=== PATIENT | male | born 1965 | race Caucasian/White ===

== ENCOUNTER 2019-09-01 19:06 | Emergency (ER) | payer BC ==
[2019-09-01 19:21] VITALS: BP 148/92; PULSE 124
[2019-09-01] MEDS ORDERED: Lactated Ringers 1,000 ML IV ONE (20:29)
[2019-09-01] MEDS ORDERED: cefTRIAXone 1 GM in Sodium Chloride 0.9% 100 ML IV STA (20:30)
--- NOTE | 2019-09-01 20:36 | EDM.PDOC ---
ED HPI GENERAL MEDICAL PROBLEM - General Chief Complaint: Genitourinary Problem Stated Complaint: SENT BY [facility] - UTI Time Seen by Provider: 09/01/19 19:31 Source of Information: Reports: Patient History Limitations: Reports: No Limitations - History of Present Illness INITIAL COMMENTS - FREE TEXT/NARRATIVE: Mr. Bruner is a very pleasant 54-year-old man with a past medical history significant for diabetes, obstructive sleep apnea, a pulmonary embolus in 2017, for which he is still on Eliquis, ulcerative colitis, status post a total colectomy with ileostomy, kidney stones, and chronic low back pain for which he takes oxycodone, and for which he is due to have nerve ablation soon. He presents to the ED stating that he developed gross hematuria along with pain at the tip of his penis whenever he urinated this past 08/29/2019. His symptoms persisted through yesterday, 08/31/2019. He states that his symptoms seem to improve a bit today noting that his urine is still bloody, but not as severe, and he has less penile pain. He has not had a fever, and he denies having flank pain, although he states that his current symptoms are similar to when he had a kidney stone in the past. At that time, he had slight flank pain. The patient went to the walk-in clinic this afternoon to get evaluated. A CBC, CMP, and urinalysis by clean catch were performed, and the patient was told that he has pyelonephritis. He states that no medications were given, but that he was instructed to come here for treatment. Paperwork from the walk-in clinic indicates that his CBC is remarkable for a WBC count elevated at 16.2 with no left shift, and platelets mildly elevated at 404,000. The remainder of his CBC was unremarkable. His CMP is remarkable for a sodium slightly depressed at 133, but with a blood glucose elevated at 414; his sodium corrects to 137. His BUN was normal at 17, with a creatinine elevated at 1.50. The remainder of his CMP was unremarkable. His urinalysis was notable for turbid appearance, >500 mg/dl glucose, 15 mg/dl ketones, >300 mg/dl protein, 3+ occult blood with >30 RBCs, 1+ leukocyte esterase with >50 WBCs, nitrate positive with 0-10 bacteria, and negative screen with epithelial cells. A urine culture was ordered. The patient acknowledges that he does not take good care of himself. He checks his blood sugar only once or twice a month, most recently about 3 weeks ago. His normal blood glucose range is between 300 and 400, and his Hgb A1c was 14% about one month ago. He is prescribed 2 different types of insulin, but states that he hasn't taken any for about 2 weeks. He has been hospitalized once before for hyperglycemia, but he states that he has never been diagnosed with DKA, to his knowledge. The patient's PCP is Dr. Seymour Mahmood. His Social Insurance Specialist is Dr. Glen Wylie. Perineal Area Pain Score (Numeric/FACES): 5 - Related Data Allergies Allergy/AdvReac Type Severity Reaction Status Date / Time aspartame Allergy Vomiting Verified 09/01/19 19:20 Home Meds: Home Meds Albuterol [Ventolin HFA] 2 puff INH Q6H PRN 08/07/16 [History] Ascorbate Calcium [Vitamin C] 500 mg PO DAILY PRN 08/07/16 [History] Calcium/Magnesium/Vit D3 [Calcium 500 MG] 3 tab PO DAILY PRN 08/07/16 [History] Chlorthalidone 12.5 mg PO DAILY 08/07/16 [History] Diltiazem [Cardizem CD] 240 mg PO DAILY 08/07/16 [History] Insulin Aspart [NovoLOG] 10 unit SQ TID 08/07/16 [History] Loratadine [Claritin] 10 mg PO DAILY PRN 08/07/16 [History] Losartan [Cozaar] 100 mg PO DAILY 08/07/16 [History] Pantoprazole [ProTONIX] 40 mg PO DAILY 08/07/16 [History] Simvastatin [Zocor] 40 mg PO BEDTIME 08/07/16 [History] Triceba. 60 units SQ DAILY 08/07/16 [History] Ubidecarenone [Co Q-10] 100 mg PO DAILY PRN 08/07/16 [History] Apixaban [Eliquis] 5 mg PO BID #60 tablet 08/10/16 [Rx] Potassium Chloride [Klor-Con M20] 20 meq PO DAILY #30 tab.er 08/10/16 [Rx] Nitrofurantoin Monohyd/M-Cryst [Macrobid 100 mg Capsule] 1 cap PO Q12H #10 capsule 09/01/19 [Rx] Past Medical History HEENT History: Reports: Impaired Vision Cardiovascular History: Reports: High Cholesterol, Hypertension Respiratory History: Reports: PE (2017), Sleep Apnea (nightly CPAP 14) Gastrointestinal History: Reports: GERD, Inflammatory Bowel Disease (Ulcerative colitis, status post total colectomy 2014) Genitourinary History: Reports: BPH (untreated), Renal Calculus Musculoskeletal History: Reports: Back Pain, Chronic Endocrine/Metabolic History: Reports: Diabetes, Type II, Obesity/BMI 30+ - Infectious Disease History Infectious Disease History: Reports: Chicken Pox, Measles, Mumps - Past Surgical History GI Surgical History: Reports: Colon (Total colectomy with ileostomy 2014), Colonoscopy (x 2), EGD (x 1) Musculoskeletal Surgical History: Reports: Shoulder Surgery (right, open) Social & Family History - Family History Endocrine/Metabolic: Reports: Diabetes, type II Hematologic: Reports: Other (See Below) Other Hematologic Family History: Protein S deficiency - Tobacco Use Smoking Status *Q: Never Smoker - Caffeine Use Caffeine Use: Reports: Other Other Caffeine Use: Rhino Espitia drinks----drinks them occasionally - Alcohol Use Alcohol Use History: Yes Alcohol Use Frequency: Rarely - Recreational Drug Use Recreational Drug Use: No - Living Situation & Occupation Living situation: Reports: , Alone Occupation: Employed ([employer]) ED ROS GENERAL - Review of Systems Review Of Systems: Comprehensive ROS is negative, except as noted in HPI. ED EXAM, RENAL/ - Physical Exam Exam: See Below Exam Limited By: No Limitations General Appearance: Alert, WD/WN, No Apparent Distress Eye Exam: Bilateral Eye: EOMI, Normal Inspection Ears: Normal External Exam, Hearing Grossly Normal Nose: Normal Inspection Throat/Mouth: Normal Inspection, Normal Lips, Normal Voice, No Airway Compromise Head: Atraumatic, Normocephalic Neck: Normal Inspection, Full Range of Motion Respiratory/Chest: No Respiratory Distress, Lungs Clear, Normal Breath Sounds, No Accessory Muscle Use Cardiovascular: Normal Peripheral Pulses, No Edema, No Gallop, No JVD, No Murmur , No Rub, Tachycardia (regular) GI/Abdominal: Normal Bowel Sounds, Soft, No Organomegaly, No Distention, No Abnormal Bruit, No Mass, Tender (Slight, suprapubic only. Nontender elsewhere.) , Other (Para-umbilical ileostomy bag) (Male) Exam: Deferred Rectal (Males) Exam: Deferred Back Exam: Normal Inspection, Full Range of Motion. No: CVA Tenderness (L), CVA Tenderness (R) Extremities: Normal Inspection, Normal Range of Motion, No Pedal Edema, Normal Capillary Refill Neurological: Alert, Oriented, Normal Cognition, No Motor/Sensory Deficits Psychiatric: Normal Affect Skin Exam: Warm, Dry, Intact, Normal Color, No Rash Course - Vital Signs Last Recorded V/S: Last Vital Signs Temp 37.4 C 09/01/19 19:14 Pulse 124 H 09/01/19 19:14 Resp 20 09/01/19 19:14 BP 148/92 H 09/01/19 19:14 Pulse Ox 98 09/01/19 19:14 - Orders/Labs/Meds Orders: Active Orders 24 hr Category Date Time Status Abdomen Pelvis wo Cont [CT] Stat Exams 09/01/19 20:28 Taken Labs: Laboratory Tests 09/01/19 09/01/19 Range/Units 19:30 19:30 Magnesium 1.7 L (1.8-2.4) mg/dl Ketones 1.55 (0.0-0.3) mM Meds: Medications Discontinued Medications Generic Name Dose Route Start Last Admin Trade Name Guero PRN Reason Stop Dose Admin Ceftriaxone Sodium 1 gm/ 100 mls @ 200 mls/hr 09/01/19 20:30 09/01/19 20:42 Sodium Chloride IV 09/01/19 20:59 200 mls/hr ONETIME STA Administration Lactated Ringer's 1,000 mls @ 999 mls/hr 09/01/19 20:29 09/01/19 21:18 Ringers, Lactated IV 09/01/19 21:29 999 mls/hr .BOLUS ONE Administration - Re-Assessments/Exams Free Text/Narrative Re-Assessment/Exam: 09/01/19 20:31 The patient was sent over from the walk-in clinic for treatment for pyelonephritis, however, on evaluation, I don't think that he has pyelonephritis ; his urine is consistent with a UTI, but he does not have a fever or history of flank pain, and he does not have CVA tenderness on percussion. I am more concerned about his hyperglycemia. We already have a CBC and CMP from the walk- in clinic and I have ordered a magnesium level and a serum ketone level, to evaluate for DKA. I have also ordered a CT of his abdomen and pelvis without contrast to make sure that he does not have a kidney stone, noting that his current symptoms are similar to when he had a kidney stone in the past. In the meantime, the patient will be treated with 1 g of IV Rocephin, to treat his UTI , and IV fluid. I suspect that the patient is suffering from significant depression and grief following the loss of his . He immediately teared up when he explained that she about a year ago. His lack of attention to his diabetes suggests that he may have lost the will to live. 09/01/19 21:33 The patient's magnesium is slightly depressed at 1.7. His ketones are within normal limits at 1.55. 09/01/19 22:21 CT of the abdomen and pelvis without contrast is read by [facility] as: 1. Enlarged prostate gland. 2. Diffuse urinary bladder wall thickening most likely secondary to a degree of bladder outlet obstruction. Cystitis should also be in the differential. Please correlate with urinalysis. And symptomatology. [sic] 3. Mild hydronephrosis of the right kidney most likely secondary to the urinary bladder wall thickening. This is a new finding since the patient's prior study dated 03/13/2016 [sic] 4. Status post partial sigmoid resection with right lower quadrant colostomy noted. This is associated with a small parastomal hernia containing a loop of small bowel. This has remained stable since the prior study [sic] 5. 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 09/01/19 22:43 Test results discussed with the patient. As above, there is no evidence of a ureterolith. The patient appears to have cystitis, but there is no evidence for pyelonephritis. I strongly encouraged the patient to come into the hospital so that we can get his blood glucose under control, and to have him consulted by a coding educator, however, the patient declined. I will submit a prescription for nitrofurantoin, for the patient to complete a five-day course, I would like the patient to follow-up with his PCP in a few days if for no other recent and to check on his urine culture results from the walk-in clinic. He said that he would. Departure - Departure Time of Disposition: 22:46 Disposition: Home, Self-Care 01 Condition: Good Clinical Impression: UTI (urinary tract infection), Hyperglycemia due to type 2 diabetes mellitus - Discharge Information *PRESCRIPTION DRUG MONITORING PROGRAM REVIEWED*: Not Applicable *COPY OF PRESCRIPTION DRUG MONITORING REPORT IN PATIENT DARIAN: Not Applicable Prescriptions: Nitrofurantoin Monohyd/M-Cryst [Macrobid 100 mg Capsule] 1 cap PO Q12H #10 capsule Instructions: Urinary Tract Infection, Adult, [id number], Hyperglycemia, Easy -to-Read Referrals: Seymour Mahmood Jr, MD [Primary Care Provider] - Glen Wylie MD [Ordering Only Provider] - Forms: ED Department Discharge Additional Instructions: You were seen in the emergency room after being sent over from the walk-in clinic for possible pyelonephritis. Workup in the ER included additional blood work and a CT scan of your abdomen and pelvis without contrast. Based on your history, physical exam, walk-in clinic tests, and ER tests, you are suffering from a urinary tract infection and uncontrolled high blood sugar, but you do not have pyelonephritis. You were treated with IV fluid and the antibiotic Rocephin in the ER. A prescription for the antibiotic nitrofurantoin (Macrobid) has been sent to the [facility], located just south and across the [address] from [facility]. Take one tablet of nitrofurantoin every 12 hours, starting tomorrow morning, 09/02/2019, as prescribed. It is very important that you finish the entire 5-day course of nitrofurantoin unless told otherwise by your doctor. Stay adequately hydrated. We recommend that you check your blood sugar twice a day, and resume taking your usual insulins. We recommend that you follow-up with your PCP, Dr. Seymour Mahmood, on , 08/2019, to check on your urine culture results, to make sure that you are on the correct antibiotic. In addition, you need to discuss your hyperglycemia/ diabetes. If any other problems, please do not hesitate to return to the ER. - My Orders Last 24 Hours: My Active Orders 09/01/19 20:28 Abdomen Pelvis wo Cont [CT] Stat - Assessment/Plan Last 24 Hours: My Active Orders 09/01/19 20:28 Abdomen Pelvis wo Cont [CT] Stat
--- NOTE | 2019-09-02 08:57 | CT ---
CT abdomen and pelvis Technique: Multiple axial sections were obtained from above the dome of the diaphragm inferiorly through the pubic symphysis. Intravenous and oral contrast not utilized. Study performed as a ureteral stone protocol. Comparison: Prior renal stone CT exam of 03/13/16. Findings: Visualized lung bases show nothing acute. Liver contains no focal abnormality. Spleen appears within normal limits as seen. Adrenal glands show no nodule. Gallbladder contains no calcified gallstones. Aorta shows no aneurysm. No retroperitoneal adenopathy is seen. Ostomy identified within the right lower abdomen. Parastomal hernia is seen containing a loop of small bowel. This is an interval change from previous exam. Small anterior abdominal wall hernia is seen next to the stoma. Kidneys show no abnormal calcifications. Left ureter is mildly prominent but no obstructing ureteral calculi are seen. Bladder wall is somewhat thickened. No calculi within the bladder are noted. No free fluid or inflammatory change is appreciated. Incidental note of inferior vena cava is duplicated as a normal variant. Bone window settings were reviewed which show disc space narrowing at L5-S1. Anterior osteophytes are seen primarily off of L4. Impression: 1. Findings which are felt to be incidental as noted above. 2. Bladder wall thickening most likely relating to an element of bladder outlet obstruction but please exclude patient as having no symptoms of cystitis. 3. Nothing acute is otherwise seen. Diagnostic code #2 This report was dictated in [place] Standard Time I agree with preliminary report from [facility], finalized on 09/01/19, 11:18 PM Central Time
== END 2019-09-01 23:07 | disposition home or self-care (01) ==
LOC: JD.ED 19:06
DX: N39.0 Urinary tract infection, site not specified (principal); E11.65 Type 2 diabetes mellitus with hyperglycemia; E78.00 Pure hypercholesterolemia, unspecified; I10 Essential (primary) hypertension; G47.30 Sleep apnea, unspecified; K21.9 Gastro-esophageal reflux disease without esophagitis; G89.29 Other chronic pain; M54.5 Low back pain; E66.9 Obesity, unspecified; Z68.32 Body mass index [BMI] 32.0-32.9, adult; Z86.711 Personal history of pulmonary embolism; Z79.01 Long term (current) use of anticoagulants; Z88.8 Allergy status to other drugs, medicaments and biological substances; Z79.899 Other long term (current) drug therapy; Z79.4 Long term (current) use of insulin
CPT/HCPCS: 36415; 74176; 82009; 83735; 96361; 96365; 99284; J0696; J7050; J7120; 99283

== ENCOUNTER 2020-12-18 11:38 | Inpatient (IN) | payer BC ==
[2020-12-18] MEDS ORDERED: Sodium Chloride 0.9% 10 ML Syringe FLUSH PRN (11:52)
[2020-12-18] MEDS ORDERED: Ondansetron 4 MG/2 ML SDV IVPUSH ONE (12:04)
[2020-12-18] MEDS ORDERED: Sodium Chloride 0.9% 1,000 ML IV STA (12:04)
[2020-12-18] MEDS ORDERED: HYDROmorphone 0.5 MG/0.5 ML Syringe IVPUSH ONE (12:04)
--- NOTE | 2020-12-18 12:24 | EDM.PDOC ---
ED HPI GENERAL MEDICAL PROBLEM - General Chief Complaint: Abdominal Pain Stated Complaint: ABDOMINAL PAIN Time Seen by Provider: 12/18/20 11:52 Source of Information: Reports: Patient, RN Notes Reviewed History Limitations: Reports: No Limitations - History of Present Illness INITIAL COMMENTS - FREE TEXT/NARRATIVE: Patient is a 55-year-old male presenting to the emergency department with complaints of abdominal pain, nausea and vomiting, and decreased output from his ostomy. Pain began last evening. He did not begin vomiting until this morning. He states that upon waking today, he vomited up what he ate for dinner last evening. He states that since last evening, he is only had a small amount of clear fluid out of his ostomy site. He has had no fecal matter in his bag. He has had an ostomy since 2013 due to ulcerative colitis. Denies any history of bowel obstructions. He does state that his abdomen is more distended than normal. Denies any fever but has felt chilled. He has taken nothing for pain. Vital signs on triage show hypertension at 189/106. Remaining vital signs are normal. Pulse 89, temperature 98.2, respiratory 16, oxygen 98% on room air. Middle Abdominal Pain Score (Numeric/FACES): 8 - Related Data Allergies Allergy/AdvReac Type Severity Reaction Status Date / Time aspartame Allergy Vomiting Verified 12/18/20 11:48 Home Meds: Home Meds Chlorthalidone 12.5 mg PO DAILY 08/07/16 [History] Insulin Aspart [NovoLOG] 10 unit SQ TID 08/07/16 [History] Losartan [Cozaar] 100 mg PO DAILY 08/07/16 [History] Simvastatin [Zocor] 40 mg PO BEDTIME 08/07/16 [History] Triceba. 42 units SQ DAILY 08/07/16 [History] oxyCODONE 5 mg PO 12/18/20 [History] Past Medical History HEENT History: Reports: Impaired Vision Cardiovascular History: Reports: High Cholesterol, Hypertension Respiratory History: Reports: PE, Sleep Apnea Other Respiratory History: ARDS Gastrointestinal History: Reports: GERD, Inflammatory Bowel Disease Other Gastrointestinal History: Ulcerative colitis Genitourinary History: Reports: BPH, Renal Calculus Musculoskeletal History: Reports: Back Pain, Chronic Other Musculoskeletal History: sore joints Endocrine/Metabolic History: Reports: Diabetes, Type II, Obesity/BMI 30+ - Infectious Disease History Infectious Disease History: Reports: Chicken Pox, Measles, Mumps - Past Surgical History GI Surgical History: Reports: Colon, Colonoscopy, EGD Other GI Surgeries/Procedures: ileostomy Musculoskeletal Surgical History: Reports: Shoulder Surgery Social & Family History - Family History Endocrine/Metabolic: Reports: Diabetes, type II Hematologic: Reports: Other (See Below) Other Hematologic Family History: Protein S deficiency - Tobacco Use Tobacco Use Status *Q: Never Tobacco User - Caffeine Use Caffeine Use: Reports: Other Other Caffeine Use: Rhino Espitia drinks----drinks them occasionally - Recreational Drug Use Recreational Drug Use: No - Living Situation & Occupation Living situation: Reports: , Alone Occupation: Employed ([employer]) ED ROS GENERAL - Review of Systems Review Of Systems: See Below Constitutional: Reports: Chills, Decreased Appetite. Denies: Fever HEENT: Reports: No Symptoms Respiratory: Reports: No Symptoms Cardiovascular: Reports: No Symptoms GI/Abdominal: Reports: Abdominal Pain, Nausea, Vomiting, Other (Decreased output from ostomy) : Reports: No Symptoms Musculoskeletal: Reports: No Symptoms Skin: Reports: No Symptoms Neurological: Reports: No Symptoms Psychiatric: Reports: No Symptoms Hematologic/Lymphatic: Reports: No Symptoms Immunologic: Reports: No Symptoms ED EXAM, GI/ABD - Physical Exam Exam: See Below Exam Limited By: No Limitations General Appearance: Alert, WD/WN, No Apparent Distress Respiratory/Chest: No Respiratory Distress, Lungs Clear, Normal Breath Sounds, No Accessory Muscle Use, Chest Non-Tender Cardiovascular: Normal Peripheral Pulses, Regular Rate, Rhythm, No Edema, No Gallop, No JVD, No Murmur, No Rub GI/Abdominal Exam: No Organomegaly, No Abnormal Bruit, No Mass, Pelvis Stable, Distended, Tender (generlized throughout), Abnormal Bowel Sounds (hypoactive throughout), Hernia (Peristomal hernia right lower quadrant), Other (ostomy to RLQ. Small amount of clear fluid in the ostomy bag.). No: Guarding Neurological: Alert, Oriented, CN II-XII Intact, Normal Cognition, Normal Gait, Normal Reflexes, No Motor/Sensory Deficits Psychiatric: Normal Affect, Normal Mood Skin Exam: Warm, Dry, Intact, Normal Color, No Rash Course - Vital Signs Last Recorded V/S: Last Vital Signs Temp 96.9 F 12/18/20 20:15 Pulse 105 H 12/18/20 20:15 Resp 20 03/27/21 20:15 BP 142/83 H 12/18/20 20:15 Pulse Ox 97 12/18/20 20:15 - Orders/Labs/Meds Orders: Active Orders 24 hr Category Date Time Status Patient Status [ADT] Routine ADT 12/18/20 19:04 Active Activity as Tolerated [RC] .Routine Care 12/18/20 19:04 Active Antiembolic Devices [RC] PER UNIT ROUTINE Care 12/18/20 19:05 Active Blood Glucose Check, Bedside [RC] ONETIME Care 12/18/20 18:30 Active Communication Order [RC] ASDIRECTED Care 12/18/20 19:10 Active Communication Order [RC] ROUTINE Care 12/18/20 18:31 Active Cooling Warming Measures [RC] ASDIRECTED Care 12/18/20 18:30 Active Gastrointestinal Tube Mgmt [RC] ASDIRECTED Care 12/18/20 19:07 Active Insert Urinary Catheter [OM.PC] Stat Care 12/18/20 19:07 Ordered Notify Provider [RC] ASDIRECTED Care 12/18/20 18:31 Active Oxygen Therapy [RC] ASDIRECTED Care 12/18/20 18:30 Active Oxygen Therapy [RC] PRN Care 12/18/20 19:04 Active Peripheral IV Care [RC] . DIRECTED Care 12/18/20 11:52 Active Pulse Oximetry [RC] ASDIRECTED Care 12/18/20 18:30 Active RT Incentive Spirometry [RC] Q1HWA Care 12/18/20 19:04 Active Urinary Catheter Assessment [RC] ASDIRECTED Care 12/18/20 19:07 Active Vital Signs [RC] Q15M Care 12/18/20 18:30 Active Vital Signs [RC] Q15M Care 12/18/20 19:04 Active Vital Signs [RC] Q4H Care 12/18/20 19:04 Active Nothing Per Oral Diet [DIET] Diet 12/18/20 Breakfast Active Abdomen Pelvis w Cont [CT] Stat Exams 12/18/20 12:04 Taken BASIC METABOLIC PANEL,BMP [CHEM] AM Lab 12/19/20 05:11 Ordered CBC WITH AUTO DIFF [HEME] AM Lab 12/19/20 05:11 Ordered CULTURE BLOOD [BC] Stat Lab 12/18/20 15:06 Received CULTURE BLOOD [BC] Stat Lab 12/18/20 15:14 Received HYDROmorphone [Dilaudid] Med 12/18/20 18:31 Active 0.5 mg IVPUSH Q1H PRN HYDROmorphone [Dilaudid] Med 12/18/20 19:09 Active 1 mg IVPUSH Q2H PRN Insulin Regular, Human [HumuLIN R] 100 unit Med 12/18/20 19:15 Active Sodium Chloride 0.9% [Normal Saline] 99 ml IV TITRATE Labetalol [Normodyne] Med 12/18/20 19:16 Active 5 mg IVPUSH ONETIME PRN Lactated Ringers [Ringers, Lactated] 1,000 ml Med 12/18/20 19:15 Active IV ASDIRECTED Piperacillin/Tazobactam [Piperacil-Tazobact] 4.5 gm Med 12/18/20 19:15 Active Sodium Chloride 0.9% [Normal Saline] 100 ml IV Q8H Sodium Chloride 0.9% [Normal Saline] 1,000 ml Med 12/18/20 12:04 Active IV NOW Sodium Chloride 0.9% [Saline Flush] [facility] 12/18/20 11:52 Active 10 ml FLUSH ASDIRECTED PRN Sodium Chloride 0.9% [Saline Flush] [facility] 12/18/20 13:35 Active 10 ml FLUSH BOLUS fentaNYL [Sublimaze] [facility] 12/18/20 18:31 Active 50 mcg IVPUSH Q5M PRN Blood Culture x2 Reflex Set [OM.PC] Stat Ot 12/18/20 14:52 Ordered Bulb Suction [OM.PC] Routine Ot 12/18/20 19:07 Ordered Peripheral IV Insertion Adult [OM.PC] Stat Ot 12/18/20 11:52 Ordered Schedule Procedure [COMM] Routine Ot 12/18/20 15:31 Ordered Schedule Procedure [COMM] Stat Ot 12/18/20 15:18 Ordered Sequential Compression Device [OM.PC] Routine Ot 12/18/20 19:04 Ordered Resuscitation Status Routine Resus Stat 12/18/20 19:04 Ordered Medication Orders Enoxaparin Sodium (Enoxaparin 40 Mg/0.4 Ml Syringe) 40 mg SUBCUT Q12H PHILLIP Last Admin: 12/18/20 20:41 Dose: 40 mg Documented by: ANTON Fentanyl (Fentanyl 100 Mcg/2 Ml Sdv) 50 mcg IVPUSH Q5M PRN PRN Reason: Pain Last Admin: 12/18/20 19:39 Dose: 50 mcg Documented by: ALUIVAL Hydromorphone HCl (Hydromorphone 0.5 Mg/0.5 Ml Syringe) 0.5 mg IVPUSH Q1H PRN PRN Reason: Pain Last Admin: 12/18/20 19:20 Dose: 0.5 mg Documented by: ALUIVAL Hydromorphone HCl (Hydromorphone 1 Mg/Ml Syringe) 1 mg IVPUSH Q2H PRN PRN Reason: Pain Sodium Chloride (Normal Saline) 1,000 mls @ 100 mls/hr IV NOW STA Stop: 12/18/20 22:03 Last Admin: 12/18/20 12:17 Dose: 100 mls/hr Documented by: SHAHZAD Lactated Ringer's (Ringers, Lactated) 1,000 mls @ 150 mls/hr IV ASDIRECTED PHILLIP Last Admin: 12/18/20 20:28 Dose: 150 mls/hr Documented by: ANTON Piperacillin Sod/Tazobactam (Sod 4.5 gm/ Sodium Chloride) 100 mls @ 25 mls/hr IV Q8H PHILLIP Last Admin: 12/18/20 20:28 Dose: 25 mls/hr Documented by: ANTON Insulin Human Regular 100 unit (/ Sodium Chloride) 100 mls @ 13.154 mls/hr IV TITRATE PHILLIP; Protocol Last Titration: 12/18/20 21:25 Dose: 0.02 units/kg/hr, 3 mls/hr Documented by: ANTON Cosigned by: HERMMIC Titration: 12/18/20 20:36 Dose: 0.04 units/kg/hr, 5 mls/hr Documented by: ANTON Cosigned by: MOMO Admin: 12/18/20 20:34 Dose: 0.1 units/kg/hr, 13.154 mls/hr Documented by: ANTON Cosigned by: MOMO Magnesium Sulfate (Magnesium Sulfate In Water 2 Gm/50 Ml) 2 gm in 50 mls @ 25 mls/hr IV ONETIME ONE Stop: 12/18/20 22:59 Last Admin: 12/18/20 20:41 Dose: 25 mls/hr Documented by: ANTON Labetalol HCl (Labetalol 100 Mg/20 Ml Mdv) 5 mg IVPUSH ONETIME PRN; Protocol PRN Reason: Hypertension Last Admin: 12/18/20 19:26 Dose: 5 mg Documented by: ALUIVAL Sodium Chloride (Sodium Chloride 0.9% 10 Ml Syringe) 10 ml FLUSH ASDIRECTED PRN PRN Reason: Keep Vein Open Last Admin: 12/18/20 11:56 Dose: 10 ml Documented by: YANDELERELI Sodium Chloride (Sodium Chloride 0.9% 10 Ml Syringe) 10 ml FLUSH BOLUS PHILLIP Last Admin: 12/18/20 14:04 Dose: 10 ml Documented by: FESTUS Labs: Laboratory Tests 12/18/20 12/18/20 12/18/20 Range/Units 11:45 11:45 11:45 WBC 21.56 H (4.23-9.07) K/mm3 RBC 5.24 (4.63-6.08) M/mm3 Hgb 12.6 L D (13.7-17.5) gm/dl Hct 39.6 L (40.1-51.0) % MCV 75.6 L (79.0-92.2) fl MCH 24.0 L (25.7-32.2) pg MCHC 31.8 L (32.2-35.5) g/dl RDW Std Deviation 42.0 (35.1-43.9) fL Plt Count 534 H D (163-337) K/mm3 MPV 10.0 (9.4-12.3) fl Neut % (Auto) 87.2 H (34.0-67.9) % Lymph % (Auto) 7.9 L (21.8-53.1) % [place] % (Auto) 4.3 L (5.3-12.2) % Eos % (Auto) 0.3 L (0.8-7.0) Baso % (Auto) 0.1 (0.1-1.2) % Neut # (Auto) 18.79 H (1.78-5.38) K/mm3 Lymph # (Auto) 1.71 (1.32-3.57) K/mm3 [place] # (Auto) 0.92 H (0.30-0.82) K/mm3 Eos # (Auto) 0.07 (0.04-0.54) K/mm3 Baso # (Auto) 0.02 (0.01-0.08) K/mm3 Manual Slide Review Abnormal smear Sodium 136 (136-145) mEq/L Potassium 3.3 L (3.5-5.1) mEq/L Chloride 96 L (98-107) mEq/L Carbon Dioxide 30 (21-32) mEq/L Anion Gap 13.3 (5-15) BUN 21 H (7-18) mg/dL Creatinine 1.2 (0.7-1.3) mg/dL Est Cr Clr Drug Dosing 78.61 mL/min Estimated GFR (MDRD) > 60 (>60) mL/min BUN/Creatinine Ratio 17.5 (14-18) Glucose 214 H (74-106) mg/dL POC Glucose (70-105) mg/dL Lactic Acid (0.4-2.0) mmol/L Calcium 9.7 (8.5-10.1) mg/dL Magnesium 1.7 L (1.8-2.4) mg/dl Total Bilirubin 0.5 (0.2-1.0) mg/dL AST 15 (15-37) U/L ALT 24 (16-63) U/L Alkaline Phosphatase 211 H (46-116) U/L C-Reactive Protein 8.4 H* (<1.0) mg/dL Total Protein 9.5 H (6.4-8.2) g/dl Albumin 3.4 (3.4-5.0) g/dl Globulin 6.1 gm/dL Albumin/Globulin Ratio 0.6 L (1-2) SARS-CoV-2 RNA (LAN) (NEGATIVE) 12/18/20 12/18/20 12/18/20 Range/Units 13:18 15:14 19:18 WBC (4.23-9.07) K/mm3 RBC (4.63-6.08) M/mm3 Hgb (13.7-17.5) gm/dl Hct (40.1-51.0) % MCV (79.0-92.2) fl MCH (25.7-32.2) pg MCHC (32.2-35.5) g/dl RDW Std Deviation (35.1-43.9) fL Plt Count (163-337) K/mm3 MPV (9.4-12.3) fl Neut % (Auto) (34.0-67.9) % Lymph % (Auto) (21.8-53.1) % [place] % (Auto) (5.3-12.2) % Eos % (Auto) (0.8-7.0) Baso % (Auto) (0.1-1.2) % Neut # (Auto) (1.78-5.38) K/mm3 Lymph # (Auto) (1.32-3.57) K/mm3 [place] # (Auto) (0.30-0.82) K/mm3 Eos # (Auto) (0.04-0.54) K/mm3 Baso # (Auto) (0.01-0.08) K/mm3 Manual Slide Review Sodium (136-145) mEq/L Potassium (3.5-5.1) mEq/L Chloride (98-107) mEq/L Carbon Dioxide (21-32) mEq/L Anion Gap (5-15) BUN (7-18) mg/dL Creatinine (0.7-1.3) mg/dL Est Cr Clr Drug Dosing mL/min Estimated GFR (MDRD) (>60) mL/min BUN/Creatinine Ratio (14-18) Glucose (74-106) mg/dL POC Glucose 164 H (70-105) mg/dL Lactic Acid 1.0 (0.4-2.0) mmol/L Calcium (8.5-10.1) mg/dL Magnesium (1.8-2.4) mg/dl Total Bilirubin (0.2-1.0) mg/dL AST (15-37) U/L ALT (16-63) U/L Alkaline Phosphatase (46-116) U/L C-Reactive Protein (<1.0) mg/dL Total Protein (6.4-8.2) g/dl Albumin (3.4-5.0) g/dl Globulin gm/dL Albumin/Globulin Ratio (1-2) SARS-CoV-2 RNA (LAN) Negative (NEGATIVE) Meds: Medications Generic Name Dose Route Start Last Admin Trade Name Freq PRN Reason Stop Dose Admin Enoxaparin Sodium 40 mg 12/18/20 21:00 12/18/20 20:41 Enoxaparin 40 Mg/0.4 Ml Syringe SUBCUT 40 mg Q12H PHILLIP Administration Fentanyl 50 mcg 12/18/20 18:31 12/18/20 19:39 Fentanyl 100 Mcg/2 Ml Sdv IVPUSH 50 mcg Q5M PRN Administration Pain Hydromorphone HCl 0.5 mg 12/18/20 18:31 12/18/20 19:20 Hydromorphone 0.5 Mg/0.5 Ml Syringe IVPUSH 0.5 mg Q1H PRN Administration Pain Hydromorphone HCl 1 mg 12/18/20 19:09 Hydromorphone 1 Mg/Ml Syringe IVPUSH Q2H PRN Pain Sodium Chloride 1,000 mls @ 100 mls/hr 12/18/20 12:04 12/18/20 12:17 Normal Saline IV 12/18/20 22:03 100 mls/hr NOW STA Administration Lactated Ringer's 1,000 mls @ 150 mls/hr 12/18/20 19:15 12/18/20 20:28 Ringers, Lactated IV 150 mls/hr ASDIRECTED PHILLIP Administration Piperacillin Sod/Tazobactam 100 mls @ 25 mls/hr 12/18/20 19:15 12/18/20 20:28 Sod 4.5 gm/ Sodium Chloride IV 25 mls/hr Q8H PHILLIP Administration Insulin Human Regular 100 unit 100 mls @ 13.154 mls/hr 12/18/20 19:15 12/18/20 21:25 / Sodium Chloride IV 0.02 units/kg/hr TITRATE PHILLIP 3 mls/hr Titration Protocol 0.1 UNITS/KG/HR Magnesium Sulfate 2 gm in 50 mls @ 25 mls/hr 12/18/20 21:00 12/18/20 20:41 Magnesium Sulfate In Water 2 Gm/50 Ml IV 12/18/20 22:59 25 mls/hr ONETIME ONE Administration Labetalol HCl 5 mg 12/18/20 19:16 12/18/20 19:26 Labetalol 100 Mg/20 Ml Mdv IVPUSH 5 mg ONETIME PRN Administration Hypertension Protocol Sodium Chloride 10 ml 12/18/20 11:52 12/18/20 11:56 Sodium Chloride 0.9% 10 Ml Syringe FLUSH 10 ml ASDIRECTED PRN Administration Keep Vein Open Sodium Chloride 10 ml 12/18/20 13:35 12/18/20 14:04 Sodium Chloride 0.9% 10 Ml Syringe FLUSH 10 ml BOLUS PHILLIP Administration Discontinued Medications Generic Name Dose Route Start Last Admin Trade Name Guero PRN Reason Stop Dose Admin Bupivacaine HCl/Epinephrine Bitart Confirm 12/18/20 15:33 12/18/20 16:23 Bupivacaine 0.5%/Epinephrine 1:200,000 50 Ml Mdv Administered 12/18/20 15:34 24 ml Dose Administration 50 ml .ROUTE .STK-MED ONE Diatrizoate Meglum/Diatrizoate Sod 120 ml 12/18/20 12:41 12/18/20 20:29 Diatrizoate Meglumine/Diatrizoate Sodium 37% 120 Ml Bottle PO 12/18/20 12:42 Not Given ONETIME ONE Fentanyl Confirm 12/18/20 15:16 Fentanyl 250 Mcg/5 Ml Sdv Administered 12/18/20 15:17 Dose 250 mcg .ROUTE .STK-MED ONE Fentanyl Confirm 12/18/20 16:53 Fentanyl 100 Mcg/2 Ml Sdv Administered 12/18/20 16:54 Dose 100 mcg .ROUTE .STK-MED ONE Fentanyl Confirm 12/18/20 17:48 Fentanyl 100 Mcg/2 Ml Sdv Administered 12/18/20 17:49 Dose 100 mcg .ROUTE .STK-MED ONE Glycopyrrolate Confirm 12/18/20 18:44 Glycopyrrolate 0.2 Mg/Ml 2 Ml Syringe Administered 12/18/20 18:45 Dose 0.4 mg .ROUTE .STK-MED ONE Heparin Sodium (Porcine) Confirm 12/18/20 15:59 Heparin Sodium 5,000 Units/Ml Vial Administered 12/18/20 16:00 Dose 5,000 units .ROUTE .STK-MED ONE Heparin Sodium (Porcine) Confirm 12/18/20 15:59 Heparin Sodium 5,000 Units/Ml Vial Administered 12/18/20 16:00 Dose 5,000 units .ROUTE .STK-MED ONE Hydromorphone HCl 0.5 mg 12/18/20 12:04 12/18/20 12:17 Hydromorphone 0.5 Mg/0.5 Ml Syringe IVPUSH 12/18/20 12:05 0.5 mg ONETIME ONE Administration Hydromorphone HCl Confirm 12/18/20 16:44 Hydromorphone 0.5 Mg/0.5 Ml Syringe Administered 12/18/20 16:45 Dose 0.5 mg .ROUTE .STK-MED ONE Hydromorphone HCl Confirm 12/18/20 16:44 Hydromorphone 0.5 Mg/0.5 Ml Syringe Administered 12/18/20 16:45 Dose 0.5 mg .ROUTE .STK-MED ONE Piperacillin Sod/Tazobactam 100 mls @ 200 mls/hr 12/18/20 14:56 12/18/20 15:18 Sod 4.5 gm/ Sodium Chloride IV 12/18/20 15:25 200 mls/hr ONETIME ONE Administration Lidocaine HCl Confirm 12/18/20 15:17 Xylocaine-Mpf 1% Administered 12/18/20 15:18 Dose 4 mls @ as directed .ROUTE .STK-MED ONE Lactated Ringer's Confirm 12/18/20 16:27 Ringers, Lactated Administered 12/18/20 16:28 Dose 1,000 mls @ as directed .ROUTE .STK-MED ONE Lactated Ringer's Confirm 12/18/20 16:39 Ringers, Lactated Administered 12/18/20 16:40 Dose 1,000 mls @ as directed .ROUTE .STK-MED ONE Lactated Ringer's Confirm 12/18/20 17:32 Ringers, Lactated Administered 12/18/20 17:33 Dose 1,000 mls @ as directed .ROUTE .STK-MED ONE Iopamidol 100 ml 12/18/20 12:45 12/18/20 14:04 Iopamidol 612 Mg/Ml 100 Ml Bottle IVPUSH 12/18/20 12:46 100 ml ONETIME ONE Administration Ketorolac Tromethamine Confirm 12/18/20 18:34 Ketorolac 30 Mg/Ml Sdv Administered 12/18/20 18:35 Dose 30 mg .ROUTE .STK-MED ONE Labetalol HCl 5 mg 12/18/20 19:15 Labetalol 100 Mg/20 Ml Mdv IVPUSH ONETIME PHILLIP Protocol Midazolam HCl Confirm 12/18/20 15:16 Midazolam 1 Mg/Ml 2 Ml Sdv Administered 12/18/20 15:17 Dose 2 mg .ROUTE .STK-MED ONE Miscellaneous Medication Confirm 12/18/20 16:19 Phenylephrine Hcl In 0.9% Nacl 1 Mg/10 Ml Syringe Administered 12/18/20 16:20 Dose 1 mg .ROUTE .STK-MED ONE Neostigmine Methylsulfate Confirm 12/18/20 18:44 Neostigmine Methylsulfate 5 Mg/5 Ml Syringe Administered 12/18/20 18:45 Dose 5 mg .ROUTE .STK-MED ONE Neostigmine Methylsulfate Confirm 12/18/20 18:55 Neostigmine Methylsulfate 5 Mg/5 Ml Syringe Administered 12/18/20 18:56 Dose 5 mg .ROUTE .STK-MED ONE Ondansetron HCl 4 mg 12/18/20 12:04 12/18/20 12:17 Ondansetron 4 Mg/2 Ml Sdv IVPUSH 12/18/20 12:05 4 mg ONETIME ONE Administration Ondansetron HCl Confirm 12/18/20 15:16 Ondansetron 4 Mg/2 Ml Sdv Administered 12/18/20 15:17 Dose 4 mg .ROUTE .STK-MED ONE Propofol Confirm 12/18/20 15:16 Propofol 200 Mg/20 Ml Sdv Administered 12/18/20 15:17 Dose 200 mg .ROUTE .STK-MED ONE Rocuronium Piqua Confirm 12/18/20 15:16 Rocuronium 50 Mg/5 Ml Vial Administered 12/18/20 15:17 Dose 50 mg .ROUTE .STK-MED ONE Rocuronium Piqua Confirm 12/18/20 17:51 Rocuronium 50 Mg/5 Ml Vial Administered 12/18/20 17:52 Dose 50 mg .ROUTE .STK-MED ONE - Re-Assessments/Exams Free Text/Narrative Re-Assessment/Exam: Patient is a 55-year-old male presenting to the emergency department with complaints of generalized abdominal pain onset of nausea and vomiting this morning. He does have an ostomy which she states was placed in 2013 for ulcerative colitis. Denies any known fever but states he has felt chilled. Denies any history of small bowel obstruction. On exam, he does have hypoactive bowel sounds throughout. Abdomen is distended and there is only a small amount of clear fluid in his ostomy bag. He states this is the only output he has had since yesterday. Exam findings are suspicious for possible small bowel obstruction. I have ordered blood work, urinalysis, and a CT scan of the abdomen pelvis with IV and oral contrast. We will start IV fluids of NS at 100 mils per hour, Zofran 4 mg IV for nausea, and Dilaudid 0.5 mg IV for pain. 12/18/20 1455 Hematology was significant for WBC elevated at 21.56, hemoglobin low at 12.6, platelets elevated at 534, potassium 3.3, glucose 214, CRP 8.4. Covid is negative. Patient has not voided thus far, therefore urinalysis results not available. CT scan of the abdomen pelvis impression as follows: 1. The patient has a history of peristomal hernia. On the current examination, there are multiple dilated loops of fluid-filled small bowel. Other loops appear to contain fecalization of stool. The small bowel in the hernia sac demo nstrates gaseous distention. There appears to be some possible twisting of the bowel in the hernia sac with a probable compressed loop of bowel identified in the portion of the sac (versus compressed ostomy loop: Series 2, image 70 ). Findings are most consistent with a small bowel obstruction. There is intraloop ascites for which bowel compromise is not excluded. On lung windows, there are possible pneumatosis in a loop of small bowel (series 2, image 68 and 69. Alternatively, this could be related to motion/gas within the folds. 2. Ascites as described. 3. Urinary bladder wall prominence. This can be seen with infection or under distention. Other findings/details as above. On initial presentation, patient did not meet sepsis criteria with a heart rate of 89, respiratory rate of 18, and temperature of 98.9; owever, current heart rate is in the low 100s and given his white count, he does meet SIRS criteria. I have added on a lactic acid and blood cultures. Blood pressure remained stable at 159/96, therefore, fluid bolus is not indicated at this time. Case dcussed with general surgeon, Dr. Espinosa. He requested: OR crew would prepare for exploratory laparotomy with possible bowel resection. Requested a first dose of Zosyn be given now. Discussed this plan with the patient and he is in agreement. Departure - Departure Time of Disposition: 15:07 Disposition: DC/Tfer to [facility] Condition: Good Clinical Impression: Small bowel obstruction - Discharge Information Sepsis Event Note (ED) - Evaluation Sepsis Screening Result: No Definite Risk - Focused Exam Vital Signs: Vital Signs Temp Pulse Resp BP Pulse Ox Pulse Ox 12/18/20 20:00 86 20 140/74 98 12/18/20 19:55 73 21 H 139/79 100 99 12/18/20 19:50 99.0 F 74 26 H 141/79 H 100 12/18/20 19:40 99.3 F 75 20 139/73 96 12/18/20 19:38 96 12/18/20 19:35 99.5 F 72 24 H 146/76 H 98 12/18/20 19:30 74 24 H 153/86 H 99 12/18/20 19:20 93 24 H 174/86 H 100 12/18/20 19:04 100.0 F 97 14 189/97 H 98 98 12/18/20 15:01 98.2 F 100 16 159/96 H 96 12/18/20 11:44 98.2 F 89 16 98 - My Orders Last 24 Hours: My Active Orders 12/18/20 11:52 Peripheral IV Care [RC] . DIRECTED Sodium Chloride 0.9% [Saline Flush] 10 ml FLUSH ASDIRECTED PRN Peripheral IV Insertion Adult [OM.PC] Stat 12/18/20 12:04 Abdomen Pelvis w Cont [CT] Stat Sodium Chloride 0.9% [Normal Saline] 1,000 ml IV NOW 12/18/20 13:35 Sodium Chloride 0.9% [Saline Flush] 10 ml FLUSH BOLUS 12/18/20 14:52 Blood Culture x2 Reflex Set [OM.PC] Stat 12/18/20 15:06 CULTURE BLOOD [BC] Stat 12/18/20 15:14 CULTURE BLOOD [BC] Stat - Assessment/Plan Last 24 Hours: My Active Orders 12/18/20 11:52 Peripheral IV Care [RC] . DIRECTED Sodium Chloride 0.9% [Saline Flush] 10 ml FLUSH ASDIRECTED PRN Peripheral IV Insertion Adult [OM.PC] Stat 12/18/20 12:04 Abdomen Pelvis w Cont [CT] Stat Sodium Chloride 0.9% [Normal Saline] 1,000 ml IV NOW 12/18/20 13:35 Sodium Chloride 0.9% [Saline Flush] 10 ml FLUSH BOLUS 12/18/20 14:52 Blood Culture x2 Reflex Set [OM.PC] Stat 12/18/20 15:06 CULTURE BLOOD [BC] Stat 12/18/20 15:14 CULTURE BLOOD [BC] Stat
[2020-12-18] MEDS ORDERED: Diatrizoate Meglumine/Diatrizoate Sodium 37% 120 ML Bottle PO ONE (12:41)
[2020-12-18] MEDS ORDERED: Iopamidol 612 MG/ML 100 ML Bottle IVPUSH ONE (12:45)
[2020-12-18] MEDS ORDERED: Sodium Chloride 0.9% 10 ML Syringe FLUSH SCH (13:35)
[2020-12-18] MEDS ORDERED: Piperacillin/Tazobactam 4.5 GM in Sodium Chloride 0.9% 100 ML IV ONE (14:56)
[2020-12-18] MEDS ORDERED: fentaNYL 250 MCG/5 ML SDV ONE (15:16)
[2020-12-18] MEDS ORDERED: Midazolam 1 MG/ML 2 ML SDV ONE (15:16)
[2020-12-18] MEDS ORDERED: Rocuronium 50 MG/5 ML Vial ONE ×2 (15:16→17:51)
[2020-12-18] MEDS ORDERED: Propofol 200 MG/20 ML SDV ONE (15:16)
[2020-12-18] MEDS ORDERED: Ondansetron 4 MG/2 ML SDV ONE (15:16)
[2020-12-18] MEDS ORDERED: Lidocaine 1% 4 ML ONE (15:17)
[2020-12-18] MEDS ORDERED: Bupivacaine 0.5%/EPINEPHrine 1:200,000 50 ML MDV ONE (15:33)
--- NOTE | 2020-12-18 15:37 | PCM.HP.2 ---
H&P History of Present Illness - General Date of Service: 12/18/20 Admit Problem/Dx: Admission Diagnosis/Problem Admission Diagnosis/Problem Obstruction of colon Source of Information: Patient History Limitations: Reports: No Limitations - History of Present Illness Initial Comments - Free Text/Narative: Mr. Bruner is a 55 yo obese man presenting with signs and symptoms of small bowel obstruction. This started last night. He has a history of ulcerative colitis and underwent emergent total abdominal colectomy with ileostomy for fulminant disease in 2013. He says he never got around to having proctectomy/ IPAA. 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 He is in no acute distress with normal vitals, but WBC is over 20,000. He has had no ostomy output since last night. He has never had a bowel obstruction or other abdominal operations. He reports recent rectal bleeding; the last time his rectum was surveilled was about three years ago. He is not taking any immunosuppressive medication. He has a history of uncontrolled insulin dependent diabetes with reported recent A1c over 8. He has a history of what sounds like unprovoked pulmonary emboli a few years ago and was placed on eliquis, but he stopped taking this medication due to anemia. Hypercoagulable workup was apparently non-diagnostic. He has no other history of DVT or PE aside from this one event. He denies any cardiac pathology. Middle Abdominal Pain Score (Numeric/FACES): 8 - Related Data Allergies/Adverse Reactions: Allergies Allergy/AdvReac Type Severity Reaction Status Date / Time aspartame Allergy Vomiting Verified 12/18/20 11:48 Home Medications: Home Meds Chlorthalidone 12.5 mg PO DAILY 08/07/16 [History] Insulin Aspart [NovoLOG] 10 unit SQ TID 08/07/16 [History] Losartan [Cozaar] 100 mg PO DAILY 08/07/16 [History] Simvastatin [Zocor] 40 mg PO BEDTIME 08/07/16 [History] Triceba. 42 units SQ DAILY 08/07/16 [History] oxyCODONE 5 mg PO 12/18/20 [History] Past Medical History HEENT History: Reports: Impaired Vision Cardiovascular History: Reports: High Cholesterol, Hypertension Respiratory History: Reports: PE, Sleep Apnea Other Respiratory History: ARDS Gastrointestinal History: Reports: GERD, Inflammatory Bowel Disease Other Gastrointestinal History: Ulcerative colitis Genitourinary History: Reports: BPH, Renal Calculus Musculoskeletal History: Reports: Back Pain, Chronic Other Musculoskeletal History: sore joints Endocrine/Metabolic History: Reports: Diabetes, Type II, Obesity/BMI 30+ - Infectious Disease History Infectious Disease History: Reports: Chicken Pox, Measles, Mumps - Past Surgical History GI Surgical History: Reports: Colon, Colonoscopy, EGD Other GI Surgeries/Procedures: ileostomy Musculoskeletal Surgical History: Reports: Shoulder Surgery Social & Family History - Family History Endocrine/Metabolic: Reports: Diabetes, type II Hematologic: Reports: Other (See Below) Other Hematologic Family History: Protein S deficiency - Tobacco Use Tobacco Use Status *Q: Never Tobacco User - Caffeine Use Caffeine Use: Reports: Other Other Caffeine Use: Rhino Espitia drinks----drinks them occasionally - Recreational Drug Use Recreational Drug Use: No - Living Situation & Occupation Living situation: Reports: , Alone Occupation: Employed ([employer]) H&P Review of Systems - Review of Systems: Review Of Systems: See Below General: Reports: Malaise HEENT: Reports: No Symptoms Pulmonary: Reports: No Symptoms Cardiovascular: Reports: No Symptoms Gastrointestinal: Reports: Abdominal Pain, Anorexia, Nausea, Vomiting Genitourinary: Reports: No Symptoms Musculoskeletal: Reports: Back Pain Skin: Reports: No Symptoms Psychiatric: Reports: No Symptoms Neurological: Reports: No Symptoms Hematologic/Lymphatic: Reports: No Symptoms, Other (prior pulmonary emboli treated with systemic anticoagulation) Exam - Exam Exam: See Below - Vital Signs Vital Signs: Last Vital Signs Temp 36.8 C 12/18/20 15:01 Pulse 100 12/18/20 15:01 Resp 16 12/18/20 15:01 BP 159/96 H 12/18/20 15:01 Pulse Ox 96 12/18/20 15:01 Weight: 131.542 kg - Exam General: Alert, Oriented, Cooperative HEENT: Conjunctiva Clear Neck: Supple Lungs: Clear to Auscultation, Normal Respiratory Effort Cardiovascular: Regular Rate, Regular Rhythm GI/Abdominal Exam: Soft, Tender, Other (midline laparotomy scar with RLQ end ileostomy and strangulated parastomal hernia. Visible ileal mucosa appears viable, no stool output) Extremities: Normal Inspection Skin: Warm, Dry Neuro Extensive - Mental Status: Alert, Oriented x3 Psychiatric: Normal Mood - Patient Data Lab Results Last 24 hrs: Laboratory Results - last 24 hr 12/18/20 12/18/20 12/18/20 Range/Units 11:45 11:45 11:45 WBC 21.56 H (4.23-9.07) K/mm3 RBC 5.24 (4.63-6.08) M/mm3 Hgb 12.6 L D (13.7-17.5) gm/dl Hct 39.6 L (40.1-51.0) % MCV 75.6 L (79.0-92.2) fl MCH 24.0 L (25.7-32.2) pg MCHC 31.8 L (32.2-35.5) g/dl RDW Std Deviation 42.0 (35.1-43.9) fL Plt Count 534 H D (163-337) K/mm3 MPV 10.0 (9.4-12.3) fl Neut % (Auto) 87.2 H (34.0-67.9) % Lymph % (Auto) 7.9 L (21.8-53.1) % Tate % (Auto) 4.3 L (5.3-12.2) % Eos % (Auto) 0.3 L (0.8-7.0) Baso % (Auto) 0.1 (0.1-1.2) % Neut # (Auto) 18.79 H (1.78-5.38) K/mm3 Lymph # (Auto) 1.71 (1.32-3.57) K/mm3 Tate # (Auto) 0.92 H (0.30-0.82) K/mm3 Eos # (Auto) 0.07 (0.04-0.54) K/mm3 Baso # (Auto) 0.02 (0.01-0.08) K/mm3 Manual Slide Review Abnormal smear Sodium 136 (136-145) mEq/L Potassium 3.3 L (3.5-5.1) mEq/L Chloride 96 L (98-107) mEq/L Carbon Dioxide 30 (21-32) mEq/L Anion Gap 13.3 (5-15) BUN 21 H (7-18) mg/dL Creatinine 1.2 (0.7-1.3) mg/dL Est Cr Clr Drug Dosing 78.61 mL/min Estimated GFR (MDRD) > 60 (>60) mL/min BUN/Creatinine Ratio 17.5 (14-18) Glucose 214 H (74-106) mg/dL Calcium 9.7 (8.5-10.1) mg/dL Magnesium 1.7 L (1.8-2.4) mg/dl Total Bilirubin 0.5 (0.2-1.0) mg/dL AST 15 (15-37) U/L ALT 24 (16-63) U/L Alkaline Phosphatase 211 H (46-116) U/L C-Reactive Protein 8.4 H* (<1.0) mg/dL Total Protein 9.5 H (6.4-8.2) g/dl Albumin 3.4 (3.4-5.0) g/dl Globulin 6.1 gm/dL Albumin/Globulin Ratio 0.6 L (1-2) SARS-CoV-2 RNA (LAN) (NEGATIVE) 12/18/20 Range/Units 13:18 WBC (4.23-9.07) K/mm3 RBC (4.63-6.08) M/mm3 Hgb (13.7-17.5) gm/dl Hct (40.1-51.0) % MCV (79.0-92.2) fl MCH (25.7-32.2) pg MCHC (32.2-35.5) g/dl RDW Std Deviation (35.1-43.9) fL Plt Count (163-337) K/mm3 MPV (9.4-12.3) fl Neut % (Auto) (34.0-67.9) % Lymph % (Auto) (21.8-53.1) % Tate % (Auto) (5.3-12.2) % Eos % (Auto) (0.8-7.0) Baso % (Auto) (0.1-1.2) % Neut # (Auto) (1.78-5.38) K/mm3 Lymph # (Auto) (1.32-3.57) K/mm3 Tate # (Auto) (0.30-0.82) K/mm3 Eos # (Auto) (0.04-0.54) K/mm3 Baso # (Auto) (0.01-0.08) K/mm3 Manual Slide Review Sodium (136-145) mEq/L Potassium (3.5-5.1) mEq/L Chloride (98-107) mEq/L Carbon Dioxide (21-32) mEq/L Anion Gap (5-15) BUN (7-18) mg/dL Creatinine (0.7-1.3) mg/dL Est Cr Clr Drug Dosing mL/min Estimated GFR (MDRD) (>60) mL/min BUN/Creatinine Ratio (14-18) Glucose (74-106) mg/dL Calcium (8.5-10.1) mg/dL Magnesium (1.8-2.4) mg/dl Total Bilirubin (0.2-1.0) mg/dL AST (15-37) U/L ALT (16-63) U/L Alkaline Phosphatase (46-116) U/L C-Reactive Protein (<1.0) mg/dL Total Protein (6.4-8.2) g/dl Albumin (3.4-5.0) g/dl Globulin gm/dL Albumin/Globulin Ratio (1-2) SARS-CoV-2 RNA (LAN) Negative (NEGATIVE) Result Diagrams: 12/18/20 11:45 12/18/20 11:45 Sepsis Event Note - Evaluation Sepsis Screening Result: No Definite Risk - Focused Exam Vital Signs: Vital Signs Temp Pulse Resp BP Pulse Ox 12/18/20 15:01 36.8 C 100 16 159/96 H 96 12/18/20 11:44 36.8 C 89 16 98 Problem List Initiated/Reviewed/Updated: Yes Orders Last 24hrs: Active Orders 24 hr Category Date Time Status Admission Status [Patient Status] [ADT] Routine ADT 12/18/20 15:16 Active Peripheral IV Care [RC] . DIRECTED Care 12/18/20 11:52 Active Abdomen Pelvis w Cont [CT] Stat Exams 12/18/20 12:04 Taken CULTURE BLOOD [BC] Stat Lab 12/18/20 15:06 Received CULTURE BLOOD [BC] Stat Lab 12/18/20 15:14 Received LACTIC ACID [CHEM] Stat Lab 12/18/20 15:14 Received UA W/MICROSCOPIC [URIN] Stat Lab 12/18/20 11:52 Ordered Sodium Chloride 0.9% [Normal Saline] 1,000 ml Med 12/18/20 12:04 Active IV NOW Sodium Chloride 0.9% [Saline Flush] Med 12/18/20 11:52 Active 10 ml FLUSH ASDIRECTED PRN Sodium Chloride 0.9% [Saline Flush] Med 12/18/20 13:35 Active 10 ml FLUSH BOLUS Blood Culture x2 Reflex Set [OM.PC] Stat Ot 12/18/20 14:52 Ordered Peripheral IV Insertion Adult [OM.PC] Stat Ot 12/18/20 11:52 Ordered Schedule Procedure [COMM] Routine Oth 12/18/20 15:31 Ordered Schedule Procedure [COMM] Stat Ot 12/18/20 15:18 Ordered Medication Orders Sodium Chloride (Normal Saline) 1,000 mls @ 100 mls/hr IV NOW STA Stop: 12/18/20 22:03 Last Admin: 12/18/20 12:17 Dose: 100 mls/hr Documented by: EBERELI Sodium Chloride (Sodium Chloride 0.9% 10 Ml Syringe) 10 ml FLUSH ASDIRECTED PRN PRN Reason: Keep Vein Open Last Admin: 12/18/20 11:56 Dose: 10 ml Documented by: EBERELI Sodium Chloride (Sodium Chloride 0.9% 10 Ml Syringe) 10 ml FLUSH BOLUS [facility] Last Admin: 12/18/20 14:04 Dose: 10 ml Documented by: FESTUS Assessment/Plan Comment:: Strangulated parastomal hernia with complete obstruction in morbidly obese patient with poorly controlled diabetes and history of ulcerative colitis and pulmonary emboli. Plan for emergency laparotomy and primary hernia repair, with bowel resection an d ostomy revision as needed. I worry about the ability to close his abdomen given the circumstances, and there appears to be a midline incisional hernia adjacent to the ileostomy, with a narrow band of fascial tissue for midline closure. May plan for closure of midline with bridge of biologic mesh to avoid post-operative dehiscence. I emphasized the seriousness of the situation to the patient, the need for emergent operation and risks for complications including- dehiscence, abscess, post-operative hernia, recurrence of parastomal hernia, pulmonary embolus, myocardial infarction, cerebrovascular accident, . - Mortality Measure Prognosis:: Poor
[2020-12-18] MEDS ORDERED: Heparin Sodium 5,000 Units/ML Vial ONE ×2 (15:59)
[2020-12-18] MEDS ORDERED: Lactated Ringers 1,000 ML ONE ×3 (16:27→17:32)
[2020-12-18] MEDS ORDERED: HYDROmorphone 0.5 MG/0.5 ML Syringe ONE ×2 (16:44)
[2020-12-18] MEDS ORDERED: fentaNYL 100 MCG/2 ML SDV ONE ×2 (16:53→17:48)
[2020-12-18] MEDS ORDERED: HYDROmorphone 0.5 MG/0.5 ML Syringe IVPUSH PRN (18:31)
[2020-12-18] MEDS ORDERED: fentaNYL 100 MCG/2 ML SDV IVPUSH PRN (18:31)
[2020-12-18] MEDS ORDERED: Ketorolac 30 MG/ML SDV ONE (18:34)
[2020-12-18] MEDS ORDERED: Labetalol 100 MG/20 ML MDV IVPUSH SCH (19:15)
[2020-12-18] MEDS ORDERED: Labetalol 100 MG/20 ML MDV IVPUSH PRN (19:16)
--- NOTE | 2020-12-18 19:17 | PCM.POSTAN ---
POST ANESTHESIA ASSESSMENT - MENTAL STATUS Mental Status: Alert, Oriented - VITAL SIGNS Vital Signs: Last Vital Signs Temp 36.8 C 12/18/20 15:01 Pulse 100 12/18/20 15:01 Resp 16 12/18/20 15:01 BP 159/96 H 12/18/20 15:01 Pulse Ox 96 12/18/20 15:01 - RESPIRATORY Respiratory Status: Respiratory Rate WNL, Airway Patent, O2 Saturation Stable, Supplemental Oxygen (10L face mask) - CARDIOVASCULAR CV Status: Pulse Rate WNL, Blood Pressure Stable, Elevated Blood Pressure - GASTROINTESTINAL GI Status: No Symptoms - PAIN Pain Score: 0 - POST OP HYDRATION Hydration Status: Adequate & Stable
--- NOTE | 2020-12-18 19:20 | PCM.PREANE ---
Preanesthetic Assessment - Procedure Proposed Procedure: Exploratory Laparotomy - Anesthesia/Transfusion/Family Hx Anesthesia History: Prior Anesthesia Without Reaction Family History of Anesthesia Reaction: No Transfusion History: No Prior Transfusion(s) - Review of Systems General: Fatigue, Malaise Pulmonary: No Symptoms Cardiovascular: Dyspnea on Exertion (with abd pain) Gastrointestinal: Abdominal Pain, Nausea, Vomiting Neurological: No Symptoms Other: Reports: Diabetes (check 1145 was 214), Neck Pain - Physical Assessment NPO Status Date: 12/17/20 NPO Status Time: 22:00 Vital Signs: Last Vital Signs Temp 36.8 C 12/18/20 15:01 Pulse 100 12/18/20 15:01 Resp 16 12/18/20 15:01 BP 159/96 H 12/18/20 15:01 Pulse Ox 96 12/18/20 15:01 Height: 1.85 m Weight: 131.542 kg ASA Class: 3E Mental Status: Alert & Oriented x3 Airway Class: Mallampati = 2 Dentition: Reports: Normal Dentition Thyro-Mental Finger Breadths: 2 Mouth Opening Finger Breadths: 2 ROM/Head Extension: Limited/Partial Lungs: Clear to Auscultation, Normal Respiratory Effort Cardiovascular: Regular Rate, Regular Rhythm - Lab Values: Laboratory Last Values WBC 21.56 K/mm3 (4.23-9.07) H 12/18/20 11:45 RBC 5.24 M/mm3 (4.63-6.08) 12/18/20 11:45 Hgb 12.6 gm/dl (13.7-17.5) L D 12/18/20 11:45 Hct 39.6 % (40.1-51.0) L 12/18/20 11:45 MCV 75.6 fl (79.0-92.2) L 12/18/20 11:45 MCH 24.0 pg (25.7-32.2) L 12/18/20 11:45 MCHC 31.8 g/dl (32.2-35.5) L 12/18/20 11:45 RDW Std Deviation 42.0 fL (35.1-43.9) 12/18/20 11:45 Plt Count 534 K/mm3 (163-337) H D 12/18/20 11:45 MPV 10.0 fl (9.4-12.3) 12/18/20 11:45 Neut % (Auto) 87.2 % (34.0-67.9) H 12/18/20 11:45 Lymph % (Auto) 7.9 % (21.8-53.1) L 12/18/20 11:45 Saline % (Auto) 4.3 % (5.3-12.2) L 12/18/20 11:45 Eos % (Auto) 0.3 (0.8-7.0) L 12/18/20 11:45 Baso % (Auto) 0.1 % (0.1-1.2) 12/18/20 11:45 Neut # (Auto) 18.79 K/mm3 (1.78-5.38) H 12/18/20 11:45 Lymph # (Auto) 1.71 K/mm3 (1.32-3.57) 12/18/20 11:45 Saline # (Auto) 0.92 K/mm3 (0.30-0.82) H 12/18/20 11:45 Eos # (Auto) 0.07 K/mm3 (0.04-0.54) 12/18/20 11:45 Baso # (Auto) 0.02 K/mm3 (0.01-0.08) 12/18/20 11:45 Manual Slide Review Abnormal smear 12/18/20 11:45 Sodium 136 mEq/L (136-145) 12/18/20 11:45 Potassium 3.3 mEq/L (3.5-5.1) L 12/18/20 11:45 Chloride 96 mEq/L (98-107) L 12/18/20 11:45 Carbon Dioxide 30 mEq/L (21-32) 12/18/20 11:45 Anion Gap 13.3 (5-15) 12/18/20 11:45 BUN 21 mg/dL (7-18) H 12/18/20 11:45 Creatinine 1.2 mg/dL (0.7-1.3) 12/18/20 11:45 Est Cr Clr Drug Dosing 78.61 mL/min 12/18/20 11:45 Estimated GFR (MDRD) > 60 mL/min (>60) 12/18/20 11:45 BUN/Creatinine Ratio 17.5 (14-18) 12/18/20 11:45 Glucose 214 mg/dL (74-106) H 12/18/20 11:45 Lactic Acid 1.0 mmol/L (0.4-2.0) 12/18/20 15:14 Calcium 9.7 mg/dL (8.5-10.1) 12/18/20 11:45 Magnesium 1.7 mg/dl (1.8-2.4) L 12/18/20 11:45 Total Bilirubin 0.5 mg/dL (0.2-1.0) 12/18/20 11:45 AST 15 U/L (15-37) 12/18/20 11:45 ALT 24 U/L (16-63) 12/18/20 11:45 Alkaline Phosphatase 211 U/L (46-116) H 12/18/20 11:45 C-Reactive Protein 8.4 mg/dL (<1.0) H* 12/18/20 11:45 Total Protein 9.5 g/dl (6.4-8.2) H 12/18/20 11:45 Albumin 3.4 g/dl (3.4-5.0) 12/18/20 11:45 Globulin 6.1 gm/dL 12/18/20 11:45 Albumin/Globulin Ratio 0.6 (1-2) L 12/18/20 11:45 SARS-CoV-2 RNA (LAN) Negative (NEGATIVE) 12/18/20 13:18 - Allergies Allergies/Adverse Reactions: Allergies Allergy/AdvReac Type Severity Reaction Status Date / Time aspartame Allergy Vomiting Verified 12/18/20 11:48 - Anesthesia Plan Pre-Op Medication Ordered: None - Acknowledgements Anesthesia Type Planned: General Anesthesia Pt an Appropriate Candidate for the Planned Anesthesia: Yes Alternatives and Risks of Anesthesia Discussed w Pt/Guardian: Yes Pt/Guardian Understands and Agrees with Anesthesia Plan: Yes PreAnesthesia Questionnaire HEENT History: Reports: Impaired Vision Cardiovascular History: Reports: High Cholesterol, Hypertension Respiratory History: Reports: PE, Sleep Apnea Other Respiratory History: ARDS Gastrointestinal History: Reports: GERD, Inflammatory Bowel Disease Other Gastrointestinal History: Ulcerative colitis Genitourinary History: Reports: BPH, Renal Calculus Musculoskeletal History: Reports: Back Pain, Chronic Other Musculoskeletal History: sore joints Endocrine/Metabolic History: Reports: Diabetes, Type II, Obesity/BMI 30+ - Infectious Disease History Infectious Disease History: Reports: Chicken Pox, Measles, Mumps - Past Surgical History GI Surgical History: Reports: Colon, Colonoscopy, EGD Other GI Surgeries/Procedures: ileostomy Musculoskeletal Surgical History: Reports: Shoulder Surgery - SUBSTANCE USE Tobacco Use Status *Q: Never Tobacco User Recreational Drug Use History: No - HOME MEDS Home Medications: Home Meds Chlorthalidone 12.5 mg PO DAILY 08/07/16 [History] Insulin Aspart [NovoLOG] 10 unit SQ TID 08/07/16 [History] Losartan [Cozaar] 100 mg PO DAILY 08/07/16 [History] Simvastatin [Zocor] 40 mg PO BEDTIME 08/07/16 [History] Triceba. 42 units SQ DAILY 08/07/16 [History] oxyCODONE 5 mg PO 12/18/20 [History] - CURRENT (IN HOUSE) MEDS Current Meds: Current Medications Fentanyl (Fentanyl 100 Mcg/2 Ml Sdv) 50 mcg IVPUSH Q5M PRN PRN Reason: Pain Hydromorphone HCl (Hydromorphone 0.5 Mg/0.5 Ml Syringe) 0.5 mg IVPUSH Q1H PRN PRN Reason: Pain Hydromorphone HCl (Hydromorphone 1 Mg/Ml Syringe) 1 mg IVPUSH Q2H PRN PRN Reason: Pain Sodium Chloride (Normal Saline) 1,000 mls @ 100 mls/hr IV NOW STA Stop: 12/18/20 22:03 Last Admin: 12/18/20 12:17 Dose: 100 mls/hr Documented by: Lactated Ringer's (Ringers, Lactated) 1,000 mls @ 150 mls/hr IV ASDIRECTED PHILLIP Piperacillin Sod/Tazobactam (Sod 4.5 gm/ Sodium Chloride) 100 mls @ 25 mls/hr IV Q8H PHILLIP Insulin Human Regular 100 unit (/ Sodium Chloride) 100 mls @ 13.154 mls/hr IV TITRATE PHILLIP; Protocol Labetalol HCl (Labetalol 100 Mg/20 Ml Mdv) 5 mg IVPUSH ONETIME PRN; Protocol PRN Reason: Hypertension Sodium Chloride (Sodium Chloride 0.9% 10 Ml Syringe) 10 ml FLUSH ASDIRECTED PRN PRN Reason: Keep Vein Open Last Admin: 12/18/20 11:56 Dose: 10 ml Documented by: Sodium Chloride (Sodium Chloride 0.9% 10 Ml Syringe) 10 ml FLUSH BOLUS PHILLIP Last Admin: 12/18/20 14:04 Dose: 10 ml Documented by: Discontinued Medications Bupivacaine HCl/Epinephrine Bitart (Bupivacaine 0.5%/Epinephrine 1:200,000 50 Ml Mdv) Confirm Administered Dose 50 ml .ROUTE .STK-MED ONE Stop: 12/18/20 15:34 Last Admin: 12/18/20 16:23 Dose: 24 ml Documented by: Diatrizoate Meglum/Diatrizoate Sod (Diatrizoate Meglumine/Diatrizoate Sodium 37% 120 Ml Bottle) 120 ml PO ONETIME ONE Stop: 12/18/20 12:42 Fentanyl (Fentanyl 250 Mcg/5 Ml Sdv) Confirm Administered Dose 250 mcg .ROUTE . STK-MED ONE Stop: 12/18/20 15:17 Fentanyl (Fentanyl 100 Mcg/2 Ml Sdv) Confirm Administered Dose 100 mcg .ROUTE .STK-MED ONE Stop: 12/18/20 16:54 Fentanyl (Fentanyl 100 Mcg/2 Ml Sdv) Confirm Administered Dose 100 mcg .ROUTE .STK-MED ONE Stop: 12/18/20 17:49 Glycopyrrolate (Glycopyrrolate 0.2 Mg/Ml 2 Ml Syringe) Confirm Administered Dose 0.4 mg .ROUTE .STK-MED ONE Stop: 12/18/20 18:45 Heparin Sodium (Porcine) (Heparin Sodium 5,000 Units/Ml Vial) Confirm Administered Dose 5,000 units .ROUTE .STK-MED ONE Stop: 12/18/20 16:00 Heparin Sodium (Porcine) (Heparin Sodium 5,000 Units/Ml Vial) Confirm Administered Dose 5,000 units .ROUTE .STK-MED ONE Stop: 12/18/20 16:00 Hydromorphone HCl (Hydromorphone 0.5 Mg/0.5 Ml Syringe) 0.5 mg IVPUSH ONETIME ONE Stop: 12/18/20 12:05 Last Admin: 12/18/20 12:17 Dose: 0.5 mg Documented by: Hydromorphone HCl (Hydromorphone 0.5 Mg/0.5 Ml Syringe) Confirm Administered Dose 0.5 mg .ROUTE .STK-MED ONE Stop: 12/18/20 16:45 Hydromorphone HCl (Hydromorphone 0.5 Mg/0.5 Ml Syringe) Confirm Administered Dose 0.5 mg .ROUTE .STK-MED ONE Stop: 12/18/20 16:45 Piperacillin Sod/Tazobactam (Sod 4.5 gm/ Sodium Chloride) 100 mls @ 200 mls/hr IV ONETIME ONE Stop: 12/18/20 15:25 Last Admin: 12/18/20 15:18 Dose: 200 mls/hr Documented by: Lidocaine HCl (Xylocaine-Mpf 1%) Confirm Administered Dose 4 mls @ as directed .ROUTE .STK-MED ONE Stop: 12/18/20 15:18 Lactated Ringer's (Ringers, Lactated) Confirm Administered Dose 1,000 mls @ as directed .ROUTE .STK-MED ONE Stop: 12/18/20 16:28 Lactated Ringer's (Ringers, Lactated) Confirm Administered Dose 1,000 mls @ as directed .ROUTE .STK-MED ONE Stop: 12/18/20 16:40 Lactated Ringer's (Ringers, Lactated) Confirm Administered Dose 1,000 mls @ as directed .ROUTE .STK-MED ONE Stop: 12/18/20 17:33 Iopamidol (Iopamidol 612 Mg/Ml 100 Ml Bottle) 100 ml IVPUSH ONETIME ONE Stop: 12/18/20 12:46 Last Admin: 12/18/20 14:04 Dose: 100 ml Documented by: Ketorolac Tromethamine (Ketorolac 30 Mg/Ml Sdv) Confirm Administered Dose 30 mg .ROUTE .STK-MED ONE Stop: 12/18/20 18:35 Labetalol HCl (Labetalol 100 Mg/20 Ml Mdv) 5 mg IVPUSH ONETIME PHILLIP; Protocol Midazolam HCl (Midazolam 1 Mg/Ml 2 Ml Sdv) Confirm Administered Dose 2 mg .ROUTE .STK-MED ONE Stop: 12/18/20 15:17 Miscellaneous Medication (Phenylephrine Hcl In 0.9% Nacl 1 Mg/10 Ml Syringe) Confirm Administered Dose 1 mg .ROUTE .STK-MED ONE Stop: 12/18/20 16:20 Neostigmine Methylsulfate (Neostigmine Methylsulfate 5 Mg/5 Ml Syringe) Confirm Administered Dose 5 mg .ROUTE .STK-MED ONE Stop: 12/18/20 18:45 Neostigmine Methylsulfate (Neostigmine Methylsulfate 5 Mg/5 Ml Syringe) Confirm Administered Dose 5 mg .ROUTE .STK-MED ONE Stop: 12/18/20 18:56 Ondansetron HCl (Ondansetron 4 Mg/2 Ml Sdv) 4 mg IVPUSH ONETIME ONE Stop: 12/18/20 12:05 Last Admin: 12/18/20 12:17 Dose: 4 mg Documented by: Ondansetron HCl (Ondansetron 4 Mg/2 Ml Sdv) Confirm Administered Dose 4 mg .ROUTE .STK-MED ONE Stop: 12/18/20 15:17 Propofol (Propofol 200 Mg/20 Ml Sdv) Confirm Administered Dose 200 mg .ROUTE .STK-MED ONE Stop: 12/18/20 15:17 Rocuronium Datil (Rocuronium 50 Mg/5 Ml Vial) Confirm Administered Dose 50 mg .ROUTE .STK-MED ONE Stop: 12/18/20 15:17 Rocuronium Datil (Rocuronium 50 Mg/5 Ml Vial) Confirm Administered Dose 50 mg .ROUTE .STK-MED ONE Stop: 12/18/20 17:52
--- NOTE | 2020-12-18 19:34 | PCM.PRNOTE ---
- Free Text/Narrative Note: Date: 12/18/2020 Operation: exploratory laparotomy, lysis of adhesions, primary repair of small bowel enterotomy, primary repair of parastomal hernia Indication: complete small bowel obstruction in patient with end ileostomy and incarcerated parastomal hernia Surgeon: Raghu Espinosa MD Findings: prior total abdominal colectomy. Extensive small bowel adhesive disease, with wad of small bowel associated with contained perforation followed by gross intraperitoneal contamination during dissection. All bowel was dilated but viable. A small enterotomy about 50 cm from the ileostomy was closed primarily in layers. The parastomal fascia was closed down with 0 PDS sutures on both sides of the bowel. A 10 F AGUSTÍN drain was left in the pelvis. NG tube confirmed to be in stomach. Detailed Report: The patient was taken to the operating room and placed in supine position. Timeout was performed and general endotracheal anesthesia was initiated. A nasogastric tube was passed down to the stomach with minimal aspirate. Abdominal hair was clipped. A Domínguez catheter was placed, and the patient's ileostomy appliance was removed. The abdomen was prepped and draped in usual sterile fashion. The scalpel was used to make a midline laparotomy including and extending superior to the upper part of prior laparotomy. The peritoneal cavity was entered safely using scissors. There were minimal adhesions to the anterior abdominal wall at the superior aspect of prior incision. The incision was extended down to the level of the umbilicus. At about this level, there was a palpable umbilical hernia, and small bowel adherent to the anterior abdominal wall inferior to this. There was a moderate amount of benign-appearing ascites. The small bowel was dilated but appeared viable. The Bookwalter retractor was set up for retraction. Tedious interloop adhesiolysis then ensued. This took greater than 30 minutes. The small bowel was traced from distal to proximal. A lot of small bowel stuck in the pelvis about 50 cm proximal to the ileostomy was freed up, and on release a large amount of succus was released, containing gross particulate food including corn kernels. It appeared that this was not a perforation that occurred during handling, but it happened sometime before due to fibrinous exudate on the mesentery at the site. I believe this enterotomy was walled off by the adhesions and released during our dissection. A temporary [id number] Vicryl stitch was used to close the enterotomy wall adhesiolysis was continued. Eventually the small bowel was traced all the way to the ligament of Treitz. Next, attention was turned to proper closure of the enterotomy. The previous [id number] stitch was removed, and several interrupted 3-0 Vicryl sutures were used to close the enterotomy transversely. A few imbricating sutures were placed to bring serosa over the closure line. The small bowel felt patent at this site. Next, several liters of warm sterile saline were used to irrigate the abdomen and pelvis and suctioned. All particulate food matter was removed to the best of our ability. Next, attention was turned to the parastomal hernia. There was a palpable fascial widening at the medial and lateral aspect of the terminal ileum, identified in each side to permit passage of the index finger. With good exposure, a 0 PDS suture was placed to close the medial defect down in order to prevent recurrent herniation. Another stitch was placed laterally. This seemed to sufficiently reduce the parastomal hernia to a safe degree. Digital exam of the ileostomy did not reveal any palpable suture. A 10 Frisian AGUSTÍN drain was then introduced through the abdominal wall at the left lower quadrant and left in the pelvis. This was secured at the level of the skin with 2-0 nylon suture. Fascia was then closed without difficulty using running 0 PDS suture. Prior to this, however a cgihss-[id number] 0 PDS suture was used to close the small umbilical defect primarily in order to allow for more robust fascial tissue brought in for closure of the midline. Fascia was closed with running 0 PDS suture. Skin was closed with maryann, and wound was dressed with gauze and Tegaderm. A new ostomy appliance was applied to the ileostomy. A suction bulb was placed on the AGUSTÍN drain. The patient tolerated the operation well, was hemodynamically stable throughout, was extubated in the operating room and transferred to the intensive care unit postoperatively for ongoing care.
[2020-12-18] MEDS: Piperacillin/Tazobactam 4.5 GM in Sodium Chloride 0.9% 100 ML IV SCH (20:28)
[2020-12-18] MEDS: Lactated Ringers 1,000 ML IV SCH (20:28)
[2020-12-18] MEDS: Enoxaparin 40 MG/0.4 ML Syringe SUBCUT SCH (20:41)
[2020-12-18] MEDS ORDERED: Magnesium Sulfate/Water 2 GM/50 ML BAG IV ONE (21:00)
[2020-12-18] MEDS: HYDROmorphone 1 MG/ML Syringe IVPUSH PRN (22:22)
[2020-12-19] MEDS: HYDROmorphone 1 MG/ML Syringe IVPUSH PRN ×8 (00:26→20:34)
[2020-12-19] MEDS: Lactated Ringers 1,000 ML IV SCH ×5 (02:17→22:04)
[2020-12-19] MEDS: Piperacillin/Tazobactam 4.5 GM in Sodium Chloride 0.9% 100 ML IV SCH ×3 (02:17→18:17)
[2020-12-19] MEDS ORDERED: Lactated Ringers 1,000 ML IV ONE ×2 (07:36→15:08)
--- NOTE | 2020-12-19 07:59 | PCM.SN.2 ---
- Free Text/Narrative Note: POD 1 s/p laparotomy and repair of incarcerated parastomal hernia. S: pain manageable, no major issues overnight O: AF-HR 100s, SPB ~100, SpO2 90% on 2L, I/O ~1.5L in/1.5 L out recorded Awake and alert, no acute distress On nasal cannula, pulling 1L on IS RRR Abdominal incision clean, dry, intact. AGUSTÍN drain with minimal serous fluid. Ileostomy appears viable with no output. NG tube in place with ~100 cc of dark brown output. Domínguez in place with dark sangeeta urine SCD in place No significant edema. skin warm and well perfused Labs reviewed- WBC down to 19 from 23 pre-op. Cr up to 1.7 from 1.2, with other lab work within normal range. A: Overall doing well since laparotomy, enterotomy repair and parastomal hernia repair yesterday. Seems under-resuscitated. P: -dilaudid prn pain -IS, OOB, continue pulmonary toilet -1 L bolus LR this morning, continue IV fluids at 150cc/hr -NPO. NG LIWS. Await return of bowel function. AGUSTÍN drain to bulb suction -continue zosyn for 24 hours post op given gross intraperitoneal contamination -lovenox 40 mg bid given history of PE -switch from insulin gtt to medium dose sliding scale, check serum glucose q6h -repeat labs in AM
[2020-12-19] MEDS ORDERED: Magnesium Sulfate/Water 4 GM in Premix Bag 1 BAG IV ONE (08:00)
[2020-12-19] MEDS: Enoxaparin 40 MG/0.4 ML Syringe SUBCUT SCH ×2 (08:19→20:34)
--- NOTE | 2020-12-19 09:34 | CT ---
Addendum: The word hernia should be replaced by stoma, my apologies. --- Addendum1 above dictated on [12/19/2020 11:20] by [Pascual Mendez Hilton J.] --- --- Addendum1 above signed on [12/19/2020 11:24] by [Pascual Mendez Hilton J.] --- --- Original report below dictated on [12/19/2020 09:07] by [Pascual Mendez Hilton J.] --- --- Original report below signed on [12/19/2020 09:32] by [Pascual Mendez Hilton J.] --- CT abdomen and pelvis Technique: Multiple axial sections were obtained from dome of the diaphragm inferiorly through the pubic symphysis. Intravenous contrast was utilized as well as oral contrast. Reconstructed sagittal and coronal images were obtained. Comparison: Prior CT abdomen and pelvis study of 09/01/19. Findings: Dilated small bowel loops are noted which contain contrast proximally. Fluid is seen more distally as well as a small amount of fecalized small bowel. There is a hernia within the right side of the anterior abdomen with what appears to be a twisted loop of bowel. Findings are suspicious for a small bowel obstruction. There is a small amount of fluid being seen around the liver and spleen as well as within a small portion of the abdomen and pelvis. There is some motion artifact also seen. Preliminary report mentions possibility of pneumatosis intestinalis which I believe is most likely artifact from the motion. Liver contains no focal parenchymal abnormality. Spleen appears normal. Adrenal glands show no change from previous study. Kidneys show symmetric contrast enhancement with no hydronephrosis being seen. No ureteral dilatation is seen. Pancreas shows no discrete abnormality. Aorta shows no aneurysm. Gallbladder shows motion artifact but no definite calcified gallstones. No retroperitoneal adenopathy is seen. No pelvic mass or adenopathy is seen. Bone window settings were reviewed which show previous surgery at L5-S1. Mild scattered degenerative change is seen. Impression: 1. Dilated small bowel as described above. Findings are suspicious for small bowel obstruction most likely occurring from a slight bowel twist within a hernia within the right lower abdomen. 2. Small amount of fluid within the abdomen and pelvis most likely relating to the small bowel obstruction. 3. Other findings believed to be incidental as noted above. Diagnostic code #5 I agree with preliminary report from [facility], finalized on 12/18/20, 3:47 PM CDT --- Addendum1 signed ---
--- NOTE | 2020-12-19 15:18 | PCM48HPAN ---
Post Anesthesia Note - EVALUATION WITHIN 48HRS OF ANESTHETIC Vital Signs in Normal Range: Yes Patient Participated in Evaluation: Yes Respiratory Function Stable: Yes Airway Patent: Yes Cardiovascular Function Stable: Yes Hydration Status Stable: Yes Pain Control Satisfactory: Yes Nausea and Vomiting Control Satisfactory: Yes Mental Status Recovered: Yes Vital Signs: Last Vital Signs Temp 36.4 C 12/19/20 08:00 Pulse 93 12/19/20 08:00 Resp 24 H 12/19/20 08:00 BP 117/64 12/19/20 08:02 Pulse Ox 94 L 12/19/20 09:01 - COMMENTS/OBSERVATIONS Free Text/Narrative:: no anesthesia complications noted
[2020-12-19] MEDS: Acetaminophen Soln 650 MG/20.3 ML UD Cup PO SCH (21:33)
[2020-12-20] MEDS: HYDROmorphone 1 MG/ML Syringe IVPUSH PRN ×5 (02:18→20:56)
[2020-12-20] MEDS: Piperacillin/Tazobactam 4.5 GM in Sodium Chloride 0.9% 100 ML IV SCH ×3 (02:18→18:20)
[2020-12-20] MEDS: Diltiazem 100 MG in Sodium Chloride 0.9% 100 ML IV SCH ×4 (02:51→20:15)
[2020-12-20] MEDS: Lactated Ringers 1,000 ML IV SCH (04:26)
[2020-12-20] MEDS ORDERED: Diltiazem 50 MG/10 ML SDV IVPUSH ONE (04:43)
[2020-12-20] MEDS ORDERED: Lactated Ringers 1,000 ML IV SCH (04:45)
[2020-12-20] MEDS: Potassium Chloride 10 MEQ in Premix Bag 1 BAG IV SCH ×3 (04:54→05:48)
[2020-12-20] MEDS: Acetaminophen Soln 650 MG/20.3 ML UD Cup PO SCH ×3 (05:11→21:02)
[2020-12-20] MEDS ORDERED: Metoprolol Tartrate 25 MG Tab PO SCH (05:30)
[2020-12-20] MEDS: Enoxaparin 40 MG/0.4 ML Syringe SUBCUT SCH ×2 (08:43→20:57)
--- NOTE | 2020-12-20 09:14 | PCM.SN.2 ---
- Free Text/Narrative Note: POD 2 s/p laparotomy and repair of incarcerated parastomal hernia. S: atrial fibrillation started early this morning with rapid rate 150 bpm. Some wooziness but no symptoms otherwise. Cardizem gtt started and hospitalist consulted for assistance in management of atrial fibrillation. No worsening in abdominal pain. O: Afebrile. In atrial fibrillation wit rate now in 110s, SPB ~120, SpO2 95% on 1L, I/O ~ 2 L + in past 24 hours. Awake and alert, no acute distress On nasal cannula, pulling 1L on IS irregular rhythm, tachycardic. troponin wnl. EKG shows atrial fibrillation. Abdominal incision clean, dry, intact. Appropriately tender. AGUSTÍN drain with minimal serous fluid. Ileostomy appears viable with minimal serous output. NG tube in place with ~600 cc of dark brown output. Domínguez in place with dark sangeeta urine SCD in place No significant edema. skin warm and well perfused Labs reviewed- WBC up from 19 to 20. Cr down to 1.5 from 1.7. Hgb is 9.9 from about 11.5 g/dL yesterday, no clinic sign of hemorrhage. 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 Developed atrial fibrillation overnight. Pulmonary parameters seem improved in 24 hours make PE less likely. No evidence of associated CT. Continued ileus. Urine output >100 cc/hr this morning. P: -dilaudid prn pain -IS, OOB, continue pulmonary toilet -IVF reduced to 50 cc/hr, on cardizem gtt. Hospitalist had ordered metoprolol in addition; plan to hold this medication so long as rate is < 120 bpm. -NPO. NG LIWS. Await return of bowel function. AGUSTÍN drain to bulb suction until ostomy output picks up -continue zosyn given persistent high WBC in context of gross peritoneal contamination -lovenox 40 mg bid given history of PE -insulin medium dose sliding scale, check serum glucose q6h -repeat labs in AM
[2020-12-20] MEDS: NS + KCl 20mEq/L 1,000 ML IV SCH (10:04)
--- NOTE | 2020-12-20 10:16 | PCM.CONS ---
H&P History of Present Illness - General Date of Service: 12/20/20 Admit Problem/Dx: Admission Diagnosis/Problem Admission Diagnosis/Problem Obstruction of colon Source of Information: Patient, Provider - History of Present Illness Initial Comments - Free Text/Narative: Patient is a 54-year-old male with a history of ulcerative colitis, status post a total abdominal colectomy with the ileostomy, diabetes type 2, history of for pulmonary embolism and hypertension who underwent exploratory laparotomy, lysis of adhesions, primary repair of small bowel enterotomy, primary repair of parastomal hernia by Dr. Espinosa on 12/18 due to Complete SBO and incarcerated parastomal hernia. After the procedure, patient developed atrial fibrillation with RVR. I was asked by Dr. Espinosa to comanage his atrial fibrillation with RVR which was possibly a new diagnosis for him. When I saw this patient, he was fine. Denied dizziness, palpitation, chest pain, shortness of breath, nausea, vomiting, headache, or dysuria. Pain from surgical site is controlled. Middle Abdominal Pain Score (Numeric/FACES): 2 - Related Data Allergies/Adverse Reactions: Allergies Allergy/AdvReac Type Severity Reaction Status Date / Time aspartame AdvReac Vomiting Verified 12/20/20 10:50 Home Medications: Home Meds Chlorthalidone 12.5 mg PO DAILY 08/07/16 [History] Insulin Aspart [NovoLOG] 10 unit SQ TID 08/07/16 [History] Losartan [Cozaar] 100 mg PO DAILY 08/07/16 [History] Simvastatin [Zocor] 40 mg PO BEDTIME 08/07/16 [History] Triceba. 42 units SQ DAILY 08/07/16 [History] oxyCODONE 10 mg PO TID PRN 12/18/20 [History] Past Medical History HEENT History: Reports: Impaired Vision, Other (See Below) Other HEENT History: glasses Cardiovascular History: Reports: High Cholesterol, Hypertension Respiratory History: Reports: PE, Sleep Apnea Other Respiratory History: ARDS Gastrointestinal History: Reports: GERD, Inflammatory Bowel Disease Other Gastrointestinal History: Ulcerative colitis Genitourinary History: Reports: BPH, Renal Calculus Musculoskeletal History: Reports: Back Pain, Chronic Other Musculoskeletal History: sore joints Endocrine/Metabolic History: Reports: Diabetes, Type II, Obesity/BMI 30+ - Infectious Disease History Infectious Disease History: Reports: Chicken Pox, Measles, Mumps - Past Surgical History GI Surgical History: Reports: Colon, Colonoscopy, EGD Other GI Surgeries/Procedures: ileostomy Musculoskeletal Surgical History: Reports: Shoulder Surgery Social & Family History - Family History Family Medical History: No Pertinent Family History (Denies genetic diseases in family) Endocrine/Metabolic: Reports: Diabetes, type II Hematologic: Reports: Other (See Below) Other Hematologic Family History: Protein S deficiency - Tobacco Use Tobacco Use Status *Q: Never Tobacco User Second Hand Smoke Exposure: No - Caffeine Use Caffeine Use: Reports: Coffee, Soda Other Caffeine Use: Rhino Espitia drinks----drinks them occasionally - Recreational Drug Use Recreational Drug Use: No - Living Situation & Occupation Living situation: Reports: , Alone Occupation: Employed ([employer]) H&P Review of Systems - Review of Systems: Review Of Systems: See Below General: Reports: No Symptoms HEENT: Reports: No Symptoms Pulmonary: Reports: No Symptoms Cardiovascular: Reports: No Symptoms Gastrointestinal: Reports: Abdominal Pain Genitourinary: Reports: No Symptoms Musculoskeletal: Reports: No Symptoms Skin: Reports: No Symptoms Psychiatric: Reports: No Symptoms Neurological: Reports: No Symptoms Hematologic/Lymphatic: Reports: No Symptoms Immunologic: Reports: No Symptoms Exam - Exam Exam: See Below - Vital Signs Vital Signs: Last Vital Signs Temp 37.1 C 12/20/20 08:00 Pulse 118 H 12/20/20 08:00 Resp 20 12/20/20 08:00 BP 106/73 12/20/20 08:00 Pulse Ox 92 L 12/20/20 08:17 Weight: 133.946 kg - Exam General: Alert, Oriented, Cooperative HEENT: Conjunctiva Clear, EOMI, Pupils Equal, Pupils Reactive Neck: Supple, Trachea Midline, Full Range of Motion Lungs: Clear to Auscultation, Normal Respiratory Effort Cardiovascular: Irregular Rhythm, Tachycardia (Previous tenderness, no distention. ileostomy bag and AGUSTÍN drain in place.) GI/Abdominal Exam: Other (Decreased tenderness, no rebound pain, no distention, ileostomy bag and AGUSTÍN drain in place.) Extremities: Normal Inspection, Normal Range of Motion, Non-Tender, No Pedal Edema Skin: Warm, Dry, Intact Neurological: Cranial Nerves Intact, Reflexes Equal Bilateral, Strength Equal Bilateral, Normal Speech, Normal Tone, Sensation Intact Neuro Extensive - Mental Status: Alert, Oriented x3, Normal Mood/Affect Neuro Extensive - Motor, Sensory, Reflexes: CN II-XII Intact, Normal Reflexes Psychiatric: Alert, Normal Affect, Normal Mood - Patient Data Lab Results Last 24 hrs: Laboratory Results - last 24 hr 12/19/20 12/19/20 12/19/20 Range/Units 11:45 17:56 23:30 WBC (4.23-9.07) K/mm3 RBC (4.63-6.08) M/mm3 Hgb (13.7-17.5) gm/dl Hct (40.1-51.0) % MCV (79.0-92.2) fl MCH (25.7-32.2) pg MCHC (32.2-35.5) g/dl RDW Std Deviation (35.1-43.9) fL Plt Count (163-337) K/mm3 MPV (9.4-12.3) fl Neut % (Auto) (34.0-67.9) % Lymph % (Auto) (21.8-53.1) % [place] % (Auto) (5.3-12.2) % Eos % (Auto) (0.8-7.0) Baso % (Auto) (0.1-1.2) % Neut # (Auto) (1.78-5.38) K/mm3 Lymph # (Auto) (1.32-3.57) K/mm3 [place] # (Auto) (0.30-0.82) K/mm3 Eos # (Auto) (0.04-0.54) K/mm3 Baso # (Auto) (0.01-0.08) K/mm3 Manual Slide Review Sodium (136-145) mEq/L Potassium (3.5-5.1) mEq/L Chloride (98-107) mEq/L Carbon Dioxide (21-32) mEq/L Anion Gap (5-15) BUN (7-18) mg/dL Creatinine (0.7-1.3) mg/dL Est Cr Clr Drug Dosing mL/min Estimated GFR (MDRD) (>60) mL/min BUN/Creatinine Ratio (14-18) Glucose (74-106) mg/dL POC Glucose 88 113 H 115 H (70-105) mg/dL Calcium (8.5-10.1) mg/dL Magnesium (1.8-2.4) mg/dl Troponin I (0.00-0.056) ng/mL NT-Pro-B Natriuret Pep (0-125) pg/mL 12/20/20 12/20/20 12/20/20 Range/Units 03:05 03:05 03:05 WBC 20.36 H (4.23-9.07) K/mm3 RBC 4.14 L (4.63-6.08) M/mm3 Hgb 9.9 L D (13.7-17.5) gm/dl Hct 32.2 L (40.1-51.0) % MCV 77.8 L (79.0-92.2) fl MCH 23.9 L (25.7-32.2) pg MCHC 30.7 L (32.2-35.5) g/dl RDW Std Deviation 44.4 H (35.1-43.9) fL Plt Count 391 H D (163-337) K/mm3 MPV 9.9 (9.4-12.3) fl Neut % (Auto) 88.3 H (34.0-67.9) % Lymph % (Auto) 4.9 L (21.8-53.1) % [place] % (Auto) 5.4 (5.3-12.2) % Eos % (Auto) 0.3 L (0.8-7.0) Baso % (Auto) 0.1 (0.1-1.2) % Neut # (Auto) 17.99 H (1.78-5.38) K/mm3 Lymph # (Auto) 0.99 L (1.32-3.57) K/mm3 [place] # (Auto) 1.09 H (0.30-0.82) K/mm3 Eos # (Auto) 0.07 (0.04-0.54) K/mm3 Baso # (Auto) 0.02 (0.01-0.08) K/mm3 Manual Slide Review Abnormal smear Sodium 140 (136-145) mEq/L Potassium 3.3 L (3.5-5.1) mEq/L Chloride 101 (98-107) mEq/L Carbon Dioxide 28 (21-32) mEq/L Anion Gap 14.3 (5-15) BUN 32 H (7-18) mg/dL Creatinine 1.5 H (0.7-1.3) mg/dL Est Cr Clr Drug Dosing 62.88 mL/min Estimated GFR (MDRD) 49 (>60) mL/min BUN/Creatinine Ratio 21.3 H (14-18) Glucose 111 H (74-106) mg/dL POC Glucose (70-105) mg/dL Calcium 7.8 L (8.5-10.1) mg/dL Magnesium 2.1 (1.8-2.4) mg/dl Troponin I < 0.017 (0.00-0.056) ng/mL NT-Pro-B Natriuret Pep (0-125) pg/mL 12/20/20 12/20/20 Range/Units 03:05 05:08 WBC (4.23-9.07) K/mm3 RBC (4.63-6.08) M/mm3 Hgb (13.7-17.5) gm/dl Hct (40.1-51.0) % MCV (79.0-92.2) fl MCH (25.7-32.2) pg MCHC (32.2-35.5) g/dl RDW Std Deviation (35.1-43.9) fL Plt Count (163-337) K/mm3 MPV (9.4-12.3) fl Neut % (Auto) (34.0-67.9) % Lymph % (Auto) (21.8-53.1) % [place] % (Auto) (5.3-12.2) % Eos % (Auto) (0.8-7.0) Baso % (Auto) (0.1-1.2) % Neut # (Auto) (1.78-5.38) K/mm3 Lymph # (Auto) (1.32-3.57) K/mm3 [place] # (Auto) (0.30-0.82) K/mm3 Eos # (Auto) (0.04-0.54) K/mm3 Baso # (Auto) (0.01-0.08) K/mm3 Manual Slide Review Sodium (136-145) mEq/L Potassium (3.5-5.1) mEq/L Chloride (98-107) mEq/L Carbon Dioxide (21-32) mEq/L Anion Gap (5-15) BUN (7-18) mg/dL Creatinine (0.7-1.3) mg/dL Est Cr Clr Drug Dosing mL/min Estimated GFR (MDRD) (>60) mL/min BUN/Creatinine Ratio (14-18) Glucose (74-106) mg/dL POC Glucose 92 (70-105) mg/dL Calcium (8.5-10.1) mg/dL Magnesium (1.8-2.4) mg/dl Troponin I (0.00-0.056) ng/mL NT-Pro-B Natriuret Pep 298 H (0-125) pg/mL Result Diagrams: 12/20/20 03:05 12/20/20 03:05 Edwardo Results Last 24 hrs: Microbiology 12/18/20 15:14 Aerobic Blood Culture - Preliminary Blood - Venous - Lab Draw NO GROWTH AFTER 1 DAY Anaerobic Blood Culture - Preliminary NO GROWTH AFTER 1 DAY 12/18/20 15:06 Aerobic Blood Culture - Preliminary Blood - Venous NO GROWTH AFTER 1 DAY Anaerobic Blood Culture - Preliminary NO GROWTH AFTER 1 DAY Sepsis Event Note - Evaluation Sepsis Screening Result: Sepsis Risk - Focused Exam Vital Signs: Vital Signs Temp Pulse Pulse Resp BP BP Pulse Ox 12/20/20 08:17 12/20/20 08:00 37.1 C 118 H 20 106/73 90 L 12/20/20 07:01 118/71 93 L 12/20/20 07:00 110 H 92 L 12/20/20 06:53 104 H 12/20/20 06:33 128 H 119/85 12/20/20 06:32 12/20/20 06:15 134 H 113/74 12/20/20 06:00 138 H 105/71 12/20/20 05:58 130 H 123/80 12/20/20 05:45 143 H 123/80 12/20/20 05:31 111/78 93 L 12/20/20 05:30 150 H 93 L 12/20/20 05:16 112/79 93 L 12/20/20 05:15 141 H 94 L 12/20/20 05:01 114/64 93 L 12/20/20 05:00 92 L 12/20/20 04:58 150 H 103/70 12/20/20 04:46 103/70 90 L 12/20/20 04:45 93 L 12/20/20 04:31 126/80 93 L 12/20/20 04:30 93 L 12/20/20 04:16 115/75 92 L 12/20/20 04:15 146 H 115/75 92 L 12/20/20 04:01 109/84 92 L 12/20/20 04:00 36.7 C 147 H 25 H 109/84 92 L 12/20/20 03:46 115/80 93 L 12/20/20 03:45 93 L 12/20/20 03:31 113/75 92 L 12/20/20 03:30 92 L 12/20/20 03:27 36.7 C 140 H 25 H 122/76 122/76 90 L 12/20/20 03:26 90 L 12/20/20 03:06 157 H 122/76 12/20/20 03:00 94 L 12/20/20 02:51 165 H 12/20/20 02:42 133/87 94 L 12/20/20 02:41 94 L 12/20/20 02:39 36.7 C 160 H 24 H 133/87 95 12/20/20 02:00 95 12/20/20 01:00 95 12/20/20 00:00 94 L 12/19/20 23:52 117/73 95 12/19/20 23:51 94 L 12/19/20 23:50 36.9 C 96 24 H 117/73 93 L 12/19/20 23:00 92 L Pulse Ox 12/20/20 08:17 92 L 12/20/20 08:00 12/20/20 07:01 12/20/20 07:00 12/20/20 06:53 12/20/20 06:33 12/20/20 06:32 92 L 12/20/20 06:15 12/20/20 06:00 12/20/20 05:58 12/20/20 05:45 12/20/20 05:31 12/20/20 05:30 12/20/20 05:16 12/20/20 05:15 12/20/20 05:01 12/20/20 05:00 12/20/20 04:58 12/20/20 04:46 12/20/20 04:45 12/20/20 04:31 12/20/20 04:30 12/20/20 04:16 12/20/20 04:15 12/20/20 04:01 12/20/20 04:00 12/20/20 03:46 12/20/20 03:45 12/20/20 03:31 12/20/20 03:30 12/20/20 03:27 12/20/20 03:26 12/20/20 03:06 12/20/20 03:00 12/20/20 02:51 12/20/20 02:42 12/20/20 02:41 12/20/20 02:39 12/20/20 02:00 12/20/20 01:00 12/20/20 00:00 12/19/20 23:52 12/19/20 23:51 12/19/20 23:50 12/19/20 23:00 Consult PN Assessment/Plan POD#: 2 Procedures: Procedures ASSAY OF LIPASE (08/20/15) ASSAY OF MAGNESIUM (09/01/19) C DIFF AMPLIFIED PROBE (06/01/14) C-REACTIVE PROTEIN (08/20/15) COLONOSCOPY AND BIOPSY (06/01/14) COMPLETE CBC W/AUTO DIFF WBC (03/13/16) COMPREHEN METABOLIC PANEL (03/13/16) CRYPTOSPORIDIUM AG IA (06/01/14) CT ABD & PELV W/CONTRAST (08/20/15) CT ABD & PELVIS W/O CONTRAST (09/01/19) EGD BIOPSY SINGLE/MULTIPLE (06/01/14) EMERGENCY DEPT VISIT (09/01/19) GIARDIA AG IA (06/01/14) GLUCOSE BLOOD TEST (06/01/14) HYDRATE IV INFUSION ADD-ON (09/01/19) LEUKOCYTE ASSESSMENT FECAL (06/01/14) POLYSOM 6/>YRS CPAP 4/> PARM (09/12/16) ROUTINE VENIPUNCTURE (09/01/19) STOOL CULTR AEROBIC BACT EA (06/01/14) TEST FOR ACETONE/KETONES (09/01/19) THER/PROPH/DIAG INJ IV PUSH (03/13/16) THER/PROPH/DIAG IV INF INIT (09/01/19) TISSUE EXAM BY PATHOLOGIST (06/01/14) TX/PRO/DX INJ NEW DRUG ADDON (03/13/16) TX/PRO/DX INJ SAME DRUG [employer]PL[employer] (08/20/15) URINALYSIS AUTO W/SCOPE (03/13/16) URINE CULTURE/COLONY COUNT (09/23/19) VANOMYCIN DNA AMP PROBE (06/01/14) Problem List Initiated/Reviewed/Updated: Yes My Orders Last 24 Hours: My Active Orders 12/20/20 08:45 NS + KCl 20mEq/L [Normal Saline with 20 mEq KCl] 1,000 ml IV ASDIRECTED 12/20/20 10:15 Amiodarone In Dextrose,Iso-Osm [Nexterone in Dextrose 360 MG/200 ML] 200 ml IV ASDIRECTED Plan: Patient is a 54-year-old male with a history of ulcerative colitis, status post a total abdominal colectomy with the ileostomy, diabetes type 2, history of for pulmonary embolism and hypertension who underwent exploratory laparotomy, lysis of adhesions, primary repair of small bowel enterotomy, primary repair of parastomal hernia by Dr. Espinosa on 12/18 due to Complete SBO and incarcerated parastomal hernia. Assessment and plan: 1. Complete SBO and incarcerated parastomal hernia, s/p exploratory laparotomy, lysis of adhesions, primary repair of small bowel enterotomy, primary repair of parastomal hernia by Dr. Espinosa on 12/18 Postop management including pain control and DVT prophylaxis by surgical team 2. Atrial fibrillation with RVR, new Diltiazem drip as needed Considering his young age, I would like to try amiodarone. Hopefully we can convert it to sinus rhythm. Discussed with Dr. Espinosa, continue Lovenox 40 mg twice daily today. We may change it to therapeutic Lovenox tomorrow. Discontinued po metoprolol. 3. history of ulcerative colitis, s/p total abdominal colectomy with ileostomy in 2013 Follow with PCP and GI 4. DM type 2 Patient is on n.p.o. Insulin sliding scale Adjust insulin based on sugar levels 5. Hx of PE He was on Eliquis which was discontinued due to anemia Refer to #2 6. HTN Hydralazine as needed 7. DVT prophylaxis: Lovenox 40 mg twice daily (refer to #2) Requesting Provider: Dr. Espinosa Date Consult Requested: 12/19/20 Patient History Reviewed: Yes Admission H&P Reviewed: Yes Notified Requestor: Yes
[2020-12-20] MEDS ORDERED: hydrALAZINE 20 MG/ML SDV IVPUSH PRN (11:15)
[2020-12-20] MEDS ORDERED: Metoprolol Tartrate 5 MG/5 ML SDV IVPUSH ONE (22:50)
[2020-12-21] MEDS: HYDROmorphone 1 MG/ML Syringe IVPUSH PRN ×4 (00:13→18:15)
[2020-12-21] MEDS ORDERED: Metoprolol Tartrate 5 MG/5 ML SDV IVPUSH PRN ×2 (01:36→08:00)
[2020-12-21] MEDS: Diltiazem 100 MG in Sodium Chloride 0.9% 100 ML IV SCH ×2 (02:06→09:26)
[2020-12-21] MEDS: Piperacillin/Tazobactam 4.5 GM in Sodium Chloride 0.9% 100 ML IV SCH ×3 (02:16→18:33)
[2020-12-21] MEDS: NS + KCl 20mEq/L 1,000 ML IV SCH (04:47)
[2020-12-21] MEDS: Acetaminophen Soln 650 MG/20.3 ML UD Cup PO SCH ×3 (06:20→20:59)
[2020-12-21] MEDS: Potassium Chloride 10 MEQ in Premix Bag 1 BAG IV SCH ×6 (08:23→14:20)
[2020-12-21] MEDS: Enoxaparin 40 MG/0.4 ML Syringe SUBCUT SCH ×2 (08:23→20:49)
--- NOTE | 2020-12-21 10:07 | PCM.CONSN ---
- General Info Date of Service: 12/21/20 Admission Dx/Problem (Free Text): Admission Diagnosis/Problem Admission Diagnosis/Problem Obstruction of colon Subjective Update: Patient is a 54-year-old male with a history of ulcerative colitis, status post a total abdominal colectomy with the ileostomy, diabetes type 2, history of for pulmonary embolism and hypertension who underwent exploratory laparotomy, lysis of adhesions, primary repair of small bowel enterotomy, primary repair of parastomal hernia by Dr. Espinosa on 12/18 due to Complete SBO and incarcerated parastomal hernia. After the procedure, patient developed atrial fibrillation with RVR. Patient is generally improving, but when I saw him he had just received Dilaudid so was a bit tired and nauseated. His heart rate is down to 90s to low 100s. He is finishing his amiodarone drip and plan is to switch him to oral amiodarone and Cardizem. Functional Status: Reports: Pain Controlled - Review of Systems Pulmonary: Reports: No Symptoms Cardiovascular: Reports: No Symptoms - Patient Data Vitals - Most Recent: Last Vital Signs Temp 100.3 F 12/21/20 08:00 Pulse 92 12/21/20 09:05 Resp 24 H 12/21/20 08:00 BP 137/94 H 12/21/20 09:01 Pulse Ox 95 12/21/20 09:01 Weight - Most Recent: 301 lb 4.8 oz I&O - Last 24 Hours: Intake & Output 12/20/20 12/21/20 12/21/20 22:59 06:59 14:59 Intake Total 673 2620 Output Total 2065 2060 450 Balance -1392 560 -450 Lab Results Last 24 Hours: Laboratory Results - last 24 hr 12/20/20 12/20/20 12/21/20 Range/Units 12:26 18:25 00:04 WBC (4.23-9.07) K/mm3 RBC (4.63-6.08) M/mm3 Hgb (13.7-17.5) gm/dl Hct (40.1-51.0) % MCV (79.0-92.2) fl MCH (25.7-32.2) pg MCHC (32.2-35.5) g/dl RDW Std Deviation (35.1-43.9) fL Plt Count (163-337) K/mm3 MPV (9.4-12.3) fl Sodium (136-145) mEq/L Potassium (3.5-5.1) mEq/L Chloride (98-107) mEq/L Carbon Dioxide (21-32) mEq/L Anion Gap (5-15) BUN (7-18) mg/dL Creatinine (0.7-1.3) mg/dL Est Cr Clr Drug Dosing mL/min Estimated GFR (MDRD) (>60) mL/min BUN/Creatinine Ratio (14-18) Glucose (74-106) mg/dL POC Glucose 125 H 147 H 132 H (70-105) mg/dL Calcium (8.5-10.1) mg/dL Magnesium (1.8-2.4) mg/dl 12/21/20 12/21/20 12/21/20 Range/Units 06:06 06:14 06:14 WBC 12.52 H (4.23-9.07) K/mm3 RBC 4.04 L (4.63-6.08) M/mm3 Hgb 9.6 L (13.7-17.5) gm/dl Hct 31.8 L (40.1-51.0) % MCV 78.7 L (79.0-92.2) fl MCH 23.8 L (25.7-32.2) pg MCHC 30.2 L (32.2-35.5) g/dl RDW Std Deviation 45.4 H (35.1-43.9) fL Plt Count 417 H (163-337) K/mm3 MPV 10.1 (9.4-12.3) fl Sodium 143 (136-145) mEq/L Potassium 3.1 L (3.5-5.1) mEq/L Chloride 104 (98-107) mEq/L Carbon Dioxide 31 (21-32) mEq/L Anion Gap 11.1 (5-15) BUN 26 H (7-18) mg/dL Creatinine 1.3 (0.7-1.3) mg/dL Est Cr Clr Drug Dosing 72.56 mL/min Estimated GFR (MDRD) 57 (>60) mL/min BUN/Creatinine Ratio 20.0 H (14-18) Glucose 113 H (74-106) mg/dL POC Glucose 113 H (70-105) mg/dL Calcium 8.1 L (8.5-10.1) mg/dL Magnesium 2.4 (1.8-2.4) mg/dl Edwardo Results Last 24 Hours: Microbiology 12/18/20 15:14 Aerobic Blood Culture - Preliminary Blood - Venous - Lab Draw NO GROWTH AFTER 2 DAYS Anaerobic Blood Culture - Preliminary NO GROWTH AFTER 2 DAYS 12/18/20 15:06 Aerobic Blood Culture - Preliminary Blood - Venous NO GROWTH AFTER 2 DAYS Anaerobic Blood Culture - Preliminary NO GROWTH AFTER 2 DAYS 12/18/20 20:56 Urine Culture - Preliminary Urine, Catheterized NO GROWTH AFTER 1 DAY Med Orders - Current: Current Medications Acetaminophen (Acetaminophen Soln 650 Mg/20.3 Ml Ud Cup) 1,000 mg PO Q8H PHILLIP Last Admin: 12/21/20 06:20 Dose: 1,000 mg Documented by: Enoxaparin Sodium (Enoxaparin 40 Mg/0.4 Ml Syringe) 40 mg SUBCUT Q12H PHILLIP Last Admin: 12/21/20 08:23 Dose: 40 mg Documented by: Hydralazine HCl (Hydralazine 20 Mg/Ml Sdv) 10 mg IVPUSH Q4H PRN PRN Reason: Hypertension Hydromorphone HCl (Hydromorphone 1 Mg/Ml Syringe) 1 mg IVPUSH Q2H PRN PRN Reason: Pain Last Admin: 12/21/20 08:23 Dose: 1 mg Documented by: Piperacillin Sod/Tazobactam (Sod 4.5 gm/ Sodium Chloride) 100 mls @ 25 mls/hr IV Q8H PHILLIP Last Admin: 12/21/20 02:16 Dose: 25 mls/hr Documented by: Potassium Chloride/Sodium Chloride (Normal Saline With 20 Meq Kcl) 1,000 mls @ 50 mls/hr IV ASDIRECTED PHILLIP Last Admin: 12/21/20 04:47 Dose: 50 mls/hr Documented by: Amiodarone HCl/Dextrose (Nexterone In Dextrose 360 Mg/200 Ml) 360 mg in 200 mls @ 33.333 mls/hr IV ASDIRECTED PHILLIP; Protocol Last Admin: 12/21/20 04:24 Dose: 16.7 mls/hr Documented by: Diltiazem HCl 100 mg/ Sodium (Chloride) 100 mls @ 5 mls/hr IV TITRATE PHILLIP; Protocol Last Admin: 12/21/20 09:26 Dose: 15 mg/hr, 15 mls/hr Documented by: Potassium Chloride 10 meq/ (Premix) 100 mls @ 100 mls/hr IV Q1H PHILLIP Stop: 12/21/20 13:59 Last Admin: 12/21/20 09:27 Dose: 100 mls/hr Documented by: Insulin Human Lispro (Insulin Lispro 100 Unit/Ml) 0 unit SUBCUT Q6HR [facility]; Protocol Last Admin: 12/21/20 06:21 Dose: Not Given Documented by: Metoprolol Tartrate (Metoprolol Tartrate 5 Mg/5 Ml Sdv) 2.5 mg IVPUSH ASDIRECTED PRN PRN Reason: HEART RATE > 110 Sodium Chloride (Sodium Chloride 0.9% 10 Ml Syringe) 10 ml FLUSH ASDIRECTED PRN PRN Reason: Keep Vein Open Last Admin: 12/18/20 11:56 Dose: 10 ml Documented by: Discontinued Medications Bupivacaine HCl/Epinephrine Bitart (Bupivacaine 0.5%/Epinephrine 1:200,000 50 Ml Mdv) Confirm Administered Dose 50 ml .ROUTE .STK-MED ONE Stop: 12/18/20 15:34 Last Admin: 12/18/20 16:23 Dose: 24 ml Documented by: Diatrizoate Meglum/Diatrizoate Sod (Diatrizoate Meglumine/Diatrizoate Sodium 37% 120 Ml Bottle) 120 ml PO ONETIME ONE Stop: 12/18/20 12:42 Last Admin: 12/18/20 20:29 Dose: Not Given Documented by: Diltiazem HCl (Diltiazem 50 Mg/10 Ml Sdv) 5 mg IVPUSH ONETIME ONE Stop: 12/20/20 04:44 Last Admin: 12/20/20 04:54 Dose: 5 mg Documented by: Fentanyl (Fentanyl 250 Mcg/5 Ml Sdv) Confirm Administered Dose 250 mcg .ROUTE .STK-MED ONE Stop: 12/18/20 15:17 Fentanyl (Fentanyl 100 Mcg/2 Ml Sdv) Confirm Administered Dose 100 mcg .ROUTE .STK-MED ONE Stop: 12/18/20 16:54 Fentanyl (Fentanyl 100 Mcg/2 Ml Sdv) Confirm Administered Dose 100 mcg .ROUTE .STK-MED ONE Stop: 12/18/20 17:49 Fentanyl (Fentanyl 100 Mcg/2 Ml Sdv) 50 mcg IVPUSH Q5M PRN PRN Reason: Pain Last Admin: 12/18/20 19:39 Dose: 50 mcg Documented by: Glycopyrrolate (Glycopyrrolate 0.2 Mg/Ml 2 Ml Syringe) Confirm Administered Dose 0.4 mg .ROUTE .STK-MED ONE Stop: 12/18/20 18:45 Heparin Sodium (Porcine) (Heparin Sodium 5,000 Units/Ml Vial) Confirm Administered Dose 5,000 units .ROUTE .STK-MED ONE Stop: 12/18/20 16:00 Heparin Sodium (Porcine) (Heparin Sodium 5,000 Units/Ml Vial) Confirm Administe red Dose 5,000 units .ROUTE .STK-MED ONE Stop: 12/18/20 16:00 Hydromorphone HCl (Hydromorphone 0.5 Mg/0.5 Ml Syringe) 0.5 mg IVPUSH ONETIME ONE Stop: 12/18/20 12:05 Last Admin: 12/18/20 12:17 Dose: 0.5 mg Documented by: Hydromorphone HCl (Hydromorphone 0.5 Mg/0.5 Ml Syringe) Confirm Administered Dose 0.5 mg .ROUTE .STK-MED ONE Stop: 12/18/20 16:45 Hydromorphone HCl (Hydromorphone 0.5 Mg/0.5 Ml Syringe) Confirm Administered Dose 0.5 mg .ROUTE .STK-MED ONE Stop: 12/18/20 16:45 Hydromorphone HCl (Hydromorphone 0.5 Mg/0.5 Ml Syringe) 0.5 mg IVPUSH Q1H PRN PRN Reason: Pain Last Admin: 12/18/20 19:20 Dose: 0.5 mg Documented by: Sodium Chloride (Normal Saline) 1,000 mls @ 100 mls/hr IV NOW STA Stop: 12/18/20 22:03 Last Admin: 12/18/20 12:17 Dose: 100 mls/hr Documented by: Piperacillin Sod/Tazobactam (Sod 4.5 gm/ Sodium Chloride) 100 mls @ 200 mls/hr IV ONETIME ONE Stop: 12/18/20 15:25 Last Admin: 12/18/20 15:18 Dose: 200 mls/hr Documented by: Lidocaine HCl (Xylocaine-Mpf 1%) Confirm Administered Dose 4 mls @ as directed .ROUTE .STK-MED ONE Stop: 12/18/20 15:18 Lactated Ringer's (Ringers, Lactated) Confirm Administered Dose 1,000 mls @ as directed .ROUTE .STK-MED ONE Stop: 12/18/20 16:28 Lactated Ringer's (Ringers, Lactated) Confirm Administered Dose 1,000 mls @ as directed .ROUTE .STK-MED ONE Stop: 12/18/20 16:40 Lactated Ringer's (Ringers, Lactated) Confirm Administered Dose 1,000 mls @ as directed .ROUTE .STK-MED ONE Stop: 12/18/20 17:33 Lactated Ringer's (Ringers, Lactated) 1,000 mls @ 150 mls/hr IV ASDIRECTED PHILLIP Last Admin: 12/20/20 04:26 Dose: 150 mls/hr Documented by: Insulin Human Regular 100 unit (/ Sodium Chloride) 100 mls @ 13.154 mls/hr IV TITRATE PHILLIP; Protocol Last Titration: 12/19/20 00:03 Dose: 0 units/kg/hr, 0 mls/hr Documented by: Magnesium Sulfate (Magnesium Sulfate In Water 2 Gm/50 Ml) 2 gm in 50 mls @ 25 mls/hr IV ONETIME ONE Stop: 12/18/20 22:59 Last Admin: 12/18/20 20:41 Dose: 25 mls/hr Documented by: Lactated Ringer's (Ringers, Lactated) 1,000 mls @ 1,000 mls/hr IV .BOLUS ONE Stop: 12/19/20 08:35 Last Admin: 12/19/20 07:53 Dose: 1,000 mls/hr Documented by: Magnesium Sulfate 4 gm/ Premix 50 mls @ 12.5 mls/hr IV ONETIME ONE Stop: 12/19/20 11:59 Last Admin: 12/19/20 08:19 Dose: 12.5 mls/hr Documented by: Lactated Ringer's (Ringers, Lactated) 1,000 mls @ 1,000 mls/hr IV .BOLUS ONE Stop: 12/19/20 16:07 Last Admin: 12/19/20 15:15 Dose: 1,000 mls/hr Documented by: Diltiazem HCl 100 mg/ Sodium (Chloride) 100 mls @ 5 mls/hr IV TITRATE PHILLIP; Protocol Last Admin: 12/20/20 08:48 Dose: 20 mg/hr, 20 mls/hr Documented by: Potassium Chloride 10 meq/ (Premix) 100 mls @ 100 mls/hr IV Q1H PHILLIP Stop: 12/20/20 06:44 Last Admin: 12/20/20 05:48 Dose: Not Given Documented by: Lactated Ringer's (Ringers, Lactated) 1,000 mls @ 50 mls/hr IV ASDIRECTED PHILLIP Last Admin: 12/20/20 05:11 Dose: 50 mls/hr Documented by: Amiodarone HCl/Dextrose (Nexterone In Dextrose 150 Mg/100 Ml) 100 mls @ 600 mls/hr IV .BOLUS ONE; Protocol Stop: 12/20/20 10:08 Last Admin: 12/20/20 10:19 Dose: 600 mls/hr Documented by: Amiodarone HCl/Dextrose (Nexterone In Dextrose 150 Mg/100 Ml) Confirm Admin istered Dose 100 mls @ as directed IV .STK-MED ONE Stop: 12/20/20 10:23 Last Admin: 12/20/20 11:42 Dose: Not Given Documented by: Iopamidol (Iopamidol 612 Mg/Ml 100 Ml Bottle) 100 ml IVPUSH ONETIME ONE Stop: 12/18/20 12:46 Last Admin: 12/18/20 14:04 Dose: 100 ml Documented by: Ketorolac Tromethamine (Ketorolac 30 Mg/Ml Sdv) Confirm Administered Dose 30 mg .ROUTE .STK-MED ONE Stop: 12/18/20 18:35 Labetalol HCl (Labetalol 100 Mg/20 Ml Mdv) 5 mg IVPUSH ONETIME PHILLIP; Protocol Labetalol HCl (Labetalol 100 Mg/20 Ml Mdv) 5 mg IVPUSH ONETIME PRN; Protocol PRN Reason: Hypertension Last Admin: 12/18/20 19:26 Dose: 5 mg Documented by: Metoprolol Tartrate (Metoprolol Tartrate 25 Mg Tab) 12.5 mg PO Q12H PHILLIP Last Admin: 12/20/20 05:58 Dose: 12.5 mg Documented by: Metoprolol Tartrate (Metoprolol Tartrate 5 Mg/5 Ml Sdv) 2.5 mg IVPUSH ONETIME ONE Stop: 12/20/20 22:51 Metoprolol Tartrate (Metoprolol Tartrate 5 Mg/5 Ml Sdv) 2.5 mg IVPUSH ONETIME PRN PRN Reason: HEART RATE > 100 Midazolam HCl (Midazolam 1 Mg/Ml 2 Ml Sdv) Confirm Administered Dose 2 mg .ROUTE .STK-MED ONE Stop: 12/18/20 15:17 Miscellaneous Medication (Phenylephrine Hcl In 0.9% Nacl 1 Mg/10 Ml Syringe) Confirm Administered Dose 1 mg .ROUTE .STK-MED ONE Stop: 12/18/20 16:20 Neostigmine Methylsulfate (Neostigmine Methylsulfate 5 Mg/5 Ml Syringe) Confirm Administered Dose 5 mg .ROUTE .STK-MED ONE Stop: 12/18/20 18:45 Neostigmine Methylsulfate (Neostigmine Methylsulfate 5 Mg/5 Ml Syringe) Confirm Administered Dose 5 mg .ROUTE .STK-MED ONE Stop: 12/18/20 18:56 Ondansetron HCl (Ondansetron 4 Mg/2 Ml Sdv) 4 mg IVPUSH ONETIME ONE Stop: 12/18/20 12:05 Last Admin: 12/18/20 12:17 Dose: 4 mg Documented by: Ondansetron HCl (Ondansetron 4 Mg/2 Ml Sdv) Confirm Administered Dose 4 mg .ROUTE .STK-MED ONE Stop: 12/18/20 15:17 Propofol (Propofol 200 Mg/20 Ml Sdv) Confirm Administered Dose 200 mg .ROUTE .STK-MED ONE Stop: 12/18/20 15:17 Rocuronium [place] (Rocuronium 50 Mg/5 Ml Vial) Confirm Administered Dose 50 mg .ROUTE .STK-MED ONE Stop: 12/18/20 15:17 Rocuronium [place] (Rocuronium 50 Mg/5 Ml Vial) Confirm Administered Dose 50 mg .ROUTE .STK-MED ONE Stop: 12/18/20 17:52 Sodium Chloride (Sodium Chloride 0.9% 10 Ml Syringe) 10 ml FLUSH BOLUS PHILLIP Last Admin: 12/18/20 14:04 Dose: 10 ml Documented by: - Exam General: Alert, Oriented HEENT: Pupils Equal, Mucous Membr. Moist/[place] Neck: Supple Lungs: Clear to Auscultation, Normal Respiratory Effort Cardiovascular: Regular Rate, Irregular Rhythm GI/Abdominal Exam: Normal Bowel Sounds, Soft, Non-Tender, No Organomegaly, No Distention, No Abnormal Bruit Extremities: Normal Inspection, Normal Range of Motion, Non-Tender, No Pedal Edema, Normal Capillary Refill Skin: Warm, Dry, Intact Neurological: No New Focal Deficit Psy/Mental Status: Alert, Normal Affect, Normal Mood Sepsis Event Note - Evaluation Sepsis Screening Result: Sepsis Risk - Focused Exam Vital Signs: Vital Signs Temp Temp Pulse Resp BP BP BP 12/21/20 09:05 92 12/21/20 09:01 137/94 H 12/21/20 09:00 108 H 12/21/20 08:03 135/82 12/21/20 08:02 12/21/20 08:00 100.3 F 24 H 12/21/20 07:01 135/84 12/21/20 07:00 12/21/20 06:01 127/88 12/21/20 06:00 98.1 F 127/88 12/21/20 05:01 134/80 12/21/20 05:00 134/80 12/21/20 04:01 133/80 12/21/20 04:00 97.0 F 15 134/80 12/21/20 03:01 137/68 12/21/20 03:00 14 137/68 12/21/20 02:01 135/79 12/21/20 02:00 12/21/20 01:01 127/87 12/21/20 01:00 127/87 12/21/20 00:08 124/73 12/21/20 00:07 12/21/20 00:02 151/94 H 12/21/20 00:01 12/21/20 00:00 97.9 F 16 124/73 12/20/20 23:02 140/97 H 12/20/20 23:01 12/20/20 23:00 140/97 H 12/20/20 22:01 153/82 H 12/20/20 22:00 153/82 H Pulse Ox 12/21/20 09:05 12/21/20 09:01 95 12/21/20 09:00 91 L 12/21/20 08:03 94 L 12/21/20 08:02 94 L 12/21/20 08:00 91 L 12/21/20 07:01 95 12/21/20 07:00 98 12/21/20 06:01 93 L 12/21/20 06:00 93 L 12/21/20 05:01 94 L 12/21/20 05:00 93 L 12/21/20 04:01 92 L 12/21/20 04:00 94 L 12/21/20 03:01 94 L 12/21/20 03:00 96 12/21/20 02:01 93 L 12/21/20 02:00 93 L 12/21/20 01:01 94 L 12/21/20 01:00 94 L 12/21/20 00:08 95 12/21/20 00:07 94 L 12/21/20 00:02 96 12/21/20 00:01 93 L 12/21/20 00:00 94 L 12/20/20 23:02 94 L 12/20/20 23:01 93 L 12/20/20 23:00 95 12/20/20 22:01 94 L 12/20/20 22:00 94 L Consult PN Assessment/Plan Procedures: Procedures ASSAY OF LIPASE (08/20/15) ASSAY OF MAGNESIUM (09/01/19) C DIFF AMPLIFIED PROBE (06/01/14) C-REACTIVE PROTEIN (08/20/15) COLONOSCOPY AND BIOPSY (06/01/14) COMPLETE CBC W/AUTO DIFF WBC (03/13/16) COMPREHEN METABOLIC PANEL (03/13/16) CRYPTOSPORIDIUM AG IA (06/01/14) CT ABD & PELV W/CONTRAST (08/20/15) CT ABD & PELVIS W/O CONTRAST (09/01/19) EGD BIOPSY SINGLE/MULTIPLE (06/01/14) EMERGENCY DEPT VISIT (09/01/19) GIARDIA AG IA (06/01/14) GLUCOSE BLOOD TEST (06/01/14) HYDRATE IV INFUSION ADD-ON (09/01/19) LEUKOCYTE ASSESSMENT FECAL (06/01/14) POLYSOM 6/>YRS CPAP 4/> PARM (09/12/16) ROUTINE VENIPUNCTURE (09/01/19) STOOL CULTR AEROBIC BACT EA (06/01/14) TEST FOR ACETONE/KETONES (09/01/19) THER/PROPH/DIAG INJ IV PUSH (03/13/16) THER/PROPH/DIAG IV INF INIT (09/01/19) TISSUE EXAM BY PATHOLOGIST (06/01/14) TX/PRO/DX INJ NEW DRUG ADDON (03/13/16) TX/PRO/DX INJ SAME DRUG ASSOCIATE DIRECTOR QA (08/20/15) URINALYSIS AUTO W/SCOPE (03/13/16) URINE CULTURE/COLONY COUNT (09/23/19) VANOMYCIN DNA AMP PROBE (06/01/14) (1) Atrial fibrillation with RVR SNOMED Code(s): 610216169337445 Code(s): I48.91 - UNSPECIFIED ATRIAL FIBRILLATION Current Visit: Yes Problem List Initiated/Reviewed/Updated: Yes Plan: Patient is a 54-year-old male with a history of ulcerative colitis, status post a total abdominal colectomy with the ileostomy, diabetes type 2, history of for pulmonary embolism and hypertension who underwent exploratory laparotomy, lysis of adhesions, primary repair of small bowel enterotomy, primary repair of parastomal hernia by Dr. Espinosa on 12/18 due to Complete SBO and incarcerated parastomal hernia. Assessment and plan: 1. Complete SBO and incarcerated parastomal hernia, s/p exploratory laparotomy, lysis of adhesions, primary repair of small bowel enterotomy, primary repair of parastomal hernia by Dr. Espinosa on 12/18 Postop management including pain control and DVT prophylaxis by surgical team 2. Atrial fibrillation with RVR, new Diltiazem drip as needed-switch to oral Amiodarone bolus has been given and will switch to oral 20 mg twice daily Discussed with Dr. Espinosa, continue Lovenox 40 mg twice daily today. Recommend changing to therapeutic Lovenox when okayed by surgery. Discontinued po metoprolol. [id number] = 2; recommend anticoagulation. 3. History of ulcerative colitis, s/p total abdominal colectomy with ileostomy in 2013 Follow with PCP and GI 4. DM type 2 Patient is on n.p.o. Insulin sliding scale Adjust insulin based on sugar levels 5. Hx of PE He was on Eliquis which was discontinued due to anemia Refer to #2 6. HTN Started on diltiazem for atrial fibrillation 7. DVT prophylaxis: Lovenox 40 mg twice daily (refer to #2)
[2020-12-21] MEDS: Amiodarone 200 MG Tab PO SCH ×2 (10:24→20:51)
[2020-12-21] MEDS: Diltiazem IR 60 MG Tab PO SCH ×4 (12:01→23:53)
--- NOTE | 2020-12-21 16:04 | PCM.SN.2 ---
- Free Text/Narrative Note: POD 3 s/p laparotomy and repair of incarcerated parastomal hernia. S: atrial fibrillation continues, rate controlled with diltiazem. ileostomy output has picked up. O: Afebrile. In atrial fibrillation with rate now in 110s, SPB ~120, SpO2 95% on 1L, Awake and alert, no acute distress, looks diaphoretic On nasal cannula irregular rhythm, tachycardic. troponin wnl. EKG shows atrial fibrillation. Abdominal incision clean, dry, intact. Appropriately tender. AGUSTÍN drain with minimal serous fluid. Ileostomy appears viable liquid dark green output. NG tube in place with ~600 cc of dark brown output. SCD in place No significant edema. skin warm and well perfused Labs reviewed- WBC down to 12 from 20. Hgb stable at 9.6. Cr down to 1.3 from 1.5. 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 Atrial fibrillation. Ileus seems resolved at this point. P: -dilaudid prn pain. will add oxycodone. -IS, OOB, continue pulmonary toilet -IVF reduced to 50 cc/hr, on cardizem gtt. Hospitalist helping management of atrial fibrillation. Plan to start eliquis tomorrow of Hgb is stable on morning labs. -NG removed this afternoon. Start clears. AGUSTÍN drain to bulb suction until tomorrow. -continue zosyn given persistent high WBC in context of gross peritoneal contamination- will stop if WBC wnl tomorrow morning. -lovenox 40 mg bid given history of PE. transition to eliquis tomorrow after monring labs reviewed. -insulin medium dose sliding scale, check serum glucose q6h -repeat labs in AM
[2020-12-22] MEDS: oxyCODONE 5 MG Tab PO PRN ×5 (00:08→20:41)
[2020-12-22] MEDS: Piperacillin/Tazobactam 4.5 GM in Sodium Chloride 0.9% 100 ML IV SCH ×2 (02:25→11:04)
[2020-12-22] MEDS: Diltiazem IR 60 MG Tab PO SCH (05:43)
[2020-12-22] MEDS: Acetaminophen Soln 650 MG/20.3 ML UD Cup PO SCH ×2 (05:43→14:07)
[2020-12-22] MEDS: Amiodarone 200 MG Tab PO SCH ×2 (08:46→20:40)
[2020-12-22] MEDS: Enoxaparin 40 MG/0.4 ML Syringe SUBCUT SCH (08:46)
--- NOTE | 2020-12-22 09:05 | PCM.SN.2 ---
- Free Text/Narrative Note: POD 4 s/p laparotomy and repair of incarcerated parastomal hernia. S: atrial fibrillation continues, rate controlled with diltiazem. copious ileostomy output. NG out with no nausea or vomiting. O: Afebrile. In atrial fibrillation with rate now in 90s, SPB ~120, SpO2 95% on 1L Awake and alert, no acute distress, looks diaphoretic On nasal cannula irregular rhythm, rate controlled Abdominal incision clean, dry, intact. Appropriately tender. AGUSTÍN drain with minimal serous fluid. Ileostomy appears viable liquid dark green output. SCD in place No significant edema. skin warm and well perfused Labs reviewed- WBC down to 11 from 12. Other labs unremarkable. 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 Atrial fibrillation. Ileus resolved. P: -increase oxycodone dose, add prn toradol -IS, OOB, continue pulmonary toilet -stop maintenance IV fluids. Dr. Lin helping management of atrial fibrillation, converting to oral regimen. -start eliquis 5 mg bid. Stop lovenox. -Advance to regular diet. PLan to remove AGUSTÍN this afternoon. -continue zosyn until this evening -insulin medium dose sliding scale, check serum glucose q6h -repeat labs in AM -PT,OT, await final recommendations re: disposition -possible discharge to home tomorrow
--- NOTE | 2020-12-22 09:45 | PCM.CONSN ---
- General Info Date of Service: 12/22/20 Admission Dx/Problem (Free Text): Admission Diagnosis/Problem Admission Diagnosis/Problem Obstruction of colon Subjective Update: Patient is a 54-year-old male with a history of ulcerative colitis, status post a total abdominal colectomy with the ileostomy, diabetes type 2, history of for pulmonary embolism and hypertension who underwent exploratory laparotomy, lysis of adhesions, primary repair of small bowel enterotomy, primary repair of parastomal hernia by Dr. Espinosa on 12/18 due to Complete SBO and incarcerated parastomal hernia. After the procedure, patient developed atrial fibrillation with RVR. Functional Status: Reports: Pain Controlled - Review of Systems General: Reports: No Symptoms HEENT: Reports: No Symptoms Pulmonary: Reports: No Symptoms Cardiovascular: Reports: No Symptoms Gastrointestinal: Reports: No Symptoms - Patient Data Vitals - Most Recent: Last Vital Signs Temp 99.0 F 12/22/20 04:00 Pulse 98 12/21/20 21:00 Resp 20 12/22/20 04:00 BP 132/82 12/22/20 04:00 Pulse Ox 96 12/22/20 05:28 Weight - Most Recent: 299 lb 3.2 oz I&O - Last 24 Hours: Intake & Output 12/21/20 12/22/20 12/22/20 22:59 06:59 14:59 Intake Total 2512 884 Output Total 1255 1275 Balance 1257 -391 Lab Results Last 24 Hours: Laboratory Results - last 24 hr 12/21/20 12/21/20 12/21/20 Range/Units 12:08 17:10 23:07 WBC (4.23-9.07) K/mm3 RBC (4.63-6.08) M/mm3 Hgb (13.7-17.5) gm/dl Hct (40.1-51.0) % MCV (79.0-92.2) fl MCH (25.7-32.2) pg MCHC (32.2-35.5) g/dl RDW Std Deviation (35.1-43.9) fL Plt Count (163-337) K/mm3 MPV (9.4-12.3) fl Neut % (Auto) (34.0-67.9) % Lymph % (Auto) (21.8-53.1) % [place] % (Auto) (5.3-12.2) % Eos % (Auto) (0.8-7.0) Baso % (Auto) (0.1-1.2) % Neut # (Auto) (1.78-5.38) K/mm3 Lymph # (Auto) (1.32-3.57) K/mm3 [place] # (Auto) (0.30-0.82) K/mm3 Eos # (Auto) (0.04-0.54) K/mm3 Baso # (Auto) (0.01-0.08) K/mm3 Manual Slide Review Sodium (136-145) mEq/L Potassium (3.5-5.1) mEq/L Chloride (98-107) mEq/L Carbon Dioxide (21-32) mEq/L Anion Gap (5-15) BUN (7-18) mg/dL Creatinine (0.7-1.3) mg/dL Est Cr Clr Drug Dosing mL/min Estimated GFR (MDRD) (>60) mL/min BUN/Creatinine Ratio (14-18) Glucose (74-106) mg/dL POC Glucose 148 H 152 H 172 H (70-105) mg/dL Calcium (8.5-10.1) mg/dL 12/22/20 12/22/20 12/22/20 Range/Units 05:36 06:03 06:08 WBC 11.23 H (4.23-9.07) K/mm3 RBC 4.06 L (4.63-6.08) M/mm3 Hgb 9.6 L (13.7-17.5) gm/dl Hct 32.1 L (40.1-51.0) % MCV 79.1 (79.0-92.2) fl MCH 23.6 L (25.7-32.2) pg MCHC 29.9 L (32.2-35.5) g/dl RDW Std Deviation 46.1 H (35.1-43.9) fL Plt Count 449 H (163-337) K/mm3 MPV 10.2 (9.4-12.3) fl Neut % (Auto) 76.4 H (34.0-67.9) % Lymph % (Auto) 15.0 L (21.8-53.1) % [place] % (Auto) 5.6 (5.3-12.2) % Eos % (Auto) 2.6 (0.8-7.0) Baso % (Auto) 0.2 (0.1-1.2) % Neut # (Auto) 8.58 H (1.78-5.38) K/mm3 Lymph # (Auto) 1.69 (1.32-3.57) K/mm3 [place] # (Auto) 0.63 (0.30-0.82) K/mm3 Eos # (Auto) 0.29 (0.04-0.54) K/mm3 Baso # (Auto) 0.02 (0.01-0.08) K/mm3 Manual Slide Review Abnormal smear Sodium 143 (136-145) mEq/L Potassium 3.3 L (3.5-5.1) mEq/L Chloride 104 (98-107) mEq/L Carbon Dioxide 31 (21-32) mEq/L Anion Gap 11.3 (5-15) BUN 20 H (7-18) mg/dL Creatinine 1.3 (0.7-1.3) mg/dL Est Cr Clr Drug Dosing 72.56 mL/min Estimated GFR (MDRD) 57 (>60) mL/min BUN/Creatinine Ratio 15.4 (14-18) Glucose 134 H (74-106) mg/dL POC Glucose 146 H (70-105) mg/dL Calcium 8.2 L (8.5-10.1) mg/dL Edwardo Results Last 24 Hours: Microbiology 12/18/20 15:14 Aerobic Blood Culture - Preliminary Blood - Venous - Lab Draw NO GROWTH AFTER 3 DAYS Anaerobic Blood Culture - Preliminary NO GROWTH AFTER 3 DAYS 12/18/20 15:06 Aerobic Blood Culture - Preliminary Blood - Venous NO GROWTH AFTER 3 DAYS Anaerobic Blood Culture - Preliminary NO GROWTH AFTER 3 DAYS 12/18/20 20:56 Urine Culture - Final Urine, Catheterized NO GROWTH AFTER 2 DAYS Med Orders - Current: Current Medications Acetaminophen (Acetaminophen Soln 650 Mg/20.3 Ml Ud Cup) 1,000 mg PO Q8H [facility] Last Admin: 12/22/20 05:43 Dose: 1,000 mg Documented by: Amiodarone HCl (Amiodarone 200 Mg Tab) 200 mg PO BID [facility] Last Admin: 12/22/20 08:46 Dose: 200 mg Documented by: Apixaban (Apixaban 5 Mg Tab) 5 mg PO BID [facility] Diltiazem HCl (Diltiazem Ir 60 Mg Tab) 60 mg PO Q6HR [facility] Last Admin: 12/22/20 05:43 Dose: 60 mg Documented by: Hydralazine HCl (Hydralazine 20 Mg/Ml Sdv) 10 mg IVPUSH Q4H PRN PRN Reason: Hypertension Hydromorphone HCl (Hydromorphone 1 Mg/Ml Syringe) 1 mg IVPUSH Q2H PRN PRN Reason: Pain Last Admin: 12/21/20 18:15 Dose: 1 mg Documented by: Piperacillin Sod/Tazobactam (Sod 4.5 gm/ Sodium Chloride) 100 mls @ 25 mls/hr IV Q8H [facility] Last Admin: 12/22/20 02:25 Dose: 25 mls/hr Documented by: Insulin Human Lispro (Insulin Lispro 100 Unit/Ml) 0 unit SUBCUT Q6HR [facility]; Protocol Last Admin: 12/22/20 05:41 Dose: Not Given Documented by: Ketorolac Tromethamine (Ketorolac 30 Mg/Ml Sdv) 30 mg IVPUSH Q6H PRN PRN Reason: Pain Metoprolol Tartrate (Metoprolol Tartrate 5 Mg/5 Ml Sdv) 2.5 mg IVPUSH ASDIRECTED PRN PRN Reason: HEART RATE > 110 Oxycodone HCl (Oxycodone 5 Mg Tab) 10 mg PO Q4H PRN PRN Reason: Pain Sodium Chloride (Sodium Chloride 0.9% 10 Ml Syringe) 10 ml FLUSH ASDIRECTED PRN PRN Reason: Keep Vein Open Last Admin: 12/18/20 11:56 Dose: 10 ml Documented by: Discontinued Medications Bupivacaine HCl/Epinephrine Bitart (Bupivacaine 0.5%/Epinephrine 1:200,000 50 Ml Mdv) Confirm Administered Dose 50 ml .ROUTE .STK-MED ONE Stop: 12/18/20 15:34 Last Admin: 12/18/20 16:23 Dose: 24 ml Documented by: Diatrizoate Meglum/Diatrizoate Sod (Diatrizoate Meglumine/Diatrizoate Sodium 37% 120 Ml Bottle) 120 ml PO ONETIME ONE Stop: 12/18/20 12:42 Last Admin: 12/18/20 20:29 Dose: Not Given Documented by: Diltiazem HCl (Diltiazem 50 Mg/10 Ml Sdv) 5 mg IVPUSH ONETIME ONE Stop: 12/20/20 04:44 Last Admin: 12/20/20 04:54 Dose: 5 mg Documented by: Enoxaparin Sodium (Enoxaparin 40 Mg/0.4 Ml Syringe) 40 mg SUBCUT Q12H [facility] Last Admin: 12/22/20 08:46 Dose: 40 mg Documented by: Fentanyl (Fentanyl 250 Mcg/5 Ml Sdv) Confirm Administered Dose 250 mcg .ROUTE .STK-MED ONE Stop: 12/18/20 15:17 Fentanyl (Fentanyl 100 Mcg/2 Ml Sdv) Confirm Administered Dose 100 mcg .ROUTE .STK-MED ONE Stop: 12/18/20 16:54 Fentanyl (Fentanyl 100 Mcg/2 Ml Sdv) Confirm Administered Dose 100 mcg .ROUTE .STK-MED ONE Stop: 12/18/20 17:49 Fentanyl (Fentanyl 100 Mcg/2 Ml Sdv) 50 mcg IVPUSH Q5M PRN PRN Reason: Pain Last Admin: 12/18/20 19:39 Dose: 50 mcg Documented by: Glycopyrrolate (Glycopyrrolate 0.2 Mg/Ml 2 Ml Syringe) Confirm Administered Dose 0.4 mg .ROUTE .STK-MED ONE Stop: 12/18/20 18:45 Heparin Sodium (Porcine) (Heparin Sodium 5,000 Units/Ml Vial) Confirm Administered Dose 5,000 units .ROUTE .STK-MED ONE Stop: 12/18/20 16:00 Heparin Sodium (Porcine) (Heparin Sodium 5,000 Units/Ml Vial) Confirm Administered Dose 5,000 units .ROUTE .STK-MED ONE Stop: 12/18/20 16:00 Hydromorphone HCl (Hydromorphone 0.5 Mg/0.5 Ml Syringe) 0.5 mg IVPUSH ONETIME ONE Stop: 12/18/20 12:05 Last Admin: 12/18/20 12:17 Dose: 0.5 mg Documented by: Hydromorphone HCl (Hydromorphone 0.5 Mg/0.5 Ml Syringe) Confirm Administered Dose 0.5 mg .ROUTE .STK-MED ONE Stop: 12/18/20 16:45 Hydromorphone HCl (Hydromorphone 0.5 Mg/0.5 Ml Syringe) Confirm Administered Dose 0.5 mg .ROUTE .STK-MED ONE Stop: 12/18/20 16:45 Hydromorphone HCl (Hydromorphone 0.5 Mg/0.5 Ml Syringe) 0.5 mg IVPUSH Q1H PRN PRN Reason: Pain Last Admin: 12/18/20 19:20 Dose: 0.5 mg Documented by: Sodium Chloride (Normal Saline) 1,000 mls @ 100 mls/hr IV NOW STA Stop: 12/18/20 22:03 Last Admin: 12/18/20 12:17 Dose: 100 mls/hr Documented by: Piperacillin Sod/Tazobactam (Sod 4.5 gm/ Sodium Chloride) 100 mls @ 200 mls/hr IV ONETIME ONE Stop: 12/18/20 15:25 Last Admin: 12/18/20 15:18 Dose: 200 mls/hr Documented by: Lidocaine HCl (Xylocaine-Mpf 1%) Confirm Administered Dose 4 mls @ as directed .ROUTE .STK-MED ONE Stop: 12/18/20 15:18 Lactated Ringer's (Ringers, Lactated) Confirm Administered Dose 1,000 mls @ as directed .ROUTE .STK-MED ONE Stop: 12/18/20 16:28 Lactated Ringer's (Ringers, Lactated) Confirm Administered Dose 1,000 mls @ as directed .ROUTE .STK-MED ONE Stop: 12/18/20 16:40 Lactated Ringer's (Ringers, Lactated) Confirm Administered Dose 1,000 mls @ as directed .ROUTE .STK-MED ONE Stop: 12/18/20 17:33 Lactated Ringer's (Ringers, Lactated) 1,000 mls @ 150 mls/hr IV ASDIRECTED [facility] Last Admin: 12/20/20 04:26 Dose: 150 mls/hr Documented by: Insulin Human Regular 100 unit (/ Sodium Chloride) 100 mls @ 13.154 mls/hr IV TITRATE [facility]; Protocol Last Titration: 12/19/20 00:03 Dose: 0 units/kg/hr, 0 mls/hr Documented by: Magnesium Sulfate (Magnesium Sulfate In Water 2 Gm/50 Ml) 2 gm in 50 mls @ 25 mls/hr IV ONETIME ONE Stop: 12/18/20 22:59 Last Admin: 12/18/20 20:41 Dose: 25 mls/hr Documented by: Lactated Ringer's (Ringers, Lactated) 1,000 mls @ 1,000 mls/hr IV .BOLUS ONE Stop: 12/19/20 08:35 Last Admin: 12/19/20 07:53 Dose: 1,000 mls/hr Documented by: Magnesium Sulfate 4 gm/ Premix 50 mls @ 12.5 mls/hr IV ONETIME ONE Stop: 12/19/20 11:59 Last Admin: 12/19/20 08:19 Dose: 12.5 mls/hr Documented by: Lactated Ringer's (Ringers, Lactated) 1,000 mls @ 1,000 mls/hr IV .BOLUS ONE Stop: 12/19/20 16:07 Last Admin: 12/19/20 15:15 Dose: 1,000 mls/hr Documented by: Diltiazem HCl 100 mg/ Sodium (Chloride) 100 mls @ 5 mls/hr IV TITRATE [facility]; Protocol Last Admin: 12/20/20 08:48 Dose: 20 mg/hr, 20 mls/hr Documented by: Potassium Chloride 10 meq/ (Premix) 100 mls @ 100 mls/hr IV Q1H [facility] Stop: 12/20/20 06:44 Last Admin: 12/20/20 05:48 Dose: Not Given Documented by: Lactated Ringer's (Ringers, Lactated) 1,000 mls @ 50 mls/hr IV ASDIRECTED [facility] Last Admin: 12/20/20 05:11 Dose: 50 mls/hr Documented by: Potassium Chloride/Sodium Chloride (Normal Saline With 20 Meq Kcl) 1,000 mls @ 50 mls/hr IV ASDIRECTED [facility] Last Admin: 12/21/20 04:47 Dose: 50 mls/hr Documented by: Amiodarone HCl/Dextrose (Nexterone In Dextrose 150 Mg/100 Ml) 100 mls @ 600 mls/hr IV .BOLUS ONE; Protocol Stop: 12/20/20 10:08 Last Admin: 12/20/20 10:19 Dose: 600 mls/hr Documented by: Amiodarone HCl/Dextrose (Nexterone In Dextrose 360 Mg/200 Ml) 360 mg in 200 mls @ 33.333 mls/hr IV ASDIRECTED [facility]; Protocol Last Admin: 12/21/20 04:24 Dose: 16.7 mls/hr Documented by: Amiodarone HCl/Dextrose (Nexterone In Dextrose 150 Mg/100 Ml) Confirm Administered Dose 100 mls @ as directed IV .STK-MED ONE Stop: 12/20/20 10:23 Last Admin: 12/20/20 11:42 Dose: Not Given Documented by: Diltiazem HCl 100 mg/ Sodium (Chloride) 100 mls @ 5 mls/hr IV TITRATE [facility]; Protocol Last Titration: 12/21/20 15:23 Dose: 0 mg/hr, 0 mls/hr Documented by: Potassium Chloride 10 meq/ (Premix) 100 mls @ 100 mls/hr IV Q1H [facility] Stop: 12/21/20 13:59 Last Admin: 12/21/20 14:20 Dose: 100 mls/hr Documented by: Iopamidol (Iopamidol 612 Mg/Ml 100 Ml Bottle) 100 ml IVPUSH ONETIME ONE Stop: 12/18/20 12:46 Last Admin: 12/18/20 14:04 Dose: 100 ml Documented by: Ketorolac Tromethamine (Ketorolac 30 Mg/Ml Sdv) Confirm Administered Dose 30 mg .ROUTE .STK-MED ONE Stop: 12/18/20 18:35 Labetalol HCl (Labetalol 100 Mg/20 Ml Mdv) 5 mg IVPUSH ONETIME [facility]; Protocol Labetalol HCl (Labetalol 100 Mg/20 Ml Mdv) 5 mg IVPUSH ONETIME PRN; Protocol PRN Reason: Hypertension Last Admin: 12/18/20 19:26 Dose: 5 mg Documented by: Metoprolol Tartrate (Metoprolol Tartrate 25 Mg Tab) 12.5 mg PO Q12H [facility] Last Admin: 12/20/20 05:58 Dose: 12.5 mg Documented by: Metoprolol Tartrate (Metoprolol Tartrate 5 Mg/5 Ml Sdv) 2.5 mg IVPUSH ONETIME ONE Stop: 12/20/20 22:51 Last Admin: 12/21/20 20:53 Dose: Not Given Documented by: Metoprolol Tartrate (Metoprolol Tartrate 5 Mg/5 Ml Sdv) 2.5 mg IVPUSH ONETIME PRN PRN Reason: HEART RATE > 100 Midazolam HCl (Midazolam 1 Mg/Ml 2 Ml Sdv) Confirm Administered Dose 2 mg .ROUTE .STK-MED ONE Stop: 12/18/20 15:17 Miscellaneous Medication (Phenylephrine Hcl In 0.9% Nacl 1 Mg/10 Ml Syringe) Confirm Administered Dose 1 mg .ROUTE .STK-MED ONE Stop: 12/18/20 16:20 Neostigmine Methylsulfate (Neostigmine Methylsulfate 5 Mg/5 Ml Syringe) Confirm Administered Dose 5 mg .ROUTE .STK-MED ONE Stop: 12/18/20 18:45 Neostigmine Methylsulfate (Neostigmine Methylsulfate 5 Mg/5 Ml Syringe) Confirm Administered Dose 5 mg .ROUTE .STK-MED ONE Stop: 12/18/20 18:56 Ondansetron HCl (Ondansetron 4 Mg/2 Ml Sdv) 4 mg IVPUSH ONETIME ONE Stop: 12/18/20 12:05 Last Admin: 12/18/20 12:17 Dose: 4 mg Documented by: Ondansetron HCl (Ondansetron 4 Mg/2 Ml Sdv) Confirm Administered Dose 4 mg .ROUTE .STK-MED ONE Stop: 12/18/20 15:17 Oxycodone HCl (Oxycodone 5 Mg Tab) 5 mg PO Q4H PRN PRN Reason: Pain (moderate 4-6) Last Admin: 12/22/20 05:42 Dose: 5 mg Documented by: Propofol (Propofol 200 Mg/20 Ml Sdv) Confirm Administered Dose 200 mg .ROUTE .STK-MED ONE Stop: 12/18/20 15:17 Rocuronium [place] (Rocuronium 50 Mg/5 Ml Vial) Confirm Administered Dose 50 mg .ROUTE .STK-MED ONE Stop: 12/18/20 15:17 Rocuronium [place] (Rocuronium 50 Mg/5 Ml Vial) Confirm Administered Dose 50 mg .ROUTE .STK-MED ONE Stop: 12/18/20 17:52 Sodium Chloride (Sodium Chloride 0.9% 10 Ml Syringe) 10 ml FLUSH BOLUS [facility] Last Admin: 12/18/20 14:04 Dose: 10 ml Documented by: - Exam General: Alert, Oriented HEENT: Pupils Equal, Mucous Membr. Moist/[place] Neck: Supple Lungs: Clear to Auscultation, Normal Respiratory Effort Cardiovascular: Regular Rate, Irregular Rhythm Extremities: Normal Inspection, Normal Range of Motion, Non-Tender, No Pedal Edema, Normal Capillary Refill Skin: Warm, Dry, Intact Sepsis Event Note - Evaluation Sepsis Screening Result: Sepsis Risk - Focused Exam Vital Signs: Vital Signs Temp Resp BP Pulse Ox Pulse Ox 12/22/20 05:28 96 12/22/20 04:00 99.0 F 20 132/82 12/22/20 02:00 19 126/79 98 12/22/20 01:00 131/79 12/22/20 00:00 98.9 F 18 125/74 95 12/21/20 23:00 118/72 96 12/21/20 22:00 20 95 Consult PN Assessment/Plan Procedures: Procedures ASSAY OF LIPASE (08/20/15) ASSAY OF MAGNESIUM (09/01/19) C DIFF AMPLIFIED PROBE (06/01/14) C-REACTIVE PROTEIN (08/20/15) COLONOSCOPY AND BIOPSY (06/01/14) COMPLETE CBC W/AUTO DIFF WBC (03/13/16) COMPREHEN METABOLIC PANEL (03/13/16) CRYPTOSPORIDIUM AG IA (06/01/14) CT ABD & PELV W/CONTRAST (08/20/15) CT ABD & PELVIS W/O CONTRAST (09/01/19) EGD BIOPSY SINGLE/MULTIPLE (06/01/14) EMERGENCY DEPT VISIT (09/01/19) GIARDIA AG IA (06/01/14) GLUCOSE BLOOD TEST (06/01/14) HYDRATE IV INFUSION ADD-ON (09/01/19) LEUKOCYTE ASSESSMENT FECAL (06/01/14) POLYSOM 6/>YRS CPAP 4/> PARM (09/12/16) ROUTINE VENIPUNCTURE (09/01/19) STOOL CULTR AEROBIC BACT EA (06/01/14) TEST FOR ACETONE/KETONES (09/01/19) THER/PROPH/DIAG INJ IV PUSH (03/13/16) THER/PROPH/DIAG IV INF INIT (09/01/19) TISSUE EXAM BY PATHOLOGIST (06/01/14) TX/PRO/DX INJ NEW DRUG ADDON (03/13/16) TX/PRO/DX INJ SAME DRUG LICENSED NURSE PRACTITIONER (08/20/15) URINALYSIS AUTO W/SCOPE (03/13/16) URINE CULTURE/COLONY COUNT (09/23/19) VANOMYCIN DNA AMP PROBE (06/01/14) (1) Atrial fibrillation with RVR SNOMED Code(s): 008970525685778 Code(s): I48.91 - UNSPECIFIED ATRIAL FIBRILLATION Current Visit: Yes Problem List Initiated/Reviewed/Updated: Yes My Orders Last 24 Hours: My Active Orders 12/21/20 10:15 Amiodarone [Cordarone] 200 mg PO BID 12/21/20 12:00 Diltiazem IR [Cardizem] 60 mg PO Q6HR Plan: Patient is a 54-year-old male with a history of ulcerative colitis, status post a total abdominal colectomy with the ileostomy, diabetes type 2, history of for pulmonary embolism and hypertension who underwent exploratory laparotomy, lysis of adhesions, primary repair of small bowel enterotomy, primary repair of parastomal hernia by Dr. Espinosa on 12/18 due to Complete SBO and incarcerated parastomal hernia. Assessment and plan: 1. Complete SBO and incarcerated parastomal hernia, s/p exploratory laparotomy, lysis of adhesions, primary repair of small bowel enterotomy, primary repair of parastomal hernia by Dr. Espinosa on 12/18 Postop management including pain control and DVT prophylaxis by surgical team 2. Atrial fibrillation with RVR, new Switch from diltiazem IR to diltiazem CD Amiodarone bolus has been given and will switch to oral 200 mg twice daily Restart Eliquis 5 mg twice daily Discontinued po metoprolol. Echocardiogram [id number] = 2; recommend anticoagulation. 3. History of ulcerative colitis, s/p total abdominal colectomy with ileostomy in 2013 Follow with PCP and GI 4. DM type 2 Insulin sliding scale Adjust insulin based on sugar levels 5. Hx of PE Restart Eliquis 5 mg twice daily 6. HTN Started on diltiazem for atrial fibrillation 7. DVT prophylaxis: Lovenox 40 mg twice daily (refer to #2)
[2020-12-22] MEDS: Diltiazem 300 MG Cap.CD PO SCH (13:08)
[2020-12-22] MEDS: Apixaban 5 MG Tab PO SCH (20:42)
[2020-12-22] MEDS: Acetaminophen 325 MG Tab PO PRN (21:05)
[2020-12-23] MEDS: oxyCODONE 5 MG Tab PO PRN ×5 (01:03→17:57)
[2020-12-23] MEDS ORDERED: Potassium Chloride 20 MEQ Tab.ER PO ONE (07:59)
[2020-12-23] MEDS: Amiodarone 200 MG Tab PO SCH ×2 (08:51→20:23)
[2020-12-23] MEDS: Diltiazem 300 MG Cap.CD PO SCH (08:51)
[2020-12-23] MEDS: Apixaban 5 MG Tab PO SCH ×2 (08:51→20:23)
--- NOTE | 2020-12-23 11:13 | PCM.CONSN ---
- General Info Date of Service: 12/23/20 Admission Dx/Problem (Free Text): Admission Diagnosis/Problem Admission Diagnosis/Problem Obstruction of colon Subjective Update: Patient has no cardiac complaints. His heart rate has been in the 90s to low 100s. Switched to long-acting Cardizem yesterday and will receive his second dose today. Continues on amiodarone. Functional Status: Reports: Pain Controlled - Review of Systems General: Reports: No Symptoms HEENT: Reports: No Symptoms Pulmonary: Reports: No Symptoms Cardiovascular: Reports: No Symptoms - Patient Data Vitals - Most Recent: Last Vital Signs Temp 99.9 F 12/23/20 08:00 Pulse 98 12/21/20 21:00 Resp 16 12/23/20 08:00 BP 151/91 H 12/23/20 08:00 Pulse Ox 94 L 12/23/20 08:00 Weight - Most Recent: 297 lb 8 oz I&O - Last 24 Hours: Intake & Output 12/22/20 12/23/20 12/23/20 22:59 06:59 14:59 Intake Total 994 Output Total 420 1325 Balance 574 -1325 Lab Results Last 24 Hours: Laboratory Results - last 24 hr 12/22/20 12/22/20 12/22/20 Range/Units 13:15 16:42 23:01 WBC (4.23-9.07) K/mm3 RBC (4.63-6.08) M/mm3 Hgb (13.7-17.5) gm/dl Hct (40.1-51.0) % MCV (79.0-92.2) fl MCH (25.7-32.2) pg MCHC (32.2-35.5) g/dl RDW Std Deviation (35.1-43.9) fL Plt Count (163-337) K/mm3 MPV (9.4-12.3) fl Neut % (Auto) (34.0-67.9) % Lymph % (Auto) (21.8-53.1) % [place] % (Auto) (5.3-12.2) % Eos % (Auto) (0.8-7.0) Baso % (Auto) (0.1-1.2) % Neut # (Auto) (1.78-5.38) K/mm3 Lymph # (Auto) (1.32-3.57) K/mm3 [place] # (Auto) (0.30-0.82) K/mm3 Eos # (Auto) (0.04-0.54) K/mm3 Baso # (Auto) (0.01-0.08) K/mm3 Manual Slide Review Sodium (136-145) mEq/L Potassium (3.5-5.1) mEq/L Chloride (98-107) mEq/L Carbon Dioxide (21-32) mEq/L Anion Gap (5-15) BUN (7-18) mg/dL Creatinine (0.7-1.3) mg/dL Est Cr Clr Drug Dosing mL/min Estimated GFR (MDRD) (>60) mL/min BUN/Creatinine Ratio (14-18) Glucose (74-106) mg/dL POC Glucose 266 H 177 H 225 H (70-105) mg/dL Calcium (8.5-10.1) mg/dL 12/23/20 12/23/20 12/23/20 Range/Units 05:21 05:55 05:55 WBC 13.37 H (4.23-9.07) K/mm3 RBC 4.13 L (4.63-6.08) M/mm3 Hgb 9.8 L (13.7-17.5) gm/dl Hct 32.5 L (40.1-51.0) % MCV 78.7 L (79.0-92.2) fl MCH 23.7 L (25.7-32.2) pg MCHC 30.2 L (32.2-35.5) g/dl RDW Std Deviation 45.5 H (35.1-43.9) fL Plt Count 463 H (163-337) K/mm3 MPV 10.1 (9.4-12.3) fl Neut % (Auto) 75.9 H (34.0-67.9) % Lymph % (Auto) 13.1 L (21.8-53.1) % [place] % (Auto) 7.6 (5.3-12.2) % Eos % (Auto) 2.6 (0.8-7.0) Baso % (Auto) 0.1 (0.1-1.2) % Neut # (Auto) 10.14 H (1.78-5.38) K/mm3 Lymph # (Auto) 1.75 (1.32-3.57) K/mm3 [place] # (Auto) 1.02 H (0.30-0.82) K/mm3 Eos # (Auto) 0.35 (0.04-0.54) K/mm3 Baso # (Auto) 0.02 (0.01-0.08) K/mm3 Manual Slide Review Normal smear Sodium 140 (136-145) mEq/L Potassium 3.2 L (3.5-5.1) mEq/L Chloride 103 (98-107) mEq/L Carbon Dioxide 27 (21-32) mEq/L Anion Gap 13.2 (5-15) BUN 15 (7-18) mg/dL Creatinine 1.2 (0.7-1.3) mg/dL Est Cr Clr Drug Dosing 78.61 mL/min Estimated GFR (MDRD) > 60 (>60) mL/min BUN/Creatinine Ratio 12.5 L (14-18) Glucose 156 H (74-106) mg/dL POC Glucose 153 H (70-105) mg/dL Calcium 8.4 L (8.5-10.1) mg/dL Edwardo Results Last 24 Hours: Microbiology 12/18/20 15:14 Aerobic Blood Culture - Preliminary Blood - Venous - Lab Draw NO GROWTH AFTER 4 DAYS Anaerobic Blood Culture - Preliminary NO GROWTH AFTER 4 DAYS 12/18/20 15:06 Aerobic Blood Culture - Preliminary Blood - Venous NO GROWTH AFTER 4 DAYS Anaerobic Blood Culture - Preliminary NO GROWTH AFTER 4 DAYS Med Orders - Current: Current Medications Acetaminophen (Acetaminophen 325 Mg Tab) 650 mg PO Q4H PRN PRN Reason: Fever Last Admin: 12/22/20 21:05 Dose: 650 mg Documented by: Amiodarone HCl (Amiodarone 200 Mg Tab) 200 mg PO BID [facility] Last Admin: 12/23/20 08:51 Dose: 200 mg Documented by: Apixaban (Apixaban 5 Mg Tab) 5 mg PO BID [facility] Last Admin: 12/23/20 08:51 Dose: 5 mg Documented by: Diltiazem HCl (Diltiazem 300 Mg Cap.Cd) 300 mg PO DAILY [facility] Last Admin: 12/23/20 08:51 Dose: 300 mg Documented by: Hydralazine HCl (Hydralazine 20 Mg/Ml Sdv) 10 mg IVPUSH Q4H PRN PRN Reason: Hypertension Hydromorphone HCl (Hydromorphone 1 Mg/Ml Syringe) 1 mg IVPUSH Q2H PRN PRN Reason: Pain Last Admin: 12/21/20 18:15 Dose: 1 mg Documented by: Insulin Human Lispro (Insulin Lispro 100 Unit/Ml) 0 unit SUBCUT Q6HR [facility]; Protocol Last Admin: 12/23/20 06:11 Dose: 2 units Documented by: Ketorolac Tromethamine (Ketorolac 30 Mg/Ml Sdv) 30 mg IVPUSH Q6H PRN PRN Reason: Pain Metoprolol Tartrate (Metoprolol Tartrate 5 Mg/5 Ml Sdv) 2.5 mg IVPUSH ASDIRECTED PRN PRN Reason: HEART RATE > 110 Oxycodone HCl (Oxycodone 5 Mg Tab) 10 mg PO Q4H PRN PRN Reason: Pain Last Admin: 12/23/20 08:58 Dose: 10 mg Documented by: Sodium Chloride (Sodium Chloride 0.9% 10 Ml Syringe) 10 ml FLUSH ASDIRECTED PRN PRN Reason: Keep Vein Open Last Admin: 12/18/20 11:56 Dose: 10 ml Documented by: Discontinued Medications Acetaminophen (Acetaminophen Soln 650 Mg/20.3 Ml Ud Cup) 1,000 mg PO Q8H [facility] Last Admin: 12/22/20 14:07 Dose: Not Given Documented by: Bupivacaine HCl/Epinephrine Bitart (Bupivacaine 0.5%/Epinephrine 1:200,000 50 Ml Mdv) Confirm Administered Dose 50 ml .ROUTE .STK-MED ONE Stop: 12/18/20 15:34 Last Admin: 12/18/20 16:23 Dose: 24 ml Documented by: Diatrizoate Meglum/Diatrizoate Sod (Diatrizoate Meglumine/Diatrizoate Sodium 37% 120 Ml Bottle) 120 ml PO ONETIME ONE Stop: 12/18/20 12:42 Last Admin: 12/18/20 20:29 Dose: Not Given Documented by: Diltiazem HCl (Diltiazem 50 Mg/10 Ml Sdv) 5 mg IVPUSH ONETIME ONE Stop: 12/20/20 04:44 Last Admin: 12/20/20 04:54 Dose: 5 mg Documented by: Diltiazem HCl (Diltiazem Ir 60 Mg Tab) 60 mg PO Q6HR [facility] Last Admin: 12/22/20 05:43 Dose: 60 mg Documented by: Enoxaparin Sodium (Enoxaparin 40 Mg/0.4 Ml Syringe) 40 mg SUBCUT Q12H [facility] Last Admin: 12/22/20 08:46 Dose: 40 mg Documented by: Fentanyl (Fentanyl 250 Mcg/5 Ml Sdv) Confirm Administered Dose 250 mcg .ROUTE .STK-MED ONE Stop: 12/18/20 15:17 Fentanyl (Fentanyl 100 Mcg/2 Ml Sdv) Confirm Administered Dose 100 mcg .ROUTE .STK-MED ONE Stop: 12/18/20 16:54 Fentanyl (Fentanyl 100 Mcg/2 Ml Sdv) Confirm Administered Dose 100 mcg .ROUTE .STK-MED ONE Stop: 12/18/20 17:49 Fentanyl (Fentanyl 100 Mcg/2 Ml Sdv) 50 mcg IVPUSH Q5M PRN PRN Reason: Pain Last Admin: 12/18/20 19:39 Dose: 50 mcg Documented by: Glycopyrrolate (Glycopyrrolate 0.2 Mg/Ml 2 Ml Syringe) Confirm Administered Dose 0.4 mg .ROUTE .STK-MED ONE Stop: 12/18/20 18:45 Heparin Sodium (Porcine) (Heparin Sodium 5,000 Units/Ml Vial) Confirm Administered Dose 5,000 units .ROUTE .STK-MED ONE Stop: 12/18/20 16:00 Heparin Sodium (Porcine) (Heparin Sodium 5,000 Units/Ml Vial) Confirm Administered Dose 5,000 units .ROUTE .STK-MED ONE Stop: 12/18/20 16:00 Hydromorphone HCl (Hydromorphone 0.5 Mg/0.5 Ml Syringe) 0.5 mg IVPUSH ONETIME ONE Stop: 12/18/20 12:05 Last Admin: 12/18/20 12:17 Dose: 0.5 mg Documented by: Hydromorphone HCl (Hydromorphone 0.5 Mg/0.5 Ml Syringe) Confirm Administered Dose 0.5 mg .ROUTE .STK-MED ONE Stop: 12/18/20 16:45 Hydromorphone HCl (Hydromorphone 0.5 Mg/0.5 Ml Syringe) Confirm Administered Dose 0.5 mg .ROUTE .STK-MED ONE Stop: 12/18/20 16:45 Hydromorphone HCl (Hydromorphone 0.5 Mg/0.5 Ml Syringe) 0.5 mg IVPUSH Q1H PRN PRN Reason: Pain Last Admin: 12/18/20 19:20 Dose: 0.5 mg Documented by: Sodium Chloride (Normal Saline) 1,000 mls @ 100 mls/hr IV NOW STA Stop: 12/18/20 22:03 Last Admin: 12/18/20 12:17 Dose: 100 mls/hr Documented by: Piperacillin Sod/Tazobactam (Sod 4.5 gm/ Sodium Chloride) 100 mls @ 200 mls/hr IV ONETIME ONE Stop: 12/18/20 15:25 Last Admin: 12/18/20 15:18 Dose: 200 mls/hr Documented by: Lidocaine HCl (Xylocaine-Mpf 1%) Confirm Administered Dose 4 mls @ as directed .ROUTE .STK-MED ONE Stop: 12/18/20 15:18 Lactated Ringer's (Ringers, Lactated) Confirm Administered Dose 1,000 mls @ as directed .ROUTE .STK-MED ONE Stop: 12/18/20 16:28 Lactated Ringer's (Ringers, Lactated) Confirm Administered Dose 1,000 mls @ as directed .ROUTE .STK-MED ONE Stop: 12/18/20 16:40 Lactated Ringer's (Ringers, Lactated) Confirm Administered Dose 1,000 mls @ as directed .ROUTE .STK-MED ONE Stop: 12/18/20 17:33 Lactated Ringer's (Ringers, Lactated) 1,000 mls @ 150 mls/hr IV ASDIRECTED [facility] Last Admin: 12/20/20 04:26 Dose: 150 mls/hr Documented by: Piperacillin Sod/Tazobactam (Sod 4.5 gm/ Sodium Chloride) 100 mls @ 25 mls/hr IV Q8H [facility] Last Admin: 12/22/20 11:04 Dose: 25 mls/hr Documented by: Insulin Human Regular 100 unit (/ Sodium Chloride) 100 mls @ 13.154 mls/hr IV TITRATE [facility]; Protocol Last Titration: 12/19/20 00:03 Dose: 0 units/kg/hr, 0 mls/hr Documented by: Magnesium Sulfate (Magnesium Sulfate In Water 2 Gm/50 Ml) 2 gm in 50 mls @ 25 mls/hr IV ONETIME ONE Stop: 12/18/20 22:59 Last Admin: 12/18/20 20:41 Dose: 25 mls/hr Documented by: Lactated Ringer's (Ringers, Lactated) 1,000 mls @ 1,000 mls/hr IV .BOLUS ONE Stop: 12/19/20 08:35 Last Admin: 12/19/20 07:53 Dose: 1,000 mls/hr Documented by: Magnesium Sulfate 4 gm/ Premix 50 mls @ 12.5 mls/hr IV ONETIME ONE Stop: 12/19/20 11:59 Last Admin: 12/19/20 08:19 Dose: 12.5 mls/hr Documented by: Lactated Ringer's (Ringers, Lactated) 1,000 mls @ 1,000 mls/hr IV .BOLUS ONE Stop: 12/19/20 16:07 Last Admin: 12/19/20 15:15 Dose: 1,000 mls/hr Documented by: Diltiazem HCl 100 mg/ Sodium (Chloride) 100 mls @ 5 mls/hr IV TITRATE [facility]; Protocol Last Admin: 12/20/20 08:48 Dose: 20 mg/hr, 20 mls/hr Documented by: Potassium Chloride 10 meq/ (Premix) 100 mls @ 100 mls/hr IV Q1H [facility] Stop: 12/20/20 06:44 Last Admin: 12/20/20 05:48 Dose: Not Given Documented by: Lactated Ringer's (Ringers, Lactated) 1,000 mls @ 50 mls/hr IV ASDIRECTED [facility] Last Admin: 12/20/20 05:11 Dose: 50 mls/hr Documented by: Potassium Chloride/Sodium Chloride (Normal Saline With 20 Meq Kcl) 1,000 mls @ 50 mls/hr IV ASDIRECTED [facility] Last Admin: 12/21/20 04:47 Dose: 50 mls/hr Documented by: Amiodarone HCl/Dextrose (Nexterone In Dextrose 150 Mg/100 Ml) 100 mls @ 600 mls/hr IV .BOLUS ONE; Protocol Stop: 12/20/20 10:08 Last Admin: 12/20/20 10:19 Dose: 600 mls/hr Documented by: Amiodarone HCl/Dextrose (Nexterone In Dextrose 360 Mg/200 Ml) 360 mg in 200 mls @ 33.333 mls/hr IV ASDIRECTED [facility]; Protocol Last Admin: 12/21/20 04:24 Dose: 16.7 mls/hr Documented by: Amiodarone HCl/Dextrose (Nexterone In Dextrose 150 Mg/100 Ml) Confirm Administered Dose 100 mls @ as directed IV .STK-MED ONE Stop: 12/20/20 10:23 Last Admin: 12/20/20 11:42 Dose: Not Given Documented by: Diltiazem HCl 100 mg/ Sodium (Chloride) 100 mls @ 5 mls/hr IV TITRATE [facility]; Protocol Last Titration: 12/21/20 15:23 Dose: 0 mg/hr, 0 mls/hr Documented by: Potassium Chloride 10 meq/ (Premix) 100 mls @ 100 mls/hr IV Q1H [facility] Stop: 12/21/20 13:59 Last Admin: 12/21/20 14:20 Dose: 100 mls/hr Documented by: Iopamidol (Iopamidol 612 Mg/Ml 100 Ml Bottle) 100 ml IVPUSH ONETIME ONE Stop: 12/18/20 12:46 Last Admin: 12/18/20 14:04 Dose: 100 ml Documented by: Ketorolac Tromethamine (Ketorolac 30 Mg/Ml Sdv) Confirm Administered Dose 30 mg .ROUTE .STK-MED ONE Stop: 12/18/20 18:35 Labetalol HCl (Labetalol 100 Mg/20 Ml Mdv) 5 mg IVPUSH ONETIME [facility]; Protocol Labetalol HCl (Labetalol 100 Mg/20 Ml Mdv) 5 mg IVPUSH ONETIME PRN; Protocol PRN Reason: Hypertension Last Admin: 12/18/20 19:26 Dose: 5 mg Documented by: Metoprolol Tartrate (Metoprolol Tartrate 25 Mg Tab) 12.5 mg PO Q12H [facility] Last Admin: 12/20/20 05:58 Dose: 12.5 mg Documented by: Metoprolol Tartrate (Metoprolol Tartrate 5 Mg/5 Ml Sdv) 2.5 mg IVPUSH ONETIME ONE Stop: 12/20/20 22:51 Last Admin: 12/21/20 20:53 Dose: Not Given Documented by: Metoprolol Tartrate (Metoprolol Tartrate 5 Mg/5 Ml Sdv) 2.5 mg IVPUSH ONETIME PRN PRN Reason: HEART RATE > 100 Midazolam HCl (Midazolam 1 Mg/Ml 2 Ml Sdv) Confirm Administered Dose 2 mg .ROUTE .STK-MED ONE Stop: 12/18/20 15:17 Miscellaneous Medication (Phenylephrine Hcl In 0.9% Nacl 1 Mg/10 Ml Syringe) Confirm Administered Dose 1 mg .ROUTE .STK-MED ONE Stop: 12/18/20 16:20 Neostigmine Methylsulfate (Neostigmine Methylsulfate 5 Mg/5 Ml Syringe) Confirm Administered Dose 5 mg .ROUTE .STK-MED ONE Stop: 12/18/20 18:45 Neostigmine Methylsulfate (Neostigmine Methylsulfate 5 Mg/5 Ml Syringe) Confirm Administered Dose 5 mg .ROUTE .STK-MED ONE Stop: 12/18/20 18:56 Ondansetron HCl (Ondansetron 4 Mg/2 Ml Sdv) 4 mg IVPUSH ONETIME ONE Stop: 12/18/20 12:05 Last Admin: 12/18/20 12:17 Dose: 4 mg Documented by: Ondansetron HCl (Ondansetron 4 Mg/2 Ml Sdv) Confirm Administered Dose 4 mg .ROUTE .STK-MED ONE Stop: 12/18/20 15:17 Oxycodone HCl (Oxycodone 5 Mg Tab) 5 mg PO Q4H PRN PRN Reason: Pain (moderate 4-6) Last Admin: 12/22/20 05:42 Dose: 5 mg Documented by: Potassium Chloride (Potassium Chloride 20 Meq Tab.Er) 60 meq PO ONETIME ONE Stop: 12/23/20 08:00 Last Admin: 12/23/20 08:50 Dose: 60 meq Documented by: Propofol (Propofol 200 Mg/20 Ml Sdv) Confirm Administered Dose 200 mg .ROUTE .STK-MED ONE Stop: 12/18/20 15:17 Rocuronium [place] (Rocuronium 50 Mg/5 Ml Vial) Confirm Administered Dose 50 mg .ROUTE .STK-MED ONE Stop: 12/18/20 15:17 Rocuronium [place] (Rocuronium 50 Mg/5 Ml Vial) Confirm Administered Dose 50 mg .ROUTE .STK-MED ONE Stop: 12/18/20 17:52 Sodium Chloride (Sodium Chloride 0.9% 10 Ml Syringe) 10 ml FLUSH BOLUS [facility] Last Admin: 12/18/20 14:04 Dose: 10 ml Documented by: - Exam Quality Assessment: No: Supplemental Oxygen General: Alert, Oriented HEENT: Pupils Equal, Mucous Membr. Moist/[place] Neck: Supple Lungs: Clear to Auscultation, Normal Respiratory Effort Cardiovascular: Irregular Rhythm GI/Abdominal Exam: Normal Bowel Sounds, Soft, Non-Tender, No Organomegaly, No Distention, No Abnormal Bruit Extremities: Normal Inspection, Normal Range of Motion, Non-Tender, No Pedal Edema, Normal Capillary Refill Skin: Warm, Dry, Intact Psy/Mental Status: Alert, Normal Affect, Normal Mood Sepsis Event Note - Evaluation Sepsis Screening Result: No Definite Risk - Focused Exam Vital Signs: Vital Signs Temp Resp BP BP Pulse Ox 12/23/20 08:00 99.9 F 16 151/91 H 94 L 12/23/20 04:00 99.0 F 16 143/78 H 93 L 12/23/20 00:00 99.6 F 14 147/88 H 96 12/22/20 23:23 99.6 F 147/88 H 95 Consult PN Assessment/Plan Procedures: Procedures ASSAY OF LIPASE (08/20/15) ASSAY OF MAGNESIUM (09/01/19) C DIFF AMPLIFIED PROBE (06/01/14) C-REACTIVE PROTEIN (08/20/15) COLONOSCOPY AND BIOPSY (06/01/14) COMPLETE CBC W/AUTO DIFF WBC (03/13/16) COMPREHEN METABOLIC PANEL (03/13/16) CRYPTOSPORIDIUM AG IA (06/01/14) CT ABD & PELV W/CONTRAST (08/20/15) CT ABD & PELVIS W/O CONTRAST (09/01/19) EGD BIOPSY SINGLE/MULTIPLE (06/01/14) EMERGENCY DEPT VISIT (09/01/19) GIARDIA AG IA (06/01/14) GLUCOSE BLOOD TEST (06/01/14) HYDRATE IV INFUSION ADD-ON (09/01/19) LEUKOCYTE ASSESSMENT FECAL (06/01/14) POLYSOM 6/>YRS CPAP 4/> PARM (09/12/16) ROUTINE VENIPUNCTURE (09/01/19) STOOL CULTR AEROBIC BACT EA (06/01/14) TEST FOR ACETONE/KETONES (09/01/19) THER/PROPH/DIAG INJ IV PUSH (03/13/16) THER/PROPH/DIAG IV INF INIT (09/01/19) TISSUE EXAM BY PATHOLOGIST (06/01/14) TX/PRO/DX INJ NEW DRUG ADDON (03/13/16) TX/PRO/DX INJ SAME DRUG DIESEL ELECTRICIAN (08/20/15) URINALYSIS AUTO W/SCOPE (03/13/16) URINE CULTURE/COLONY COUNT (09/23/19) VANOMYCIN DNA AMP PROBE (06/01/14) (1) Atrial fibrillation with RVR SNOMED Code(s): 395460757122883 Code(s): I48.91 - UNSPECIFIED ATRIAL FIBRILLATION Current Visit: Yes Problem List Initiated/Reviewed/Updated: Yes My Orders Last 24 Hours: My Active Orders 12/22/20 12:00 Diltiazem [Cardizem CD] 300 mg PO DAILY Plan: Patient is a 54-year-old male with a history of ulcerative colitis, status post a total abdominal colectomy with the ileostomy, diabetes type 2, history of for pulmonary embolism and hypertension who underwent exploratory laparotomy, lysis of adhesions, primary repair of small bowel enterotomy, primary repair of parastomal hernia by Dr. Espinosa on 12/18 due to Complete SBO and incarcerated parastomal hernia. Assessment and plan: 1. Complete SBO and incarcerated parastomal hernia, s/p exploratory laparotomy, lysis of adhesions, primary repair of small bowel enterotomy, primary repair of parastomal hernia by Dr. Espinosa on 12/18 Postop management including pain control and DVT prophylaxis by surgical team 2. Atrial fibrillation with RVR, new diltiazem CD 300 mg Daily Amiodarone 200 mg twice daily Eliquis 5 mg twice daily Discontinued po metoprolol. Echocardiogram [id number] = 2; recommend anticoagulation.
[2020-12-23] MEDS ORDERED: Diltiazem 180 MG Cap.CD PO ONE (20:08)
[2020-12-23] MEDS: Diltiazem IR 30 MG Tab PO SCH (20:23)
[2020-12-23] MEDS: Acetaminophen 325 MG Tab PO PRN (21:24)
[2020-12-24] MEDS: Diltiazem IR 30 MG Tab PO SCH (03:32)
[2020-12-24] MEDS: oxyCODONE 5 MG Tab PO PRN ×2 (03:43→08:23)
[2020-12-24] MEDS ORDERED: Iopamidol 612 MG/ML 100 ML Bottle IVPUSH ONE (08:23)
[2020-12-24] MEDS ORDERED: Sodium Chloride 0.9% 10 ML Syringe FLUSH PRN (08:23)
[2020-12-24] MEDS ORDERED: Iopamidol 612 MG/ML 50 ML SDV IVPUSH ONE (08:23)
[2020-12-24] MEDS ORDERED: Diatrizoate Meglumine/Diatrizoate Sodium 37% 120 ML Bottle PO ONE (08:23)
[2020-12-24] MEDS: Apixaban 5 MG Tab PO SCH (08:24)
[2020-12-24] MEDS: Amiodarone 200 MG Tab PO SCH (08:24)
--- NOTE | 2020-12-24 08:42 | PCM.SN.2 ---
- Free Text/Narrative Note: POD 5 s/p laparotomy and repair of incarcerated parastomal hernia. S: atrial fibrillation continues, rate controlled with diltiazem. copious ileostomy output. O: Tm 38.2 C. In atrial fibrillation with rate now in 90s, SPB ~120, SpO2 95% on 1L Awake and alert, no acute distress On nasal cannula irregular rhythm, rate controlled Abdominal incision clean, dry, intact. Appropriately tender. AGUSTÍN drain with minimal serous fluid. Ileostomy appears viable liquid dark green output. SCD in place No significant edema. skin warm and well perfused Labs reviewed- WBC up to 13 from 11 after discontinuing antibiotics yesterday afternoon. Other labs unremarkable. 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 Atrial fibrillation. Ileus resolved. P: -pain controlled on current regimen -IS, OOB, continue pulmonary toilet -stop maintenance IV fluids. Dr. Lin helping management of atrial fibrillation, converted to oral regimen diltiazem. -eliquis 5 mg bid. -Advance to regular diet. AGUSTÍN removed. -off antibiotics now -insulin medium dose sliding scale, check serum glucose q6h -repeat labs in AM -PT,OT -possible discharge to home tomorrow if WBC is down. If up, will investigate for post-operative abscess as patient is high risk.
--- NOTE | 2020-12-24 08:46 | PCM.SN.2 ---
- Free Text/Narrative Note: POD 6 s/p laparotomy and repair of incarcerated parastomal hernia. S: atrial fibrillation continues, rate controlled with diltiazem. decreased ileostomy output, reports bloating, left sided abdominal pain. O: Tm 38.2. In atrial fibrillation with rate now in 90s, SPB ~120, SpO2 95% on room air Awake and alert, no acute distress breathing comfortably irregular rhythm, rate controlled Abdominal incision clean, dry, intact. Appropriately tender. Ileostomy appears viable liquid dark green output. SCD in place No significant edema. skin warm and well perfused Labs reviewed- WBC up from 13 to 16. Glucose not as well controlled in past 24 hours. 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 Atrial fibrillation. Concern for infectious process due to low grade fever and rising WBC. P: -CT abd/pelvis with contrast ordered to assess for abscess. Will also get chest x-ray, blood cultures, UA and lactate to rule out other sources.
--- NOTE | 2020-12-24 09:10 | CR ---
Chest: PA and lateral views of the chest were obtained. Comparison: Prior chest x-ray of 09/24/[address] of 08/07/16. Heart size is normal. Slight scarring is seen within both lung bases. Lungs are otherwise clear. No acute bony abnormality is appreciated. Surgical clips are seen within the upper abdomen. Impression: 1. Scarring within both lung bases. 2. Nothing acute is definitely appreciated on 2 view chest x-ray. Diagnostic code #2
[2020-12-24] MEDS ORDERED: Piperacillin/Tazobactam 4.5 GM in Sodium Chloride 0.9% 100 ML IV ONE (10:00)
--- NOTE | 2020-12-24 10:16 | CT ---
CT abdomen and pelvis Technique: Multiple axial sections were obtained from above the dome of the diaphragm inferiorly through the pubic symphysis. Intravenous and oral contrast was utilized. Reconstructed coronal and sagittal images were obtained. Delayed images were also obtained through the abdomen and pelvis. Comparison: Prior CT abdomen and pelvis exam 12/18/20. Findings: Very minimal pleural effusions are seen with mild right basilar and left basilar atelectasis. Liver contains no focal abnormality. Spleen is normal. Adrenal glands show no nodule. Gallbladder contains no calcified gallstones. Pancreas shows no focal abnormality. Kidneys show symmetric contrast enhancement with no hydronephrosis or mass being seen. Abdominal aorta shows no aneurysm. No retroperitoneal adenopathy or mesenteric abnormalities are seen. Diffuse small bowel dilatation is seen which is similar to prior exam. Less dilatation is seen within the periosteal region within the right lower abdomen. There is increasing mesenteric inflammatory change from prior exam. Prior abdominal surgery is seen. There are no focal fluid collections being seen to indicate definite abscess. Bone window settings were reviewed which show nothing acute. Impression: 1. Mild increased inflammatory change within the mesentery. Diffuse small bowel dilatation is seen. Prior abdominal surgery is noted. 2. No focal fluid collections are seen to indicate discrete abscess. 3. Other findings as noted above which are nonacute. Diagnostic code #3
--- NOTE | 2020-12-24 12:12 | PCM.CONSN ---
- General Info Date of Service: 12/24/20 Admission Dx/Problem (Free Text): Admission Diagnosis/Problem Admission Diagnosis/Problem Obstruction of colon Subjective Update: Patient developed a bowel obstruction. NG tube was placed by primary team. Medication for atrial fibrillation may need to be switched to IV. Functional Status: Reports: Pain Controlled - Review of Systems General: Reports: Fatigue, Malaise HEENT: Reports: No Symptoms Pulmonary: Reports: No Symptoms Cardiovascular: Reports: No Symptoms Gastrointestinal: Reports: Decreased Appetite, Other (Bloating) Musculoskeletal: Reports: No Symptoms - Patient Data Vitals - Most Recent: Last Vital Signs Temp 98.3 F 12/24/20 08:29 Pulse 97 12/24/20 08:29 Resp 16 12/24/20 08:29 BP 133/72 12/24/20 08:29 Pulse Ox 99 12/24/20 08:29 Weight - Most Recent: 298 lb 1.6 oz I&O - Last 24 Hours: Intake & Output 12/23/20 12/24/20 12/24/20 22:59 06:59 14:59 Intake Total 800 850 Output Total 200 1150 Balance 600 -300 Lab Results Last 24 Hours: Laboratory Results - last 24 hr 12/23/20 12/23/20 12/24/20 Range/Units 12:13 17:52 01:21 WBC (4.23-9.07) K/mm3 RBC (4.63-6.08) M/mm3 Hgb (13.7-17.5) gm/dl Hct (40.1-51.0) % MCV (79.0-92.2) fl MCH (25.7-32.2) pg MCHC (32.2-35.5) g/dl RDW Std Deviation (35.1-43.9) fL Plt Count (163-337) K/mm3 MPV (9.4-12.3) fl Neut % (Auto) (34.0-67.9) % Lymph % (Auto) (21.8-53.1) % [place] % (Auto) (5.3-12.2) % Eos % (Auto) (0.8-7.0) Baso % (Auto) (0.1-1.2) % Neut # (Auto) (1.78-5.38) K/mm3 Lymph # (Auto) (1.32-3.57) K/mm3 [place] # (Auto) (0.30-0.82) K/mm3 Eos # (Auto) (0.04-0.54) K/mm3 Baso # (Auto) (0.01-0.08) K/mm3 POC Glucose 199 H 250 H 277 H (70-105) mg/dL Lactic Acid (0.4-2.0) mmol/L Urine Color (Yellow) Urine Appearance (Clear) Urine pH (5.0-8.0) Ur Specific [place] (1.005-1.030) Urine Protein (Negative) Urine Glucose (UA) (Negative) Urine Ketones (Negative) Urine Occult Blood (Negative) Urine Nitrite (Negative) Urine Bilirubin (Negative) Urine Urobilinogen (0.2-1.0) Ur Leukocyte Esterase (Negative) Urine RBC (0-5) /hpf Urine WBC (0-5) /hpf Ur Squamous Epith Cells (0-5) /hpf Urine Bacteria (FEW) /hpf Urine Mucus (FEW) /hpf 12/24/20 12/24/20 12/24/20 Range/Units 06:40 07:29 09:58 WBC 16.40 H (4.23-9.07) K/mm3 RBC 4.27 L (4.63-6.08) M/mm3 Hgb 10.1 L (13.7-17.5) gm/dl Hct 33.4 L (40.1-51.0) % MCV 78.2 L (79.0-92.2) fl MCH 23.7 L (25.7-32.2) pg MCHC 30.2 L (32.2-35.5) g/dl RDW Std Deviation 45.4 H (35.1-43.9) fL Plt Count 507 H (163-337) K/mm3 MPV 9.5 (9.4-12.3) fl Neut % (Auto) 76.8 H (34.0-67.9) % Lymph % (Auto) 13.2 L (21.8-53.1) % [place] % (Auto) 6.5 (5.3-12.2) % Eos % (Auto) 2.1 (0.8-7.0) Baso % (Auto) 0.2 (0.1-1.2) % Neut # (Auto) 12.59 H (1.78-5.38) K/mm3 Lymph # (Auto) 2.16 (1.32-3.57) K/mm3 [place] # (Auto) 1.06 H (0.30-0.82) K/mm3 Eos # (Auto) 0.35 (0.04-0.54) K/mm3 Baso # (Auto) 0.04 (0.01-0.08) K/mm3 POC Glucose 179 H (70-105) mg/dL Lactic Acid 1.8 (0.4-2.0) mmol/L Urine Color (Yellow) Urine Appearance (Clear) Urine pH (5.0-8.0) Ur Specific [place] (1.005-1.030) Urine Protein (Negative) Urine Glucose (UA) (Negative) Urine Ketones (Negative) Urine Occult Blood (Negative) Urine Nitrite (Negative) Urine Bilirubin (Negative) Urine Urobilinogen (0.2-1.0) Ur Leukocyte Esterase (Negative) Urine RBC (0-5) /hpf Urine WBC (0-5) /hpf Ur Squamous Epith Cells (0-5) /hpf Urine Bacteria (FEW) /hpf Urine Mucus (FEW) /hpf 12/24/20 12/24/20 Range/Units 10:16 11:48 WBC (4.23-9.07) K/mm3 RBC (4.63-6.08) M/mm3 Hgb (13.7-17.5) gm/dl Hct (40.1-51.0) % MCV (79.0-92.2) fl MCH (25.7-32.2) pg MCHC (32.2-35.5) g/dl RDW Std Deviation (35.1-43.9) fL Plt Count (163-337) K/mm3 MPV (9.4-12.3) fl Neut % (Auto) (34.0-67.9) % Lymph % (Auto) (21.8-53.1) % [place] % (Auto) (5.3-12.2) % Eos % (Auto) (0.8-7.0) Baso % (Auto) (0.1-1.2) % Neut # (Auto) (1.78-5.38) K/mm3 Lymph # (Auto) (1.32-3.57) K/mm3 [place] # (Auto) (0.30-0.82) K/mm3 Eos # (Auto) (0.04-0.54) K/mm3 Baso # (Auto) (0.01-0.08) K/mm3 POC Glucose 261 H (70-105) mg/dL Lactic Acid (0.4-2.0) mmol/L Urine Color Yellow (Yellow) Urine Appearance Clear (Clear) Urine pH 6.0 (5.0-8.0) Ur Specific [place] 1.020 (1.005-1.030) Urine Protein 2+ H (Negative) Urine Glucose (UA) 1+ H (Negative) Urine Ketones Negative (Negative) Urine Occult Blood 2+ H (Negative) Urine Nitrite Negative (Negative) Urine Bilirubin Negative (Negative) Urine Urobilinogen 0.2 (0.2-1.0) Ur Leukocyte Esterase Negative (Negative) Urine RBC 10-20 H (0-5) /hpf Urine WBC 0-5 (0-5) /hpf Ur Squamous Epith Cells 0-5 (0-5) /hpf Urine Bacteria Moderate H (FEW) /hpf Urine Mucus Few (FEW) /hpf Edwardo Results Last 24 Hours: Microbiology 12/18/20 15:14 Aerobic Blood Culture - Preliminary Blood - Venous - Lab Draw NO GROWTH AFTER 5 DAYS Anaerobic Blood Culture - Preliminary NO GROWTH AFTER 5 DAYS 12/18/20 15:06 Aerobic Blood Culture - Preliminary Blood - Venous NO GROWTH AFTER 5 DAYS Anaerobic Blood Culture - Preliminary NO GROWTH AFTER 5 DAYS Med Orders - Current: Current Medications Acetaminophen (Acetaminophen 325 Mg Tab) 650 mg PO Q4H PRN PRN Reason: Fever Last Admin: 12/23/20 21:24 Dose: 650 mg Documented by: Amiodarone HCl (Amiodarone 200 Mg Tab) 200 mg PO BID [facility] Last Admin: 12/24/20 08:24 Dose: 200 mg Documented by: Apixaban (Apixaban 5 Mg Tab) 5 mg PO BID [facility] Last Admin: 12/24/20 08:24 Dose: 5 mg Documented by: Diltiazem HCl (Diltiazem 180 Mg Cap.Cd) 360 mg PO BEDTIME PHILLIP Hydralazine HCl (Hydralazine 20 Mg/Ml Sdv) 10 mg IVPUSH Q4H PRN PRN Reason: Hypertension Hydromorphone HCl (Hydromorphone 1 Mg/Ml Syringe) 1 mg IVPUSH Q2H PRN PRN Reason: Pain Last Admin: 12/21/20 18:15 Dose: 1 mg Documented by: Piperacillin Sod/Tazobactam (Sod 4.5 gm/ Sodium Chloride) 100 mls @ 25 mls/hr IV Q8H [facility] Insulin Human Lispro (Insulin Lispro 100 Unit/Ml) 0 unit SUBCUT Q6HR [facility]; Protocol Last Admin: 12/24/20 06:51 Dose: 2 units Documented by: Ketorolac Tromethamine (Ketorolac 30 Mg/Ml Sdv) 30 mg IVPUSH Q6H PRN PRN Reason: Pain Metoprolol Tartrate (Metoprolol Tartrate 5 Mg/5 Ml Sdv) 2.5 mg IVPUSH ASDIRECTED PRN PRN Reason: HEART RATE > 110 Last Admin: 12/23/20 13:43 Dose: 2.5 mg Documented by: Oxycodone HCl (Oxycodone 5 Mg Tab) 10 mg PO Q4H PRN PRN Reason: Pain Last Admin: 12/24/20 08:23 Dose: 10 mg Documented by: Sodium Chloride (Sodium Chloride 0.9% 10 Ml Syringe) 10 ml FLUSH ASDIRECTED PRN PRN Reason: Keep Vein Open Last Admin: 12/18/20 11:56 Dose: 10 ml Documented by: Sodium Chloride (Sodium Chloride 0.9% 10 Ml Syringe) 10 ml FLUSH ONETIME PRN PRN Reason: IV FLUSH Last Admin: 12/24/20 09:38 Dose: 10 ml Documented by: Discontinued Medications Acetaminophen (Acetaminophen Soln 650 Mg/20.3 Ml Ud Cup) 1,000 mg PO Q8H [facility] Last Admin: 12/22/20 14:07 Dose: Not Given Documented by: Bupivacaine HCl/Epinephrine Bitart (Bupivacaine 0.5%/Epinephrine 1:200,000 50 Ml Mdv) Confirm Administered Dose 50 ml .ROUTE .STK-MED ONE Stop: 12/18/20 15:34 Last Admin: 12/18/20 16:23 Dose: 24 ml Documented by: Diatrizoate Meglum/Diatrizoate Sod (Diatrizoate Meglumine/Diatrizoate Sodium 37% 120 Ml Bottle) 120 ml PO ONETIME ONE Stop: 12/18/20 12:42 Last Admin: 12/18/20 20:29 Dose: Not Given Documented by: Diatrizoate Meglum/Diatrizoate Sod (Diatrizoate Meglumine/Diatrizoate Sodium 37% 120 Ml Bottle) 120 ml PO ONETIME ONE Stop: 12/24/20 08:24 Last Admin: 12/24/20 09:38 Dose: 45 ml Documented by: Diltiazem HCl (Diltiazem 50 Mg/10 Ml Sdv) 5 mg IVPUSH ONETIME ONE Stop: 12/20/20 04:44 Last Admin: 12/20/20 04:54 Dose: 5 mg Documented by: Diltiazem HCl (Diltiazem Ir 60 Mg Tab) 60 mg PO Q6HR [facility] Last Admin: 12/22/20 05:43 Dose: 60 mg Documented by: Diltiazem HCl (Diltiazem 300 Mg Cap.Cd) 300 mg PO DAILY [facility] Last Admin: 12/23/20 08:51 Dose: 300 mg Documented by: Diltiazem HCl (Diltiazem 180 Mg Cap.Cd) 360 mg PO ONETIME ONE Stop: 12/23/20 20:09 Last Admin: 12/23/20 20:23 Dose: 360 mg Documented by: Diltiazem HCl (Diltiazem Ir 30 Mg Tab) 30 mg PO Q6H [facility] Stop: 12/24/20 03:01 Last Admin: 12/24/20 03:32 Dose: Not Given Documented by: Enoxaparin Sodium (Enoxaparin 40 Mg/0.4 Ml Syringe) 40 mg SUBCUT Q12H [facility] Last Admin: 12/22/20 08:46 Dose: 40 mg Documented by: Fentanyl (Fentanyl 250 Mcg/5 Ml Sdv) Confirm Administered Dose 250 mcg .ROUTE .STK-MED ONE Stop: 12/18/20 15:17 Fentanyl (Fentanyl 100 Mcg/2 Ml Sdv) Confirm Administered Dose 100 mcg .ROUTE .STK-MED ONE Stop: 12/18/20 16:54 Fentanyl (Fentanyl 100 Mcg/2 Ml Sdv) Confirm Administered Dose 100 mcg .ROUTE .STK-MED ONE Stop: 12/18/20 17:49 Fentanyl (Fentanyl 100 Mcg/2 Ml Sdv) 50 mcg IVPUSH Q5M PRN PRN Reason: Pain Last Admin: 12/18/20 19:39 Dose: 50 mcg Documented by: Glycopyrrolate (Glycopyrrolate 0.2 Mg/Ml 2 Ml Syringe) Confirm Administered Dose 0.4 mg .ROUTE .STK-MED ONE Stop: 12/18/20 18:45 Heparin Sodium (Porcine) (Heparin Sodium 5,000 Units/Ml Vial) Confirm Administered Dose 5,000 units .ROUTE .STK-MED ONE Stop: 12/18/20 16:00 Heparin Sodium (Porcine) (Heparin Sodium 5,000 Units/Ml Vial) Confirm Administered Dose 5,000 units .ROUTE .STK-MED ONE Stop: 12/18/20 16:00 Hydromorphone HCl (Hydromorphone 0.5 Mg/0.5 Ml Syringe) 0.5 mg IVPUSH ONETIME ONE Stop: 12/18/20 12:05 Last Admin: 12/18/20 12:17 Dose: 0.5 mg Documented by: Hydromorphone HCl (Hydromorphone 0.5 Mg/0.5 Ml Syringe) Confirm Administered Dose 0.5 mg .ROUTE .STK-MED ONE Stop: 12/18/20 16:45 Hydromorphone HCl (Hydromorphone 0.5 Mg/0.5 Ml Syringe) Confirm Administered Dose 0.5 mg .ROUTE .STK-MED ONE Stop: 12/18/20 16:45 Hydromorphone HCl (Hydromorphone 0.5 Mg/0.5 Ml Syringe) 0.5 mg IVPUSH Q1H PRN PRN Reason: Pain Last Admin: 12/18/20 19:20 Dose: 0.5 mg Documented by: Sodium Chloride (Normal Saline) 1,000 mls @ 100 mls/hr IV NOW STA Stop: 12/18/20 22:03 Last Admin: 12/18/20 12:17 Dose: 100 mls/hr Documented by: Piperacillin Sod/Tazobactam (Sod 4.5 gm/ Sodium Chloride) 100 mls @ 200 mls/hr IV ONETIME ONE Stop: 12/18/20 15:25 Last Admin: 12/18/20 15:18 Dose: 200 mls/hr Documented by: Lidocaine HCl (Xylocaine-Mpf 1%) Confirm Administered Dose 4 mls @ as directed .ROUTE .STK-MED ONE Stop: 12/18/20 15:18 Lactated Ringer's (Ringers, Lactated) Confirm Administered Dose 1,000 mls @ as directed .ROUTE .STK-MED ONE Stop: 12/18/20 16:28 Lactated Ringer's (Ringers, Lactated) Confirm Administered Dose 1,000 mls @ as directed .ROUTE .STK-MED ONE Stop: 12/18/20 16:40 Lactated Ringer's (Ringers, Lactated) Confirm Administered Dose 1,000 mls @ as directed .ROUTE .STK-MED ONE Stop: 12/18/20 17:33 Lactated Ringer's (Ringers, Lactated) 1,000 mls @ 150 mls/hr IV ASDIRECTED PHILLIP Last Admin: 12/20/20 04:26 Dose: 150 mls/hr Documented by: Piperacillin Sod/Tazobactam (Sod 4.5 gm/ Sodium Chloride) 100 mls @ 25 mls/hr IV Q8H [facility] Last Admin: 12/22/20 11:04 Dose: 25 mls/hr Documented by: Insulin Human Regular 100 unit (/ Sodium Chloride) 100 mls @ 13.154 mls/hr IV TITRATE [facility]; Protocol Last Titration: 12/19/20 00:03 Dose: 0 units/kg/hr, 0 mls/hr Documented by: Magnesium Sulfate (Magnesium Sulfate In Water 2 Gm/50 Ml) 2 gm in 50 mls @ 25 mls/hr IV ONETIME ONE Stop: 12/18/20 22:59 Last Admin: 12/18/20 20:41 Dose: 25 mls/hr Documented by: Lactated Ringer's (Ringers, Lactated) 1,000 mls @ 1,000 mls/hr IV .BOLUS ONE Stop: 12/19/20 08:35 Last Admin: 12/19/20 07:53 Dose: 1,000 mls/hr Documented by: Magnesium Sulfate 4 gm/ Premix 50 mls @ 12.5 mls/hr IV ONETIME ONE Stop: 12/19/20 11:59 Last Admin: 12/19/20 08:19 Dose: 12.5 mls/hr Documented by: Lactated Ringer's (Ringers, Lactated) 1,000 mls @ 1,000 mls/hr IV .BOLUS ONE Stop: 12/19/20 16:07 Last Admin: 12/19/20 15:15 Dose: 1,000 mls/hr Documented by: Diltiazem HCl 100 mg/ Sodium (Chloride) 100 mls @ 5 mls/hr IV TITRATE [facility]IP; Protocol Last Admin: 12/20/20 08:48 Dose: 20 mg/hr, 20 mls/hr Documented by: Potassium Chloride 10 meq/ (Premix) 100 mls @ 100 mls/hr IV Q1H [facility] Stop: 12/20/20 06:44 Last Admin: 12/20/20 05:48 Dose: Not Given Documented by: Lactated Ringer's (Ringers, Lactated) 1,000 mls @ 50 mls/hr IV ASDIRECTED PHILLIP Last Admin: 12/20/20 05:11 Dose: 50 mls/hr Documented by: Potassium Chloride/Sodium Chloride (Normal Saline With 20 Meq Kcl) 1,000 mls @ 50 mls/hr IV ASDIRECTED PHILLIP Last Admin: 12/21/20 04:47 Dose: 50 mls/hr Documented by: Amiodarone HCl/Dextrose (Nexterone In Dextrose 150 Mg/100 Ml) 100 mls @ 600 mls/hr IV .BOLUS ONE; Protocol Stop: 12/20/20 10:08 Last Admin: 12/20/20 10:19 Dose: 600 mls/hr Documented by: Amiodarone HCl/Dextrose (Nexterone In Dextrose 360 Mg/200 Ml) 360 mg in 200 mls @ 33.333 mls/hr IV ASDIRECTED PHILLIP; Protocol Last Admin: 12/21/20 04:24 Dose: 16.7 mls/hr Documented by: Amiodarone HCl/Dextrose (Nexterone In Dextrose 150 Mg/100 Ml) Confirm Administered Dose 100 mls @ as directed IV .STK-MED ONE Stop: 12/20/20 10:23 Last Admin: 12/20/20 11:42 Dose: Not Given Documented by: Diltiazem HCl 100 mg/ Sodium (Chloride) 100 mls @ 5 mls/hr IV TITRATE PHILLIP; Protocol Last Titration: 12/21/20 15:23 Dose: 0 mg/hr, 0 mls/hr Documented by: Potassium Chloride 10 meq/ (Premix) 100 mls @ 100 mls/hr IV Q1H [facility]IP Stop: 12/21/20 13:59 Last Admin: 12/21/20 14:20 Dose: 100 mls/hr Documented by: Piperacillin Sod/Tazobactam (Sod 4.5 gm/ Sodium Chloride) 100 mls @ 200 mls/hr IV ONETIME ONE Stop: 12/24/20 10:29 Last Admin: 12/24/20 10:18 Dose: 200 mls/hr Documented by: Iopamidol (Iopamidol 612 Mg/Ml 100 Ml Bottle) 100 ml IVPUSH ONETIME ONE Stop: 12/18/20 12:46 Last Admin: 12/18/20 14:04 Dose: 100 ml Documented by: Iopamidol (Iopamidol 612 Mg/Ml 50 Ml Sdv) 50 ml IVPUSH ONETIME ONE Stop: 12/24/20 08:24 Last Admin: 12/24/20 09:38 Dose: 50 ml Documented by: Iopamidol (Iopamidol 612 Mg/Ml 100 Ml Bottle) 100 ml IVPUSH ONETIME ONE Stop: 12/24/20 08:24 Last Admin: 12/24/20 09:38 Dose: 100 ml Documented by: Ketorolac Tromethamine (Ketorolac 30 Mg/Ml Sdv) Confirm Administered Dose 30 mg .ROUTE .STK-MED ONE Stop: 12/18/20 18:35 Labetalol HCl (Labetalol 100 Mg/20 Ml Mdv) 5 mg IVPUSH ONETIME PHILLIP; Protocol Labetalol HCl (Labetalol 100 Mg/20 Ml Mdv) 5 mg IVPUSH ONETIME PRN; Protocol PRN Reason: Hypertension Last Admin: 12/18/20 19:26 Dose: 5 mg Documented by: Metoprolol Tartrate (Metoprolol Tartrate 25 Mg Tab) 12.5 mg PO Q12H [facility]ILLIP Last Admin: 12/20/20 05:58 Dose: 12.5 mg Documented by: Metoprolol Tartrate (Metoprolol Tartrate 5 Mg/5 Ml Sdv) 2.5 mg IVPUSH ONETIME ONE Stop: 12/20/20 22:51 Last Admin: 12/21/20 20:53 Dose: Not Given Documented by: Metoprolol Tartrate (Metoprolol Tartrate 5 Mg/5 Ml Sdv) 2.5 mg IVPUSH ONETIME PRN PRN Reason: HEART RATE > 100 Midazolam HCl (Midazolam 1 Mg/Ml 2 Ml Sdv) Confirm Administered Dose 2 mg .ROUTE .STK-MED ONE Stop: 12/18/20 15:17 Miscellaneous Medication (Phenylephrine Hcl In 0.9% Nacl 1 Mg/10 Ml Syringe) Confirm Administered Dose 1 mg .ROUTE .STK-MED ONE Stop: 12/18/20 16:20 Neostigmine Methylsulfate (Neostigmine Methylsulfate 5 Mg/5 Ml Syringe) Confirm Administered Dose 5 mg .ROUTE .STK-MED ONE Stop: 12/18/20 18:45 Neostigmine Methylsulfate (Neostigmine Methylsulfate 5 Mg/5 Ml Syringe) Confirm Administered Dose 5 mg .ROUTE .STK-MED ONE Stop: 12/18/20 18:56 Ondansetron HCl (Ondansetron 4 Mg/2 Ml Sdv) 4 mg IVPUSH ONETIME ONE Stop: 12/18/20 12:05 Last Admin: 12/18/20 12:17 Dose: 4 mg Documented by: Ondansetron HCl (Ondansetron 4 Mg/2 Ml Sdv) Confirm Administered Dose 4 mg .ROUTE .STK-MED ONE Stop: 12/18/20 15:17 Oxycodone HCl (Oxycodone 5 Mg Tab) 5 mg PO Q4H PRN PRN Reason: Pain (moderate 4-6) Last Admin: 12/22/20 05:42 Dose: 5 mg Documented by: Potassium Chloride (Potassium Chloride 20 Meq Tab.Er) 60 meq PO ONETIME ONE Stop: 12/23/20 08:00 Last Admin: 12/23/20 08:50 Dose: 60 meq Documented by: Propofol (Propofol 200 Mg/20 Ml Sdv) Confirm Administered Dose 200 mg .ROUTE .STK-MED ONE Stop: 12/18/20 15:17 Rocuronium [place] (Rocuronium 50 Mg/5 Ml Vial) Confirm Administered Dose 50 mg .ROUTE .STK-MED ONE Stop: 12/18/20 15:17 Rocuronium [place] (Rocuronium 50 Mg/5 Ml Vial) Confirm Administered Dose 50 mg .ROUTE .STK-MED ONE Stop: 12/18/20 17:52 Sodium Chloride (Sodium Chloride 0.9% 10 Ml Syringe) 10 ml FLUSH BOLUS PHILLIP Last Admin: 12/18/20 14:04 Dose: 10 ml Documented by: - Exam General: Alert, Oriented HEENT: Pupils Equal, Mucous Membr. Moist/[place] Neck: Supple Lungs: Clear to Auscultation, Normal Respiratory Effort Cardiovascular: Regular Rate, Irregular Rhythm Sepsis Event Note - Evaluation Sepsis Screening Result: No Definite Risk - Focused Exam Vital Signs: Vital Signs Temp Pulse Resp BP Pulse Ox 12/24/20 08:29 98.3 F 97 16 133/72 99 12/24/20 04:00 97.6 F 18 135/74 94 L Consult PN Assessment/Plan Procedures: Procedures ASSAY OF LIPASE (08/20/15) ASSAY OF MAGNESIUM (09/01/19) C DIFF AMPLIFIED PROBE (06/01/14) C-REACTIVE PROTEIN (08/20/15) COLONOSCOPY AND BIOPSY (06/01/14) COMPLETE CBC W/AUTO DIFF WBC (03/13/16) COMPREHEN METABOLIC PANEL (03/13/16) CRYPTOSPORIDIUM AG IA (06/01/14) CT ABD & PELV W/CONTRAST (08/20/15) CT ABD & PELVIS W/O CONTRAST (09/01/19) EGD BIOPSY SINGLE/MULTIPLE (06/01/14) EMERGENCY DEPT VISIT (09/01/19) GIARDIA AG IA (06/01/14) GLUCOSE BLOOD TEST (06/01/14) HYDRATE IV INFUSION ADD-ON (09/01/19) LEUKOCYTE ASSESSMENT FECAL (06/01/14) POLYSOM 6/>YRS CPAP 4/> PARM (09/12/16) ROUTINE VENIPUNCTURE (09/01/19) STOOL CULTR AEROBIC BACT EA (06/01/14) TEST FOR ACETONE/KETONES (09/01/19) THER/PROPH/DIAG INJ IV PUSH (03/13/16) THER/PROPH/DIAG IV INF INIT (09/01/19) TISSUE EXAM BY PATHOLOGIST (06/01/14) TX/PRO/DX INJ NEW DRUG ADDON (03/13/16) TX/PRO/DX INJ SAME DRUG MATERIALS MGMT TECH (08/20/15) URINALYSIS AUTO W/SCOPE (03/13/16) URINE CULTURE/COLONY COUNT (09/23/19) VANOMYCIN DNA AMP PROBE (06/01/14) (1) Atrial fibrillation with RVR SNOMED Code(s): 629785055063201 Code(s): I48.91 - UNSPECIFIED ATRIAL FIBRILLATION Current Visit: Yes Problem List Initiated/Reviewed/Updated: Yes My Orders Last 24 Hours: My Active Orders 12/24/20 21:00 Diltiazem [Cardizem CD] 360 mg PO BEDTIME Plan: Patient is a 54-year-old male with a history of ulcerative colitis, status post a total abdominal colectomy with the ileostomy, diabetes type 2, history of for pulmonary embolism and hypertension who underwent exploratory laparotomy, lysis of adhesions, primary repair of small bowel enterotomy, primary repair of parastomal hernia by Dr. Espinosa on 12/18 due to Complete SBO and incarcerated parastomal hernia. Assessment and plan: 1. Complete SBO and incarcerated parastomal hernia, s/p exploratory laparotomy, lysis of adhesions, primary repair of small bowel enterotomy, primary repair of parastomal hernia by Dr. Espinosa on 12/18 Postop management including pain control and DVT prophylaxis by surgical team Reinsertion of NG tube secondary to bowel obstruction found on CT 2. Atrial fibrillation with RVR, new Increase diltiazem CD 360 mg nightly. Will need to clamp NG tube for short amount of time to give medication. If this is not possible we will switch to IV Amiodarone 200 mg twice daily Eliquis 5 mg twice daily Lopressor 5 mg IV as needed for tachycardia Echocardiogram [id number] = 2; recommend anticoagulation. Thank you for letting us follow this patient.
[2020-12-24] MEDS: Ketorolac 30 MG/ML SDV IVPUSH PRN ×2 (15:16→21:17)
[2020-12-24] MEDS: Lactated Ringers 1,000 ML IV SCH (15:16)
[2020-12-24] MEDS ORDERED: Diatrizoate Meglumine/Diatrizoate Sodium 37% 120 ML Bottle ONE (17:15)
[2020-12-24] MEDS: Piperacillin/Tazobactam 4.5 GM in Sodium Chloride 0.9% 100 ML IV SCH (17:58)
[2020-12-24] MEDS: Metoprolol Tartrate 5 MG/5 ML SDV IVPUSH SCH ×2 (20:43→23:49)
[2020-12-24] MEDS ORDERED: Diltiazem 180 MG Cap.CD PO SCH (21:00)
[2020-12-24] MEDS ORDERED: Enoxaparin 40 MG/0.4 ML Syringe SUBCUT SCH (21:00)
[2020-12-24] MEDS ORDERED: Diltiazem 180 MG Cap.CD PO ONE (21:00)
[2020-12-25] MEDS: Piperacillin/Tazobactam 4.5 GM in Sodium Chloride 0.9% 100 ML IV SCH ×3 (01:23→17:39)
[2020-12-25] MEDS: Ketorolac 30 MG/ML SDV IVPUSH PRN ×3 (03:38→17:38)
[2020-12-25] MEDS: Metoprolol Tartrate 5 MG/5 ML SDV IVPUSH SCH ×4 (03:41→16:09)
[2020-12-25] MEDS: Lactated Ringers 1,000 ML IV SCH ×2 (05:24→20:00)
--- NOTE | 2020-12-25 07:47 | PCM.SN.2 ---
- Free Text/Narrative Note: POD 7 s/p laparotomy and repair of incarcerated parastomal hernia. S: developed recurrent obstructive symptoms yesterday, with WBC up to 16. Infectious workup including CT scan, CXR< UA, blood cultures performed. No evidence of intra-abdominal abscess, but there appeared to be a small bowel obstruction upstream from the terminal ileum, and the patient had cessation of ileostomy output. NG decompression was restarted. Overnight, Ileostomy output including gas has resumed, with 850 cc out recorded. The NG still has a good amount of bilious output. Pain has been manageable, about the same as yesterday. O: Afebrile, HR controlled, In atrial fibrillation with rate now in 90s, normotensive SpO2 95% on room air Awake and alert, no acute distress breathing comfortably irregular rhythm, rate controlled Abdominal incision clean, dry, intact. Distended with mild tenderness on palpation. Ileostomy appears viable liquid dark green output and gas. SCD in place No significant edema. skin warm and well perfused Labs reviewed- WBC stable at 16. Glucose in high 100s. Other labs unremarkable. 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 Course was complicated by recurent obstruction yesterday, though it appears this may be resolving based on ileostomy output. Atrial fibrillation. P: No big changes today, will go slow and continue to monitor NG output and ileostomy output. -no change to pain regimen for now -IS, OOB, plan to shower today -LR @ 75 cc/hr -NPO, NG LIWS -continue zosyn -therapeutic dose lovenox -rate control/rhythm control for atrial fibrillation per Dr. Lin's recommendations
[2020-12-25] MEDS: Metoprolol Tartrate 5 MG/5 ML SDV IVPUSH PRN (09:08)
--- NOTE | 2020-12-25 16:34 | PCM.CONSN ---
- General Info Date of Service: 12/25/20 Admission Dx/Problem (Free Text): Admission Diagnosis/Problem Admission Diagnosis/Problem Obstruction of colon Subjective Update: Patient remains n.p.o. with NG tube at low intermittent suction. Heart rate has been in the low 100s. Functional Status: Reports: Pain Controlled - Review of Systems General: Reports: No Symptoms HEENT: Reports: No Symptoms Pulmonary: Reports: No Symptoms Cardiovascular: Reports: No Symptoms - Patient Data Vitals - Most Recent: Last Vital Signs Temp 97.0 F 12/25/20 16:00 Pulse 127 H 12/25/20 16:09 Resp 18 12/25/20 16:00 BP 132/88 12/25/20 16:09 Pulse Ox 98 12/25/20 16:00 Weight - Most Recent: 296 lb 6.4 oz I&O - Last 24 Hours: Intake & Output 12/25/20 12/25/20 12/25/20 06:59 14:59 22:59 Intake Total 745 200 Output Total 1350 1115 425 Balance -605 -915 -425 Lab Results Last 24 Hours: Laboratory Results - last 24 hr 12/24/20 12/24/20 12/25/20 Range/Units 17:37 23:32 04:44 WBC 16.15 H (4.23-9.07) K/mm3 RBC 4.33 L (4.63-6.08) M/mm3 Hgb 10.1 L (13.7-17.5) gm/dl Hct 33.2 L (40.1-51.0) % MCV 76.7 L (79.0-92.2) fl MCH 23.3 L (25.7-32.2) pg MCHC 30.4 L (32.2-35.5) g/dl RDW Std Deviation 44.4 H (35.1-43.9) fL Plt Count 537 H (163-337) K/mm3 MPV 9.7 (9.4-12.3) fl Neut % (Auto) 79.9 H (34.0-67.9) % Lymph % (Auto) 10.7 L (21.8-53.1) % Guthrie % (Auto) 6.2 (5.3-12.2) % Eos % (Auto) 2.0 (0.8-7.0) Baso % (Auto) 0.2 (0.1-1.2) % Neut # (Auto) 12.91 H (1.78-5.38) K/mm3 Lymph # (Auto) 1.72 (1.32-3.57) K/mm3 [place]rie # (Auto) 1.00 H (0.30-0.82) K/mm3 Eos # (Auto) 0.33 (0.04-0.54) K/mm3 Baso # (Auto) 0.03 (0.01-0.08) K/mm3 Manual Slide Review Abnormal smear Sodium (136-145) mEq/L Potassium (3.5-5.1) mEq/L Chloride (98-107) mEq/L Carbon Dioxide (21-32) mEq/L Anion Gap (5-15) BUN (7-18) mg/dL Creatinine (0.7-1.3) mg/dL Est Cr Clr Drug Dosing mL/min Estimated GFR (MDRD) (>60) mL/min BUN/Creatinine Ratio (14-18) Glucose (74-106) mg/dL POC Glucose 189 H 180 H (70-105) mg/dL Calcium (8.5-10.1) mg/dL 12/25/20 12/25/20 12/25/20 Range/Units 04:44 05:40 05:48 WBC (4.23-9.07) K/mm3 RBC (4.63-6.08) M/mm3 Hgb (13.7-17.5) gm/dl Hct (40.1-51.0) % MCV (79.0-92.2) fl MCH (25.7-32.2) pg MCHC (32.2-35.5) g/dl RDW Std Deviation (35.1-43.9) fL Plt Count (163-337) K/mm3 MPV (9.4-12.3) fl Neut % (Auto) (34.0-67.9) % Lymph % (Auto) (21.8-53.1) % [place]rie % (Auto) (5.3-12.2) % Eos % (Auto) (0.8-7.0) Baso % (Auto) (0.1-1.2) % Neut # (Auto) (1.78-5.38) K/mm3 Lymph # (Auto) (1.32-3.57) K/mm3 [place]rie # (Auto) (0.30-0.82) K/mm3 Eos # (Auto) (0.04-0.54) K/mm3 Baso # (Auto) (0.01-0.08) K/mm3 Manual Slide Review Sodium 143 (136-145) mEq/L Potassium 3.5 (3.5-5.1) mEq/L Chloride 103 (98-107) mEq/L Carbon Dioxide 28 (21-32) mEq/L Anion Gap 15.5 H (5-15) BUN 20 H (7-18) mg/dL Creatinine 1.3 (0.7-1.3) mg/dL Est Cr Clr Drug Dosing 72.56 mL/min Estimated GFR (MDRD) 57 (>60) mL/min BUN/Creatinine Ratio 15.4 (14-18) Glucose 184 H (74-106) mg/dL POC Glucose 172 H 99 (70-105) mg/dL Calcium 8.3 L (8.5-10.1) mg/dL 12/25/20 12/25/20 Range/Units 06:33 12:40 WBC (4.23-9.07) K/mm3 RBC (4.63-6.08) M/mm3 Hgb (13.7-17.5) gm/dl Hct (40.1-51.0) % MCV (79.0-92.2) fl MCH (25.7-32.2) pg MCHC (32.2-35.5) g/dl RDW Std Deviation (35.1-43.9) fL Plt Count (163-337) K/mm3 MPV (9.4-12.3) fl Neut % (Auto) (34.0-67.9) % Lymph % (Auto) (21.8-53.1) % [place] % (Auto) (5.3-12.2) % Eos % (Auto) (0.8-7.0) Baso % (Auto) (0.1-1.2) % Neut # (Auto) (1.78-5.38) K/mm3 Lymph # (Auto) (1.32-3.57) K/mm3 [place] # (Auto) (0.30-0.82) K/mm3 Eos # (Auto) (0.04-0.54) K/mm3 Baso # (Auto) (0.01-0.08) K/mm3 Manual Slide Review Sodium (136-145) mEq/L Potassium (3.5-5.1) mEq/L Chloride (98-107) mEq/L Carbon Dioxide (21-32) mEq/L Anion Gap (5-15) BUN (7-18) mg/dL Creatinine (0.7-1.3) mg/dL Est Cr Clr Drug Dosing mL/min Estimated GFR (MDRD) (>60) mL/min BUN/Creatinine Ratio (14-18) Glucose (74-106) mg/dL POC Glucose 173 H 153 H (70-105) mg/dL Calcium (8.5-10.1) mg/dL Edwardo Results Last 24 Hours: Microbiology 12/18/20 15:14 Aerobic Blood Culture - Final Blood - Venous - Lab Draw NO GROWTH AFTER 7 DAYS Anaerobic Blood Culture - Final NO GROWTH AFTER 7 DAYS 12/18/20 15:06 Aerobic Blood Culture - Final Blood - Venous NO GROWTH AFTER 7 DAYS Anaerobic Blood Culture - Final NO GROWTH AFTER 7 DAYS 12/24/20 09:58 Aerobic Blood Culture - Preliminary Blood - Venous - Lab Draw NO GROWTH AFTER 1 DAY Anaerobic Blood Culture - Preliminary NO GROWTH AFTER 1 DAY 12/24/20 10:05 Aerobic Blood Culture - Preliminary Blood - Venous NO GROWTH AFTER 1 DAY Anaerobic Blood Culture - Preliminary NO GROWTH AFTER 1 DAY Med Orders - Current: Current Medications Acetaminophen (Acetaminophen 325 Mg Tab) 650 mg PO Q4H PRN PRN Reason: Fever Last Admin: 12/23/20 21:24 Dose: 650 mg Documented by: Amiodarone HCl (Amiodarone 200 Mg Tab) 200 mg PO BID [facility] Last Admin: 12/24/20 08:24 Dose: 200 mg Documented by: Enoxaparin Sodium (Enoxaparin 40 Mg/0.4 Ml Syringe) 40 mg SUBCUT DAILY@2100 [facility] Last Admin: 12/24/20 20:44 Dose: 40 mg Documented by: Hydralazine HCl (Hydralazine 20 Mg/Ml Sdv) 10 mg IVPUSH Q4H PRN PRN Reason: Hypertension Hydromorphone HCl (Hydromorphone 1 Mg/Ml Syringe) 1 mg IVPUSH Q2H PRN PRN Reason: Pain Last Admin: 12/21/20 18:15 Dose: 1 mg Documented by: Piperacillin Sod/Tazobactam (Sod 4.5 gm/ Sodium Chloride) 100 mls @ 25 mls/hr IV Q8H [facility] Last Admin: 12/25/20 09:07 Dose: 25 mls/hr Documented by: Lactated Ringer's (Ringers, Lactated) 1,000 mls @ 75 mls/hr IV ASDIRECTED [facility] Last Admin: 12/25/20 05:24 Dose: 75 mls/hr Documented by: Amiodarone HCl/Dextrose (Nexterone In Dextrose 360 Mg/200 Ml) 360 mg in 200 mls @ 16.7 mls/hr IV ASDIRECTED [facility] Last Admin: 12/25/20 15:54 Dose: 16.7 mls/hr Documented by: Insulin Human Lispro (Insulin Lispro 100 Unit/Ml) 0 unit SUBCUT Q6HR [facility]; Protocol Last Admin: 12/25/20 13:26 Dose: 2 units Documented by: Ketorolac Tromethamine (Ketorolac 30 Mg/Ml Sdv) 30 mg IVPUSH Q6H PRN PRN Reason: Pain Last Admin: 12/25/20 10:02 Dose: 30 mg Documented by: Metoprolol Tartrate (Metoprolol Tartrate 5 Mg/5 Ml Sdv) 5 mg IVPUSH Q4H PRN PRN Reason: Tachycardia Metoprolol Tartrate (Metoprolol Tartrate 5 Mg/5 Ml Sdv) 5 mg IVPUSH Q4H [facility] Last Admin: 12/25/20 16:09 Dose: 5 mg Documented by: Oxycodone HCl (Oxycodone 5 Mg Tab) 10 mg PO Q4H PRN PRN Reason: Pain Last Admin: 12/24/20 08:23 Dose: 10 mg Documented by: Sodium Chloride (Sodium Chloride 0.9% 10 Ml Syringe) 10 ml FLUSH ASDIRECTED PRN PRN Reason: Keep Vein Open Last Admin: 12/18/20 11:56 Dose: 10 ml Documented by: Sodium Chloride (Sodium Chloride 0.9% 10 Ml Syringe) 10 ml FLUSH ONETIME PRN PRN Reason: IV FLUSH Last Admin: 12/24/20 09:38 Dose: 10 ml Documented by: Discontinued Medications Acetaminophen (Acetaminophen Soln 650 Mg/20.3 Ml Ud Cup) 1,000 mg PO Q8H [facility] Last Admin: 12/22/20 14:07 Dose: Not Given Documented by: Apixaban (Apixaban 5 Mg Tab) 5 mg PO BID [facility] Last Admin: 12/24/20 08:24 Dose: 5 mg Documented by: Bupivacaine HCl/Epinephrine Bitart (Bupivacaine 0.5%/Epinephrine 1:200,000 50 Ml Mdv) Confirm Administered Dose 50 ml .ROUTE .STK-MED ONE Stop: 12/18/20 15:34 Last Admin: 12/18/20 16:23 Dose: 24 ml Documented by: Diatrizoate Meglum/Diatrizoate Sod (Diatrizoate Meglumine/Diatrizoate Sodium 37% 120 Ml Bottle) 120 ml PO ONETIME ONE Stop: 12/18/20 12:42 Last Admin: 12/18/20 20:29 Dose: Not Given Documented by: Diatrizoate Meglum/Diatrizoate Sod (Diatrizoate Meglumine/Diatrizoate Sodium 37% 120 Ml Bottle) 120 ml PO ONETIME ONE Stop: 12/24/20 08:24 Last Admin: 12/24/20 09:38 Dose: 45 ml Documented by: Diatrizoate Meglum/Diatrizoate Sod (Diatrizoate Meglumine/Diatrizoate Sodium 37% 120 Ml Bottle) 240 ml .XX ONETIME ONE Stop: 12/24/20 17:16 Last Admin: 12/24/20 17:19 Dose: 240 ml Documented by: Diltiazem HCl (Diltiazem 50 Mg/10 Ml Sdv) 5 mg IVPUSH ONETIME ONE Stop: 12/20/20 04:44 Last Admin: 12/20/20 04:54 Dose: 5 mg Documented by: Diltiazem HCl (Diltiazem Ir 60 Mg Tab) 60 mg PO Q6HR [facility] Last Admin: 12/22/20 05:43 Dose: 60 mg Documented by: Diltiazem HCl (Diltiazem 300 Mg Cap.Cd) 300 mg PO DAILY [facility] Last Admin: 12/23/20 08:51 Dose: 300 mg Documented by: Diltiazem HCl (Diltiazem 180 Mg Cap.Cd) 360 mg PO ONETIME ONE Stop: 12/23/20 20:09 Last Admin: 12/23/20 20:23 Dose: 360 mg Documented by: Diltiazem HCl (Diltiazem Ir 30 Mg Tab) 30 mg PO Q6H [facility] Stop: 12/24/20 03:01 Last Admin: 12/24/20 03:32 Dose: Not Given Documented by: Diltiazem HCl (Diltiazem 180 Mg Cap.Cd) 360 mg PO BEDTIME [facility] Enoxaparin Sodium (Enoxaparin 40 Mg/0.4 Ml Syringe) 40 mg SUBCUT Q12H [facility] Last Admin: 12/22/20 08:46 Dose: 40 mg Documented by: Fentanyl (Fentanyl 250 Mcg/5 Ml Sdv) Confirm Administered Dose 250 mcg .ROUTE .STK-MED ONE Stop: 12/18/20 15:17 Fentanyl (Fentanyl 100 Mcg/2 Ml Sdv) Confirm Administered Dose 100 mcg .ROUTE .STK-MED ONE Stop: 12/18/20 16:54 Fentanyl (Fentanyl 100 Mcg/2 Ml Sdv) Confirm Administered Dose 100 mcg .ROUTE .STK-MED ONE Stop: 12/18/20 17:49 Fentanyl (Fentanyl 100 Mcg/2 Ml Sdv) 50 mcg IVPUSH Q5M PRN PRN Reason: Pain Last Admin: 12/18/20 19:39 Dose: 50 mcg Documented by: Glycopyrrolate (Glycopyrrolate 0.2 Mg/Ml 2 Ml Syringe) Confirm Administered Dose 0.4 mg .ROUTE .STK-MED ONE Stop: 12/18/20 18:45 Heparin Sodium (Porcine) (Heparin Sodium 5,000 Units/Ml Vial) Confirm Administered Dose 5,000 units .ROUTE .STK-MED ONE Stop: 12/18/20 16:00 Heparin Sodium (Porcine) (Heparin Sodium 5,000 Units/Ml Vial) Confirm Administered Dose 5,000 units .ROUTE .STK-MED ONE Stop: 12/18/20 16:00 Hydromorphone HCl (Hydromorphone 0.5 Mg/0.5 Ml Syringe) 0.5 mg IVPUSH ONETIME ONE Stop: 12/18/20 12:05 Last Admin: 12/18/20 12:17 Dose: 0.5 mg Documented by: Hydromorphone HCl (Hydromorphone 0.5 Mg/0.5 Ml Syringe) Confirm Administered Dose 0.5 mg .ROUTE .STK-MED ONE Stop: 12/18/20 16:45 Hydromorphone HCl (Hydromorphone 0.5 Mg/0.5 Ml Syringe) Confirm Administered Dose 0.5 mg .ROUTE .STK-MED ONE Stop: 12/18/20 16:45 Hydromorphone HCl (Hydromorphone 0.5 Mg/0.5 Ml Syringe) 0.5 mg IVPUSH Q1H PRN PRN Reason: Pain Last Admin: 12/18/20 19:20 Dose: 0.5 mg Documented by: Sodium Chloride (Normal Saline) 1,000 mls @ 100 mls/hr IV NOW STA Stop: 12/18/20 22:03 Last Admin: 12/18/20 12:17 Dose: 100 mls/hr Documented by: Piperacillin Sod/Tazobactam (Sod 4.5 gm/ Sodium Chloride) 100 mls @ 200 mls/hr IV ONETIME ONE Stop: 12/18/20 15:25 Last Admin: 12/18/20 15:18 Dose: 200 mls/hr Documented by: Lidocaine HCl (Xylocaine-Mpf 1%) Confirm Administered Dose 4 mls @ as directed .ROUTE .STK-MED ONE Stop: 12/18/20 15:18 Lactated Ringer's (Ringers, Lactated) Confirm Administered Dose 1,000 mls @ as directed .ROUTE .STK-MED ONE Stop: 12/18/20 16:28 Lactated Ringer's (Ringers, Lactated) Confirm Administered Dose 1,000 mls @ as directed .ROUTE .STK-MED ONE Stop: 12/18/20 16:40 Lactated Ringer's (Ringers, Lactated) Confirm Administered Dose 1,000 mls @ as directed .ROUTE .STK-MED ONE Stop: 12/18/20 17:33 Lactated Ringer's (Ringers, Lactated) 1,000 mls @ 150 mls/hr IV ASDIRECTED [facility] Last Admin: 12/20/20 04:26 Dose: 150 mls/hr Documented by: Piperacillin Sod/Tazobactam (Sod 4.5 gm/ Sodium Chloride) 100 mls @ 25 mls/hr IV Q8H [facility] Last Admin: 12/22/20 11:04 Dose: 25 mls/hr Documented by: Insulin Human Regular 100 unit (/ Sodium Chloride) 100 mls @ 13.154 mls/hr IV TITRATE [facility]; Protocol Last Titration: 12/19/20 00:03 Dose: 0 units/kg/hr, 0 mls/hr Documented by: Magnesium Sulfate (Magnesium Sulfate In Water 2 Gm/50 Ml) 2 gm in 50 mls @ 25 mls/hr IV ONETIME ONE Stop: 12/18/20 22:59 Last Admin: 12/18/20 20:41 Dose: 25 mls/hr Documented by: Lactated Ringer's (Ringers, Lactated) 1,000 mls @ 1,000 mls/hr IV .BOLUS ONE Stop: 12/19/20 08:35 Last Admin: 12/19/20 07:53 Dose: 1,000 mls/hr Documented by: Magnesium Sulfate 4 gm/ Premix 50 mls @ 12.5 mls/hr IV ONETIME ONE Stop: 12/19/20 11:59 Last Admin: 12/19/20 08:19 Dose: 12.5 mls/hr Documented by: Lactated Ringer's (Ringers, Lactated) 1,000 mls @ 1,000 mls/hr IV .BOLUS ONE Stop: 12/19/20 16:07 Last Admin: 12/19/20 15:15 Dose: 1,000 mls/hr Documented by: Diltiazem HCl 100 mg/ Sodium (Chloride) 100 mls @ 5 mls/hr IV TITRATE [facility]; Protocol Last Admin: 12/20/20 08:48 Dose: 20 mg/hr, 20 mls/hr Documented by: Potassium Chloride 10 meq/ (Premix) 100 mls @ 100 mls/hr IV Q1H [facility] Stop: 12/20/20 06:44 Last Admin: 12/20/20 05:48 Dose: Not Given Documented by: Lactated Ringer's (Ringers, Lactated) 1,000 mls @ 50 mls/hr IV ASDIRECTED [facility] Last Admin: 12/20/20 05:11 Dose: 50 mls/hr Documented by: Potassium Chloride/Sodium Chloride (Normal Saline With 20 Meq Kcl) 1,000 mls @ 50 mls/hr IV ASDIRECTED [facility] Last Admin: 12/21/20 04:47 Dose: 50 mls/hr Documented by: Amiodarone HCl/Dextrose (Nexterone In Dextrose 150 Mg/100 Ml) 100 mls @ 600 mls/hr IV .BOLUS ONE; Protocol Stop: 12/20/20 10:08 Last Admin: 12/20/20 10:19 Dose: 600 mls/hr Documented by: Amiodarone HCl/Dextrose (Nexterone In Dextrose 360 Mg/200 Ml) 360 mg in 200 mls @ 33.333 mls/hr IV ASDIRECTED [facility]; Protocol Last Admin: 12/21/20 04:24 Dose: 16.7 mls/hr Documented by: Amiodarone HCl/Dextrose (Nexterone In Dextrose 150 Mg/100 Ml) Confirm Administ ered Dose 100 mls @ as directed IV .STK-MED ONE Stop: 12/20/20 10:23 Last Admin: 12/20/20 11:42 Dose: Not Given Documented by: Diltiazem HCl 100 mg/ Sodium (Chloride) 100 mls @ 5 mls/hr IV TITRATE [facility]; Protocol Last Titration: 12/21/20 15:23 Dose: 0 mg/hr, 0 mls/hr Documented by: Potassium Chloride 10 meq/ (Premix) 100 mls @ 100 mls/hr IV Q1H [facility] Stop: 12/21/20 13:59 Last Admin: 12/21/20 14:20 Dose: 100 mls/hr Documented by: Piperacillin Sod/Tazobactam (Sod 4.5 gm/ Sodium Chloride) 100 mls @ 200 mls/hr IV ONETIME ONE Stop: 12/24/20 10:29 Last Admin: 12/24/20 10:18 Dose: 200 mls/hr Documented by: Iopamidol (Iopamidol 612 Mg/Ml 100 Ml Bottle) 100 ml IVPUSH ONETIME ONE Stop: 12/18/20 12:46 Last Admin: 12/18/20 14:04 Dose: 100 ml Documented by: Iopamidol (Iopamidol 612 Mg/Ml 50 Ml Sdv) 50 ml IVPUSH ONETIME ONE Stop: 12/24/20 08:24 Last Admin: 12/24/20 09:38 Dose: 50 ml Documented by: Iopamidol (Iopamidol 612 Mg/Ml 100 Ml Bottle) 100 ml IVPUSH ONETIME ONE Stop: 12/24/20 08:24 Last Admin: 12/24/20 09:38 Dose: 100 ml Documented by: Ketorolac Tromethamine (Ketorolac 30 Mg/Ml Sdv) Confirm Administered Dose 30 mg .ROUTE .STK-MED ONE Stop: 12/18/20 18:35 Labetalol HCl (Labetalol 100 Mg/20 Ml Mdv) 5 mg IVPUSH ONETIME [facility]; Protocol Labetalol HCl (Labetalol 100 Mg/20 Ml Mdv) 5 mg IVPUSH ONETIME PRN; Protocol PRN Reason: Hypertension Last Admin: 12/18/20 19:26 Dose: 5 mg Documented by: Metoprolol Tartrate (Metoprolol Tartrate 25 Mg Tab) 12.5 mg PO Q12H [facility] Last Admin: 12/20/20 05:58 Dose: 12.5 mg Documented by: Metoprolol Tartrate (Metoprolol Tartrate 5 Mg/5 Ml Sdv) 2.5 mg IVPUSH ONETIME ONE Stop: 12/20/20 22:51 Last Admin: 12/21/20 20:53 Dose: Not Given Documented by: Metoprolol Tartrate (Metoprolol Tartrate 5 Mg/5 Ml Sdv) 2.5 mg IVPUSH ONETIME PRN PRN Reason: HEART RATE > 100 Metoprolol Tartrate (Metoprolol Tartrate 5 Mg/5 Ml Sdv) 2.5 mg IVPUSH ASDIRECTED PRN PRN Reason: HEART RATE > 110 Last Admin: 12/23/20 13:43 Dose: 2.5 mg Documented by: Midazolam HCl (Midazolam 1 Mg/Ml 2 Ml Sdv) Confirm Administered Dose 2 mg .ROUTE .STK-MED ONE Stop: 12/18/20 15:17 Miscellaneous Medication (Phenylephrine Hcl In 0.9% Nacl 1 Mg/10 Ml Syringe) Confirm Administered Dose 1 mg .ROUTE .STK-MED ONE Stop: 12/18/20 16:20 Neostigmine Methylsulfate (Neostigmine Methylsulfate 5 Mg/5 Ml Syringe) Confirm Administered Dose 5 mg .ROUTE .STK-MED ONE Stop: 12/18/20 18:45 Neostigmine Methylsulfate (Neostigmine Methylsulfate 5 Mg/5 Ml Syringe) Confirm Administered Dose 5 mg .ROUTE .STK-MED ONE Stop: 12/18/20 18:56 Ondansetron HCl (Ondansetron 4 Mg/2 Ml Sdv) 4 mg IVPUSH ONETIME ONE Stop: 12/18/20 12:05 Last Admin: 12/18/20 12:17 Dose: 4 mg Documented by: Ondansetron HCl (Ondansetron 4 Mg/2 Ml Sdv) Confirm Administered Dose 4 mg .ROUTE .STK-MED ONE Stop: 12/18/20 15:17 Oxycodone HCl (Oxycodone 5 Mg Tab) 5 mg PO Q4H PRN PRN Reason: Pain (moderate 4-6) Last Admin: 12/22/20 05:42 Dose: 5 mg Documented by: Potassium Chloride (Potassium Chloride 20 Meq Tab.Er) 60 meq PO ONETIME ONE Stop: 12/23/20 08:00 Last Admin: 12/23/20 08:50 Dose: 60 meq Documented by: Propofol (Propofol 200 Mg/20 Ml Sdv) Confirm Administered Dose 200 mg .ROUTE .STK-MED ONE Stop: 12/18/20 15:17 Rocuronium [place] (Rocuronium 50 Mg/5 Ml Vial) Confirm Administered Dose 50 mg .ROUTE .STK-MED ONE Stop: 12/18/20 15:17 Rocuronium [place] (Rocuronium 50 Mg/5 Ml Vial) Confirm Administered Dose 50 mg .ROUTE .STK-MED ONE Stop: 12/18/20 17:52 Sodium Chloride (Sodium Chloride 0.9% 10 Ml Syringe) 10 ml FLUSH BOL[facility] Last Admin: 12/18/20 14:04 Dose: 10 ml Documented by: - Exam Quality Assessment: Supplemental Oxygen General: Alert, Oriented HEENT: Pupils Equal, Mucous Membr. Moist/[place] Neck: Supple Lungs: Clear to Auscultation, Normal Respiratory Effort Cardiovascular: Irregular Rhythm, Tachycardia Sepsis Event Note - Evaluation Sepsis Screening Result: Sepsis Risk - Focused Exam Vital Signs: Vital Signs Temp Pulse Resp BP BP Pulse Ox Pulse Ox 12/25/20 16:09 127 H 132/88 12/25/20 16:00 97.0 F 18 132/88 98 12/25/20 13:43 148 H 154/101 H 12/25/20 10:00 97.1 F 15 140/97 H 99 12/25/20 08:30 110 H 140/97 H 12/25/20 07:48 99 Consult PN Assessment/Plan Procedures: Procedures ASSAY OF LIPASE (08/20/15) ASSAY OF MAGNESIUM (09/01/19) C DIFF AMPLIFIED PROBE (06/01/14) C-REACTIVE PROTEIN (08/20/15) COLONOSCOPY AND BIOPSY (06/01/14) COMPLETE CBC W/AUTO DIFF WBC (03/13/16) COMPREHEN METABOLIC PANEL (03/13/16) CRYPTOSPORIDIUM AG IA (06/01/14) CT ABD & PELV W/CONTRAST (08/20/15) CT ABD & PELVIS W/O CONTRAST (09/01/19) EGD BIOPSY SINGLE/MULTIPLE (06/01/14) EMERGENCY DEPT VISIT (09/01/19) GIARDIA AG IA (06/01/14) GLUCOSE BLOOD TEST (06/01/14) HYDRATE IV INFUSION ADD-ON (09/01/19) LEUKOCYTE ASSESSMENT FECAL (06/01/14) POLYSOM 6/>YRS CPAP 4/> PARM (09/12/16) ROUTINE VENIPUNCTURE (09/01/19) STOOL CULTR AEROBIC BACT EA (06/01/14) TEST FOR ACETONE/KETONES (09/01/19) THER/PROPH/DIAG INJ IV PUSH (03/13/16) THER/PROPH/DIAG IV INF INIT (09/01/19) TISSUE EXAM BY PATHOLOGIST (06/01/14) TX/PRO/DX INJ NEW DRUG ADDON (03/13/16) TX/PRO/DX INJ SAME DRUG MATERIAL SPREADER (08/20/15) URINALYSIS AUTO W/SCOPE (03/13/16) URINE CULTURE/COLONY COUNT (09/23/19) VANOMYCIN DNA AMP PROBE (06/01/14) (1) Atrial fibrillation with RVR SNOMED Code(s): 363507839655463 Code(s): I48.91 - UNSPECIFIED ATRIAL FIBRILLATION Current Visit: Yes Problem List Initiated/Reviewed/Updated: Yes My Orders Last 24 Hours: My Active Orders 12/24/20 20:18 Metoprolol Tartrate [Lopressor] 5 mg IVPUSH Q4H PRN 12/24/20 20:30 Metoprolol Tartrate [Lopressor] 5 mg IVPUSH Q4H 12/25/20 10:45 Amiodarone In Dextrose,Iso-Osm [Nexterone in Dextrose 360 MG/200 ML] 360 mg in 200 ml IV ASDIRECTED Plan: Patient is a 54-year-old male with a history of ulcerative colitis, status post a total abdominal colectomy with the ileostomy, diabetes type 2, history of for pulmonary embolism and hypertension who underwent exploratory laparotomy, lysis of adhesions, primary repair of small bowel enterotomy, primary repair of parastomal hernia by Dr. Espinosa on 12/18 due to Complete SBO and incarcerated parastomal hernia. Assessment and plan: 1. Complete SBO and incarcerated parastomal hernia, s/p exploratory laparotomy, lysis of adhesions, primary repair of small bowel enterotomy, primary repair of parastomal hernia by Dr. Espinosa on 12/18 Postop management including pain control and DVT prophylaxis by surgical team Reinsertion of NG tube secondary to bowel obstruction found on CT 2. Atrial fibrillation with RVR, new Lopressor 5 mg every 4 hours scheduled and as needed 5 mg for heart rate sustained greater than 100 Restart amiodarone IV drip Anticoagulation per primary team Lopressor 5 mg IV as needed for tachycardia Echocardiogramcompleted [id number] = 2; recommend anticoagulation. Thank you for letting us follow this patient.
[2020-12-25] MEDS ORDERED: Metoprolol Tartrate 50 MG Tab PO SCH ×2 (18:30→21:00)
[2020-12-25] MEDS: Amiodarone 200 MG Tab PO SCH (19:59)
[2020-12-25] MEDS: Apixaban 5 MG Tab PO SCH (19:59)
[2020-12-26] MEDS: Metoprolol Tartrate 5 MG/5 ML SDV IVPUSH PRN (00:56)
[2020-12-26] MEDS: Piperacillin/Tazobactam 4.5 GM in Sodium Chloride 0.9% 100 ML IV SCH ×4 (00:59→17:55)
[2020-12-26] MEDS: Ketorolac 30 MG/ML SDV IVPUSH PRN ×2 (00:59→08:16)
--- NOTE | 2020-12-26 08:15 | PCM.SN.2 ---
- Free Text/Narrative Note: POD 8 s/p laparotomy and repair of incarcerated parastomal hernia. S: had a good night. Pain manageable. Lots of output from ileostomy. Tolerating clear liquids without a problem. O: Afebrile, HR controlled, In atrial fibrillation, normotensive, SpO2 95% on room air Awake and alert, no acute distress breathing comfortably irregular rhythm, rate controlled Abdominal incision with scant, odorless drainage from mid portion yesterday. A few maryann removed with cmzrqhetny-hyrfrlqiw-nhjvdfg fluid drained. Small area of subcutaneous space packed with wet to dry dressing. Fascial closure feels intact. Ileostomy with thin dark green liquid. SCD in place No significant edema. skin warm and well perfused Labs reviewed- WBC down to 15. Glucose in mid 100s. 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 Course was complicated by recurrent obstruction on 12/24, though it appears this resolved after NG decompression and bowel rest. Continued atrial fibrillation. P: -discontinue narcotics. Plan on scheduled tylenol with IV toradol prn -IS, OOB, pulmonary toilet -enrike IV -advance from clears to full liquids -continue zosyn while in house, recheck CBC in AM -stop lovenox, restart oral eliquis 5 mg bid -rate control/rhythm control for atrial fibrillation per Dr. Lin's recommendations -possible discharge tomorrow if continuing to do well
[2020-12-26] MEDS: Metoprolol Tartrate 25 MG Tab PO SCH ×2 (08:20→22:05)
[2020-12-26] MEDS: Apixaban 5 MG Tab PO SCH ×2 (08:21→22:08)
[2020-12-26] MEDS: Amiodarone 200 MG Tab PO SCH ×2 (08:21→22:08)
--- NOTE | 2020-12-26 11:46 | PCM.CONSN ---
- General Info Date of Service: 12/26/20 Admission Dx/Problem (Free Text): Admission Diagnosis/Problem Admission Diagnosis/Problem Obstruction of colon Subjective Update: Patient is doing much better. Heart rate is in the low 100s. He states that is why he Functional Status: Reports: Pain Controlled - Review of Systems General: Reports: No Symptoms HEENT: Reports: No Symptoms Pulmonary: Reports: No Symptoms Cardiovascular: Reports: No Symptoms Gastrointestinal: Reports: No Symptoms Musculoskeletal: Reports: No Symptoms Neurological: Reports: No Symptoms Psychiatric: Reports: No Symptoms - Patient Data Vitals - Most Recent: Last Vital Signs Temp 97.4 F 12/26/20 11:25 Pulse 99 12/26/20 11:25 Resp 16 12/26/20 11:25 BP 125/66 12/26/20 11:25 Pulse Ox 98 12/26/20 11:25 Weight - Most Recent: 295 lb 9.6 oz I&O - Last 24 Hours: Intake & Output 12/25/20 12/26/20 12/26/20 22:59 06:59 14:59 Intake Total 1935 1337 Output Total 1575 1650 800 Balance 360 -313 -800 Lab Results Last 24 Hours: Laboratory Results - last 24 hr 12/25/20 12/25/20 12/25/20 Range/Units 12:40 17:29 22:48 WBC (4.23-9.07) K/mm3 RBC (4.63-6.08) M/mm3 Hgb (13.7-17.5) gm/dl Hct (40.1-51.0) % MCV (79.0-92.2) fl MCH (25.7-32.2) pg MCHC (32.2-35.5) g/dl RDW Std Deviation (35.1-43.9) fL Plt Count (163-337) K/mm3 MPV (9.4-12.3) fl Neut % (Auto) (34.0-67.9) % Lymph % (Auto) (21.8-53.1) % [place] % (Auto) (5.3-12.2) % Eos % (Auto) (0.8-7.0) Baso % (Auto) (0.1-1.2) % Neut # (Auto) (1.78-5.38) K/mm3 Lymph # (Auto) (1.32-3.57) K/mm3 [place] # (Auto) (0.30-0.82) K/mm3 Eos # (Auto) (0.04-0.54) K/mm3 Baso # (Auto) (0.01-0.08) K/mm3 Manual Slide Review POC Glucose 153 H 181 H 219 H (70-105) mg/dL 12/26/20 12/26/20 12/26/20 Range/Units 04:34 05:03 11:06 WBC 15.30 H (4.23-9.07) K/mm3 RBC 4.03 L (4.63-6.08) M/mm3 Hgb 9.5 L (13.7-17.5) gm/dl Hct 31.3 L (40.1-51.0) % MCV 77.7 L (79.0-92.2) fl MCH 23.6 L (25.7-32.2) pg MCHC 30.4 L (32.2-35.5) g/dl RDW Std Deviation 44.7 H (35.1-43.9) fL Plt Count 531 H (163-337) K/mm3 MPV 9.5 (9.4-12.3) fl Neut % (Auto) 77.8 H (34.0-67.9) % Lymph % (Auto) 12.2 L (21.8-53.1) % [place] % (Auto) 6.6 (5.3-12.2) % Eos % (Auto) 2.8 (0.8-7.0) Baso % (Auto) 0.1 (0.1-1.2) % Neut # (Auto) 11.91 H (1.78-5.38) K/mm3 Lymph # (Auto) 1.86 (1.32-3.57) K/mm3 [place] # (Auto) 1.01 H (0.30-0.82) K/mm3 Eos # (Auto) 0.43 (0.04-0.54) K/mm3 Baso # (Auto) 0.02 (0.01-0.08) K/mm3 Manual Slide Review Abnormal smear POC Glucose 146 H 221 H (70-105) mg/dL Edwardo Results Last 24 Hours: Microbiology 12/24/20 09:58 Aerobic Blood Culture - Preliminary Blood - Venous - Lab Draw NO GROWTH AFTER 2 DAYS Anaerobic Blood Culture - Preliminary NO GROWTH AFTER 2 DAYS 12/24/20 10:05 Aerobic Blood Culture - Preliminary Blood - Venous NO GROWTH AFTER 2 DAYS Anaerobic Blood Culture - Preliminary NO GROWTH AFTER 2 DAYS 12/18/20 15:14 Aerobic Blood Culture - Final Blood - Venous - Lab Draw NO GROWTH AFTER 7 DAYS Anaerobic Blood Culture - Final NO GROWTH AFTER 7 DAYS 12/18/20 15:06 Aerobic Blood Culture - Final Blood - Venous NO GROWTH AFTER 7 DAYS Anaerobic Blood Culture - Final NO GROWTH AFTER 7 DAYS Med Orders - Current: Current Medications Amiodarone HCl (Amiodarone 200 Mg Tab) 200 mg PO BID [facility] Last Admin: 12/26/20 08:21 Dose: 200 mg Documented by: Apixaban (Apixaban 5 Mg Tab) 5 mg PO BID [facility] Last Admin: 12/26/20 08:21 Dose: 5 mg Documented by: Hydralazine HCl (Hydralazine 20 Mg/Ml Sdv) 10 mg IVPUSH Q4H PRN PRN Reason: Hypertension Piperacillin Sod/Tazobactam (Sod 4.5 gm/ Sodium Chloride) 100 mls @ 25 mls/hr IV Q8H [facility] Last Admin: 12/26/20 11:15 Dose: 25 mls/hr Documented by: Amiodarone HCl/Dextrose (Nexterone In Dextrose 360 Mg/200 Ml) 360 mg in 200 mls @ 16.7 mls/hr IV ASDIRECTED [facility] Last Admin: 12/25/20 15:54 Dose: 16.7 mls/hr Documented by: Insulin Human Lispro (Insulin Lispro 100 Unit/Ml) 0 unit SUBCUT QIDACANDBED [facility]; Protocol Last Admin: 12/26/20 11:14 Dose: 4 units Documented by: Ketorolac Tromethamine (Ketorolac 30 Mg/Ml Sdv) 30 mg IVPUSH Q6H PRN PRN Reason: Pain Last Admin: 12/26/20 08:16 Dose: 30 mg Documented by: Metoprolol Tartrate (Metoprolol Tartrate 5 Mg/5 Ml Sdv) 5 mg IVPUSH Q4H PRN PRN Reason: Tachycardia Last Admin: 12/26/20 00:56 Dose: 5 mg Documented by: Metoprolol Tartrate (Metoprolol Tartrate 25 Mg Tab) 75 mg PO Q12H [facility] Last Admin: 12/26/20 08:20 Dose: 75 mg Documented by: Sodium Chloride (Sodium Chloride 0.9% 10 Ml Syringe) 10 ml FLUSH ASDIRECTED PRN PRN Reason: Keep Vein Open Last Admin: 12/18/20 11:56 Dose: 10 ml Documented by: Sodium Chloride (Sodium Chloride 0.9% 10 Ml Syringe) 10 ml FLUSH ONETIME PRN PRN Reason: IV FLUSH Last Admin: 12/24/20 09:38 Dose: 10 ml Documented by: Discontinued Medications Acetaminophen (Acetaminophen Soln 650 Mg/20.3 Ml Ud Cup) 1,000 mg PO Q8H [facility] Last Admin: 12/22/20 14:07 Dose: Not Given Documented by: Acetaminophen (Acetaminophen 325 Mg Tab) 650 mg PO Q4H PRN PRN Reason: Fever Last Admin: 12/23/20 21:24 Dose: 650 mg Documented by: Amiodarone HCl (Amiodarone 200 Mg Tab) 200 mg PO BID [facility] Last Admin: 12/24/20 08:24 Dose: 200 mg Documented by: Apixaban (Apixaban 5 Mg Tab) 5 mg PO BID [facility] Last Admin: 12/24/20 08:24 Dose: 5 mg Documented by: Bupivacaine HCl/Epinephrine Bitart (Bupivacaine 0.5%/Epinephrine 1:200,000 50 Ml Mdv) Confirm Administered Dose 50 ml .ROUTE .STK-MED ONE Stop: 12/18/20 15:34 Last Admin: 12/18/20 16:23 Dose: 24 ml Documented by: Diatrizoate Meglum/Diatrizoate Sod (Diatrizoate Meglumine/Diatrizoate Sodium 37% 120 Ml Bottle) 120 ml PO ONETIME ONE Stop: 12/18/20 12:42 Last Admin: 12/18/20 20:29 Dose: Not Given Documented by: Diatrizoate Meglum/Diatrizoate Sod (Diatrizoate Meglumine/Diatrizoate Sodium 37% 120 Ml Bottle) 120 ml PO ONETIME ONE Stop: 12/24/20 08:24 Last Admin: 12/24/20 09:38 Dose: 45 ml Documented by: Diatrizoate Meglum/Diatrizoate Sod (Diatrizoate Meglumine/Diatrizoate Sodium 37% 120 Ml Bottle) 240 ml .XX ONETIME ONE Stop: 12/24/20 17:16 Last Admin: 12/24/20 17:19 Dose: 240 ml Documented by: Diltiazem HCl (Diltiazem 50 Mg/10 Ml Sdv) 5 mg IVPUSH ONETIME ONE Stop: 12/20/20 04:44 Last Admin: 12/20/20 04:54 Dose: 5 mg Documented by: Diltiazem HCl (Diltiazem Ir 60 Mg Tab) 60 mg PO Q6HR [facility] Last Admin: 12/22/20 05:43 Dose: 60 mg Documented by: Diltiazem HCl (Diltiazem 300 Mg Cap.Cd) 300 mg PO DAILY [facility] Last Admin: 12/23/20 08:51 Dose: 300 mg Documented by: Diltiazem HCl (Diltiazem 180 Mg Cap.Cd) 360 mg PO ONETIME ONE Stop: 12/23/20 20:09 Last Admin: 12/23/20 20:23 Dose: 360 mg Documented by: Diltiazem HCl (Diltiazem Ir 30 Mg Tab) 30 mg PO Q6H [facility] Stop: 12/24/20 03:01 Last Admin: 12/24/20 03:32 Dose: Not Given Documented by: Diltiazem HCl (Diltiazem 180 Mg Cap.Cd) 360 mg PO BEDTIME [facility] Enoxaparin Sodium (Enoxaparin 40 Mg/0.4 Ml Syringe) 40 mg SUBCUT Q12H [facility] Last Admin: 12/22/20 08:46 Dose: 40 mg Documented by: Enoxaparin Sodium (Enoxaparin 40 Mg/0.4 Ml Syringe) 40 mg SUBCUT DAILY@2100 [facility] Last Admin: 12/24/20 20:44 Dose: 40 mg Documented by: Fentanyl (Fentanyl 250 Mcg/5 Ml Sdv) Confirm Administered Dose 250 mcg .ROUTE .STK-MED ONE Stop: 12/18/20 15:17 Fentanyl (Fentanyl 100 Mcg/2 Ml Sdv) Confirm Administered Dose 100 mcg .ROUTE .STK-MED ONE Stop: 12/18/20 16:54 Fentanyl (Fentanyl 100 Mcg/2 Ml Sdv) Confirm Administered Dose 100 mcg .ROUTE .STK-MED ONE Stop: 12/18/20 17:49 Fentanyl (Fentanyl 100 Mcg/2 Ml Sdv) 50 mcg IVPUSH Q5M PRN PRN Reason: Pain Last Admin: 12/18/20 19:39 Dose: 50 mcg Documented by: Glycopyrrolate (Glycopyrrolate 0.2 Mg/Ml 2 Ml Syringe) Confirm Administered Dose 0.4 mg .ROUTE .STK-MED ONE Stop: 12/18/20 18:45 Heparin Sodium (Porcine) (Heparin Sodium 5,000 Units/Ml Vial) Confirm Administered Dose 5,000 units .ROUTE .STK-MED ONE Stop: 12/18/20 16:00 Heparin Sodium (Porcine) (Heparin Sodium 5,000 Units/Ml Vial) Confirm Administered Dose 5,000 units .ROUTE .STK-MED ONE Stop: 12/18/20 16:00 Hydromorphone HCl (Hydromorphone 0.5 Mg/0.5 Ml Syringe) 0.5 mg IVPUSH ONETIME ONE Stop: 12/18/20 12:05 Last Admin: 12/18/20 12:17 Dose: 0.5 mg Documented by: Hydromorphone HCl (Hydromorphone 0.5 Mg/0.5 Ml Syringe) Confirm Administered Dose 0.5 mg .ROUTE .STK-MED ONE Stop: 12/18/20 16:45 Hydromorphone HCl (Hydromorphone 0.5 Mg/0.5 Ml Syringe) Confirm Administered Dose 0.5 mg .ROUTE .STK-MED ONE Stop: 12/18/20 16:45 Hydromorphone HCl (Hydromorphone 0.5 Mg/0.5 Ml Syringe) 0.5 mg IVPUSH Q1H PRN PRN Reason: Pain Last Admin: 12/18/20 19:20 Dose: 0.5 mg Documented by: Hydromorphone HCl (Hydromorphone 1 Mg/Ml Syringe) 1 mg IVPUSH Q2H PRN PRN Reason: Pain Last Admin: 12/21/20 18:15 Dose: 1 mg Documented by: Sodium Chloride (Normal Saline) 1,000 mls @ 100 mls/hr IV NOW STA Stop: 12/18/20 22:03 Last Admin: 12/18/20 12:17 Dose: 100 mls/hr Documented by: Piperacillin Sod/Tazobactam (Sod 4.5 gm/ Sodium Chloride) 100 mls @ 200 mls/hr IV ONETIME ONE Stop: 12/18/20 15:25 Last Admin: 12/18/20 15:18 Dose: 200 mls/hr Documented by: Lidocaine HCl (Xylocaine-Mpf 1%) Confirm Administered Dose 4 mls @ as directed .ROUTE .STK-MED ONE Stop: 12/18/20 15:18 Lactated Ringer's (Ringers, Lactated) Confirm Administered Dose 1,000 mls @ as directed .ROUTE .STK-MED ONE Stop: 12/18/20 16:28 Lactated Ringer's (Ringers, Lactated) Confirm Administered Dose 1,000 mls @ as directed .ROUTE .STK-MED ONE Stop: 12/18/20 16:40 Lactated Ringer's (Ringers, Lactated) Confirm Administered Dose 1,000 mls @ as directed .ROUTE .STK-MED ONE Stop: 12/18/20 17:33 Lactated Ringer's (Ringers, Lactated) 1,000 mls @ 150 mls/hr IV ASDIRECTED [facility] Last Admin: 12/20/20 04:26 Dose: 150 mls/hr Documented by: Piperacillin Sod/Tazobactam (Sod 4.5 gm/ Sodium Chloride) 100 mls @ 25 mls/hr IV Q8H [facility] Last Admin: 12/22/20 11:04 Dose: 25 mls/hr Documented by: Insulin Human Regular 100 unit (/ Sodium Chloride) 100 mls @ 13.154 mls/hr IV TITRATE [facility]; Protocol Last Titration: 12/19/20 00:03 Dose: 0 units/kg/hr, 0 mls/hr Documented by: Magnesium Sulfate (Magnesium Sulfate In Water 2 Gm/50 Ml) 2 gm in 50 mls @ 25 mls/hr IV ONETIME ONE Stop: 12/18/20 22:59 Last Admin: 12/18/20 20:41 Dose: 25 mls/hr Documented by: Lactated Ringer's (Ringers, Lactated) 1,000 mls @ 1,000 mls/hr IV .BOLUS ONE Stop: 12/19/20 08:35 Last Admin: 12/19/20 07:53 Dose: 1,000 mls/hr Documented by: Magnesium Sulfate 4 gm/ Premix 50 mls @ 12.5 mls/hr IV ONETIME ONE Stop: 12/19/20 11:59 Last Admin: 12/19/20 08:19 Dose: 12.5 mls/hr Documented by: Lactated Ringer's (Ringers, Lactated) 1,000 mls @ 1,000 mls/hr IV .BOLUS ONE Stop: 12/19/20 16:07 Last Admin: 12/19/20 15:15 Dose: 1,000 mls/hr Documented by: Diltiazem HCl 100 mg/ Sodium (Chloride) 100 mls @ 5 mls/hr IV TITRATE [facility]; Protocol Last Admin: 12/20/20 08:48 Dose: 20 mg/hr, 20 mls/hr Documented by: Potassium Chloride 10 meq/ (Premix) 100 mls @ 100 mls/hr IV Q1H [facility] Stop: 12/20/20 06:44 Last Admin: 12/20/20 05:48 Dose: Not Given Documented by: Lactated Ringer's (Ringers, Lactated) 1,000 mls @ 50 mls/hr IV ASDIRECTED [facility] Last Admin: 12/20/20 05:11 Dose: 50 mls/hr Documented by: Potassium Chloride/Sodium Chloride (Normal Saline With 20 Meq Kcl) 1,000 mls @ 50 mls/hr IV ASDIRECTED [facility] Last Admin: 12/21/20 04:47 Dose: 50 mls/hr Documented by: Amiodarone HCl/Dextrose (Nexterone In Dextrose 150 Mg/100 Ml) 100 mls @ 600 mls/hr IV .BOLUS ONE; Protocol Stop: 12/20/20 10:08 Last Admin: 12/20/20 10:19 Dose: 600 mls/hr Documented by: Amiodarone HCl/Dextrose (Nexterone In Dextrose 360 Mg/200 Ml) 360 mg in 200 mls @ 33.333 mls/hr IV ASDIRECTED [facility]; Protocol Last Admin: 12/21/20 04:24 Dose: 16.7 mls/hr Documented by: Amiodarone HCl/Dextrose (Nexterone In Dextrose 150 Mg/100 Ml) Confirm Administered Dose 100 mls @ as directed IV .STK-MED ONE Stop: 12/20/20 10:23 Last Admin: 12/20/20 11:42 Dose: Not Given Documented by: Diltiazem HCl 100 mg/ Sodium (Chloride) 100 mls @ 5 mls/hr IV TITRATE [facility]; Protocol Last Titration: 12/21/20 15:23 Dose: 0 mg/hr, 0 mls/hr Documented by: Potassium Chloride 10 meq/ (Premix) 100 mls @ 100 mls/hr IV Q1H [facility] Stop: 12/21/20 13:59 Last Admin: 12/21/20 14:20 Dose: 100 mls/hr Documented by: Piperacillin Sod/Tazobactam (Sod 4.5 gm/ Sodium Chloride) 100 mls @ 200 mls/hr IV ONETIME ONE Stop: 12/24/20 10:29 Last Admin: 12/24/20 10:18 Dose: 200 mls/hr Documented by: Lactated Ringer's (Ringers, Lactated) 1,000 mls @ 75 mls/hr IV ASDIRECTED [facility] Last Admin: 12/25/20 20:00 Dose: 75 mls/hr Documented by: Insulin Human Lispro (Insulin Lispro 100 Unit/Ml) 0 unit SUBCUT Q6HR [facility]; Protocol Last Admin: 12/26/20 05:05 Dose: Not Given Documented by: Iopamidol (Iopamidol 612 Mg/Ml 100 Ml Bottle) 100 ml IVPUSH ONETIME ONE Stop: 12/18/20 12:46 Last Admin: 12/18/20 14:04 Dose: 100 ml Documented by: Iopamidol (Iopamidol 612 Mg/Ml 50 Ml Sdv) 50 ml IVPUSH ONETIME ONE Stop: 12/24/20 08:24 Last Admin: 12/24/20 09:38 Dose: 50 ml Documented by: Iopamidol (Iopamidol 612 Mg/Ml 100 Ml Bottle) 100 ml IVPUSH ONETIME ONE Stop: 12/24/20 08:24 Last Admin: 12/24/20 09:38 Dose: 100 ml Documented by: Ketorolac Tromethamine (Ketorolac 30 Mg/Ml Sdv) Confirm Administered Dose 30 mg .ROUTE .STK-MED ONE Stop: 12/18/20 18:35 Labetalol HCl (Labetalol 100 Mg/20 Ml Mdv) 5 mg IVPUSH ONETIME [facility]; Protocol Labetalol HCl (Labetalol 100 Mg/20 Ml Mdv) 5 mg IVPUSH ONETIME PRN; Protocol PRN Reason: Hypertension Last Admin: 12/18/20 19:26 Dose: 5 mg Documented by: Metoprolol Tartrate (Metoprolol Tartrate 25 Mg Tab) 12.5 mg PO Q12H [facility] Last Admin: 12/20/20 05:58 Dose: 12.5 mg Documented by: Metoprolol Tartrate (Metoprolol Tartrate 5 Mg/5 Ml Sdv) 2.5 mg IVPUSH ONETIME ONE Stop: 12/20/20 22:51 Last Admin: 12/21/20 20:53 Dose: Not Given Documented by: Metoprolol Tartrate (Metoprolol Tartrate 5 Mg/5 Ml Sdv) 2.5 mg IVPUSH ONETIME PRN PRN Reason: HEART RATE > 100 Metoprolol Tartrate (Metoprolol Tartrate 5 Mg/5 Ml Sdv) 2.5 mg IVPUSH ASDIRECTED PRN PRN Reason: HEART RATE > 110 Last Admin: 12/23/20 13:43 Dose: 2.5 mg Documented by: Metoprolol Tartrate (Metoprolol Tartrate 5 Mg/5 Ml Sdv) 5 mg IVPUSH Q4H [facility] Last Admin: 12/25/20 16:09 Dose: 5 mg Documented by: Metoprolol Tartrate (Metoprolol Tartrate 50 Mg Tab) 50 mg PO Q12H [facility] Last Admin: 12/25/20 19:20 Dose: Not Given Documented by: Metoprolol Tartrate (Metoprolol Tartrate 50 Mg Tab) 50 mg PO Q12H [facility] Last Admin: 12/25/20 19:59 Dose: 50 mg Documented by: Midazolam HCl (Midazolam 1 Mg/Ml 2 Ml Sdv) Confirm Administered Dose 2 mg .ROUTE .STK-MED ONE Stop: 12/18/20 15:17 Miscellaneous Medication (Phenylephrine Hcl In 0.9% Nacl 1 Mg/10 Ml Syringe) Confirm Administered Dose 1 mg .ROUTE .STK-MED ONE Stop: 12/18/20 16:20 Neostigmine Methylsulfate (Neostigmine Methylsulfate 5 Mg/5 Ml Syringe) Confirm Administered Dose 5 mg .ROUTE .STK-MED ONE Stop: 12/18/20 18:45 Neostigmine Methylsulfate (Neostigmine Methylsulfate 5 Mg/5 Ml Syringe) Confirm Administered Dose 5 mg .ROUTE .STK-MED ONE Stop: 12/18/20 18:56 Ondansetron HCl (Ondansetron 4 Mg/2 Ml Sdv) 4 mg IVPUSH ONETIME ONE Stop: 12/18/20 12:05 Last Admin: 12/18/20 12:17 Dose: 4 mg Documented by: Ondansetron HCl (Ondansetron 4 Mg/2 Ml Sdv) Confirm Administered Dose 4 mg .ROUTE .STK-MED ONE Stop: 12/18/20 15:17 Oxycodone HCl (Oxycodone 5 Mg Tab) 5 mg PO Q4H PRN PRN Reason: Pain (moderate 4-6) Last Admin: 12/22/20 05:42 Dose: 5 mg Documented by: Oxycodone HCl (Oxycodone 5 Mg Tab) 10 mg PO Q4H PRN PRN Reason: Pain Last Admin: 12/24/20 08:23 Dose: 10 mg Documented by: Potassium Chloride (Potassium Chloride 20 Meq Tab.Er) 60 meq PO ONETIME ONE Stop: 12/23/20 08:00 Last Admin: 12/23/20 08:50 Dose: 60 meq Documented by: Propofol (Propofol 200 Mg/20 Ml Sdv) Confirm Administered Dose 200 mg .ROUTE .STK-MED ONE Stop: 12/18/20 15:17 Rocuronium [place] (Rocuronium 50 Mg/5 Ml Vial) Confirm Administered Dose 50 mg .ROUTE .STK-MED ONE Stop: 12/18/20 15:17 Rocuronium [place] (Rocuronium 50 Mg/5 Ml Vial) Confirm Administered Dose 50 mg .ROUTE .STK-MED ONE Stop: 12/18/20 17:52 Sodium Chloride (Sodium Chloride 0.9% 10 Ml Syringe) 10 ml FLUSH BOLUS [facility] Last Admin: 12/18/20 14:04 Dose: 10 ml Documented by: - Exam General: Alert, Oriented HEENT: Pupils Equal, Mucous Membr. Moist/[place] Neck: Supple Lungs: Clear to Auscultation, Normal Respiratory Effort Cardiovascular: Regular Rate, Irregular Rhythm GI/Abdominal Exam: Normal Bowel Sounds, Soft, Non-Tender, No Organomegaly, No Distention, No Abnormal Bruit Extremities: Normal Inspection, Normal Range of Motion, Non-Tender, No Pedal Edema, Normal Capillary Refill Skin: Warm, Dry, Intact Psy/Mental Status: Alert, Normal Affect, Normal Mood Sepsis Event Note - Evaluation Sepsis Screening Result: Sepsis Risk - Focused Exam Vital Signs: Vital Signs Temp Pulse Pulse Resp BP BP BP 12/26/20 11:25 97.4 F 99 16 125/66 12/26/20 10:00 97.7 F 16 121/81 12/26/20 08:20 92 126/71 12/26/20 05:52 12/26/20 03:17 97.2 F 94 20 137/86 12/26/20 01:54 85 148/96 H 12/26/20 00:56 118 H 153/96 H Pulse Ox Pulse Ox 12/26/20 11:25 98 12/26/20 10:00 100 12/26/20 08:20 12/26/20 05:52 100 12/26/20 03:17 100 12/26/20 01:54 12/26/20 00:56 Consult PN Assessment/Plan Procedures: Procedures ASSAY OF LIPASE (08/20/15) ASSAY OF MAGNESIUM (09/01/19) C DIFF AMPLIFIED PROBE (06/01/14) C-REACTIVE PROTEIN (08/20/15) COLONOSCOPY AND BIOPSY (06/01/14) COMPLETE CBC W/AUTO DIFF WBC (03/13/16) COMPREHEN METABOLIC PANEL (03/13/16) CRYPTOSPORIDIUM AG IA (06/01/14) CT ABD & PELV W/CONTRAST (08/20/15) CT ABD & PELVIS W/O CONTRAST (09/01/19) EGD BIOPSY SINGLE/MULTIPLE (06/01/14) EMERGENCY DEPT VISIT (09/01/19) GIARDIA AG IA (06/01/14) GLUCOSE BLOOD TEST (06/01/14) HYDRATE IV INFUSION ADD-ON (09/01/19) LEUKOCYTE ASSESSMENT FECAL (06/01/14) POLYSOM 6/>YRS CPAP 4/> PARM (09/12/16) ROUTINE VENIPUNCTURE (09/01/19) STOOL CULTR AEROBIC BACT EA (06/01/14) TEST FOR ACETONE/KETONES (09/01/19) THER/PROPH/DIAG INJ IV PUSH (03/13/16) THER/PROPH/DIAG IV INF INIT (09/01/19) TISSUE EXAM BY PATHOLOGIST (06/01/14) TX/PRO/DX INJ NEW DRUG ADDON (03/13/16) TX/PRO/DX INJ SAME DRUG MENTAL RETARDATION NURSE (08/20/15) URINALYSIS AUTO W/SCOPE (03/13/16) URINE CULTURE/COLONY COUNT (09/23/19) VANOMYCIN DNA AMP PROBE (06/01/14) (1) Atrial fibrillation with RVR SNOMED Code(s): 515331958493052 Code(s): I48.91 - UNSPECIFIED ATRIAL FIBRILLATION Current Visit: Yes Problem List Initiated/Reviewed/Updated: Yes My Orders Last 24 Hours: My Active Orders 12/25/20 21:00 Amiodarone [Cordarone] 200 mg PO BID 12/26/20 09:00 Metoprolol Tartrate [Lopressor] 75 mg PO Q12H Plan: Patient is a 54-year-old male with a history of ulcerative colitis, status post a total abdominal colectomy with the ileostomy, diabetes type 2, history of for pulmonary embolism and hypertension who underwent exploratory laparotomy, lysis of adhesions, primary repair of small bowel enterotomy, primary repair of parastomal hernia by Dr. Espinosa on 12/18 due to Complete SBO and incarcerated parastomal hernia. Assessment and plan: 1. Complete SBO and incarcerated parastomal hernia, s/p exploratory laparotomy, lysis of adhesions, primary repair of small bowel enterotomy, primary repair of parastomal hernia by Dr. Espinosa on 12/18 Postop management including pain control and DVT prophylaxis by surgical team Reinsertion of NG tube secondary to bowel obstruction found on CT 2. Atrial fibrillation with RVR, new Increase metoprolol to 75 mg twice daily Amiodarone 200 mg twice daily Anticoagulation per primary team Lopressor 5 mg IV as needed for tachycardia Echocardiogramcompleted [id number] = 2; recommend anticoagulation. Thank you for letting us follow this patient.
[2020-12-27] MEDS: Piperacillin/Tazobactam 4.5 GM in Sodium Chloride 0.9% 100 ML IV SCH (01:32)
[2020-12-27] MEDS: Ketorolac 30 MG/ML SDV IVPUSH PRN (04:38)
--- NOTE | 2020-12-27 08:09 | PCM.CONSN ---
- General Info Date of Service: 12/27/20 Admission Dx/Problem (Free Text): Admission Diagnosis/Problem Admission Diagnosis/Problem Obstruction of colon Subjective Update: She denies any chest pain or shortness of breath. - Patient Data Vitals - Most Recent: Last Vital Signs Temp 99.0 F 12/27/20 04:37 Pulse 104 H 12/27/20 04:37 Resp 18 12/27/20 04:37 BP 134/90 12/27/20 04:37 Pulse Ox 94 L 12/27/20 04:37 Weight - Most Recent: 289 lb 4.8 oz I&O - Last 24 Hours: Intake & Output 12/26/20 12/27/20 12/27/20 22:59 06:59 14:59 Intake Total 2810 1000 Output Total 500 2350 Balance 2310 -1350 Lab Results Last 24 Hours: Laboratory Results - last 24 hr 12/26/20 12/26/20 12/26/20 Range/Units 11:06 17:08 22:03 WBC (4.23-9.07) K/mm3 RBC (4.63-6.08) M/mm3 Hgb (13.7-17.5) gm/dl Hct (40.1-51.0) % MCV (79.0-92.2) fl MCH (25.7-32.2) pg MCHC (32.2-35.5) g/dl RDW Std Deviation (35.1-43.9) fL Plt Count (163-337) K/mm3 MPV (9.4-12.3) fl Neut % (Auto) (34.0-67.9) % Lymph % (Auto) (21.8-53.1) % [place] % (Auto) (5.3-12.2) % Eos % (Auto) (0.8-7.0) Baso % (Auto) (0.1-1.2) % Neut # (Auto) (1.78-5.38) K/mm3 Lymph # (Auto) (1.32-3.57) K/mm3 [place] # (Auto) (0.30-0.82) K/mm3 Eos # (Auto) (0.04-0.54) K/mm3 Baso # (Auto) (0.01-0.08) K/mm3 Manual Slide Review POC Glucose 221 H 178 H 306 H (70-105) mg/dL 12/27/20 12/27/20 Range/Units 05:35 07:15 WBC 17.62 H (4.23-9.07) K/mm3 RBC 4.20 L (4.63-6.08) M/mm3 Hgb 9.9 L (13.7-17.5) gm/dl Hct 32.4 L (40.1-51.0) % MCV 77.1 L (79.0-92.2) fl MCH 23.6 L (25.7-32.2) pg MCHC 30.6 L (32.2-35.5) g/dl RDW Std Deviation 44.6 H (35.1-43.9) fL Plt Count 603 H (163-337) K/mm3 MPV 9.1 L (9.4-12.3) fl Neut % (Auto) 82.8 H (34.0-67.9) % Lymph % (Auto) 9.9 L (21.8-53.1) % [place] % (Auto) 4.7 L (5.3-12.2) % Eos % (Auto) 2.0 (0.8-7.0) Baso % (Auto) 0.1 (0.1-1.2) % Neut # (Auto) 14.60 H (1.78-5.38) K/mm3 Lymph # (Auto) 1.74 (1.32-3.57) K/mm3 [place] # (Auto) 0.82 (0.30-0.82) K/mm3 Eos # (Auto) 0.36 (0.04-0.54) K/mm3 Baso # (Auto) 0.02 (0.01-0.08) K/mm3 Manual Slide Review Abnormal smear POC Glucose 153 H (70-105) mg/dL Edwardo Results Last 24 Hours: Microbiology 12/24/20 09:58 Aerobic Blood Culture - Preliminary Blood - Venous - Lab Draw NO GROWTH AFTER 2 DAYS Anaerobic Blood Culture - Preliminary NO GROWTH AFTER 2 DAYS 12/24/20 10:05 Aerobic Blood Culture - Preliminary Blood - Venous NO GROWTH AFTER 2 DAYS Anaerobic Blood Culture - Preliminary NO GROWTH AFTER 2 DAYS Med Orders - Current: Current Medications Amiodarone HCl (Amiodarone 200 Mg Tab) 200 mg PO BID [facility] Last Admin: 12/26/20 22:08 Dose: 200 mg Documented by: Apixaban (Apixaban 5 Mg Tab) 5 mg PO BID [facility] Last Admin: 12/26/20 22:08 Dose: 5 mg Documented by: Hydralazine HCl (Hydralazine 20 Mg/Ml Sdv) 10 mg IVPUSH Q4H PRN PRN Reason: Hypertension Piperacillin Sod/Tazobactam (Sod 4.5 gm/ Sodium Chloride) 100 mls @ 25 mls/hr IV Q8H [facility] Last Admin: 12/27/20 01:32 Dose: 25 mls/hr Documented by: Insulin Human Lispro (Insulin Lispro 100 Unit/Ml) 0 unit SUBCUT QIDACANDBED [facility]; Protocol Last Admin: 12/26/20 22:30 Dose: 8 units Documented by: Ketorolac Tromethamine (Ketorolac 30 Mg/Ml Sdv) 30 mg IVPUSH Q6H PRN PRN Reason: Pain Last Admin: 12/27/20 04:38 Dose: 30 mg Documented by: Metoprolol Tartrate (Metoprolol Tartrate 5 Mg/5 Ml Sdv) 5 mg IVPUSH Q4H PRN PRN Reason: Tachycardia Last Admin: 12/26/20 00:56 Dose: 5 mg Documented by: Metoprolol Tartrate (Metoprolol Tartrate 100 Mg Tab) 100 mg PO Q12HR [facility] Sodium Chloride (Sodium Chloride 0.9% 10 Ml Syringe) 10 ml FLUSH ASDIRECTED PRN PRN Reason: Keep Vein Open Last Admin: 12/18/20 11:56 Dose: 10 ml Documented by: Sodium Chloride (Sodium Chloride 0.9% 10 Ml Syringe) 10 ml FLUSH ONETIME PRN PRN Reason: IV FLUSH Last Admin: 12/24/20 09:38 Dose: 10 ml Documented by: Discontinued Medications Acetaminophen (Acetaminophen Soln 650 Mg/20.3 Ml Ud Cup) 1,000 mg PO Q8H [facility] Last Admin: 12/22/20 14:07 Dose: Not Given Documented by: Acetaminophen (Acetaminophen 325 Mg Tab) 650 mg PO Q4H PRN PRN Reason: Fever Last Admin: 12/23/20 21:24 Dose: 650 mg Documented by: Amiodarone HCl (Amiodarone 200 Mg Tab) 200 mg PO BID [facility] Last Admin: 12/24/20 08:24 Dose: 200 mg Documented by: Apixaban (Apixaban 5 Mg Tab) 5 mg PO BID [facility] Last Admin: 12/24/20 08:24 Dose: 5 mg Documented by: Bupivacaine HCl/Epinephrine Bitart (Bupivacaine 0.5%/Epinephrine 1:200,000 50 Ml Mdv) Confirm Administered Dose 50 ml .ROUTE .STK-MED ONE Stop: 12/18/20 15:34 Last Admin: 12/18/20 16:23 Dose: 24 ml Documented by: Diatrizoate Meglum/Diatrizoate Sod (Diatrizoate Meglumine/Diatrizoate Sodium 37% 120 Ml Bottle) 120 ml PO ONETIME ONE Stop: 12/18/20 12:42 Last Admin: 12/18/20 20:29 Dose: Not Given Documented by: Diatrizoate Meglum/Diatrizoate Sod (Diatrizoate Meglumine/Diatrizoate Sodium 37% 120 Ml Bottle) 120 ml PO ONETIME ONE Stop: 12/24/20 08:24 Last Admin: 12/24/20 09:38 Dose: 45 ml Documented by: Diatrizoate Meglum/Diatrizoate Sod (Diatrizoate Meglumine/Diatrizoate Sodium 37% 120 Ml Bottle) 240 ml .XX ONETIME ONE Stop: 12/24/20 17:16 Last Admin: 12/24/20 17:19 Dose: 240 ml Documented by: Diltiazem HCl (Diltiazem 50 Mg/10 Ml Sdv) 5 mg IVPUSH ONETIME ONE Stop: 12/20/20 04:44 Last Admin: 12/20/20 04:54 Dose: 5 mg Documented by: Diltiazem HCl (Diltiazem Ir 60 Mg Tab) 60 mg PO Q6HR [facility] Last Admin: 12/22/20 05:43 Dose: 60 mg Documented by: Diltiazem HCl (Diltiazem 300 Mg Cap.Cd) 300 mg PO DAILY [facility] Last Admin: 12/23/20 08:51 Dose: 300 mg Documented by: Diltiazem HCl (Diltiazem 180 Mg Cap.Cd) 360 mg PO ONETIME ONE Stop: 12/23/20 20:09 Last Admin: 12/23/20 20:23 Dose: 360 mg Documented by: Diltiazem HCl (Diltiazem Ir 30 Mg Tab) 30 mg PO Q6H [facility] Stop: 12/24/20 03:01 Last Admin: 12/24/20 03:32 Dose: Not Given Documented by: Diltiazem HCl (Diltiazem 180 Mg Cap.Cd) 360 mg PO BEDTIME [facility] Enoxaparin Sodium (Enoxaparin 40 Mg/0.4 Ml Syringe) 40 mg SUBCUT Q12H [facility] Last Admin: 12/22/20 08:46 Dose: 40 mg Documented by: Enoxaparin Sodium (Enoxaparin 40 Mg/0.4 Ml Syringe) 40 mg SUBCUT DAILY@2100 [facility] Last Admin: 12/24/20 20:44 Dose: 40 mg Documented by: Fentanyl (Fentanyl 250 Mcg/5 Ml Sdv) Confirm Administered Dose 250 mcg .ROUTE .STK-MED ONE Stop: 12/18/20 15:17 Fentanyl (Fentanyl 100 Mcg/2 Ml Sdv) Confirm Administered Dose 100 mcg .ROUTE .STK-MED ONE Stop: 12/18/20 16:54 Fentanyl (Fentanyl 100 Mcg/2 Ml Sdv) Confirm Administered Dose 100 mcg .ROUTE .STK-MED ONE Stop: 12/18/20 17:49 Fentanyl (Fentanyl 100 Mcg/2 Ml Sdv) 50 mcg IVPUSH Q5M PRN PRN Reason: Pain Last Admin: 12/18/20 19:39 Dose: 50 mcg Documented by: Glycopyrrolate (Glycopyrrolate 0.2 Mg/Ml 2 Ml Syringe) Confirm Administered Dose 0.4 mg .ROUTE .STK-MED ONE Stop: 12/18/20 18:45 Heparin Sodium (Porcine) (Heparin Sodium 5,000 Units/Ml Vial) Confirm Administered Dose 5,000 units .ROUTE .STK-MED ONE Stop: 12/18/20 16:00 Heparin Sodium (Porcine) (Heparin Sodium 5,000 Units/Ml Vial) Confirm Administered Dose 5,000 units .ROUTE .STK-MED ONE Stop: 12/18/20 16:00 Hydromorphone HCl (Hydromorphone 0.5 Mg/0.5 Ml Syringe) 0.5 mg IVPUSH ONETIME ONE Stop: 12/18/20 12:05 Last Admin: 12/18/20 12:17 Dose: 0.5 mg Documented by: Hydromorphone HCl (Hydromorphone 0.5 Mg/0.5 Ml Syringe) Confirm Administered Dose 0.5 mg .ROUTE .STK-MED ONE Stop: 12/18/20 16:45 Hydromorphone HCl (Hydromorphone 0.5 Mg/0.5 Ml Syringe) Confirm Administered Dose 0.5 mg .ROUTE .STK-MED ONE Stop: 12/18/20 16:45 Hydromorphone HCl (Hydromorphone 0.5 Mg/0.5 Ml Syringe) 0.5 mg IVPUSH Q1H PRN PRN Reason: Pain Last Admin: 12/18/20 19:20 Dose: 0.5 mg Documented by: Hydromorphone HCl (Hydromorphone 1 Mg/Ml Syringe) 1 mg IVPUSH Q2H PRN PRN Reason: Pain Last Admin: 12/21/20 18:15 Dose: 1 mg Documented by: Sodium Chloride (Normal Saline) 1,000 mls @ 100 mls/hr IV NOW STA Stop: 12/18/20 22:03 Last Admin: 12/18/20 12:17 Dose: 100 mls/hr Documented by: Piperacillin Sod/Tazobactam (Sod 4.5 gm/ Sodium Chloride) 100 mls @ 200 mls/hr IV ONETIME ONE Stop: 12/18/20 15:25 Last Admin: 12/18/20 15:18 Dose: 200 mls/hr Documented by: Lidocaine HCl (Xylocaine-Mpf 1%) Confirm Administered Dose 4 mls @ as directed .ROUTE .STK-MED ONE Stop: 12/18/20 15:18 Lactated Ringer's (Ringers, Lactated) Confirm Administered Dose 1,000 mls @ as directed .ROUTE .STK-MED ONE Stop: 12/18/20 16:28 Lactated Ringer's (Ringers, Lactated) Confirm Administered Dose 1,000 mls @ as directed .ROUTE .STK-MED ONE Stop: 12/18/20 16:40 Lactated Ringer's (Ringers, Lactated) Confirm Administered Dose 1,000 mls @ as directed .ROUTE .STK-MED ONE Stop: 12/18/20 17:33 Lactated Ringer's (Ringers, Lactated) 1,000 mls @ 150 mls/hr IV ASDIRECTED [facility] Last Admin: 12/20/20 04:26 Dose: 150 mls/hr Documented by: Piperacillin Sod/Tazobactam (Sod 4.5 gm/ Sodium Chloride) 100 mls @ 25 mls/hr IV Q8H [facility] Last Admin: 12/22/20 11:04 Dose: 25 mls/hr Documented by: Insulin Human Regular 100 unit (/ Sodium Chloride) 100 mls @ 13.154 mls/hr IV TITRATE [facility]; Protocol Last Titration: 12/19/20 00:03 Dose: 0 units/kg/hr, 0 mls/hr Documented by: Magnesium Sulfate (Magnesium Sulfate In Water 2 Gm/50 Ml) 2 gm in 50 mls @ 25 mls/hr IV ONETIME ONE Stop: 12/18/20 22:59 Last Admin: 12/18/20 20:41 Dose: 25 mls/hr Documented by: Lactated Ringer's (Ringers, Lactated) 1,000 mls @ 1,000 mls/hr IV .BOLUS ONE Stop: 12/19/20 08:35 Last Admin: 12/19/20 07:53 Dose: 1,000 mls/hr Documented by: Magnesium Sulfate 4 gm/ Premix 50 mls @ 12.5 mls/hr IV ONETIME ONE Stop: 12/19/20 11:59 Last Admin: 12/19/20 08:19 Dose: 12.5 mls/hr Documented by: Lactated Ringer's (Ringers, Lactated) 1,000 mls @ 1,000 mls/hr IV .BOLUS ONE Stop: 12/19/20 16:07 Last Admin: 12/19/20 15:15 Dose: 1,000 mls/hr Documented by: Diltiazem HCl 100 mg/ Sodium (Chloride) 100 mls @ 5 mls/hr IV TITRATE [facility]; Protocol Last Admin: 12/20/20 08:48 Dose: 20 mg/hr, 20 mls/hr Documented by: Potassium Chloride 10 meq/ (Premix) 100 mls @ 100 mls/hr IV Q1H [facility] Stop: 12/20/20 06:44 Last Admin: 12/20/20 05:48 Dose: Not Given Documented by: Lactated Ringer's (Ringers, Lactated) 1,000 mls @ 50 mls/hr IV ASDIRECTED [facility] Last Admin: 12/20/20 05:11 Dose: 50 mls/hr Documented by: Potassium Chloride/Sodium Chloride (Normal Saline With 20 Meq Kcl) 1,000 mls @ 50 mls/hr IV ASDIRECTED [facility] Last Admin: 12/21/20 04:47 Dose: 50 mls/hr Documented by: Amiodarone HCl/Dextrose (Nexterone In Dextrose 150 Mg/100 Ml) 100 mls @ 600 mls/hr IV .BOLUS ONE; Protocol Stop: 12/20/20 10:08 Last Admin: 12/20/20 10:19 Dose: 600 mls/hr Documented by: Amiodarone HCl/Dextrose (Nexterone In Dextrose 360 Mg/200 Ml) 360 mg in 200 mls @ 33.333 mls/hr IV ASDIRECTED [facility]; Protocol Last Admin: 12/21/20 04:24 Dose: 16.7 mls/hr Documented by: Amiodarone HCl/Dextrose (Nexterone In Dextrose 150 Mg/100 Ml) Confirm Administered Dose 100 mls @ as directed IV .STK-MED ONE Stop: 12/20/20 10:23 Last Admin: 12/20/20 11:42 Dose: Not Given Documented by: Diltiazem HCl 100 mg/ Sodium (Chloride) 100 mls @ 5 mls/hr IV TITRATE [facility]; Protocol Last Titration: 12/21/20 15:23 Dose: 0 mg/hr, 0 mls/hr Documented by: Potassium Chloride 10 meq/ (Premix) 100 mls @ 100 mls/hr IV Q1H [facility] Stop: 12/21/20 13:59 Last Admin: 12/21/20 14:20 Dose: 100 mls/hr Documented by: Piperacillin Sod/Tazobactam (Sod 4.5 gm/ Sodium Chloride) 100 mls @ 200 mls/hr IV ONETIME ONE Stop: 12/24/20 10:29 Last Admin: 12/24/20 10:18 Dose: 200 mls/hr Documented by: Lactated Ringer's (Ringers, Lactated) 1,000 mls @ 75 mls/hr IV ASDIRECTED [facility] Last Admin: 12/25/20 20:00 Dose: 75 mls/hr Documented by: Amiodarone HCl/Dextrose (Nexterone In Dextrose 360 Mg/200 Ml) 360 mg in 200 mls @ 16.7 mls/hr IV ASDIRECTED [facility] Last Admin: 12/25/20 15:54 Dose: 16.7 mls/hr Documented by: Insulin Human Lispro (Insulin Lispro 100 Unit/Ml) 0 unit SUBCUT Q6HR [facility]; Protocol Last Admin: 12/26/20 05:05 Dose: Not Given Documented by: Iopamidol (Iopamidol 612 Mg/Ml 100 Ml Bottle) 100 ml IVPUSH ONETIME ONE Stop: 12/18/20 12:46 Last Admin: 12/18/20 14:04 Dose: 100 ml Documented by: Iopamidol (Iopamidol 612 Mg/Ml 50 Ml Sdv) 50 ml IVPUSH ONETIME ONE Stop: 12/24/20 08:24 Last Admin: 12/24/20 09:38 Dose: 50 ml Documented by: Iopamidol (Iopamidol 612 Mg/Ml 100 Ml Bottle) 100 ml IVPUSH ONETIME ONE Stop: 12/24/20 08:24 Last Admin: 12/24/20 09:38 Dose: 100 ml Documented by: Ketorolac Tromethamine (Ketorolac 30 Mg/Ml Sdv) Confirm Administered Dose 30 mg .ROUTE .STK-MED ONE Stop: 12/18/20 18:35 Labetalol HCl (Labetalol 100 Mg/20 Ml Mdv) 5 mg IVPUSH ONETIME [facility]; Protocol Labetalol HCl (Labetalol 100 Mg/20 Ml Mdv) 5 mg IVPUSH ONETIME PRN; Protocol PRN Reason: Hypertension Last Admin: 12/18/20 19:26 Dose: 5 mg Documented by: Metoprolol Tartrate (Metoprolol Tartrate 25 Mg Tab) 12.5 mg PO Q12H [facility] Last Admin: 12/20/20 05:58 Dose: 12.5 mg Documented by: Metoprolol Tartrate (Metoprolol Tartrate 5 Mg/5 Ml Sdv) 2.5 mg IVPUSH ONETIME ONE Stop: 12/20/20 22:51 Last Admin: 12/21/20 20:53 Dose: Not Given Documented by: Metoprolol Tartrate (Metoprolol Tartrate 5 Mg/5 Ml Sdv) 2.5 mg IVPUSH ONETIME PRN PRN Reason: HEART RATE > 100 Metoprolol Tartrate (Metoprolol Tartrate 5 Mg/5 Ml Sdv) 2.5 mg IVPUSH ASDIRECTED PRN PRN Reason: HEART RATE > 110 Last Admin: 12/23/20 13:43 Dose: 2.5 mg Documented by: Metoprolol Tartrate (Metoprolol Tartrate 5 Mg/5 Ml Sdv) 5 mg IVPUSH Q4H [facility] Last Admin: 12/25/20 16:09 Dose: 5 mg Documented by: Metoprolol Tartrate (Metoprolol Tartrate 50 Mg Tab) 50 mg PO Q12H [facility] Last Admin: 12/25/20 19:20 Dose: Not Given Documented by: Metoprolol Tartrate (Metoprolol Tartrate 50 Mg Tab) 50 mg PO Q12H [facility] Last Admin: 12/25/20 19:59 Dose: 50 mg Documented by: Metoprolol Tartrate (Metoprolol Tartrate 25 Mg Tab) 75 mg PO Q12H [facility] Last Admin: 12/26/20 22:05 Dose: 75 mg Documented by: Midazolam HCl (Midazolam 1 Mg/Ml 2 Ml Sdv) Confirm Administered Dose 2 mg .ROUTE .STK-MED ONE Stop: 12/18/20 15:17 Miscellaneous Medication (Phenylephrine Hcl In 0.9% Nacl 1 Mg/10 Ml Syringe) Confirm Administered Dose 1 mg .ROUTE .STK-MED ONE Stop: 12/18/20 16:20 Neostigmine Methylsulfate (Neostigmine Methylsulfate 5 Mg/5 Ml Syringe) Confirm Administered Dose 5 mg .ROUTE .STK-MED ONE Stop: 12/18/20 18:45 Neostigmine Methylsulfate (Neostigmine Methylsulfate 5 Mg/5 Ml Syringe) Confirm Administered Dose 5 mg .ROUTE .STK-MED ONE Stop: 12/18/20 18:56 Ondansetron HCl (Ondansetron 4 Mg/2 Ml Sdv) 4 mg IVPUSH ONETIME ONE Stop: 12/18/20 12:05 Last Admin: 12/18/20 12:17 Dose: 4 mg Documented by: Ondansetron HCl (Ondansetron 4 Mg/2 Ml Sdv) Confirm Administered Dose 4 mg .ROUTE .STK-MED ONE Stop: 12/18/20 15:17 Oxycodone HCl (Oxycodone 5 Mg Tab) 5 mg PO Q4H PRN PRN Reason: Pain (moderate 4-6) Last Admin: 12/22/20 05:42 Dose: 5 mg Documented by: Oxycodone HCl (Oxycodone 5 Mg Tab) 10 mg PO Q4H PRN PRN Reason: Pain Last Admin: 12/24/20 08:23 Dose: 10 mg Documented by: Potassium Chloride (Potassium Chloride 20 Meq Tab.Er) 60 meq PO ONETIME ONE Stop: 12/23/20 08:00 Last Admin: 12/23/20 08:50 Dose: 60 meq Documented by: Propofol (Propofol 200 Mg/20 Ml Sdv) Confirm Administered Dose 200 mg .ROUTE .STK-MED ONE Stop: 12/18/20 15:17 Rocuronium [place] (Rocuronium 50 Mg/5 Ml Vial) Confirm Administered Dose 50 mg .ROUTE .STK-MED ONE Stop: 12/18/20 15:17 Rocuronium [place] (Rocuronium 50 Mg/5 Ml Vial) Confirm Administered Dose 50 mg .ROUTE .STK-MED ONE Stop: 12/18/20 17:52 Sodium Chloride (Sodium Chloride 0.9% 10 Ml Syringe) 10 ml FLUSH BOLUS [facility] Last Admin: 12/18/20 14:04 Dose: 10 ml Documented by: - Exam General: Alert, Oriented HEENT: Pupils Equal, Mucous Membr. Moist/[place] Neck: Supple Lungs: Clear to Auscultation, Normal Respiratory Effort Cardiovascular: Irregular Rhythm, Tachycardia GI/Abdominal Exam: Normal Bowel Sounds, No Distention, No Abnormal Bruit Extremities: Normal Inspection, Normal Range of Motion, Non-Tender, No Pedal Edema, Normal Capillary Refill Sepsis Event Note - Evaluation Sepsis Screening Result: No Definite Risk - Focused Exam Vital Signs: Vital Signs Temp Pulse Resp BP Pulse Ox 12/27/20 04:37 99.0 F 104 H 18 134/90 94 L 12/27/20 01:32 98.2 F 95 20 130/78 96 12/26/20 22:08 98.6 F 103 H 16 133/93 H 96 12/26/20 22:05 104 H 133/93 H Consult PN Assessment/Plan Procedures: Procedures ASSAY OF LIPASE (08/20/15) ASSAY OF MAGNESIUM (09/01/19) C DIFF AMPLIFIED PROBE (06/01/14) C-REACTIVE PROTEIN (08/20/15) COLONOSCOPY AND BIOPSY (06/01/14) COMPLETE CBC W/AUTO DIFF WBC (03/13/16) COMPREHEN METABOLIC PANEL (03/13/16) CRYPTOSPORIDIUM AG IA (06/01/14) CT ABD & PELV W/CONTRAST (08/20/15) CT ABD & PELVIS W/O CONTRAST (09/01/19) EGD BIOPSY SINGLE/MULTIPLE (06/01/14) EMERGENCY DEPT VISIT (09/01/19) GIARDIA AG IA (06/01/14) GLUCOSE BLOOD TEST (06/01/14) HYDRATE IV INFUSION ADD-ON (09/01/19) LEUKOCYTE ASSESSMENT FECAL (06/01/14) POLYSOM 6/>YRS CPAP 4/> PARM (09/12/16) ROUTINE VENIPUNCTURE (09/01/19) STOOL CULTR AEROBIC BACT EA (06/01/14) TEST FOR ACETONE/KETONES (09/01/19) THER/PROPH/DIAG INJ IV PUSH (03/13/16) THER/PROPH/DIAG IV INF INIT (09/01/19) TISSUE EXAM BY PATHOLOGIST (06/01/14) TX/PRO/DX INJ NEW DRUG ADDON (03/13/16) TX/PRO/DX INJ SAME DRUG RESPIRATORY THERAPY TECHNICIAN (08/20/15) URINALYSIS AUTO W/SCOPE (03/13/16) URINE CULTURE/COLONY COUNT (09/23/19) VANOMYCIN DNA AMP PROBE (06/01/14) (1) Atrial fibrillation with RVR SNOMED Code(s): 413296180374257 Code(s): I48.91 - UNSPECIFIED ATRIAL FIBRILLATION Current Visit: Yes Problem List Initiated/Reviewed/Updated: Yes My Orders Last 24 Hours: My Active Orders 12/27/20 09:00 Metoprolol Tartrate [Lopressor] 100 mg PO Q12HR Plan: Patient is a 54-year-old male with a history of ulcerative colitis, status post a total abdominal colectomy with the ileostomy, diabetes type 2, history of for pulmonary embolism and hypertension who underwent exploratory laparotomy, lysis of adhesions, primary repair of small bowel enterotomy, primary repair of parastomal hernia by Dr. Espinosa on 12/18 due to Complete SBO and incarcerated parastomal hernia. Assessment and plan: 1. Complete SBO and incarcerated parastomal hernia, s/p exploratory laparotomy, lysis of adhesions, primary repair of small bowel enterotomy, primary repair of parastomal hernia by Dr. Espinosa on 12/18 Postop management including pain control and DVT prophylaxis by surgical team Reinsertion of NG tube secondary to bowel obstruction found on CT 2. Atrial fibrillation with RVR, new Increase metoprolol to 100 mg twice daily Amiodarone 200 mg twice daily Anticoagulation per primary team Lopressor 5 mg IV as needed for tachycardia Echocardiogramcompleted [id number] = 2; recommend anticoagulation. Thank you for letting us follow this patient.
[2020-12-27] MEDS ORDERED: Metoprolol Tartrate 100 MG Tab PO SCH (09:00)
--- NOTE | 2020-12-27 09:01 | PCM.SN.2 ---
- Free Text/Narrative Note: POD 9 s/p laparotomy and repair of incarcerated parastomal hernia. S: had a good night. Pain minimal. Continued output from ileostomy. Tolerating full liquids without a problem. O: Afebrile, HR controlled, In atrial fibrillation, normotensive, SpO2 95% on room air Awake and alert, no acute distress breathing comfortably irregular rhythm, rate controlled Abdominal incision with scant, odorless drainage from mid portion. Small area opened and packed. Fascial closure feels intact. Ileostomy with thin dark green liquid. SCD in place No significant edema. skin warm and well perfused Labs reviewed- WBC up a little from 15 to 17. Glucose in mid 100s. 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 Course was complicated by recurrent obstruction on 12/24, though it appears this resolved after NG decompression and bowel rest. Continued atrial fibrillation. P: -tylenol scheduled. Other pain medication discontinued. -IS, OOB, pulmonary toilet -enrike IV -advance to soft diet -switch from IV zosyn to augmentin -oral eliquis 5 mg bid -rate control/rhythm control for atrial fibrillation per Dr. Lin's recommendations- 100 mg metoprolol bid, 200 mg amiodarone bid. -possible discharge this afternoon with sister to [place]. We will ensure close follow up with PCP (patient needs a new PCP), psychiatry/psychology, and with surgery clinic here in about 2 weeks. I would like to check another CBC prior to discharge.
[2020-12-27] MEDS ORDERED: Amoxicillin/Clavulanate K 875-125 MG Tab PO SCH (09:30)
[2020-12-27] MEDS: Amiodarone 200 MG Tab PO SCH (09:30)
[2020-12-27] MEDS: Apixaban 5 MG Tab PO SCH (09:31)
[2020-12-27] MEDS ORDERED: Sulfamethoxazole/Trimethoprim 800-160 MG Tab PO SCH (12:45)
[2020-12-27 16:59] VITALS: BP 137/84; PULSE 64
--- NOTE | 2020-12-27 17:06 | PCM.DCSUM1 ---
Discharge Summary - Hospital Course Free Text/Narrative:: Mr. Bruner was admitted from the emergency department on 12/18/20 with small bowel obstruction related to a parastomal hernia. The patient has a history of ulcerative colitis s/p emergent total abdominal colectomy with end ileostomy a few years ago. He was taken to the OR for laparotomy, and hernia reduction, adhesiolysis, primary repair of enterotomy and primary repair of hernia were performed. There was gross peritoneal contamination from enterotomy identified in OR. A AGUSTÍN drain and NG tube were left in place and the patient was transferred to the ICU for post-operative care. His course was complicated by development of atrial fibrillation. He was started on cardizem, followed by amiodarone and metoprolol for rate and rhythm control. He was placed on lovenox, due to atrial fibrillation and because of post-operative status and history of unprovoked pulmonary emboli in the past. Dr. Sanchez and Dr. Lin, internal medicine, assisted in management of atrial fibrillation. The patient was kept on sliding scale insulin given history of IDDM, and glucose was kept in range from 130-200, with occasional values higher than that. He had return of bowel function on post-op day 3 and was able to tolerate a diet. However, he developed complete cessation of ileostomy output on POD 5. His WBC had gone up to 16,000 after stopping post-op zosyn a few days prior, and a CT scan was ordered in addition to blood, urine cultures and CXR to evaluate for abscess. Though no abscess was seen, there appeared to be a small bowel obstruction near the terminal ileum, though not associated with recurrent parastomal hernia. An NG was replaced and the patient was observed. Gastrografin enema via ileostomy was attempted. Obstructive symptoms resolved within 24 hours. He was restarted on zosyn due to WBC. The only apparent source was at the incision site; a few maryann were removed and small amount of pus drained. The wound was opened more and packed with wet-to dry gauze dressing. The patient had several good days during observation and was able to tolerate a regular diet. He was transitioned to oral medications including oral bactrim at the time of discharge. Diagnosis: Stroke: No - Discharge Data Discharge Date: 12/27/20 Discharge Disposition: Home, Self-Care 01 Condition: Good - Referral to Home Health Primary Care Physician: Raghu Espinosa MD - Patient Summary/Data Operative Procedure(s) Performed: laparotomy, repair of enterotomy, adhesiolysis, primary repair of parastomal hernia. Consults: Consultations 12/20/20 02:39 Consult to Physician [CONS] Urgent 12/20/20 09:22 Consult to Occupational Therapy [OT Evaluation and Treatment] [CONS] Routine PT Evaluation and Treatment [CONS] Routine - Patient Instructions Diet: Usual Diet as Tolerated Activity: No Lifting Over 10 Pounds Showering/Bathing: May Shower Wound/Incision Care: Keep Operative Site/Wound Site Clean and Dry Notify Provider of: Fever, Increased Pain, Swelling and Redness, Drainage, Nausea and/or Vomiting - Discharge Plan *PRESCRIPTION DRUG MONITORING PROGRAM REVIEWED*: Not Applicable *COPY OF PRESCRIPTION DRUG MONITORING REPORT IN PATIENT DARIAN: Not Applicable Prescriptions/Med Rec: Sulfamethoxazole/Trimethoprim [Bactrim Ds Tablet] 2 each PO BID #40 tablet Amiodarone [Cordarone] 200 mg PO BID #60 tablet Apixaban [Eliquis] 5 mg PO BID #60 tablet Metoprolol Tartrate 100 mg PO BID #60 tablet Home Medications: Home Meds Chlorthalidone 12.5 mg PO DAILY 08/07/16 [History] Insulin Aspart [NovoLOG] 10 unit SQ TID 08/07/16 [History] Losartan [Cozaar] 100 mg PO DAILY 08/07/16 [History] Simvastatin [Zocor] 40 mg PO BEDTIME 08/07/16 [History] Triceba. 42 units SQ DAILY 08/07/16 [History] oxyCODONE 10 mg PO TID PRN 12/18/20 [History] Amiodarone [Cordarone] 200 mg PO BID #60 tablet 12/27/20 [Rx] Apixaban [Eliquis] 5 mg PO BID #60 tablet 12/27/20 [Rx] Metoprolol Tartrate 100 mg PO BID #60 tablet 12/27/20 [Rx] Sulfamethoxazole/Trimethoprim [Bactrim Ds Tablet] 2 each PO BID #40 tablet 12/27/20 [Rx] Oxygen Therapy Mode: Room Air Patient Handouts: Diabetes Mellitus and Standards of Medical Care, Diabetes Mellitus and Sick Day Management, Sepsis, Diagnosis, Adult, Bowel Obstruction, Atrial Fibrillation Forms: ED Department Discharge Referrals: John Barrera MD [Physician] - 12/31/20 9:10 am (Hospital follow-up appointment.) Tigist Ramirez NP [Ordering Only Provider] - 01/11/21 12:00 pm ([facility] Doctors office will contact you prior to appt. to make sure you have all the needed tools for appt. over computer.) Raghu Espinosa MD [Primary Care Provider] - 12/31/20 12:30 pm - Discharge Summary/Plan Comment DC Time >30 min.: Yes - Patient Data Vitals - Most Recent: Last Vital Signs Temp 36.6 C 12/27/20 09:08 Pulse 64 12/27/20 11:17 Resp 15 12/27/20 11:17 BP 137/84 12/27/20 11:17 Pulse Ox 97 12/27/20 11:17 Weight - Most Recent: 131.224 kg I&O - Last 24 hours: Intake & Output 12/27/20 12/27/20 12/27/20 06:59 14:59 22:59 Intake Total 1000 1130 Output Total 2350 Balance -1350 1130 Lab Results - Last 24 hrs: Laboratory Results - last 24 hr 12/26/20 12/26/20 12/27/20 Range/Units 17:08 22:03 05:35 WBC (4.23-9.07) K/mm3 RBC (4.63-6.08) M/mm3 Hgb (13.7-17.5) gm/dl Hct (40.1-51.0) % MCV (79.0-92.2) fl MCH (25.7-32.2) pg MCHC (32.2-35.5) g/dl RDW Std Deviation (35.1-43.9) fL Plt Count (163-337) K/mm3 MPV (9.4-12.3) fl Neut % (Auto) (34.0-67.9) % Lymph % (Auto) (21.8-53.1) % [place] % (Auto) (5.3-12.2) % Eos % (Auto) (0.8-7.0) Baso % (Auto) (0.1-1.2) % Neut # (Auto) (1.78-5.38) K/mm3 Lymph # (Auto) (1.32-3.57) K/mm3 [place] # (Auto) (0.30-0.82) K/mm3 Eos # (Auto) (0.04-0.54) K/mm3 Baso # (Auto) (0.01-0.08) K/mm3 Manual Slide Review POC Glucose 178 H 306 H 153 H (70-105) mg/dL 12/27/20 12/27/20 Range/Units 07:15 15:05 WBC 17.62 H 16.18 H (4.23-9.07) K/mm3 RBC 4.20 L 3.98 L (4.63-6.08) M/mm3 Hgb 9.9 L 9.5 L (13.7-17.5) gm/dl Hct 32.4 L 30.9 L (40.1-51.0) % MCV 77.1 L 77.6 L (79.0-92.2) fl MCH 23.6 L 23.9 L (25.7-32.2) pg MCHC 30.6 L 30.7 L (32.2-35.5) g/dl RDW Std Deviation 44.6 H 44.8 H (35.1-43.9) fL Plt Count 603 H 576 H (163-337) K/mm3 MPV 9.1 L 9.2 L (9.4-12.3) fl Neut % (Auto) 82.8 H 83.2 H (34.0-67.9) % Lymph % (Auto) 9.9 L 10.2 L (21.8-53.1) % [place] % (Auto) 4.7 L 4.6 L (5.3-12.2) % Eos % (Auto) 2.0 1.4 (0.8-7.0) Baso % (Auto) 0.1 0.1 (0.1-1.2) % Neut # (Auto) 14.60 H 13.46 H (1.78-5.38) K/mm3 Lymph # (Auto) 1.74 1.65 (1.32-3.57) K/mm3 [place] # (Auto) 0.82 0.74 (0.30-0.82) K/mm3 Eos # (Auto) 0.36 0.23 (0.04-0.54) K/mm3 Baso # (Auto) 0.02 0.02 (0.01-0.08) K/mm3 Manual Slide Review Abnormal smear POC Glucose (70-105) mg/dL DEVON Results - Last 24 hrs: Microbiology 12/24/20 09:58 Aerobic Blood Culture - Preliminary Blood - Venous - Lab Draw NO GROWTH AFTER 3 DAYS Anaerobic Blood Culture - Preliminary NO GROWTH AFTER 3 DAYS 12/24/20 10:05 Aerobic Blood Culture - Preliminary Blood - Venous NO GROWTH AFTER 3 DAYS Anaerobic Blood Culture - Preliminary NO GROWTH AFTER 3 DAYS Med Orders - Current: Current Medications Amiodarone HCl (Amiodarone 200 Mg Tab) 200 mg PO BID [facility] Last Admin: 12/27/20 09:30 Dose: 200 mg Documented by: Apixaban (Apixaban 5 Mg Tab) 5 mg PO BID [facility] Last Admin: 12/27/20 09:31 Dose: 5 mg Documented by: Hydralazine HCl (Hydralazine 20 Mg/Ml Sdv) 10 mg IVPUSH Q4H PRN PRN Reason: Hypertension Insulin Human Lispro (Insulin Lispro 100 Unit/Ml) 0 unit SUBCUT QIDACANDBED [facility]; Protocol Last Admin: 12/27/20 11:56 Dose: 8 units Documented by: Metoprolol Tartrate (Metoprolol Tartrate 5 Mg/5 Ml Sdv) 5 mg IVPUSH Q4H PRN PRN Reason: Tachycardia Last Admin: 12/26/20 00:56 Dose: 5 mg Documented by: Metoprolol Tartrate (Metoprolol Tartrate 100 Mg Tab) 100 mg PO Q12HR [facility] Last Admin: 12/27/20 09:31 Dose: 100 mg Documented by: Sodium Chloride (Sodium Chloride 0.9% 10 Ml Syringe) 10 ml FLUSH ASDIRECTED PRN PRN Reason: Keep Vein Open Last Admin: 12/18/20 11:56 Dose: 10 ml Documented by: Trimethoprim/Sulfamethoxazole (Sulfamethoxazole/Trimethoprim 800-160 Mg Tab) 2 tab PO BID [facility] Last Admin: 12/27/20 13:37 Dose: 2 tab Documented by: Discontinued Medications Acetaminophen (Acetaminophen Soln 650 Mg/20.3 Ml Ud Cup) 1,000 mg PO Q8H [facility] Last Admin: 12/22/20 14:07 Dose: Not Given Documented by: Acetaminophen (Acetaminophen 325 Mg Tab) 650 mg PO Q4H PRN PRN Reason: Fever Last Admin: 12/23/20 21:24 Dose: 650 mg Documented by: Amiodarone HCl (Amiodarone 200 Mg Tab) 200 mg PO BID [facility] Last Admin: 12/24/20 08:24 Dose: 200 mg Documented by: Amoxicillin/Clavulanate Potassium (Amoxicillin/Clavulanate K 875-125 Mg Tab) 1 tab PO Q12HR [facility] Last Admin: 12/27/20 09:31 Dose: 1 tab Documented by: Apixaban (Apixaban 5 Mg Tab) 5 mg PO BID [facility] Last Admin: 12/24/20 08:24 Dose: 5 mg Documented by: Bupivacaine HCl/Epinephrine Bitart (Bupivacaine 0.5%/Epinephrine 1:200,000 50 Ml Mdv) Confirm Administered Dose 50 ml .ROUTE .STK-MED ONE Stop: 12/18/20 15:34 Last Admin: 12/18/20 16:23 Dose: 24 ml Documented by: Diatrizoate Meglum/Diatrizoate Sod (Diatrizoate Meglumine/Diatrizoate Sodium 37% 120 Ml Bottle) 120 ml PO ONETIME ONE Stop: 12/18/20 12:42 Last Admin: 12/18/20 20:29 Dose: Not Given Documented by: Diatrizoate Meglum/Diatrizoate Sod (Diatrizoate Meglumine/Diatrizoate Sodium 37% 120 Ml Bottle) 120 ml PO ONETIME ONE Stop: 12/24/20 08:24 Last Admin: 12/24/20 09:38 Dose: 45 ml Documented by: Diatrizoate Meglum/Diatrizoate Sod (Diatrizoate Meglumine/Diatrizoate Sodium 37% 120 Ml Bottle) 240 ml .XX ONETIME ONE Stop: 12/24/20 17:16 Last Admin: 12/24/20 17:19 Dose: 240 ml Documented by: Diltiazem HCl (Diltiazem 50 Mg/10 Ml Sdv) 5 mg IVPUSH ONETIME ONE Stop: 12/20/20 04:44 Last Admin: 12/20/20 04:54 Dose: 5 mg Documented by: Diltiazem HCl (Diltiazem Ir 60 Mg Tab) 60 mg PO Q6HR [facility] Last Admin: 12/22/20 05:43 Dose: 60 mg Documented by: Diltiazem HCl (Diltiazem 300 Mg Cap.Cd) 300 mg PO DAILY [facility] Last Admin: 12/23/20 08:51 Dose: 300 mg Documented by: Diltiazem HCl (Diltiazem 180 Mg Cap.Cd) 360 mg PO ONETIME ONE Stop: 12/23/20 20:09 Last Admin: 12/23/20 20:23 Dose: 360 mg Documented by: Diltiazem HCl (Diltiazem Ir 30 Mg Tab) 30 mg PO Q6H [facility] Stop: 12/24/20 03:01 Last Admin: 12/24/20 03:32 Dose: Not Given Documented by: Diltiazem HCl (Diltiazem 180 Mg Cap.Cd) 360 mg PO BEDTIME [facility] Enoxaparin Sodium (Enoxaparin 40 Mg/0.4 Ml Syringe) 40 mg SUBCUT Q12H [facility] Last Admin: 12/22/20 08:46 Dose: 40 mg Documented by: Enoxaparin Sodium (Enoxaparin 40 Mg/0.4 Ml Syringe) 40 mg SUBCUT DAILY@2100 [facility] Last Admin: 12/24/20 20:44 Dose: 40 mg Documented by: Fentanyl (Fentanyl 250 Mcg/5 Ml Sdv) Confirm Administered Dose 250 mcg .ROUTE .STK-MED ONE Stop: 12/18/20 15:17 Fentanyl (Fentanyl 100 Mcg/2 Ml Sdv) Confirm Administered Dose 100 mcg .ROUTE .STK-MED ONE Stop: 12/18/20 16:54 Fentanyl (Fentanyl 100 Mcg/2 Ml Sdv) Confirm Administered Dose 100 mcg .ROUTE .STK-MED ONE Stop: 12/18/20 17:49 Fentanyl (Fentanyl 100 Mcg/2 Ml Sdv) 50 mcg IVPUSH Q5M PRN PRN Reason: Pain Last Admin: 12/18/20 19:39 Dose: 50 mcg Documented by: Glycopyrrolate (Glycopyrrolate 0.2 Mg/Ml 2 Ml Syringe) Confirm Administered Dose 0.4 mg .ROUTE .STK-MED ONE Stop: 12/18/20 18:45 Heparin Sodium (Porcine) (Heparin Sodium 5,000 Units/Ml Vial) Confirm Administered Dose 5,000 units .ROUTE .STK-MED ONE Stop: 12/18/20 16:00 Heparin Sodium (Porcine) (Heparin Sodium 5,000 Units/Ml Vial) Confirm Administered Dose 5,000 units .ROUTE .STK-MED ONE Stop: 12/18/20 16:00 Hydromorphone HCl (Hydromorphone 0.5 Mg/0.5 Ml Syringe) 0.5 mg IVPUSH ONETIME ONE Stop: 12/18/20 12:05 Last Admin: 12/18/20 12:17 Dose: 0.5 mg Documented by: Hydromorphone HCl (Hydromorphone 0.5 Mg/0.5 Ml Syringe) Confirm Administered Dose 0.5 mg .ROUTE .STK-MED ONE Stop: 12/18/20 16:45 Hydromorphone HCl (Hydromorphone 0.5 Mg/0.5 Ml Syringe) Confirm Administered Dose 0.5 mg .ROUTE .STK-MED ONE Stop: 12/18/20 16:45 Hydromorphone HCl (Hydromorphone 0.5 Mg/0.5 Ml Syringe) 0.5 mg IVPUSH Q1H PRN PRN Reason: Pain Last Admin: 12/18/20 19:20 Dose: 0.5 mg Documented by: Hydromorphone HCl (Hydromorphone 1 Mg/Ml Syringe) 1 mg IVPUSH Q2H PRN PRN Reason: Pain Last Admin: 12/21/20 18:15 Dose: 1 mg Documented by: Sodium Chloride (Normal Saline) 1,000 mls @ 100 mls/hr IV NOW STA Stop: 12/18/20 22:03 Last Admin: 12/18/20 12:17 Dose: 100 mls/hr Documented by: Piperacillin Sod/Tazobactam (Sod 4.5 gm/ Sodium Chloride) 100 mls @ 200 mls/hr IV ONETIME ONE Stop: 12/18/20 15:25 Last Admin: 12/18/20 15:18 Dose: 200 mls/hr Documented by: Lidocaine HCl (Xylocaine-Mpf 1%) Confirm Administered Dose 4 mls @ as directed .ROUTE .STK-MED ONE Stop: 12/18/20 15:18 Lactated Ringer's (Ringers, Lactated) Confirm Administered Dose 1,000 mls @ as directed .ROUTE .STK-MED ONE Stop: 12/18/20 16:28 Lactated Ringer's (Ringers, Lactated) Confirm Administered Dose 1,000 mls @ as directed .ROUTE .STK-MED ONE Stop: 12/18/20 16:40 Lactated Ringer's (Ringers, Lactated) Confirm Administered Dose 1,000 mls @ as directed .ROUTE .STK-MED ONE Stop: 12/18/20 17:33 Lactated Ringer's (Ringers, Lactated) 1,000 mls @ 150 mls/hr IV ASDIRECTED [facility] Last Admin: 12/20/20 04:26 Dose: 150 mls/hr Documented by: Piperacillin Sod/Tazobactam (Sod 4.5 gm/ Sodium Chloride) 100 mls @ 25 mls/hr IV Q8H [facility] Last Admin: 12/22/20 11:04 Dose: 25 mls/hr Documented by: Insulin Human Regular 100 unit (/ Sodium Chloride) 100 mls @ 13.154 mls/hr IV TITRATE [facility]; Protocol Last Titration: 12/19/20 00:03 Dose: 0 units/kg/hr, 0 mls/hr Documented by: Magnesium Sulfate (Magnesium Sulfate In Water 2 Gm/50 Ml) 2 gm in 50 mls @ 25 mls/hr IV ONETIME ONE Stop: 12/18/20 22:59 Last Admin: 12/18/20 20:41 Dose: 25 mls/hr Documented by: Lactated Ringer's (Ringers, Lactated) 1,000 mls @ 1,000 mls/hr IV .BOLUS ONE Stop: 12/19/20 08:35 Last Admin: 12/19/20 07:53 Dose: 1,000 mls/hr Documented by: Magnesium Sulfate 4 gm/ Premix 50 mls @ 12.5 mls/hr IV ONETIME ONE Stop: 12/19/20 11:59 Last Admin: 12/19/20 08:19 Dose: 12.5 mls/hr Documented by: Lactated Ringer's (Ringers, Lactated) 1,000 mls @ 1,000 mls/hr IV .BOLUS ONE Stop: 12/19/20 16:07 Last Admin: 12/19/20 15:15 Dose: 1,000 mls/hr Documented by: Diltiazem HCl 100 mg/ Sodium (Chloride) 100 mls @ 5 mls/hr IV TITRATE [facility]; Protocol Last Admin: 12/20/20 08:48 Dose: 20 mg/hr, 20 mls/hr Documented by: Potassium Chloride 10 meq/ (Premix) 100 mls @ 100 mls/hr IV Q1H [facility] Stop: 12/20/20 06:44 Last Admin: 12/20/20 05:48 Dose: Not Given Documented by: Lactated Ringer's (Ringers, Lactated) 1,000 mls @ 50 mls/hr IV ASDIRECTED [facility] Last Admin: 12/20/20 05:11 Dose: 50 mls/hr Documented by: Potassium Chloride/Sodium Chloride (Normal Saline With 20 Meq Kcl) 1,000 mls @ 50 mls/hr IV ASDIRECTED [facility] Last Admin: 12/21/20 04:47 Dose: 50 mls/hr Documented by: Amiodarone HCl/Dextrose (Nexterone In Dextrose 150 Mg/100 Ml) 100 mls @ 600 mls/hr IV .BOLUS ONE; Protocol Stop: 12/20/20 10:08 Last Admin: 12/20/20 10:19 Dose: 600 mls/hr Documented by: Amiodarone HCl/Dextrose (Nexterone In Dextrose 360 Mg/200 Ml) 360 mg in 200 mls @ 33.333 mls/hr IV ASDIRECTED [facility]; Protocol Last Admin: 12/21/20 04:24 Dose: 16.7 mls/hr Documented by: Amiodarone HCl/Dextrose (Nexterone In Dextrose 150 Mg/100 Ml) Confirm Administered Dose 100 mls @ as directed IV .STK-MED ONE Stop: 12/20/20 10:23 Last Admin: 12/20/20 11:42 Dose: Not Given Documented by: Diltiazem HCl 100 mg/ Sodium (Chloride) 100 mls @ 5 mls/hr IV TITRATE [facility]; Protocol Last Titration: 12/21/20 15:23 Dose: 0 mg/hr, 0 mls/hr Documented by: Potassium Chloride 10 meq/ (Premix) 100 mls @ 100 mls/hr IV Q1H [facility] Stop: 12/21/20 13:59 Last Admin: 12/21/20 14:20 Dose: 100 mls/hr Documented by: Piperacillin Sod/Tazobactam (Sod 4.5 gm/ Sodium Chloride) 100 mls @ 200 mls/hr IV ONETIME ONE Stop: 12/24/20 10:29 Last Admin: 12/24/20 10:18 Dose: 200 mls/hr Documented by: Piperacillin Sod/Tazobactam (Sod 4.5 gm/ Sodium Chloride) 100 mls @ 25 mls/hr IV Q8H [facility] Last Admin: 12/27/20 01:32 Dose: 25 mls/hr Documented by: Lactated Ringer's (Ringers, Lactated) 1,000 mls @ 75 mls/hr IV ASDIRECTED [facility] Last Admin: 12/25/20 20:00 Dose: 75 mls/hr Documented by: Amiodarone HCl/Dextrose (Nexterone In Dextrose 360 Mg/200 Ml) 360 mg in 200 mls @ 16.7 mls/hr IV ASDIRECTED [facility] Last Admin: 12/25/20 15:54 Dose: 16.7 mls/hr Documented by: Insulin Human Lispro (Insulin Lispro 100 Unit/Ml) 0 unit SUBCUT Q6HR [facility]; Protocol Last Admin: 12/26/20 05:05 Dose: Not Given Documented by: Iopamidol (Iopamidol 612 Mg/Ml 100 Ml Bottle) 100 ml IVPUSH ONETIME ONE Stop: 12/18/20 12:46 Last Admin: 12/18/20 14:04 Dose: 100 ml Documented by: Iopamidol (Iopamidol 612 Mg/Ml 50 Ml Sdv) 50 ml IVPUSH ONETIME ONE Stop: 12/24/20 08:24 Last Admin: 12/24/20 09:38 Dose: 50 ml Documented by: Iopamidol (Iopamidol 612 Mg/Ml 100 Ml Bottle) 100 ml IVPUSH ONETIME ONE Stop: 12/24/20 08:24 Last Admin: 12/24/20 09:38 Dose: 100 ml Documented by: Ketorolac Tromethamine (Ketorolac 30 Mg/Ml Sdv) Confirm Administered Dose 30 mg .ROUTE .STK-MED ONE Stop: 12/18/20 18:35 Ketorolac Tromethamine (Ketorolac 30 Mg/Ml Sdv) 30 mg IVPUSH Q6H PRN PRN Reason: Pain Last Admin: 12/27/20 04:38 Dose: 30 mg Documented by: Labetalol HCl (Labetalol 100 Mg/20 Ml Mdv) 5 mg IVPUSH ONETIME [facility]; Protocol Labetalol HCl (Labetalol 100 Mg/20 Ml Mdv) 5 mg IVPUSH ONETIME PRN; Protocol PRN Reason: Hypertension Last Admin: 12/18/20 19:26 Dose: 5 mg Documented by: Metoprolol Tartrate (Metoprolol Tartrate 25 Mg Tab) 12.5 mg PO Q12H [facility] Last Admin: 12/20/20 05:58 Dose: 12.5 mg Documented by: Metoprolol Tartrate (Metoprolol Tartrate 5 Mg/5 Ml Sdv) 2.5 mg IVPUSH ONETIME ONE Stop: 12/20/20 22:51 Last Admin: 12/21/20 20:53 Dose: Not Given Documented by: Metoprolol Tartrate (Metoprolol Tartrate 5 Mg/5 Ml Sdv) 2.5 mg IVPUSH ONETIME PRN PRN Reason: HEART RATE > 100 Metoprolol Tartrate (Metoprolol Tartrate 5 Mg/5 Ml Sdv) 2.5 mg IVPUSH ASDIRECTED PRN PRN Reason: HEART RATE > 110 Last Admin: 12/23/20 13:43 Dose: 2.5 mg Documented by: Metoprolol Tartrate (Metoprolol Tartrate 5 Mg/5 Ml Sdv) 5 mg IVPUSH Q4H [facility] Last Admin: 12/25/20 16:09 Dose: 5 mg Documented by: Metoprolol Tartrate (Metoprolol Tartrate 50 Mg Tab) 50 mg PO Q12H [facility] Last Admin: 12/25/20 19:20 Dose: Not Given Documented by: Metoprolol Tartrate (Metoprolol Tartrate 50 Mg Tab) 50 mg PO Q12H [facility] Last Admin: 12/25/20 19:59 Dose: 50 mg Documented by: Metoprolol Tartrate (Metoprolol Tartrate 25 Mg Tab) 75 mg PO Q12H [facility] Last Admin: 12/26/20 22:05 Dose: 75 mg Documented by: Midazolam HCl (Midazolam 1 Mg/Ml 2 Ml Sdv) Confirm Administered Dose 2 mg .ROUTE .STK-MED ONE Stop: 12/18/20 15:17 Miscellaneous Medication (Phenylephrine Hcl In 0.9% Nacl 1 Mg/10 Ml Syringe) Confirm Administered Dose 1 mg .ROUTE .STK-MED ONE Stop: 12/18/20 16:20 Neostigmine Methylsulfate (Neostigmine Methylsulfate 5 Mg/5 Ml Syringe) Confirm Administered Dose 5 mg .ROUTE .STK-MED ONE Stop: 12/18/20 18:45 Neostigmine Methylsulfate (Neostigmine Methylsulfate 5 Mg/5 Ml Syringe) Confirm Administered Dose 5 mg .ROUTE .STK-MED ONE Stop: 12/18/20 18:56 Ondansetron HCl (Ondansetron 4 Mg/2 Ml Sdv) 4 mg IVPUSH ONETIME ONE Stop: 12/18/20 12:05 Last Admin: 12/18/20 12:17 Dose: 4 mg Documented by: Ondansetron HCl (Ondansetron 4 Mg/2 Ml Sdv) Confirm Administered Dose 4 mg .ROUTE .STK-MED ONE Stop: 12/18/20 15:17 Oxycodone HCl (Oxycodone 5 Mg Tab) 5 mg PO Q4H PRN PRN Reason: Pain (moderate 4-6) Last Admin: 12/22/20 05:42 Dose: 5 mg Documented by: Oxycodone HCl (Oxycodone 5 Mg Tab) 10 mg PO Q4H PRN PRN Reason: Pain Last Admin: 12/24/20 08:23 Dose: 10 mg Documented by: Potassium Chloride (Potassium Chloride 20 Meq Tab.Er) 60 meq PO ONETIME ONE Stop: 12/23/20 08:00 Last Admin: 12/23/20 08:50 Dose: 60 meq Documented by: Propofol (Propofol 200 Mg/20 Ml Sdv) Confirm Administered Dose 200 mg .ROUTE .STK-MED ONE Stop: 12/18/20 15:17 Rocuronium Baring (Rocuronium 50 Mg/5 Ml Vial) Confirm Administered Dose 50 mg .ROUTE .STK-MED ONE Stop: 12/18/20 15:17 Rocuronium Baring (Rocuronium 50 Mg/5 Ml Vial) Confirm Administered Dose 50 mg .ROUTE .STK-MED ONE Stop: 12/18/20 17:52 Sodium Chloride (Sodium Chloride 0.9% 10 Ml Syringe) 10 ml FLUSH BOLUS [facility] Last Admin: 12/18/20 14:04 Dose: 10 ml Documented by: Sodium Chloride (Sodium Chloride 0.9% 10 Ml Syringe) 10 ml FLUSH ONETIME PRN PRN Reason: IV FLUSH Last Admin: 12/24/20 09:38 Dose: 10 ml Documented by:
--- NOTE | 2020-12-28 15:27 | PCM.SN.2 ---
#1 Interpretation EKG Date: 12/20/20 Time: 14:44 Rhythm: A-Fib Rate (Beats/Min): 148 [place]: LAD-Left [place] Deviation P-Wave: Absent QRS: Normal ST-T: Normal QT: Normal
== END 2020-12-27 17:50 | disposition home or self-care (01) | DRG 230 ==
LOC: JD.ED 11:38 → JD.SDS 15:27 → JD.ICU 20:04 → JD.MS 12-23 07:44 → JD.ICU 12-23 07:48 → JD.MS 12-26 19:09
PROVIDERS: ADMIT Surgery; ATTEND Surgery
PROC: 0DQ80ZZ Repair Small Intestine, Open Approach (ICD-10-PCS; principal; 2020-12-18)
PROC: 0WQF0ZZ Repair Abdominal Wall, Open Approach (ICD-10-PCS; 2020-12-18)
DX: K43.3 Parastomal hernia with obstruction, without gangrene (principal); K56.601 Complete intestinal obstruction, unspecified as to cause; K63.1 Perforation of intestine (nontraumatic); I48.91 Unspecified atrial fibrillation; E11.9 Type 2 diabetes mellitus without complications; H54.7 Unspecified visual loss; E78.00 Pure hypercholesterolemia, unspecified; I10 Essential (primary) hypertension; G47.30 Sleep apnea, unspecified; K21.9 Gastro-esophageal reflux disease without esophagitis; N40.0 Benign prostatic hyperplasia without lower urinary tract symptoms; G89.29 Other chronic pain; M54.9 Dorsalgia, unspecified; E66.01 Morbid (severe) obesity due to excess calories; Z20.822 Contact with and (suspected) exposure to COVID-19; Z93.2 Ileostomy status; Z87.442 Personal history of urinary calculi; Z86.711 Personal history of pulmonary embolism; Z79.4 Long term (current) use of insulin; Z79.01 Long term (current) use of anticoagulants; Z79.899 Other long term (current) drug therapy; Z88.8 Allergy status to other drugs, medicaments and biological substances; Z68.38 Body mass index [BMI] 38.0-38.9, adult
CPT/HCPCS: 00840; 36415; 71046; 71046-26; 74177; 74177-26; 80048; 80053; 81001; 82962; 83605; 83735; 83880; 84484; 85025; 85027; 86140; 87040; 87086; 93005; 93306; 96365; 96375; 96376; 97110-GP; 97116-GP; 97161-GP; 97166-GO; 97530-GO; 97530-GP; 97535-GO; 99140; 99222; 99232; 99233; 99285; 99285-25; A9270-GY; J0282; J1170; J1644; J1650; J1815-GY; J1885; J2250; J2370; J2405; J2543; J2704; J2710; J3010; J3475; J3480; J3490; J7030; J7120; Q9963; Q9967; U0002

== ENCOUNTER 2021-06-01 08:09 | Inpatient (IN) | payer BC ==
--- NOTE | 2021-06-01 08:30 | EDM.PDOC ---
ED HPI GENERAL MEDICAL PROBLEM - General Chief Complaint: General Stated Complaint: sob Time Seen by Provider: 06/01/21 08:20 - History of Present Illness INITIAL COMMENTS - FREE TEXT/NARRATIVE: 56-year-old male presents the emergency room with shortness of breath. This awoke him this morning and has progressively gotten worse. Walking out to the car has been somewhat difficult. Patient denies any direct exposure to anyone he is known is a Covid. Patient has a significant past medical history of type 2 diabetes sounds like suboptimally controlled. He has a history of atrial fib and PEs he is on Eliquis and he states he has not missed a dose in the last couple of weeks. He recently had a nephew get quite ill from Covid. But the patient did not have any direct contact with him or anyone else who had direct contact with him. Patient has no history of coronary artery complications. Patient has a significant history of ulcerative colitis he has had a colectomy he is not on any medications for this at this time. He has had a couple of surgeries including the colectomy associated with the UC. He has not had the Covid vaccine yet. - Related Data Allergies Allergy/AdvReac Type Severity Reaction Status Date / Time aspartame AdvReac Vomiting Verified 06/01/21 08:32 Home Meds: Home Meds Amiodarone [Cordarone] 200 mg PO BID 06/01/21 [History] Apixaban [Eliquis] 5 mg PO BID 06/01/21 [History] Calcium Carb/Mag Ox/Zinc Sulf [Ywa-Ctd-Rjhr 334-134-5 mg Tab] 1 tab PO DAILY 06/01/21 [History] Ferrous Sulfate 325 mg PO DAILY 06/01/21 [History] Insulin Aspart [Insulin Aspart Flexpen] 8 units SQ TIDMEALS 06/01/21 [History] Insulin Degludec [Tresiba] 24 units SQ QAM 06/01/21 [History] Metoprolol Tartrate 50 mg PO BID 06/01/21 [History] Vitamin B Complex 1 tab PO DAILY 06/01/21 [History] buPROPion HCL [Bupropion Xl] 300 mg PO QAM 06/01/21 [History] oxyCODONE 1 - 2 tab PO DAILY PRN 06/01/21 [History] Past Medical History HEENT History: Reports: Impaired Vision, Other (See Below) Other HEENT History: glasses Cardiovascular History: Reports: High Cholesterol, Hypertension Respiratory History: Reports: PE, Sleep Apnea Other Respiratory History: ARDS Gastrointestinal History: Reports: GERD, Inflammatory Bowel Disease Other Gastrointestinal History: Ulcerative colitis Genitourinary History: Reports: BPH, Renal Calculus Musculoskeletal History: Reports: Back Pain, Chronic Other Musculoskeletal History: sore joints Endocrine/Metabolic History: Reports: Diabetes, Type II, Obesity/BMI 30+ - Infectious Disease History Infectious Disease History: Reports: Chicken Pox, Measles, Mumps - Past Surgical History GI Surgical History: Reports: Colon, Colonoscopy, EGD Other GI Surgeries/Procedures: ileostomy Musculoskeletal Surgical History: Reports: Shoulder Surgery Social & Family History - Family History Family Medical History: No Pertinent Family History (Denies genetic diseases in family) Endocrine/Metabolic: Reports: Diabetes, type II Hematologic: Reports: Other (See Below) Other Hematologic Family History: Protein S deficiency - Caffeine Use Caffeine Use: Reports: Coffee, Soda Other Caffeine Use: Rhino Espit[employer] drinks----drinks them occasionally - Living Situation & Occupation Living situation: Reports: , Alone Occupation: Employed ([employer]) ED ROS GENERAL - Review of Systems Review Of Systems: See Below HEENT: Reports: No Symptoms Respiratory: Reports: Shortness of Breath. Denies: Pleuritic Chest Pain, Cough Cardiovascular: Reports: Dyspnea on Exertion. Denies: Chest Pain Endocrine: Reports: No Symptoms GI/Abdominal: Reports: No Symptoms : Reports: No Symptoms Musculoskeletal: Reports: No Symptoms, Muscle Pain Neurological: Reports: No Symptoms ED EXAM, GENERAL - Physical Exam Exam: See Below Exam Limited By: No Limitations General Appearance: Alert, No Apparent Distress, Other (Patient has responded nicely to O2 therapy however did require nonrebreather.) Ears: Normal External Exam, Normal Canal, Hearing Grossly Normal, Normal TMs Nose: Normal Inspection, Normal Mucosa, No Blood Throat/Mouth: Other (Nonrebreather in place) Head: Atraumatic, Normocephalic Neck: Normal Inspection, Supple, Non-Tender, Full Range of Motion Respiratory/Chest: Lungs Clear, No Accessory Muscle Use, Decreased Breath Sounds (Could be related to body habitus) Cardiovascular: Regular Rate, Rhythm, No Murmur, Other (Mild pretibial edema this is normal for him) GI/Abdominal: Normal Bowel Sounds, Soft, Non-Tender, Other (Obese ileostomy bag in place continuous glucose monitor in place) Back Exam: Normal Inspection. No: CVA Tenderness (L), CVA Tenderness (R) Extremities: Pedal Edema Neurological: Alert, Oriented, Normal Cognition Skin Exam: Warm, Dry, Intact #1 Interpretation EKG Date: 06/01/21 Rhythm: Other (Sinus rhythm with supraventricular bigeminy) Rate (Beats/Min): 65 [place]: Normal P-Wave: Present QRS: Other (Wrist electrical activity in the limb leads.) ST-T: Normal QT: Normal Comparison: Change From Previous EKG (A. fib with RVR and axis changes noted on 12/20/2020 are no longer present) EKG Interpretation Comments: Abnormal EKG Course - Vital Signs Last Recorded V/S: Last Vital Signs Temp 36.9 C 06/01/21 08:24 Pulse 65 06/01/21 09:36 Resp 23 H 06/01/21 09:36 BP 159/91 H 06/01/21 09:36 Pulse Ox 97 06/01/21 09:36 - Orders/Labs/Meds Orders: Active Orders 24 hr Category Date Time Status Admission Status [Patient Status] [ADT] Routine ADT 06/01/21 10:39 Active BLOOD CULTURE [MREF] Stat Lab 06/01/21 09:00 Received BLOOD CULTURE [MREF] Stat Lab 06/01/21 09:12 Received cefTRIAXone [Rocephin] 2 gm Med 06/01/21 10:15 Active Sodium Chloride 0.9% [Normal Saline] 100 ml IV Q24H Blood Culture x2 Reflex Set [OM.PC] Stat Oth 06/01/21 08:30 Ordered EKG 12 Lead [EK] Stat Ther 06/01/21 08:58 Ordered Medication Orders Ceftriaxone Sodium 2 gm/ (Sodium Chloride) 100 mls @ 200 mls/hr IV Q24H PHILLIP Last Admin: 06/01/21 10:35 Dose: 200 mls/hr Documented by: DENISE Labs: Laboratory Tests 06/01/21 06/01/21 06/01/21 Range/Units 08:22 08:30 08:35 WBC 15.68 H (4.23-9.07) K/mm3 RBC 4.92 (4.63-6.08) M/mm3 Hgb 11.6 L D (13.7-17.5) gm/dl Hct 38.0 L (40.1-51.0) % MCV 77.2 L (79.0-92.2) fl MCH 23.6 L (25.7-32.2) pg MCHC 30.5 L (32.2-35.5) g/dl RDW Std Deviation 47.8 H (35.1-43.9) fL Plt Count 442 H D (163-337) K/mm3 MPV 10.5 (9.4-12.3) fl Neutrophils % (Manual) 84 H (40-60) % Band Neutrophils % 0 (0-10) % Lymphocytes % (Manual) 10 L (20-40) % Atypical Lymphs % 0 % Monocytes % (Manual) 4 (2-10) % Eosinophils % (Manual) 2 (0.8-7.0) % Basophils % (Manual) 0 L (0.2-1.2) Platelet Estimate Adequate Anisocytosis 1+ slight RBC Morph Comment Abnormal PT 12.4 H (9.7-12.0) SECONDS INR 1.16 APTT 30.0 (21.7-31.4) SECONDS D-Dimer, Quantitative (0.19-0.50) mg/L Puncture Site ABG pH (7.35-7.45) ABG pCO2 (35.0-45.0) mmHg ABG pO2 (80.0-100.0) mmHg ABG HCO3 (22.0-26.0) meq/L ABG O2 Saturation (96.0-97.0) % ABG Base Excess (-2-2.0) Jasen Test O2 Delivery Device Oxygen Flow Rate Sodium (136-145) mEq/L Potassium (3.5-5.1) mEq/L Chloride (98-107) mEq/L Carbon Dioxide (21-32) mEq/L Anion Gap (5-15) BUN (7-18) mg/dL Creatinine (0.7-1.3) mg/dL Est Cr Clr Drug Dosing mL/min Estimated GFR (MDRD) (>60) mL/min BUN/Creatinine Ratio (14-18) Glucose (70-99) mg/dL Lactic Acid (0.4-2.0) mmol/L Calcium (8.5-10.1) mg/dL Magnesium (1.8-2.4) mg/dL Ferritin (26-388) ng/ml Total Bilirubin (0.2-1.0) mg/dL AST (15-37) U/L ALT (16-63) U/L Alkaline Phosphatase (46-116) U/L Lactate Dehydrogenase (85-227) U/L Troponin I (0.00-0.056) ng/mL C-Reactive Protein (<1.0) mg/dL NT-Pro-B Natriuret Pep (0-125) pg/mL Total Protein (6.4-8.2) g/dl Albumin (3.4-5.0) g/dl Globulin gm/dL Albumin/Globulin Ratio (1-2) SARS-CoV-2 RNA (LAN) Negative (NEGATIVE) 06/01/21 06/01/21 06/01/21 Range/Units 08:35 08:35 08:35 WBC (4.23-9.07) K/mm3 RBC (4.63-6.08) M/mm3 Hgb (13.7-17.5) gm/dl Hct (40.1-51.0) % MCV (79.0-92.2) fl MCH (25.7-32.2) pg MCHC (32.2-35.5) g/dl RDW Std Deviation (35.1-43.9) fL Plt Count (163-337) K/mm3 MPV (9.4-12.3) fl Neutrophils % (Manual) (40-60) % Band Neutrophils % (0-10) % Lymphocytes % (Manual) (20-40) % Atypical Lymphs % % Monocytes % (Manual) (2-10) % Eosinophils % (Manual) (0.8-7.0) % Basophils % (Manual) (0.2-1.2) Platelet Estimate Anisocytosis RBC Morph Comment PT (9.7-12.0) SECONDS INR APTT (21.7-31.4) SECONDS D-Dimer, Quantitative 0.68 H (0.19-0.50) mg/L Puncture Site ABG pH (7.35-7.45) ABG pCO2 (35.0-45.0) mmHg ABG pO2 (80.0-100.0) mmHg ABG HCO3 (22.0-26.0) meq/L ABG O2 Saturation (96.0-97.0) % ABG Base Excess (-2-2.0) Jasen Test O2 Delivery Device Oxygen Flow Rate Sodium 139 (136-145) mEq/L Potassium 3.9 (3.5-5.1) mEq/L Chloride 103 (98-107) mEq/L Carbon Dioxide 28 (21-32) mEq/L Anion Gap 11.9 (5-15) BUN 22 H (7-18) mg/dL Creatinine 1.3 (0.7-1.3) mg/dL Est Cr Clr Drug Dosing 71.71 mL/min Estimated GFR (MDRD) 57 (>60) mL/min BUN/Creatinine Ratio 16.9 (14-18) Glucose 154 H (70-99) mg/dL Lactic Acid (0.4-2.0) mmol/L Calcium 8.9 (8.5-10.1) mg/dL Magnesium (1.8-2.4) mg/dL Ferritin 55 (26-388) ng/ml Total Bilirubin 0.6 (0.2-1.0) mg/dL AST 14 L (15-37) U/L ALT 22 (16-63) U/L Alkaline Phosphatase 228 H (46-116) U/L Lactate Dehydrogenase 222 (85-227) U/L Troponin I < 0.017 (0.00-0.056) ng/mL C-Reactive Protein 6.4 H* (<1.0) mg/dL NT-Pro-B Natriuret Pep (0-125) pg/mL Total Protein 8.4 H (6.4-8.2) g/dl Albumin 3.1 L (3.4-5.0) g/dl Globulin 5.3 gm/dL Albumin/Globulin Ratio 0.6 L (1-2) SARS-CoV-2 RNA (LAN) (NEGATIVE) 06/01/21 06/01/21 06/01/21 Range/Units 08:35 08:35 09:00 WBC (4.23-9.07) K/mm3 RBC (4.63-6.08) M/mm3 Hgb (13.7-17.5) gm/dl Hct (40.1-51.0) % MCV (79.0-92.2) fl MCH (25.7-32.2) pg MCHC (32.2-35.5) g/dl RDW Std Deviation (35.1-43.9) fL Plt Count (163-337) K/mm3 MPV (9.4-12.3) fl Neutrophils % (Manual) (40-60) % Band Neutrophils % (0-10) % Lymphocytes % (Manual) (20-40) % Atypical Lymphs % % Monocytes % (Manual) (2-10) % Eosinophils % (Manual) (0.8-7.0) % Basophils % (Manual) (0.2-1.2) Platelet Estimate Anisocytosis RBC Morph Comment PT (9.7-12.0) SECONDS INR APTT (21.7-31.4) SECONDS D-Dimer, Quantitative (0.19-0.50) mg/L Puncture Site ABG pH (7.35-7.45) ABG pCO2 (35.0-45.0) mmHg ABG pO2 (80.0-100.0) mmHg ABG HCO3 (22.0-26.0) meq/L ABG O2 Saturation (96.0-97.0) % ABG Base Excess (-2-2.0) Jasen Test O2 Delivery Device Oxygen Flow Rate Sodium (136-145) mEq/L Potassium (3.5-5.1) mEq/L Chloride (98-107) mEq/L Carbon Dioxide (21-32) mEq/L Anion Gap (5-15) BUN (7-18) mg/dL Creatinine (0.7-1.3) mg/dL Est Cr Clr Drug Dosing mL/min Estimated GFR (MDRD) (>60) mL/min BUN/Creatinine Ratio (14-18) Glucose (70-99) mg/dL Lactic Acid 1.2 (0.4-2.0) mmol/L Calcium (8.5-10.1) mg/dL Magnesium 2.0 (1.8-2.4) mg/dL Ferritin (26-388) ng/ml Total Bilirubin (0.2-1.0) mg/dL AST (15-37) U/L ALT (16-63) U/L Alkaline Phosphatase (46-116) U/L Lactate Dehydrogenase (85-227) U/L Troponin I (0.00-0.056) ng/mL C-Reactive Protein (<1.0) mg/dL NT-Pro-B Natriuret Pep 1111 H (0-125) pg/mL Total Protein (6.4-8.2) g/dl Albumin (3.4-5.0) g/dl Globulin gm/dL Albumin/Globulin Ratio (1-2) SARS-CoV-2 RNA (LAN) (NEGATIVE) 06/01/21 Range/Units 10:06 WBC (4.23-9.07) K/mm3 RBC (4.63-6.08) M/mm3 Hgb (13.7-17.5) gm/dl Hct (40.1-51.0) % MCV (79.0-92.2) fl MCH (25.7-32.2) pg MCHC (32.2-35.5) g/dl RDW Std Deviation (35.1-43.9) fL Plt Count (163-337) K/mm3 MPV (9.4-12.3) fl Neutrophils % (Manual) (40-60) % Band Neutrophils % (0-10) % Lymphocytes % (Manual) (20-40) % Atypical Lymphs % % Monocytes % (Manual) (2-10) % Eosinophils % (Manual) (0.8-7.0) % Basophils % (Manual) (0.2-1.2) Platelet Estimate Anisocytosis RBC Morph Comment PT (9.7-12.0) SECONDS INR APTT (21.7-31.4) SECONDS D-Dimer, Quantitative (0.19-0.50) mg/L Puncture Site Rt radial ABG pH 7.40 (7.35-7.45) ABG pCO2 36.3 (35.0-45.0) mmHg ABG pO2 71.0 L (80.0-100.0) mmHg ABG HCO3 22.2 (22.0-26.0) meq/L ABG O2 Saturation 94.5 L (96.0-97.0) % ABG Base Excess -1.6 (-2-2.0) Jasen Test Positive O2 Delivery Device Nasal cannula Oxygen Flow Rate 5.0 Sodium (136-145) mEq/L Potassium (3.5-5.1) mEq/L Chloride (98-107) mEq/L Carbon Dioxide (21-32) mEq/L Anion Gap (5-15) BUN (7-18) mg/dL Creatinine (0.7-1.3) mg/dL Est Cr Clr Drug Dosing mL/min Estimated GFR (MDRD) (>60) mL/min BUN/Creatinine Ratio (14-18) Glucose (70-99) mg/dL Lactic Acid (0.4-2.0) mmol/L Calcium (8.5-10.1) mg/dL Magnesium (1.8-2.4) mg/dL Ferritin (26-388) ng/ml Total Bilirubin (0.2-1.0) mg/dL AST (15-37) U/L ALT (16-63) U/L Alkaline Phosphatase (46-116) U/L Lactate Dehydrogenase (85-227) U/L Troponin I (0.00-0.056) ng/mL C-Reactive Protein (<1.0) mg/dL NT-Pro-B Natriuret Pep (0-125) pg/mL Total Protein (6.4-8.2) g/dl Albumin (3.4-5.0) g/dl Globulin gm/dL Albumin/Globulin Ratio (1-2) SARS-CoV-2 RNA (LAN) (NEGATIVE) Meds: Medications Generic Name Dose Route Start Last Admin Trade Name Freq PRN Reason Stop Dose Admin Ceftriaxone Sodium 2 gm/ 100 mls @ 200 mls/hr 06/01/21 10:15 06/01/21 10:35 Sodium Chloride IV 200 mls/hr Q24H PHILLIP Administration - Re-Assessments/Exams Free Text/Narrative Re-Assessment/Exam: 06/01/21 11:24 Case was discussed with Dr. Bailey, our hospitalist is kind enough to accept the patient and assume care. Patient be started on antibiotics. His labs and chest x-ray are suggestive of Covid however his Covid test was negative. However with the elevated white count with a relative lymphopenia no bandemia we will start him on Rocephin. Departure - Departure Time of Disposition: 10:25 Disposition: Admitted As Inpatient 66 Clinical Impression: Hypoxia, Shortness of breath - Discharge Information Sepsis Event Note (ED) - Focused Exam Vital Signs: Vital Signs Temp Pulse Resp BP Pulse Ox 06/01/21 09:36 65 23 H 159/91 H 97 06/01/21 08:24 36.9 C 72 24 H 191/92 H 79 L - My Orders Last 24 Hours: My Active Orders 06/01/21 08:30 Blood Culture x2 Reflex Set [OM.PC] Stat 06/01/21 08:58 EKG 12 Lead [EK] Stat 06/01/21 09:00 BLOOD CULTURE [MREF] Stat 06/01/21 09:12 BLOOD CULTURE [MREF] Stat 06/01/21 10:15 cefTRIAXone [Rocephin] 2 gm Sodium Chloride 0.9% [Normal Saline] 100 ml IV Q24H 06/01/21 10:39 Admission Status [Patient Status] [ADT] Routine - Assessment/Plan Last 24 Hours: My Active Orders 06/01/21 08:30 Blood Culture x2 Reflex Set [OM.PC] Stat 06/01/21 08:58 EKG 12 Lead [EK] Stat 06/01/21 09:00 BLOOD CULTURE [MREF] Stat 06/01/21 09:12 BLOOD CULTURE [MREF] Stat 06/01/21 10:15 cefTRIAXone [Rocephin] 2 gm Sodium Chloride 0.9% [Normal Saline] 100 ml IV Q24H 06/01/21 10:39 Admission Status [Patient Status] [ADT] Routine
--- NOTE | 2021-06-01 09:03 | CR ---
Chest: Portable view of the chest is obtained. Comparison: Prior chest x-ray of 12/24/20. Diffuse parenchymal densities are seen throughout both sides of the chest. Heart is enlarged. Tortuous thoracic aorta is seen. Mild disc space narrowing is noted within the thoracic spine with minimal scoliosis. Impression: 1. Diffuse increased parenchymal change within both sides of the chest. Findings are highly suspicious for diffuse COVID pneumonia. Please correlate. 2. Other findings which are believed to be incidental as noted above. Diagnostic code #3
[2021-06-01] MEDS ORDERED: cefTRIAXone 2 GM in Sodium Chloride 0.9% 100 ML IV SCH (10:15)
--- NOTE | 2021-06-01 11:23 | PCM.HP.2 ---
H&P History of Present Illness - General Date of Service: 06/01/21 Admit Problem/Dx: Admission Diagnosis/Problem Admission Diagnosis/Problem Pneumonia Source of Information: Patient, Old Records, Provider, RN, RN Notes Reviewed History Limitations: Reports: No Limitations - History of Present Illness Initial Comments - Free Text/Narative: This is a 56-year-old male who presents to ED on 06/01/2021 with shortness of breath, which has gotten progressively worse. Patient reports any type of exertion leads to severe dyspnea. Denies any direct exposure to anyone with Covid. He does have a history of A. fib and PEs with chronic use of Eliquis which he states he is taken regularly. No history of any coronary artery complications. He does have a history of ulcerative colitis and has had a colectomy but is not on any medications. He has not had any Covid vaccines yet. Of note patient was hospitalized 12/18/2020 through 12/27/[address] Espinosa, general surgeon with a small bowel obstruction. In the ED twelve-lead EKG was obtained showing a sinus rhythm with supraven tricular bigeminy at a rate of 65 bpm. There is decreased electrical activity in the limb leads. This was compared to prior EKG on 12/20/2020 which showed A. fib with RVR and axis change. Temp was 36.9. Pulse 65. Respirations 23. Blood pressure 159/91. Pulse ox 97%. Blood cultures were obtained. Labs were obtained with a WBC of 15.68. Hemoglobin 11.6. He is microcytic. Platelets 442,000. Neutrophils are elevated at 84%. There is no bandemia. INR is 1.16. aPTT is 30.0. SARS-CoV-2 RNA is negative. D-dimer is 0.68. Sodium is 139. Potassium 3.9. Chloride 103. Carbon dioxide 28. Anion gap is 11.9. BUN is 22. Creatinine 1.3. GFR 57. Calcium is 8.9. Ferritin is 55. Bilirubin 0.6. AST is 14, ALT 22, alkaline phosphatase 228. LDH is 222. Troponin less than 0.017. CRP is 6.4. Protein is 8.4. Albumin is 3.1. Lactic acid is 1.2. Magnesium is 2.0. proBNP is elevated at 1111. ABGs obtained in the right radial with a pH of 7.40 PCO2 of 36.3. PO2 of 71.0. HCO3 of 22.2. O2 saturation 94.5. Base excess is -1.6. This is obtained while on 5 L via nasal cannula. Chest x-ray is obtained showing diffuse increased parenchymal change within both sides the chest. Findings are highly suspicious for diffuse Covid pneumonia. Please correlate. Other incidental findings are noted. Patient is started on Rocephin. He carries a history of HLD, HTN, PE, sleep apnea, ARDS, GERD, inflammatory bowel disease, ulcerative colitis, BPH, chronic back pain, type II DM, obesity, ileostomy. He is a full code. His PCP is Dr. Barrera. He subsequently mated to the floor for further work-up of his hypoxia with suspected pneumonia versus CHF exacerbation. - Related Data Allergies/Adverse Reactions: Allergies Allergy/AdvReac Type Severity Reaction Status Date / Time Svhbsho-Mvc-Ecg Reductase Allergy Other Verified 06/01/21 15:06 Inhibitor aspartame AdvReac Vomiting Verified 06/01/21 08:32 Home Medications: Home Meds Amiodarone [Cordarone] 200 mg PO BID 06/01/21 [History] Apixaban [Eliquis] 5 mg PO BID 06/01/21 [History] Calcium Carb/Mag Ox/Zinc Sulf [Zdw-[id number]-[id number] 334-134-5 mg Tab] 1 tab PO DAILY 06/01/21 [History] Ferrous Sulfate 325 mg PO DAILY 06/01/21 [History] Insulin Aspart [Insulin Aspart Flexpen] 8 units SQ TIDMEALS 06/01/21 [History] Insulin Degludec [Tresiba] 24 units SQ QAM 06/01/21 [History] Metoprolol Tartrate 50 mg PO BID 06/01/21 [History] Vitamin B Complex 1 tab PO DAILY 06/01/21 [History] buPROPion HCL [Bupropion Xl] 300 mg PO QAM 06/01/21 [History] oxyCODONE 1 - 2 tab PO DAILY PRN 06/01/21 [History] Past Medical History HEENT History: Reports: Impaired Vision, Other (See Below) Other HEENT History: glasses Cardiovascular History: Reports: High Cholesterol, Hypertension Respiratory History: Reports: PE, Sleep Apnea Other Respiratory History: ARDS Gastrointestinal History: Reports: GERD, Inflammatory Bowel Disease Other Gastrointestinal History: Ulcerative colitis Genitourinary History: Reports: BPH, Renal Calculus Musculoskeletal History: Reports: Back Pain, Chronic Other Musculoskeletal History: sore joints Endocrine/Metabolic History: Reports: Diabetes, Type II, Obesity/BMI 30+ - Infectious Disease History Infectious Disease History: Reports: Chicken Pox, Measles, Mumps - Past Surgical History GI Surgical History: Reports: Colon, Colonoscopy, EGD Other GI Surgeries/Procedures: ileostomy Musculoskeletal Surgical History: Reports: Shoulder Surgery Social & Family History - Family History Family Medical History: No Pertinent Family History Endocrine/Metabolic: Reports: Diabetes, type II Hematologic: Reports: Other (See Below) Other Hematologic Family History: Protein S deficiency - Tobacco Use Tobacco Use Status *Q: Never Tobacco User - Caffeine Use Caffeine Use: Reports: Coffee, Soda Other Caffeine Use: Rhino Espitia drinks----drinks them occasionally - Recreational Drug Use Recreational Drug Use: No - Living Situation & Occupation Living situation: Reports: , Alone Occupation: Employed ([employer]) H&P Review of Systems - Review of Systems: Review Of Systems: See Below General: Reports: No Symptoms. Denies: Fever, Chills, Malaise, Weakness, Fatigue HEENT: Reports: No Symptoms. Denies: Headaches, Sore Throat Pulmonary: Reports: Shortness of Breath, Cough. Denies: Wheezing, Pleuritic Chest Pain, Sputum Cardiovascular: Reports: No Symptoms, Dyspnea on Exertion, Edema (chronic and no worse than normal ). Denies: Chest Pain, Palpitations, Lightheadedness Gastrointestinal: Reports: No Symptoms. Denies: Abdominal Pain, Anorexia, Constipation, Diarrhea, Nausea, Vomiting Genitourinary: Reports: No Symptoms. Denies: Pain Musculoskeletal: Reports: Back Pain (chronic) Skin: Reports: No Symptoms. Denies: Cyanosis Psychiatric: Reports: No Symptoms. Denies: Confusion Neurological: Reports: No Symptoms. Denies: Confusion, Dizziness, Headache, Numbness, Pre-Existing Deficit, Difficulty Walking, Weakness, Gait Disturbance Hematologic/Lymphatic: Reports: No Symptoms. Denies: Anemia Immunologic: Reports: No Symptoms Exam - Exam Exam: See Below - Vital Signs Vital Signs: Last Vital Signs Temp 98.5 F 06/01/21 08:24 Pulse 65 06/01/21 09:36 Resp 23 H 06/01/21 09:36 BP 159/91 H 06/01/21 09:36 Pulse Ox 97 06/01/21 09:36 Weight: 290 lb - Exam Quality Assessment: Supplemental Oxygen (4L), DVT Prophylaxis (Home eliquis ). No: Urinary Catheter General: Alert, Oriented, Cooperative. No: Mild Distress HEENT: Conjunctiva Clear, EACs Clear, Mucosa Moist & [place], Posterior Pharynx Clear Neck: Supple, Trachea Midline Lungs: Normal Respiratory Effort, Decreased Breath Sounds, Rhonchi (mild ). No: Crackles, Wheezing Cardiovascular: Regular Rate, Regular Rhythm GI/Abdominal Exam: Normal Bowel Sounds, Soft, Non-Tender, No Distention (Male) Exam: Deferred Rectal (Males) Exam: Deferred Back Exam: Normal Inspection, Full Range of Motion Extremities: Normal Inspection, Normal Range of Motion, Non-Tender, Normal Capillary Refill, Pedal Edema (trace to 1+), Other (Small wound to right great toe on medial side of nail bed with some drainage and erythema. Patient reports this has improved and did have some purulent drainage in the past.) Peripheral Pulses: 2+: Radial (L), Radial (R), Dorsalis Pedis (L), Dorsalis Pedis (R) Skin: Warm, Dry, Intact Neurological: Cranial Nerves Intact (Grossly ) Neuro Extensive - Mental Status: Alert, Oriented x3, Normal Mood/Affect - Patient Data Lab Results Last 24 hrs: Laboratory Results - last 24 hr 06/01/21 06/01/21 06/01/21 Range/Units 08:22 08:30 08:35 WBC 15.68 H (4.23-9.07) K/mm3 RBC 4.92 (4.63-6.08) M/mm3 Hgb 11.6 L D (13.7-17.5) gm/dl Hct 38.0 L (40.1-51.0) % MCV 77.2 L (79.0-92.2) fl MCH 23.6 L (25.7-32.2) pg MCHC 30.5 L (32.2-35.5) g/dl RDW Std Deviation 47.8 H (35.1-43.9) fL Plt Count 442 H D (163-337) K/mm3 MPV 10.5 (9.4-12.3) fl Neutrophils % (Manual) 84 H (40-60) % Band Neutrophils % 0 (0-10) % Lymphocytes % (Manual) 10 L (20-40) % Atypical Lymphs % 0 % Monocytes % (Manual) 4 (2-10) % Eosinophils % (Manual) 2 (0.8-7.0) % Basophils % (Manual) 0 L (0.2-1.2) Platelet Estimate Adequate Anisocytosis 1+ slight RBC Morph Comment Abnormal PT 12.4 H (9.7-12.0) SECONDS INR 1.16 APTT 30.0 (21.7-31.4) SECONDS D-Dimer, Quantitative (0.19-0.50) mg/L Puncture Site ABG pH (7.35-7.45) ABG pCO2 (35.0-45.0) mmHg ABG pO2 (80.0-100.0) mmHg ABG HCO3 (22.0-26.0) meq/L ABG O2 Saturation (96.0-97.0) % ABG Base Excess (-2-2.0) Jasen Test O2 Delivery Device Oxygen Flow Rate Sodium (136-145) mEq/L Potassium (3.5-5.1) mEq/L Chloride (98-107) mEq/L Carbon Dioxide (21-32) mEq/L Anion Gap (5-15) BUN (7-18) mg/dL Creatinine (0.7-1.3) mg/dL Est Cr Clr Drug Dosing mL/min Estimated GFR (MDRD) (>60) mL/min BUN/Creatinine Ratio (14-18) Glucose (70-99) mg/dL Lactic Acid (0.4-2.0) mmol/L Calcium (8.5-10.1) mg/dL Magnesium (1.8-2.4) mg/dL Ferritin (26-388) ng/ml Total Bilirubin (0.2-1.0) mg/dL AST (15-37) U/L ALT (16-63) U/L Alkaline Phosphatase (46-116) U/L Lactate Dehydrogenase (85-227) U/L Troponin I (0.00-0.056) ng/mL C-Reactive Protein (<1.0) mg/dL NT-Pro-B Natriuret Pep (0-125) pg/mL Total Protein (6.4-8.2) g/dl Albumin (3.4-5.0) g/dl Globulin gm/dL Albumin/Globulin Ratio (1-2) SARS-CoV-2 RNA (LAN) Negative (NEGATIVE) 06/01/21 06/01/21 06/01/21 Range/Units 08:35 08:35 08:35 WBC (4.23-9.07) K/mm3 RBC (4.63-6.08) M/mm3 Hgb (13.7-17.5) gm/dl Hct (40.1-51.0) % MCV (79.0-92.2) fl MCH (25.7-32.2) pg MCHC (32.2-35.5) g/dl RDW Std Deviation (35.1-43.9) fL Plt Count (163-337) K/mm3 MPV (9.4-12.3) fl Neutrophils % (Manual) (40-60) % Band Neutrophils % (0-10) % Lymphocytes % (Manual) (20-40) % Atypical Lymphs % % Monocytes % (Manual) (2-10) % Eosinophils % (Manual) (0.8-7.0) % Basophils % (Manual) (0.2-1.2) Platelet Estimate Anisocytosis RBC Morph Comment PT (9.7-12.0) SECONDS INR APTT (21.7-31.4) SECONDS D-Dimer, Quantitative 0.68 H (0.19-0.50) mg/L Puncture Site ABG pH (7.35-7.45) ABG pCO2 (35.0-45.0) mmHg ABG pO2 (80.0-100.0) mmHg ABG HCO3 (22.0-26.0) meq/L ABG O2 Saturation (96.0-97.0) % ABG Base Excess (-2-2.0) Jasen Test O2 Delivery Device Oxygen Flow Rate Sodium 139 (136-145) mEq/L Potassium 3.9 (3.5-5.1) mEq/L Chloride 103 (98-107) mEq/L Carbon Dioxide 28 (21-32) mEq/L Anion Gap 11.9 (5-15) BUN 22 H (7-18) mg/dL Creatinine 1.3 (0.7-1.3) mg/dL Est Cr Clr Drug Dosing 71.71 mL/min Estimated GFR (MDRD) 57 (>60) mL/min BUN/Creatinine Ratio 16.9 (14-18) Glucose 154 H (70-99) mg/dL Lactic Acid (0.4-2.0) mmol/L Calcium 8.9 (8.5-10.1) mg/dL Magnesium (1.8-2.4) mg/dL Ferritin 55 (26-388) ng/ml Total Bilirubin 0.6 (0.2-1.0) mg/dL AST 14 L (15-37) U/L ALT 22 (16-63) U/L Alkaline Phosphatase 228 H (46-116) U/L Lactate Dehydrogenase 222 (85-227) U/L Troponin I < 0.017 (0.00-0.056) ng/mL C-Reactive Protein 6.4 H* (<1.0) mg/dL NT-Pro-B Natriuret Pep (0-125) pg/mL Total Protein 8.4 H (6.4-8.2) g/dl Albumin 3.1 L (3.4-5.0) g/dl Globulin 5.3 gm/dL Albumin/Globulin Ratio 0.6 L (1-2) SARS-CoV-2 RNA (LAN) (NEGATIVE) 06/01/21 06/01/21 06/01/21 Range/Units 08:35 08:35 09:00 WBC (4.23-9.07) K/mm3 RBC (4.63-6.08) M/mm3 Hgb (13.7-17.5) gm/dl Hct (40.1-51.0) % MCV (79.0-92.2) fl MCH (25.7-32.2) pg MCHC (32.2-35.5) g/dl RDW Std Deviation (35.1-43.9) fL Plt Count (163-337) K/mm3 MPV (9.4-12.3) fl Neutrophils % (Manual) (40-60) % Band Neutrophils % (0-10) % Lymphocytes % (Manual) (20-40) % Atypical Lymphs % % Monocytes % (Manual) (2-10) % Eosinophils % (Manual) (0.8-7.0) % Basophils % (Manual) (0.2-1.2) Platelet Estimate Anisocytosis RBC Morph Comment PT (9.7-12.0) SECONDS INR APTT (21.7-31.4) SECONDS D-Dimer, Quantitative (0.19-0.50) mg/L Puncture Site ABG pH (7.35-7.45) ABG pCO2 (35.0-45.0) mmHg ABG pO2 (80.0-100.0) mmHg ABG HCO3 (22.0-26.0) meq/L ABG O2 Saturation (96.0-97.0) % ABG Base Excess (-2-2.0) Jasen Test O2 Delivery Device Oxygen Flow Rate Sodium (136-145) mEq/L Potassium (3.5-5.1) mEq/L Chloride (98-107) mEq/L Carbon Dioxide (21-32) mEq/L Anion Gap (5-15) BUN (7-18) mg/dL Creatinine (0.7-1.3) mg/dL Est Cr Clr Drug Dosing mL/min Estimated GFR (MDRD) (>60) mL/min BUN/Creatinine Ratio (14-18) Glucose (70-99) mg/dL Lactic Acid 1.2 (0.4-2.0) mmol/L Calcium (8.5-10.1) mg/dL Magnesium 2.0 (1.8-2.4) mg/dL Ferritin (26-388) ng/ml Total Bilirubin (0.2-1.0) mg/dL AST (15-37) U/L ALT (16-63) U/L Alkaline Phosphatase (46-116) U/L Lactate Dehydrogenase (85-227) U/L Troponin I (0.00-0.056) ng/mL C-Reactive Protein (<1.0) mg/dL NT-Pro-B Natriuret Pep 1111 H (0-125) pg/mL Total Protein (6.4-8.2) g/dl Albumin (3.4-5.0) g/dl Globulin gm/dL Albumin/Globulin Ratio (1-2) SARS-CoV-2 RNA (LAN) (NEGATIVE) 06/01/21 Range/Units 10:06 WBC (4.23-9.07) K/mm3 RBC (4.63-6.08) M/mm3 Hgb (13.7-17.5) gm/dl Hct (40.1-51.0) % MCV (79.0-92.2) fl MCH (25.7-32.2) pg MCHC (32.2-35.5) g/dl RDW Std Deviation (35.1-43.9) fL Plt Count (163-337) K/mm3 MPV (9.4-12.3) fl Neutrophils % (Manual) (40-60) % Band Neutrophils % (0-10) % Lymphocytes % (Manual) (20-40) % Atypical Lymphs % % Monocytes % (Manual) (2-10) % Eosinophils % (Manual) (0.8-7.0) % Basophils % (Manual) (0.2-1.2) Platelet Estimate Anisocytosis RBC Morph Comment PT (9.7-12.0) SECONDS INR APTT (21.7-31.4) SECONDS D-Dimer, Quantitative (0.19-0.50) mg/L Puncture Site Rt radial ABG pH 7.40 (7.35-7.45) ABG pCO2 36.3 (35.0-45.0) mmHg ABG pO2 71.0 L (80.0-100.0) mmHg ABG HCO3 22.2 (22.0-26.0) meq/L ABG O2 Saturation 94.5 L (96.0-97.0) % ABG Base Excess -1.6 (-2-2.0) Jasen Test Positive O2 Delivery Device Nasal cannula Oxygen Flow Rate 5.0 Sodium (136-145) mEq/L Potassium (3.5-5.1) mEq/L Chloride (98-107) mEq/L Carbon Dioxide (21-32) mEq/L Anion Gap (5-15) BUN (7-18) mg/dL Creatinine (0.7-1.3) mg/dL Est Cr Clr Drug Dosing mL/min Estimated GFR (MDRD) (>60) mL/min BUN/Creatinine Ratio (14-18) Glucose (70-99) mg/dL Lactic Acid (0.4-2.0) mmol/L Calcium (8.5-10.1) mg/dL Magnesium (1.8-2.4) mg/dL Ferritin (26-388) ng/ml Total Bilirubin (0.2-1.0) mg/dL AST (15-37) U/L ALT (16-63) U/L Alkaline Phosphatase (46-116) U/L Lactate Dehydrogenase (85-227) U/L Troponin I (0.00-0.056) ng/mL C-Reactive Protein (<1.0) mg/dL NT-Pro-B Natriuret Pep (0-125) pg/mL Total Protein (6.4-8.2) g/dl Albumin (3.4-5.0) g/dl Globulin gm/dL Albumin/Globulin Ratio (1-2) SARS-CoV-2 RNA (LAN) (NEGATIVE) Result Diagrams: 06/01/21 08:30 06/01/21 08:35 Sepsis Event Note - Evaluation Sepsis Screening Result: No Definite Risk - Focused Exam Vital Signs: Vital Signs Temp Pulse Resp BP Pulse Ox 06/01/21 09:36 65 23 H 159/91 H 97 06/01/21 08:24 98.5 F 72 24 H 191/92 H 79 L - Problem List (1) Hx SBO SNOMED Code(s): 366352200755015308 ICD Code: Z87.19 - PERSONAL HISTORY OF OTHER DISEASES OF THE DIGESTIVE SYSTEM Status: Chronic Priority: Low Current Visit: No (2) History of atrial fibrillation SNOMED Code(s): 329004175 ICD Code: Z86.79 - PERSONAL HISTORY OF OTHER DISEASES OF THE CIRCULATORY SYSTEM Status: Chronic Priority: Medium Current Visit: No (3) HLD (hyperlipidemia) SNOMED Code(s): 46345197 ICD Code: E78.5 - HYPERLIPIDEMIA, UNSPECIFIED Status: Chronic Priority: Low Current Visit: No Qualifiers: Hyperlipidemia type: unspecified Qualified Code(s): E78.5 - Hyperlipidemia, unspecified (4) HTN (hypertension) SNOMED Code(s): 85288331 ICD Code: I10 - ESSENTIAL (PRIMARY) HYPERTENSION Status: Chronic Priority: Medium Current Visit: No Qualifiers: Hypertension type: unspecified Qualified Code(s): I10 - Essential (primary) hypertension (5) Sleep apnea SNOMED Code(s): 18167636 ICD Code: G47.30 - SLEEP APNEA, UNSPECIFIED Status: Chronic Priority: Low Current Visit: No Qualifiers: Sleep apnea type: unspecified type Qualified Code(s): G47.30 - Sleep apnea, unspecified (6) History of ARDS SNOMED Code(s): 497771820 ICD Code: Z87.09 - PERSONAL HISTORY OF OTHER DISEASES OF THE RESPIRATORY SYSTEM Status: Chronic Priority: Medium Current Visit: No (7) GERD (gastroesophageal reflux disease) SNOMED Code(s): 210018710 ICD Code: K21.9 - GASTRO-ESOPHAGEAL REFLUX DISEASE WITHOUT ESOPHAGITIS Status: Chronic Priority: Low Current Visit: No Qualifiers: Esophagitis presence: esophagitis presence not specified Qualified Code(s): K21.9 - Gastro-esophageal reflux disease without esophagitis (8) IBS (irritable bowel syndrome) SNOMED Code(s): 65128746 ICD Code: K58.9 - IRRITABLE BOWEL SYNDROME WITHOUT DIARRHEA Status: Chronic Priority: Low Current Visit: No Qualifiers: Irritable bowel syndrome type: unspecified Qualified Code(s): K58.9 - Irritable bowel syndrome without diarrhea (9) BPH (benign prostatic hyperplasia) SNOMED Code(s): 738686957 ICD Code: N40.0 - BENIGN PROSTATIC HYPERPLASIA WITHOUT LOWER URINRY TRACT SYMP Status: Chronic Priority: Low Current Visit: No Qualifiers: Lower urinary tract symptom presence: symptoms absent Qualified Code(s): N40.0 - Benign prostatic hyperplasia without lower urinary tract symptoms (10) Chronic back pain SNOMED Code(s): 391368942 ICD Code: M54.9 - DORSALGIA, UNSPECIFIED; G89.29 - OTHER CHRONIC PAIN Status: Chronic Priority: Low Current Visit: No Qualifiers: Back pain location: back pain in unspecified location Back pain laterality: unspecified Qualified Code(s): M54.9 - Dorsalgia, unspecified; G89.29 - Other chronic pain (11) Type II diabetes mellitus SNOMED Code(s): 35154343 ICD Code: E11.9 - TYPE 2 DIABETES MELLITUS WITHOUT COMPLICATIONS Status: Chronic Priority: Medium Current Visit: Yes Qualifiers: Diabetes mellitus buttermaker continuous churn insulin use: with fci use Diabetes mellitus complication status: with other specified complication Qualified Code(s): E11.69 - Type 2 diabetes mellitus with other specified complication; Z79.4 - terminal makeup operator (current) use of insulin (12) Ileostomy in place SNOMED Code(s): 799686093 ICD Code: Z93.2 - ILEOSTOMY STATUS Status: Chronic Priority: Medium Current Visit: Yes (13) Chronic anticoagulation SNOMED Code(s): 099027663 ICD Code: Z79.01 - [facility] (CURRENT) USE OF ANTICOAGULANTS Status: Chron ic Priority: Medium Current Visit: Yes (14) Elevated d-dimer SNOMED Code(s): 806832499 ICD Code: R79.89 - OTHER SPECIFIED ABNORMAL FINDINGS OF BLOOD CHEMISTRY St atus: Acute Priority: Medium Current Visit: Yes (15) Pneumonia SNOMED Code(s): 023656774 ICD Code: J18.9 - PNEUMONIA, UNSPECIFIED ORGANISM Status: Acute Priority: High Current Visit: Yes Qualifiers: Pneumonia type: due to unspecified organism Laterality: bilateral Lung location: unspecified part of lung Qualified Code(s): J18.9 - Pneumonia, unspecified organism (16) Elevated brain natriuretic peptide (BNP) level SNOMED Code(s): 427320999, 103474327 ICD Code: R79.89 - OTHER SPECIFIED ABNORMAL FINDINGS OF BLOOD CHEMISTRY Status: Acute Priority: High Current Visit: Yes (17) Pedal edema SNOMED Code(s): 049032719 ICD Code: R60.0 - LOCALIZED EDEMA Status: Chronic Priority: Medium Current Visit: Yes (18) Lab test negative for COVID-19 virus SNOMED Code(s): 8209750571756381 ICD Code: Z20.822 - CONTACT WITH AND (SUSPECTED) EXPOSURE TO COVID-19 Status: Acute Priority: High Current Visit: Yes (19) Hypoxia SNOMED Code(s): 636549979 ICD Code: R09.02 - HYPOXEMIA Status: Acute Priority: High Current Visit: Yes (20) Shortness of breath SNOMED Code(s): 541444252 ICD Code: R06.02 - SHORTNESS OF BREATH Status: Acute Priority: High Current Visit: Yes (21) Suspected COVID-19 virus infection SNOMED Code(s): 889527540 ICD Code: Z20.822 - CONTACT WITH AND (SUSPECTED) EXPOSURE TO COVID-19 Status: Acute Priority: High Current Visit: Yes (22) Obesity (BMI 30-39.9) SNOMED Code(s): 792860211, 073934837 ICD Code: E66.9 - OBESITY, UNSPECIFIED Status: Chronic Priority: Medium Current Visit: Yes (23) Open wound of right great toe SNOMED Code(s): 79482300005454388 ICD Code: S91.101A - UNSP OPEN WOUND OF RIGHT GREAT TOE W/O DAMAGE TO NAIL, INIT Status: Acute Priority: High Current Visit: Yes Qualifiers: Encounter type: initial encounter Qualified Code(s): S91.101A - Unspecified open wound of right great toe without damage to nail, initial encounter (24) History of pulmonary embolus (PE) SNOMED Code(s): 280298176 ICD Code: Z86.711 - PERSONAL HISTORY OF PULMONARY EMBOLISM Status: Chronic Priority: Low Current Visit: No Problem List Initiated/Reviewed/Updated: Yes Orders Last 24hrs: Active Orders 24 hr Category Date Time Status Admission Status [Patient Status] [ADT] Routine ADT 06/01/21 10:39 Active Chest wo Cont [CT] Routine Exams 06/01/21 11:18 Ordered BLOOD CULTURE [MREF] Stat Lab 06/01/21 09:00 Received BLOOD CULTURE [MREF] Stat Lab 06/01/21 09:12 Received cefTRIAXone [Rocephin] 2 gm Med 06/01/21 10:15 Active Sodium Chloride 0.9% [Normal Saline] 100 ml IV Q24H Blood Culture x2 Reflex Set [OM.PC] Stat Oth 06/01/21 08:30 Ordered EKG 12 Lead [EK] Stat Ther 06/01/21 08:58 Ordered Medication Orders Ceftriaxone Sodium 2 gm/ (Sodium Chloride) 100 mls @ 200 mls/hr IV Q24H PHILLIP Last Admin: 06/01/21 10:35 Dose: 200 mls/hr Documented by: DENISE Assessment/Plan Comment:: Assessment - day of admission 06/01/2021 * 56-year-old male who presents to ED on 06/01/2021 with shortness of breath, which has gotten progressively worse * History of HLD, HTN, PE, sleep apnea, ARDS, GERD, inflammatory bowel disease, ulcerative colitis, BPH, chronic back pain, type II DM, obesity, ileostomy, A- fib * Reports any type of exertion leads to severe dyspnea * Denies any direct exposure to anyone with Covid * Does have a history of A. fib and PEs with chronic use of Eliquis which he states he is taken regularly. * Has not had any Covid vaccines yet * Was hospitalized 12/18/2020 through 12/27/[address] Espinosa, general surgeon with a small bowel obstruction. * 12-lead EKG was obtained showing a sinus rhythm with supraventricular bigeminy at a rate of 65 bpm. There is decreased electrical activity in the limb leads. This was compared to prior EKG on 12/20/2020 which showed A. fib with RVR and axis change. * Blood cultures were obtained. * Labs were obtained: * WBC of 15.68. * Hemoglobin 11.6. * He is microcytic. * Platelets 442,000. * Neutrophils are elevated at 84%. There is no bandemia. * INR is 1.16. * aPTT is 30.0. * SARS-CoV-2 RNA is negative. * D-dimer is 0.68. * Sodium is 139. * Potassium 3.9. * Chloride 103. * Carbon dioxide 28. * Anion gap is 11.9. * BUN is 22. Creatinine 1.3. GFR 57. * Calcium is 8.9. * Ferritin is 55. * Bilirubin 0.6. * AST is 14, ALT 22, alkaline phosphatase 228. * LDH is 222. * Troponin less than 0.017. * CRP is 6.4. * Protein is 8.4. * Albumin is 3.1. * Lactic acid is 1.2. * Magnesium is 2.0. * proBNP is elevated at 1111. * ABG obtained in the right radial with a pH of 7.40 PCO2 of 36.3. PO2 of 71.0. HCO3 of 22.2. O2 saturation 94.5. Base excess is -1.6. This is obtained while on 5 L via nasal cannula. * Chest x-ray is obtained showing diffuse increased parenchymal change within both sides the chest. Findings are highly suspicious for diffuse Covid pneumonia. Please correlate. Other incidental findings are noted. * Patient is started on Rocephin and admitted to the hospital floor PLAN: Pneumonia Lab test negative for COVID-19 virus Hypoxia Shortness of breath Suspected COVID-19 virus infection History of ARDS * Rocephin day 09/28 * Azithromycin day 09/26 * IS/Acapella * RT consultation * Repeat COVID-19 screen in 24-48 hours * Airborne/Contact isolation for now * O2 as needed with saturation goal of >90% * PRN albuterol MDI * PRN duonebs * Respiratory viral panel * Check mycoplasma * Check Strep pneumonia * Procalcitonin ordered * Blood cultures pending * Consider sputum culture * Repeat CXR as needed * Start dexamethasone - day 10/03 * Chest CT obtained 06/01/2021 History of atrial fibrillation Elevated d-dimer History of PE Chronic anticoagulation * Telemetry * Continue home Eliquis * Home cardiac medications as ordered * No acute concerns HLD (hyperlipidemia) * No home medications * No acute concerns HTN (hypertension) * Home medications as ordered. * No acute concerns * Monitor vital signs Sleep apnea * No acute concerns * Home nightly CPAP GERD (gastroesophageal reflux disease) * Famotidine 20mg BID with steroid as above * No home medications * No acute concerns IBS (irritable bowel syndrome) Ileostomy in place Hx SBO * Colostomy cares per nursing * No acute concerns * Monitor output BPH (benign prostatic hyperplasia) * No acute concerns * No home medications Chronic back pain * PRN pain medications as ordered * No acute concerns Type II diabetes mellitus * Start daily 12 units Lantus (1/2 home dose [place] insulin; formulary sub for Anupam dasilva) * QID AC and Bedtime blood glucose checks * Medium intensity sliding scale insulin * Check A1C * Anticipate rise in blood glucose readings with steroid * ADA diet Elevated brain natriuretic peptide (BNP) level Pedal edema * 40mg lasix now * Patient reports echo obtained at [facility] 3-4 months ago - obtain old records * 2gm sodium restriction Obesity (BMI 30-39.9) * No acute concerns * 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 Barrera DVT prophylaxis: Home eliquis Disposition: Patient admitted to the floor for management and further work-up of hypoxia with shortness of breath. Length of stay likely 4 days. - Mortality Measure Prognosis:: Good
[2021-06-01] MEDS ORDERED: Acetaminophen 325 MG Tab PO PRN (11:42)
[2021-06-01] MEDS ORDERED: Docusate Sodium 100 MG Cap PO PRN (11:42)
[2021-06-01] MEDS ORDERED: Albuterol/Ipratropium 3.0-0.5 MG/3 ML Neb Soln NEB PRN (11:42)
[2021-06-01] MEDS ORDERED: Ondansetron 4 MG/2 ML SDV IV PRN (11:42)
[2021-06-01] MEDS ORDERED: oxyCODONE 5 MG Tab PO PRN (11:46)
--- NOTE | 2021-06-01 12:20 | CT ---
CT chest Technique: Multiple axial sections through the chest were obtained. Intravenous contrast was not utilized. Study has been performed as a pulmonary angiogram protocol. Findings: Patchy areas of increased density are seen on both sides of the chest. Small bilateral pleural effusions are noted. Visualized upper abdominal structures show no discrete abnormality. No pericardial thickening is seen. Mild coronary artery calcification is noted. Thoracic aorta shows no aneurysm. Lymph nodes seen within the mediastinum which are minimally prominent. No pericardial effusions are seen. Bone window settings were reviewed which show mild scattered degenerative change within the thoracic spine. No acute osseous abnormality is appreciated. Impression: 1. Patchy areas of increased density are seen within both sides of the chest. Radiographically these are suspicious for COVID pneumonia but by history, patient has a negative COVID test. Please consider repeating the COVID test in several days to confirm. Findings could otherwise represent diffuse pulmonary vascular congestion with irregular areas of pulmonary edema as well as diffuse patchy pneumonia. 2. Small bilateral pleural effusions. 3. Slightly prominent lymph nodes are seen. Recommend repeat chest CT study which can be done without contrast, in 6 months. This repeat study would occur in November,. Diagnostic code #3
[2021-06-01] MEDS ORDERED: Furosemide 40 MG/4 ML VIAL IVPUSH ONE (12:33)
[2021-06-01] MEDS ORDERED: Diphtheria,Pertussis(Acell),Tetanus Vaccine 0.5 ML Syringe IM ONE ×2 (13:11→13:30)
[2021-06-01] MEDS: Dexamethasone 4 MG Tab PO SCH (14:33)
[2021-06-01] MEDS: Azithromycin 500 MG in Sodium Chloride 0.9% 250 ML IV SCH (14:39)
[2021-06-01 17:38] LABS: HEMOGLOBIN A1C 8.2 %
[2021-06-01] MEDS: Insulin Lispro 100 UNIT/ML 10 ML Vial SUBCUT SCH ×2 (18:19→21:36)
[2021-06-01] MEDS: Albuterol 6.7 GM Inhaler INH PRN (21:03)
[2021-06-01] MEDS: Famotidine 20 MG Tab PO SCH (21:34)
[2021-06-01] MEDS: Metoprolol Tartrate 50 MG Tab PO SCH (21:35)
[2021-06-01] MEDS: Amiodarone 200 MG Tab PO SCH (21:35)
[2021-06-01] MEDS: Apixaban 5 MG Tab PO SCH (21:36)
[2021-06-02] MEDS: Albuterol 6.7 GM Inhaler INH PRN ×2 (08:59→19:57)
[2021-06-02] MEDS: Insulin Glarg,Human.Rec.Analog 100 Unit/ML SUBCUT SCH (09:16)
[2021-06-02] MEDS: buPROPion 150 MG Tab.ER PO SCH (09:17)
[2021-06-02] MEDS: Dexamethasone 4 MG Tab PO SCH (09:19)
[2021-06-02] MEDS: Famotidine 20 MG Tab PO SCH ×2 (09:21→22:04)
[2021-06-02] MEDS: Metoprolol Tartrate 50 MG Tab PO SCH ×2 (09:21→21:53)
[2021-06-02] MEDS: Amiodarone 200 MG Tab PO SCH ×2 (09:21→22:04)
[2021-06-02] MEDS: Ferrous Sulfate 324 MG Tab.EC PO SCH (09:22)
[2021-06-02] MEDS: Apixaban 5 MG Tab PO SCH ×2 (09:22→21:53)
[2021-06-02] MEDS: Insulin Lispro 100 UNIT/ML 10 ML Vial SUBCUT SCH ×4 (09:28→22:04)
[2021-06-02] MEDS: cefTRIAXone 2 GM in Sodium Chloride 0.9% 100 ML IV SCH (09:43)
[2021-06-02 11:48] LABS: BORDETELLA PARAPERT IS1001 Not Detected (Not Detected)
[2021-06-02] MEDS: Azithromycin 500 MG in Sodium Chloride 0.9% 250 ML IV SCH (12:38)
--- NOTE | 2021-06-02 13:32 | PCM.PN ---
- General Info Date of Service: 06/02/21 Admission Dx/Problem (Free Text): Admission Diagnosis/Problem Admission Diagnosis/Problem Pneumonia Subjective Update: Patient reports feeling much better today. He states last night was the first night that he has slept well and weeks. Denies any fever, chills, nausea, vomiting or diarrhea. states his appetite has been well. Functional Status: Reports: Pain Controlled, Tolerating Diet, Ambulating, Urinating, Incentive Spirometry - Review of Systems General: Reports: No Symptoms HEENT: Reports: No Symptoms Pulmonary: Reports: No Symptoms. Denies: Cough, Sputum Cardiovascular: Reports: No Symptoms Gastrointestinal: Reports: No Symptoms Genitourinary: Reports: No Symptoms Musculoskeletal: Reports: No Symptoms Skin: Reports: No Symptoms Neurological: Reports: No Symptoms Psychiatric: Reports: No Symptoms - Patient Data Vitals - Most Recent: Last Vital Signs Temp 98.1 F 06/02/21 08:11 Pulse 54 L 06/02/21 09:21 Resp 22 H 06/02/21 08:11 BP 146/77 H 06/02/21 09:21 Pulse Ox 99 06/02/21 11:42 Weight - Most Recent: 287 lb 8 oz I&O - Last 24 Hours: Intake & Output 06/01/21 06/02/21 06/02/21 22:59 06:59 14:59 Intake Total 1410 800 Output Total 1750 1000 Balance -340 -200 Lab Results Last 24 Hours: Laboratory Results - last 24 hr 06/01/21 06/01/21 06/01/21 Range/Units 08:22 08:35 11:00 WBC (4.23-9.07) K/mm3 RBC (4.63-6.08) M/mm3 Hgb (13.7-17.5) gm/dl Hct (40.1-51.0) % MCV (79.0-92.2) fl MCH (25.7-32.2) pg MCHC (32.2-35.5) g/dl RDW Std Deviation (35.1-43.9) fL Plt Count (163-337) K/mm3 MPV (9.4-12.3) fl Neut % (Auto) (34.0-67.9) % Lymph % (Auto) (21.8-53.1) % [place] % (Auto) (5.3-12.2) % Eos % (Auto) (0.8-7.0) Baso % (Auto) (0.1-1.2) % Neut # (Auto) (1.78-5.38) K/mm3 Lymph # (Auto) (1.32-3.57) K/mm3 [place] # (Auto) (0.30-0.82) K/mm3 Eos # (Auto) (0.04-0.54) K/mm3 Baso # (Auto) (0.01-0.08) K/mm3 Manual Slide Review Sodium (136-145) mEq/L Potassium (3.5-5.1) mEq/L Chloride (98-107) mEq/L Carbon Dioxide (21-32) mEq/L Anion Gap (5-15) BUN (7-18) mg/dL Creatinine (0.7-1.3) mg/dL Est Cr Clr Drug Dosing mL/min Estimated GFR (MDRD) (>60) mL/min BUN/Creatinine Ratio (14-18) Glucose (70-99) mg/dL POC Glucose (70-99) mg/dL Hemoglobin A1c 8.2 H ( - 5.6) % Calcium (8.5-10.1) mg/dL Magnesium (1.8-2.4) mg/dL Total Bilirubin (0.2-1.0) mg/dL AST (15-37) U/L ALT (16-63) U/L Alkaline Phosphatase (46-116) U/L C-Reactive Protein (<1.0) mg/dL NT-Pro-B Natriuret Pep (0-125) pg/mL Total Protein (6.4-8.2) g/dl Albumin (3.4-5.0) g/dl Globulin gm/dL Albumin/Globulin Ratio (1-2) Procalcitonin 0.06 ng/mL Adenovirus (PCR) Not detected (Not Detected) B. pertussis DNA (PCR) Not detected (Not Detected) B.parapertussis DNA PCR Not detected (Not Detected) C. pneumoniae DNA (PCR) Not detected (Not Detected) Coronavirus OC43 (PCR) Not detected (Not Detected) Coronavirus HKU1 (PCR) Not detected (Not Detected) Coronavirus 229E (PCR) Not detected (Not Detected) Coronavirus NL63 (PCR) Not detected (Not Detected) Human Metapneumovir PCR Not detected (Not Detected) Influenza A (RT-PCR) Not detected (Not Detected) Influenza B (RT-PCR) Not detected (Not Detected) M. pneumoniae (PCR) Not detected (Not Detected) Parainfluenza 1 (PCR) Not detected (Not Detected) Parainfluenza 2 (PCR) Not detected (Not Detected) Parainfluenza 3 (PCR) Not detected (Not Detected) Parainfluenza 4 (PCR) Not detected (Not Detected) RSV (PCR) Not detected (Not Detected) Entero/Rhino (PCR) Not detected (Not Detected) SARS-CoV-2 (PCR) Not detected (Not Detected) 06/01/21 06/01/21 06/02/21 Range/Units 16:49 21:15 05:50 WBC (4.23-9.07) K/mm3 RBC (4.63-6.08) M/mm3 Hgb (13.7-17.5) gm/dl Hct (40.1-51.0) % MCV (79.0-92.2) fl MCH (25.7-32.2) pg MCHC (32.2-35.5) g/dl RDW Std Deviation (35.1-43.9) fL Plt Count (163-337) K/mm3 MPV (9.4-12.3) fl Neut % (Auto) (34.0-67.9) % Lymph % (Auto) (21.8-53.1) % [place] % (Auto) (5.3-12.2) % Eos % (Auto) (0.8-7.0) Baso % (Auto) (0.1-1.2) % Neut # (Auto) (1.78-5.38) K/mm3 Lymph # (Auto) (1.32-3.57) K/mm3 [place] # (Auto) (0.30-0.82) K/mm3 Eos # (Auto) (0.04-0.54) K/mm3 Baso # (Auto) (0.01-0.08) K/mm3 Manual Slide Review Sodium (136-145) mEq/L Potassium (3.5-5.1) mEq/L Chloride (98-107) mEq/L Carbon Dioxide (21-32) mEq/L Anion Gap (5-15) BUN (7-18) mg/dL Creatinine (0.7-1.3) mg/dL Est Cr Clr Drug Dosing mL/min Estimated GFR (MDRD) (>60) mL/min BUN/Creatinine Ratio (14-18) Glucose (70-99) mg/dL POC Glucose 159 H 184 H 160 H (70-99) mg/dL Hemoglobin A1c ( - 5.6) % Calcium (8.5-10.1) mg/dL Magnesium (1.8-2.4) mg/dL Total Bilirubin (0.2-1.0) mg/dL AST (15-37) U/L ALT (16-63) U/L Alkaline Phosphatase (46-116) U/L C-Reactive Protein (<1.0) mg/dL NT-Pro-B Natriuret Pep (0-125) pg/mL Total Protein (6.4-8.2) g/dl Albumin (3.4-5.0) g/dl Globulin gm/dL Albumin/Globulin Ratio (1-2) Procalcitonin ng/mL Adenovirus (PCR) (Not Detected) B. pertussis DNA (PCR) (Not Detected) B.parapertussis DNA PCR (Not Detected) C. pneumoniae DNA (PCR) (Not Detected) Coronavirus OC43 (PCR) (Not Detected) Coronavirus HKU1 (PCR) (Not Detected) Coronavirus 229E (PCR) (Not Detected) Coronavirus NL63 (PCR) (Not Detected) Human Metapneumovir PCR (Not Detected) Influenza A (RT-PCR) (Not Detected) Influenza B (RT-PCR) (Not Detected) M. pneumoniae (PCR) (Not Detected) Parainfluenza 1 (PCR) (Not Detected) Parainfluenza 2 (PCR) (Not Detected) Parainfluenza 3 (PCR) (Not Detected) Parainfluenza 4 (PCR) (Not Detected) RSV (PCR) (Not Detected) Entero/Rhino (PCR) (Not Detected) SARS-CoV-2 (PCR) (Not Detected) 06/02/21 06/02/21 06/02/21 Range/Units 06:28 06:28 06:28 WBC 12.84 H (4.23-9.07) K/mm3 RBC 4.51 L (4.63-6.08) M/mm3 Hgb 10.6 L (13.7-17.5) gm/dl Hct 35.0 L (40.1-51.0) % MCV 77.6 L (79.0-92.2) fl MCH 23.5 L (25.7-32.2) pg MCHC 30.3 L (32.2-35.5) g/dl RDW Std Deviation 46.8 H (35.1-43.9) fL Plt Count 420 H (163-337) K/mm3 MPV 11.0 (9.4-12.3) fl Neut % (Auto) 90.6 H (34.0-67.9) % Lymph % (Auto) 6.1 L (21.8-53.1) % [place] % (Auto) 3.0 L (5.3-12.2) % Eos % (Auto) 0 L (0.8-7.0) Baso % (Auto) 0.1 (0.1-1.2) % Neut # (Auto) 11.64 H (1.78-5.38) K/mm3 Lymph # (Auto) 0.78 L (1.32-3.57) K/mm3 [place] # (Auto) 0.39 (0.30-0.82) K/mm3 Eos # (Auto) 0.00 L (0.04-0.54) K/mm3 Baso # (Auto) 0.01 (0.01-0.08) K/mm3 Manual Slide Review Abnormal smear Sodium 141 (136-145) mEq/L Potassium 4.0 (3.5-5.1) mEq/L Chloride 104 (98-107) mEq/L Carbon Dioxide 28 (21-32) mEq/L Anion Gap 13.0 (5-15) BUN 32 H (7-18) mg/dL Creatinine 1.4 H (0.7-1.3) mg/dL Est Cr Clr Drug Dosing 66.58 mL/min Estimated GFR (MDRD) 52 (>60) mL/min BUN/Creatinine Ratio 22.9 H (14-18) Glucose 175 H (70-99) mg/dL POC Glucose (70-99) mg/dL Hemoglobin A1c ( - 5.6) % Calcium 8.6 (8.5-10.1) mg/dL Magnesium 2.0 (1.8-2.4) mg/dL Total Bilirubin 0.4 (0.2-1.0) mg/dL AST 11 L (15-37) U/L ALT 19 (16-63) U/L Alkaline Phosphatase 192 H (46-116) U/L C-Reactive Protein 8.7 H* (<1.0) mg/dL NT-Pro-B Natriuret Pep 1311 H (0-125) pg/mL Total Protein 7.8 (6.4-8.2) g/dl Albumin 2.6 L (3.4-5.0) g/dl Globulin 5.2 gm/dL Albumin/Globulin Ratio 0.5 L (1-2) Procalcitonin ng/mL Adenovirus (PCR) (Not Detected) B. pertussis DNA (PCR) (Not Detected) B.parapertussis DNA PCR (Not Detected) C. pneumoniae DNA (PCR) (Not Detected) Coronavirus OC43 (PCR) (Not Detected) Coronavirus HKU1 (PCR) (Not Detected) Coronavirus 229E (PCR) (Not Detected) Coronavirus NL63 (PCR) (Not Detected) Human Metapneumovir PCR (Not Detected) Influenza A (RT-PCR) (Not Detected) Influenza B (RT-PCR) (Not Detected) M. pneumoniae (PCR) (Not Detected) Parainfluenza 1 (PCR) (Not Detected) Parainfluenza 2 (PCR) (Not Detected) Parainfluenza 3 (PCR) (Not Detected) Parainfluenza 4 (PCR) (Not Detected) RSV (PCR) (Not Detected) Entero/Rhino (PCR) (Not Detected) SARS-CoV-2 (PCR) (Not Detected) 06/02/21 Range/Units 11:21 WBC (4.23-9.07) K/mm3 RBC (4.63-6.08) M/mm3 Hgb (13.7-17.5) gm/dl Hct (40.1-51.0) % MCV (79.0-92.2) fl MCH (25.7-32.2) pg MCHC (32.2-35.5) g/dl RDW Std Deviation (35.1-43.9) fL Plt Count (163-337) K/mm3 MPV (9.4-12.3) fl Neut % (Auto) (34.0-67.9) % Lymph % (Auto) (21.8-53.1) % [place] % (Auto) (5.3-12.2) % Eos % (Auto) (0.8-7.0) Baso % (Auto) (0.1-1.2) % Neut # (Auto) (1.78-5.38) K/mm3 Lymph # (Auto) (1.32-3.57) K/mm3 [place] # (Auto) (0.30-0.82) K/mm3 Eos # (Auto) (0.04-0.54) K/mm3 Baso # (Auto) (0.01-0.08) K/mm3 Manual Slide Review Sodium (136-145) mEq/L Potassium (3.5-5.1) mEq/L Chloride (98-107) mEq/L Carbon Dioxide (21-32) mEq/L Anion Gap (5-15) BUN (7-18) mg/dL Creatinine (0.7-1.3) mg/dL Est Cr Clr Drug Dosing mL/min Estimated GFR (MDRD) (>60) mL/min BUN/Creatinine Ratio (14-18) Glucose (70-99) mg/dL POC Glucose 180 H (70-99) mg/dL Hemoglobin A1c ( - 5.6) % Calcium (8.5-10.1) mg/dL Magnesium (1.8-2.4) mg/dL Total Bilirubin (0.2-1.0) mg/dL AST (15-37) U/L ALT (16-63) U/L Alkaline Phosphatase (46-116) U/L C-Reactive Protein (<1.0) mg/dL NT-Pro-B Natriuret Pep (0-125) pg/mL Total Protein (6.4-8.2) g/dl Albumin (3.4-5.0) g/dl Globulin gm/dL Albumin/Globulin Ratio (1-2) Procalcitonin ng/mL Adenovirus (PCR) (Not Detected) B. pertussis DNA (PCR) (Not Detected) B.parapertussis DNA PCR (Not Detected) C. pneumoniae DNA (PCR) (Not Detected) Coronavirus OC43 (PCR) (Not Detected) Coronavirus HKU1 (PCR) (Not Detected) Coronavirus 229E (PCR) (Not Detected) Coronavirus NL63 (PCR) (Not Detected) Human Metapneumovir PCR (Not Detected) Influenza A (RT-PCR) (Not Detected) Influenza B (RT-PCR) (Not Detected) M. pneumoniae (PCR) (Not Detected) Parainfluenza 1 (PCR) (Not Detected) Parainfluenza 2 (PCR) (Not Detected) Parainfluenza 3 (PCR) (Not Detected) Parainfluenza 4 (PCR) (Not Detected) RSV (PCR) (Not Detected) Entero/Rhino (PCR) (Not Detected) SARS-CoV-2 (PCR) (Not Detected) Med Orders - Current: Current Medications Acetaminophen (Acetaminophen 325 Mg Tab) 650 mg PO Q4H PRN PRN Reason: Pain (Mild 1-3)/fever Albuterol (Albuterol 6.7 Gm Inhaler) 0 gm INH Q2H PRN PRN Reason: SOB/Wheezing Last Admin: 06/02/21 08:59 Dose: 2 puff Documented by: Albuterol/Ipratropium (Albuterol/Ipratropium 3.0-0.5 Mg/3 Ml Neb Soln) 3 ml NEB QIDRT PRN PRN Reason: Shortness Of Breath/wheezing Amiodarone HCl (Amiodarone 200 Mg Tab) 200 mg PO BID [facility] Last Admin: 06/02/21 09:21 Dose: 200 mg Documented by: Apixaban (Apixaban 5 Mg Tab) 5 mg PO BID [facility] Last Admin: 06/02/21 09:22 Dose: 5 mg Documented by: Bupropion HCl (Bupropion 150 Mg Tab.Er) 300 mg PO DAILY [facility] Last Admin: 06/02/21 09:17 Dose: 300 mg Documented by: Dexamethasone (Dexamethasone 4 Mg Tab) 6 mg PO DAILY [facility] Stop: 06/10/21 09:01 Last Admin: 06/02/21 09:19 Dose: 6 mg Documented by: Docusate Sodium (Docusate Sodium 100 Mg Cap) 100 mg PO Q12H PRN PRN Reason: Constipation Famotidine (Famotidine 20 Mg Tab) 20 mg PO BID [facility] Last Admin: 06/02/21 09:21 Dose: Not Given Documented by: Ferrous Sulfate (Ferrous Sulfate 324 Mg Tab.Ec) 324 mg PO DAILY [facility] Last Admin: 06/02/21 09:22 Dose: 324 mg Documented by: Ceftriaxone Sodium 2 gm/ (Sodium Chloride) 100 mls @ 200 mls/hr IV Q24H [facility] Stop: 06/06/21 10:59 Last Admin: 06/02/21 09:43 Dose: 200 mls/hr Documented by: Azithromycin 500 mg/ Sodium (Chloride) 250 mls @ 250 mls/hr IV Q24H [facility] Stop: 06/03/21 13:29 Last Admin: 06/02/21 12:38 Dose: 250 mls/hr Documented by: Insulin Glargine (Insulin Glarg,Human.Rec.Analog 100 Unit/Ml) 12 unit SUBCUT DAILY [facility] Last Admin: 06/02/21 09:16 Dose: 12 units Documented by: Insulin Human Lispro (Insulin Lispro 100 Unit/Ml 10 Ml Vial) 0 unit SUBCUT QIDACANDBED [facility]; Protocol Last Admin: 06/02/21 12:38 Dose: 2 units Documented by: Metoprolol Tartrate (Metoprolol Tartrate 50 Mg Tab) 50 mg PO BID [facility] Last Admin: 06/02/21 09:21 Dose: 50 mg Documented by: Ondansetron HCl (Ondansetron 4 Mg/2 Ml Sdv) 4 mg IV Q6H PRN PRN Reason: Nausea/Vomiting Oxycodone HCl (Oxycodone 5 Mg Tab) 5 - 10 mg PO DAILY PRN PRN Reason: Pain Discontinued Medications Diphtheria/Tetanus/Acell Pertussis (Diphtheria,Pertussis(Acell),Tetanus Vaccine 0.5 Ml Syringe) 0.5 ml IM .ONCE ONE Stop: 06/01/21 13:31 Furosemide (Furosemide 40 Mg/4 Ml Vial) 40 mg IVPUSH NOW ONE Stop: 06/01/21 12:34 Last Admin: 06/01/21 14:33 Dose: 40 mg Documented by: Ceftriaxone Sodium 2 gm/ (Sodium Chloride) 100 mls @ 200 mls/hr IV Q24H [facility] Last Admin: 06/01/21 10:35 Dose: 200 mls/hr Documented by: - Exam Quality Assessment: Supplemental Oxygen (1 L per nasal cannula), DVT Prophylaxis (Eliquis) General: Alert, Oriented, Cooperative, No Acute Distress HEENT: Pupils Equal, Pupils Reactive, Mucous Membr. Moist/[place] Neck: Supple, Trachea Midline Lungs: Clear to Auscultation, Normal Respiratory Effort Cardiovascular: Regular Rate, Regular Rhythm GI/Abdominal Exam: Normal Bowel Sounds, Soft, Non-Tender, No Distention (Male) Exam: Deferred Back Exam: Normal Inspection Extremities: Normal Inspection, Normal Range of Motion, Non-Tender, No Pedal Edema, Normal Capillary Refill Peripheral Pulses: 2+: Radial (L), Radial (R) Skin: Warm Neurological: No New Focal Deficit Psy/Mental Status: Alert, Normal Affect, Normal Mood - Patient Data Lab Results Last 24 hrs: Laboratory Results - last 24 hr 06/01/21 06/01/21 06/01/21 Range/Units 08:22 08:35 11:00 WBC (4.23-9.07) K/mm3 RBC (4.63-6.08) M/mm3 Hgb (13.7-17.5) gm/dl Hct (40.1-51.0) % MCV (79.0-92.2) fl MCH (25.7-32.2) pg MCHC (32.2-35.5) g/dl RDW Std Deviation (35.1-43.9) fL Plt Count (163-337) K/mm3 MPV (9.4-12.3) fl Neut % (Auto) (34.0-67.9) % Lymph % (Auto) (21.8-53.1) % [place] % (Auto) (5.3-12.2) % Eos % (Auto) (0.8-7.0) Baso % (Auto) (0.1-1.2) % Neut # (Auto) (1.78-5.38) K/mm3 Lymph # (Auto) (1.32-3.57) K/mm3 [place] # (Auto) (0.30-0.82) K/mm3 Eos # (Auto) (0.04-0.54) K/mm3 Baso # (Auto) (0.01-0.08) K/mm3 Manual Slide Review Sodium (136-145) mEq/L Potassium (3.5-5.1) mEq/L Chloride (98-107) mEq/L Carbon Dioxide (21-32) mEq/L Anion Gap (5-15) BUN (7-18) mg/dL Creatinine (0.7-1.3) mg/dL Est Cr Clr Drug Dosing mL/min Estimated GFR (MDRD) (>60) mL/min BUN/Creatinine Ratio (14-18) Glucose (70-99) mg/dL POC Glucose (70-99) mg/dL Hemoglobin A1c 8.2 H ( - 5.6) % Calcium (8.5-10.1) mg/dL Magnesium (1.8-2.4) mg/dL Total Bilirubin (0.2-1.0) mg/dL AST (15-37) U/L ALT (16-63) U/L Alkaline Phosphatase (46-116) U/L C-Reactive Protein (<1.0) mg/dL NT-Pro-B Natriuret Pep (0-125) pg/mL Total Protein (6.4-8.2) g/dl Albumin (3.4-5.0) g/dl Globulin gm/dL Albumin/Globulin Ratio (1-2) Procalcitonin 0.06 ng/mL Adenovirus (PCR) Not detected (Not Detected) B. pertussis DNA (PCR) Not detected (Not Detected) B.parapertussis DNA PCR Not detected (Not Detected) C. pneumoniae DNA (PCR) Not detected (Not Detected) Coronavirus OC43 (PCR) Not detected (Not Detected) Coronavirus HKU1 (PCR) Not detected (Not Detected) Coronavirus 229E (PCR) Not detected (Not Detected) Coronavirus NL63 (PCR) Not detected (Not Detected) Human Metapneumovir PCR Not detected (Not Detected) Influenza A (RT-PCR) Not detected (Not Detected) Influenza B (RT-PCR) Not detected (Not Detected) M. pneumoniae (PCR) Not detected (Not Detected) Parainfluenza 1 (PCR) Not detected (Not Detected) Parainfluenza 2 (PCR) Not detected (Not Detected) Parainfluenza 3 (PCR) Not detected (Not Detected) Parainfluenza 4 (PCR) Not detected (Not Detected) RSV (PCR) Not detected (Not Detected) Entero/Rhino (PCR) Not detected (Not Detected) SARS-CoV-2 (PCR) Not detected (Not Detected) 06/01/21 06/01/21 06/02/21 Range/Units 16:49 21:15 05:50 WBC (4.23-9.07) K/mm3 RBC (4.63-6.08) M/mm3 Hgb (13.7-17.5) gm/dl Hct (40.1-51.0) % MCV (79.0-92.2) fl MCH (25.7-32.2) pg MCHC (32.2-35.5) g/dl RDW Std Deviation (35.1-43.9) fL Plt Count (163-337) K/mm3 MPV (9.4-12.3) fl Neut % (Auto) (34.0-67.9) % Lymph % (Auto) (21.8-53.1) % [place] % (Auto) (5.3-12.2) % Eos % (Auto) (0.8-7.0) Baso % (Auto) (0.1-1.2) % Neut # (Auto) (1.78-5.38) K/mm3 Lymph # (Auto) (1.32-3.57) K/mm3 [place] # (Auto) (0.30-0.82) K/mm3 Eos # (Auto) (0.04-0.54) K/mm3 Baso # (Auto) (0.01-0.08) K/mm3 Manual Slide Review Sodium (136-145) mEq/L Potassium (3.5-5.1) mEq/L Chloride (98-107) mEq/L Carbon Dioxide (21-32) mEq/L Anion Gap (5-15) BUN (7-18) mg/dL Creatinine (0.7-1.3) mg/dL Est Cr Clr Drug Dosing mL/min Estimated GFR (MDRD) (>60) mL/min BUN/Creatinine Ratio (14-18) Glucose (70-99) mg/dL POC Glucose 159 H 184 H 160 H (70-99) mg/dL Hemoglobin A1c ( - 5.6) % Calcium (8.5-10.1) mg/dL Magnesium (1.8-2.4) mg/dL Total Bilirubin (0.2-1.0) mg/dL AST (15-37) U/L ALT (16-63) U/L Alkaline Phosphatase (46-116) U/L C-Reactive Protein (<1.0) mg/dL NT-Pro-B Natriuret Pep (0-125) pg/mL Total Protein (6.4-8.2) g/dl Albumin (3.4-5.0) g/dl Globulin gm/dL Albumin/Globulin Ratio (1-2) Procalcitonin ng/mL Adenovirus (PCR) (Not Detected) B. pertussis DNA (PCR) (Not Detected) B.parapertussis DNA PCR (Not Detected) C. pneumoniae DNA (PCR) (Not Detected) Coronavirus OC43 (PCR) (Not Detected) Coronavirus HKU1 (PCR) (Not Detected) Coronavirus 229E (PCR) (Not Detected) Coronavirus NL63 (PCR) (Not Detected) Human Metapneumovir PCR (Not Detected) Influenza A (RT-PCR) (Not Detected) Influenza B (RT-PCR) (Not Detected) M. pneumoniae (PCR) (Not Detected) Parainfluenza 1 (PCR) (Not Detected) Parainfluenza 2 (PCR) (Not Detected) Parainfluenza 3 (PCR) (Not Detected) Parainfluenza 4 (PCR) (Not Detected) RSV (PCR) (Not Detected) Entero/Rhino (PCR) (Not Detected) SARS-CoV-2 (PCR) (Not Detected) 06/02/21 06/02/21 06/02/21 Range/Units 06:28 06:28 06:28 WBC 12.84 H (4.23-9.07) K/mm3 RBC 4.51 L (4.63-6.08) M/mm3 Hgb 10.6 L (13.7-17.5) gm/dl Hct 35.0 L (40.1-51.0) % MCV 77.6 L (79.0-92.2) fl MCH 23.5 L (25.7-32.2) pg MCHC 30.3 L (32.2-35.5) g/dl RDW Std Deviation 46.8 H (35.1-43.9) fL Plt Count 420 H (163-337) K/mm3 MPV 11.0 (9.4-12.3) fl Neut % (Auto) 90.6 H (34.0-67.9) % Lymph % (Auto) 6.1 L (21.8-53.1) % [place] % (Auto) 3.0 L (5.3-12.2) % Eos % (Auto) 0 L (0.8-7.0) Baso % (Auto) 0.1 (0.1-1.2) % Neut # (Auto) 11.64 H (1.78-5.38) K/mm3 Lymph # (Auto) 0.78 L (1.32-3.57) K/mm3 [place] # (Auto) 0.39 (0.30-0.82) K/mm3 Eos # (Auto) 0.00 L (0.04-0.54) K/mm3 Baso # (Auto) 0.01 (0.01-0.08) K/mm3 Manual Slide Review Abnormal smear Sodium 141 (136-145) mEq/L Potassium 4.0 (3.5-5.1) mEq/L Chloride 104 (98-107) mEq/L Carbon Dioxide 28 (21-32) mEq/L Anion Gap 13.0 (5-15) BUN 32 H (7-18) mg/dL Creatinine 1.4 H (0.7-1.3) mg/dL Est Cr Clr Drug Dosing 66.58 mL/min Estimated GFR (MDRD) 52 (>60) mL/min BUN/Creatinine Ratio 22.9 H (14-18) Glucose 175 H (70-99) mg/dL POC Glucose (70-99) mg/dL Hemoglobin A1c ( - 5.6) % Calcium 8.6 (8.5-10.1) mg/dL Magnesium 2.0 (1.8-2.4) mg/dL Total Bilirubin 0.4 (0.2-1.0) mg/dL AST 11 L (15-37) U/L ALT 19 (16-63) U/L Alkaline Phosphatase 192 H (46-116) U/L C-Reactive Protein 8.7 H* (<1.0) mg/dL NT-Pro-B Natriuret Pep 1311 H (0-125) pg/mL Total Protein 7.8 (6.4-8.2) g/dl Albumin 2.6 L (3.4-5.0) g/dl Globulin 5.2 gm/dL Albumin/Globulin Ratio 0.5 L (1-2) Procalcitonin ng/mL Adenovirus (PCR) (Not Detected) B. pertussis DNA (PCR) (Not Detected) B.parapertussis DNA PCR (Not Detected) C. pneumoniae DNA (PCR) (Not Detected) Coronavirus OC43 (PCR) (Not Detected) Coronavirus HKU1 (PCR) (Not Detected) Coronavirus 229E (PCR) (Not Detected) Coronavirus NL63 (PCR) (Not Detected) Human Metapneumovir PCR (Not Detected) Influenza A (RT-PCR) (Not Detected) Influenza B (RT-PCR) (Not Detected) M. pneumoniae (PCR) (Not Detected) Parainfluenza 1 (PCR) (Not Detected) Parainfluenza 2 (PCR) (Not Detected) Parainfluenza 3 (PCR) (Not Detected) Parainfluenza 4 (PCR) (Not Detected) RSV (PCR) (Not Detected) Entero/Rhino (PCR) (Not Detected) SARS-CoV-2 (PCR) (Not Detected) 06/02/21 Range/Units 11:21 WBC (4.23-9.07) K/mm3 RBC (4.63-6.08) M/mm3 Hgb (13.7-17.5) gm/dl Hct (40.1-51.0) % MCV (79.0-92.2) fl MCH (25.7-32.2) pg MCHC (32.2-35.5) g/dl RDW Std Deviation (35.1-43.9) fL Plt Count (163-337) K/mm3 MPV (9.4-12.3) fl Neut % (Auto) (34.0-67.9) % Lymph % (Auto) (21.8-53.1) % [place] % (Auto) (5.3-12.2) % Eos % (Auto) (0.8-7.0) Baso % (Auto) (0.1-1.2) % Neut # (Auto) (1.78-5.38) K/mm3 Lymph # (Auto) (1.32-3.57) K/mm3 [place] # (Auto) (0.30-0.82) K/mm3 Eos # (Auto) (0.04-0.54) K/mm3 Baso # (Auto) (0.01-0.08) K/mm3 Manual Slide Review Sodium (136-145) mEq/L Potassium (3.5-5.1) mEq/L Chloride (98-107) mEq/L Carbon Dioxide (21-32) mEq/L Anion Gap (5-15) BUN (7-18) mg/dL Creatinine (0.7-1.3) mg/dL Est Cr Clr Drug Dosing mL/min Estimated GFR (MDRD) (>60) mL/min BUN/Creatinine Ratio (14-18) Glucose (70-99) mg/dL POC Glucose 180 H (70-99) mg/dL Hemoglobin A1c ( - 5.6) % Calcium (8.5-10.1) mg/dL Magnesium (1.8-2.4) mg/dL Total Bilirubin (0.2-1.0) mg/dL AST (15-37) U/L ALT (16-63) U/L Alkaline Phosphatase (46-116) U/L C-Reactive Protein (<1.0) mg/dL NT-Pro-B Natriuret Pep (0-125) pg/mL Total Protein (6.4-8.2) g/dl Albumin (3.4-5.0) g/dl Globulin gm/dL Albumin/Globulin Ratio (1-2) Procalcitonin ng/mL Adenovirus (PCR) (Not Detected) B. pertussis DNA (PCR) (Not Detected) B.parapertussis DNA PCR (Not Detected) C. pneumoniae DNA (PCR) (Not Detected) Coronavirus OC43 (PCR) (Not Detected) Coronavirus HKU1 (PCR) (Not Detected) Coronavirus 229E (PCR) (Not Detected) Coronavirus NL63 (PCR) (Not Detected) Human Metapneumovir PCR (Not Detected) Influenza A (RT-PCR) (Not Detected) Influenza B (RT-PCR) (Not Detected) M. pneumoniae (PCR) (Not Detected) Parainfluenza 1 (PCR) (Not Detected) Parainfluenza 2 (PCR) (Not Detected) Parainfluenza 3 (PCR) (Not Detected) Parainfluenza 4 (PCR) (Not Detected) RSV (PCR) (Not Detected) Entero/Rhino (PCR) (Not Detected) SARS-CoV-2 (PCR) (Not Detected) Result Diagrams: 06/02/21 06:28 06/02/21 06:28 Sepsis Event Note - Evaluation Sepsis Screening Result: No Definite Risk - Focused Exam Vital Signs: Vital Signs Temp Pulse Resp BP Pulse Ox Pulse Ox 06/02/21 11:42 99 06/02/21 09:59 99 06/02/21 09:21 54 L 146/77 H 06/02/21 09:00 100 06/02/21 08:11 98.1 F 54 L 22 H 146/77 H 100 06/02/21 05:48 98.1 F 53 L 20 136/76 99 - Problem List & Annotations (1) Elevated brain natriuretic peptide (BNP) level SNOMED Code(s): 662270269, 946108028 Code(s): R79.89 - OTHER SPECIFIED ABNORMAL FINDINGS OF BLOOD CHEMISTRY Status: Acute Priority: High Current Visit: Yes (2) Elevated d-dimer SNOMED Code(s): 997693255 Code(s): R79.89 - OTHER SPECIFIED ABNORMAL FINDINGS OF BLOOD CHEMISTRY Status: Acute Priority: Medium Current Visit: Yes (3) Hypoxia SNOMED Code(s): 559633638 Code(s): R09.02 - HYPOXEMIA Status: Acute Priority: High Current Visit: Yes (4) Lab test negative for COVID-19 virus SNOMED Code(s): 5586433618320560 Code(s): Z20.822 - CONTACT WITH AND (SUSPECTED) EXPOSURE TO COVID-19 Status: Acute Priority: High Current Visit: Yes (5) Open wound of right great toe SNOMED Code(s): 04604248676149370 Code(s): S91.101A - UNSP OPEN WOUND OF RIGHT GREAT TOE W/O DAMAGE TO NAIL, INIT Status: Acute Priority: High Current Visit: Yes Qualifiers: Encounter type: initial encounter Qualified Code(s): S91.101A - Unspecified open wound of right great toe without damage to nail, initial encounter (6) Pneumonia SNOMED Code(s): 632258210 Code(s): J18.9 - PNEUMONIA, UNSPECIFIED ORGANISM Status: Acute Priority: High Current Visit: Yes Qualifiers: Pneumonia type: due to unspecified organism Laterality: bilateral Lung location: unspecified part of lung Qualified Code(s): J18.9 - Pneumonia, unspecified organism (7) Shortness of breath SNOMED Code(s): 584768369 Code(s): R06.02 - SHORTNESS OF BREATH Status: Acute Priority: High Current Visit: Yes (8) Suspected COVID-19 virus infection SNOMED Code(s): 668602146 Code(s): Z20.822 - CONTACT WITH AND (SUSPECTED) EXPOSURE TO COVID-19 Status: Acute Priority: High Current Visit: Yes (9) Chronic anticoagulation SNOMED Code(s): 847031280 Code(s): Z79.01 - BANKMAN (CURRENT) USE OF ANTICOAGULANTS Status: Chronic Priority: Medium Current Visit: Yes (10) Ileostomy in place SNOMED Code(s): 420286612 Code(s): Z93.2 - ILEOSTOMY STATUS Status: Chronic Priority: Medium Current Visit: Yes (11) Obesity (BMI 30-39.9) SNOMED Code(s): 861825472, 354559209 Code(s): E66.9 - OBESITY, UNSPECIFIED Status: Chronic Priority: Medium Current Visit: Yes (12) Pedal edema SNOMED Code(s): 034155922 Code(s): R60.0 - LOCALIZED EDEMA Status: Chronic Priority: Medium Current Visit: Yes (13) Type II diabetes mellitus SNOMED Code(s): 69801217 Code(s): E11.9 - TYPE 2 DIABETES MELLITUS WITHOUT COMPLICATIONS Status: Chronic Priority: Medium Current Visit: Yes Qualifiers: Diabetes mellitus professor of pathology insulin use: with jail use Diabetes mellit complication status: with other specified complication Qualified Code(s): E11.69 - Type 2 diabetes mellitus with other specified complication; Z79.4 - halfway (current) use of insulin (14) Inflammatory bowel disease SNOMED Code(s): 82853703 Code(s): K63.89 - OTHER SPECIFIED DISEASES OF INTESTINE Status: Acute Current Visit: No (15) BPH (benign prostatic hyperplasia) SNOMED Code(s): 837468444 Code(s): N40.0 - BENIGN PROSTATIC HYPERPLASIA WITHOUT LOWER URINRY TRACT SYMP Status: Chronic Priority: Low Current Visit: No Qualifiers: Lower urinary tract symptom presence: symptoms absent Qualified Code(s): N40.0 - Benign prostatic hyperplasia without lower urinary tract symptoms (16) Chronic back pain SNOMED Code(s): 843213586 Code(s): M54.9 - DORSALGIA, UNSPECIFIED; G89.29 - OTHER CHRONIC PAIN Status: Chronic Priority: Low Current Visit: No Qualifiers: Back pain location: back pain in unspecified location Back pain laterality: unspecified Qualified Code(s): M54.9 - Dorsalgia, unspecified; G89.29 - Other chronic pain (17) GERD (gastroesophageal reflux disease) SNOMED Code(s): 426411462 Code(s): K21.9 - GASTRO-ESOPHAGEAL REFLUX DISEASE WITHOUT ESOPHAGITIS Status: Chronic Priority: Low Current Visit: No Qualifiers: Esophagitis presence: esophagitis presence not specified Qualified Code(s): K21.9 - Gastro-esophageal reflux disease without esophagitis (18) HLD (hyperlipidemia) SNOMED Code(s): 60657869 Code(s): E78.5 - HYPERLIPIDEMIA, UNSPECIFIED Status: Chronic Priority: Low Current Visit: No Qualifiers: Hyperlipidemia type: unspecified Qualified Code(s): E78.5 - Hyperlipidemia, unspecified (19) HTN (hypertension) SNOMED Code(s): 73417722 Code(s): I10 - ESSENTIAL (PRIMARY) HYPERTENSION Status: Chronic Priority: Medium Current Visit: No Qualifiers: Hypertension type: unspecified Qualified Code(s): I10 - Essential (primary) hypertension (20) History of ARDS SNOMED Code(s): 929176604 Code(s): Z87.09 - PERSONAL HISTORY OF OTHER DISEASES OF THE RESPIRATORY SYSTEM Status: Chronic Priority: Medium Current Visit: No (21) History of atrial fibrillation SNOMED Code(s): 349167949 Code(s): Z86.79 - PERSONAL HISTORY OF OTHER DISEASES OF THE CIRCULATORY SYSTEM Status: Chronic Priority: Medium Current Visit: No (22) Hx SBO SNOMED Code(s): 442883395177298572 Code(s): Z87.19 - PERSONAL HISTORY OF OTHER DISEASES OF THE DIGESTIVE SYSTEM Status: Chronic Priority: Low Current Visit: No (23) Sleep apnea SNOMED Code(s): 14389439 Code(s): G47.30 - SLEEP APNEA, UNSPECIFIED Status: Chronic Priority: Low Current Visit: No Qualifiers: Sleep apnea type: unspecified type Qualified Code(s): G47.30 - Sleep apnea, unspecified - Problem List Review Problem List Initiated/Reviewed/Updated: Yes - Assessment Assessment:: 06/02/2021 56-year-old male presented to the emergency department on 06/01/2021 with shortness of breath that has progressively gotten worse. Ports dyspnea on exertion. Patient states that symptoms started the day before. Denies having any Covid vaccines. Denies history of Covid. Initial Covid swab was negative, however chest x-ray that was obtained reports findings highly suspicious for diffuse Covid pneumonia. Currently being treated with Rocephin. Received 40 mg of IV Lasix yesterday and patient states he diuresed significantly and feels much better today. Labs today reveal a WBC of 12.84, hemoglobin 10.6, hematocrit 35.0, platelet count 420,000, sodium 141, potassium 4.0, anion gap 13.0, BUN 32, creatinine 1.4, GFR 52, glucose 979083, AST 11, ALT 19, alk phos 192, C-reactive protein 8.7, proBNP 1311. Patient will likely discharge home tomorrow. Echocardiogram obtained 04/06/2021: Mildly dilated left ventricle with normal systolic function and mild concentric hypertrophy. The left ventricular ejection fraction is 55 to 60%. Grade 3 diastolic dysfunction (restrictive pattern) with elevated left ventricular filling pressures. Severe biatrial dilation. Mild mitral regurgitation. - Plan Plan:: Assessment - day of admission 06/01/2021 * 56-year-old male who presents to ED on 06/01/2021 with shortness of breath, which has gotten progressively worse * History of HLD, HTN, PE, sleep apnea, ARDS, GERD, inflammatory bowel disease, ulcerative colitis, BPH, chronic back pain, type II DM, obesity, ileostomy, A- fib * Reports any type of exertion leads to severe dyspnea * Denies any direct exposure to anyone with Covid * Does have a history of A. fib and PEs with chronic use of Eliquis which he states he is taken regularly. * Has not had any Covid vaccines yet * Was hospitalized 12/18/2020 through 12/27/[address] Espinosa, general surgeon with a small bowel obstruction. * 12-lead EKG was obtained showing a sinus rhythm with supraventricular bigeminy at a rate of 65 bpm. There is decreased electrical activity in the limb leads. This was compared to prior EKG on 12/20/2020 which showed A. fib with RVR and axis change. * Blood cultures were obtained. * Labs were obtained: * WBC of 15.68. * Hemoglobin 11.6. * He is microcytic. * Platelets 442,000. * Neutrophils are elevated at 84%. There is no bandemia. * INR is 1.16. * aPTT is 30.0. * SARS-CoV-2 RNA is negative. * D-dimer is 0.68. * Sodium is 139. * Potassium 3.9. * Chloride 103. * Carbon dioxide 28. * Anion gap is 11.9. * BUN is 22. Creatinine 1.3. GFR 57. * Calcium is 8.9. * Ferritin is 55. * Bilirubin 0.6. * AST is 14, ALT 22, alkaline phosphatase 228. * LDH is 222. * Troponin less than 0.017. * CRP is 6.4. * Protein is 8.4. * Albumin is 3.1. * Lactic acid is 1.2. * Magnesium is 2.0. * proBNP is elevated at 1111. * ABG obtained in the right radial with a pH of 7.40 PCO2 of 36.3. PO2 of 71.0. HCO3 of 22.2. O2 saturation 94.5. Base excess is -1.6. This is obtained while on 5 L via nasal cannula. * Chest x-ray is obtained showing diffuse increased parenchymal change within both sides the chest. Findings are highly suspicious for diffuse Covid pneumonia. Please correlate. Other incidental findings are noted. * Patient is started on Rocephin and admitted to the hospital floor PLAN: Pneumonia Lab test negative for COVID-19 virus Hypoxia Shortness of breath Suspected COVID-19 virus infection History of ARDS * Rocephin day 2/5 * Azithromycin day 2/3 * IS/Acapella * RT consultation * Repeat COVID-19 screen in 24-48 hours * Airborne/Contact isolation for now * O2 as needed with saturation goal of >90% * PRN albuterol MDI * PRN duonebs * Respiratory viral panel was negative * Check mycoplasma * Check Strep pneumonia * Procalcitonin ordered * Blood cultures pending * Consider sputum culture * Repeat CXR as needed * Start dexamethasone - day 2 * Chest CT obtained 06/01/2021 History of atrial fibrillation Elevated d-dimer History of PE Chronic anticoagulation * Telemetry * Continue home Eliquis * Home cardiac medications as ordered * No acute concerns HLD (hyperlipidemia) * No home medications * No acute concerns HTN (hypertension) * Home medications as ordered. * No acute concerns * Monitor vital signs Sleep apnea * No acute concerns * Home nightly CPAP GERD (gastroesophageal reflux disease) * Famotidine 20mg BID with steroid as above * No home medications * No acute concerns IBS (irritable bowel syndrome) Ileostomy in place Hx SBO * Colostomy cares per nursing * No acute concerns * Monitor output BPH (benign prostatic hyperplasia) * No acute concerns * No home medications Chronic back pain * PRN pain medications as ordered * No acute concerns Type II diabetes mellitus * Start daily 12 units Lantus (1/2 home dose [place] insulin; formulary sub for Tresiba) * QID AC and Bedtime blood glucose checks * Medium intensity sliding scale insulin * Check A1C * Anticipate rise in blood glucose readings with steroid * ADA diet Elevated brain natriuretic peptide (BNP) level Pedal edema * 40mg lasix now * Echocardiogram obtained on 04/06/2021 shows a left ventricular ejection fraction of 55 to 60% * 2gm sodium restriction Obesity (BMI 30-39.9) * No acute concerns * Consider [employer] athletic [employer] consultation Open wound of right great toe * Appears to be 2/2 ingrown toenail * Culture wound * Bandage * Outpatient podiatry follow-up Code status: Full code PCP: Dr. Barrera DVT prophylaxis: Home eliquis Disposition: Patient admitted to the floor for management and further work-up of hypoxia with shortness of breath. Potential discharge to home tomorrow.
[2021-06-03] MEDS: Insulin Lispro 100 UNIT/ML 10 ML Vial SUBCUT SCH ×2 (07:46→11:25)
[2021-06-03 08:05] VITALS: BP 156/80; PULSE 56
[2021-06-03] MEDS: cefTRIAXone 2 GM in Sodium Chloride 0.9% 100 ML IV SCH (09:30)
[2021-06-03] MEDS: buPROPion 150 MG Tab.ER PO SCH (09:31)
[2021-06-03] MEDS: Amiodarone 200 MG Tab PO SCH (09:31)
[2021-06-03] MEDS: Apixaban 5 MG Tab PO SCH (09:32)
[2021-06-03] MEDS: Ferrous Sulfate 324 MG Tab.EC PO SCH (09:32)
[2021-06-03] MEDS: Insulin Glarg,Human.Rec.Analog 100 Unit/ML SUBCUT SCH (09:32)
[2021-06-03] MEDS: Metoprolol Tartrate 50 MG Tab PO SCH (09:34)
[2021-06-03] MEDS: Famotidine 20 MG Tab PO SCH (09:34)
[2021-06-03] MEDS: Dexamethasone 4 MG Tab PO SCH (09:34)
[2021-06-03] MEDS: Albuterol 6.7 GM Inhaler INH PRN (09:47)
[2021-06-03] MEDS ORDERED: Azithromycin 250 MG Tab PO ONE ×2 (11:30→12:30)
--- NOTE | 2021-06-03 11:46 | PCM.DCSUM1 ---
Discharge Summary - Hospital Course HPI Initial Comments: This is a 56-year-old male who presents to ED on 06/01/2021 with shortness of breath, which has gotten progressively worse. Patient reports any type of exertion leads to severe dyspnea. Denies any direct exposure to anyone with Covid. He does have a history of A. fib and PEs with chronic use of Eliquis which he states he is taken regularly. No history of any coronary artery complications. He does have a history of ulcerative colitis and has had a colectomy but is not on any medications. He has not had any Covid vaccines yet. Of note patient was hospitalized 12/18/2020 through 12/27/[address] Espinosa, general surgeon with a small bowel obstruction. In the ED twelve-lead EKG was obtained showing a sinus rhythm with supraventricular bigeminy at a rate of 65 bpm. There is decreased electrical activity in the limb leads. This was compared to prior EKG on 12/20/2020 which showed A. fib with RVR and axis change. Temp was 36.9. Pulse 65. Respirations 23. Blood pressure 159/91. Pulse ox 97%. Blood cultures were obtained. Labs were obtained with a WBC of 15.68. Hemoglobin 11.6. He is microcytic. Platelets 442,000. Neutrophils are elevated at 84%. There is no bandemia. INR is 1.16. aPTT is 30.0. SARS-CoV-2 RNA is negative. D-dimer is 0.68. Sodium is 139. Potassium 3.9. Chloride 103. Carbon dioxide 28. Anion gap is 11.9. BUN is 22. Creatinine 1.3. GFR 57. Calcium is 8.9. Ferritin is 55. Bilirubin 0.6. AST is 14, ALT 22, alkaline phosphatase 228. LDH is 222. Troponin less than 0.017. CRP is 6.4. Protein is 8.4. Albumin is 3.1. Lactic acid is 1.2. Magnesium is 2.0. proBNP is elevated at 1111. ABGs obtained in the right radial with a pH of 7.40 PCO2 of 36.3. PO2 of 71.0. HCO3 of 22.2. O2 saturation 94.5. Base excess is -1.6. This is obtained while on 5 L via nasal cannula. Chest x-ray is obtained showing diffuse increased parenchymal change within both sides the chest. Findings are highly suspicious for diffuse Covid pneumonia. Please correlate. Other incidental findings are noted. Skye dawson is started on Rocephin. He carries a history of HLD, HTN, PE, sleep apnea, ARDS, GERD, inflammatory bowel disease, ulcerative colitis, BPH, chronic back pain, type II DM, obesity, ileostomy. He is a full code. His PCP is Dr. Barrera. He subsequently mated to the floor for further work-up of his hypoxia with suspected pneumonia versus CHF exacerbation. Addendum: On physical exam inadvertently missed out the patient does have ileostomy present in right upper abdomen. Stoma shows no signs of infection or inflammation. Old records obtained from [facility] show an echocardiogram obtained on 04/06/2021 at [facility] in [place]. This shows mildly dilated left ventricle with normal systolic function and mild concentric hypertrophy. Left ventricular ejection fraction is 55 to 60%. There is grade 3 diastolic dysfunction (restrictive pattern) with elevated left ventricular filling pressures. Severe biatrial dilation is noted and mild mitral regurgitation. 24-hour Holter monitor results from 04/04/2021 reviewed and showed baseline rhythm of normal sinus rhythm ranging from 45 bpm to 92 bpm, averaging 57 bpm. No significant pauses. No documented atrial fibrillation. Rare PVCs with a burden less than 1% and no runs of ventricular tachycardia. Rare PACs with a burden less than 1% and one brief nonsustained 3 beat run of atrial tachycardia, otherwise no sustained arrhythmias. There were no symptom episodes recorded. Diagnosis: Stroke: No - Discharge Data Discharge Date: 06/03/21 (Admit date: 06/01/2021) Discharge Disposition: Home, Self-Care 01 Condition: Good - Referral to Home Health Primary Care Physician: John Barrera MD - Discharge Diagnosis/Problem(s) (1) Hx SBO SNOMED Code(s): 548094129901641749 ICD Code: Z87.19 - PERSONAL HISTORY OF OTHER DISEASES OF THE DIGESTIVE SYSTEM Status: Chronic Priority: Low Current Visit: No (2) History of atrial fibrillation SNOMED Code(s): 908301822 ICD Code: Z86.79 - PERSONAL HISTORY OF OTHER DISEASES OF THE CIRCULATORY SYSTEM Status: Chronic Priority: Medium Current Visit: No (3) HLD (hyperlipidemia) SNOMED Code(s): 62400455 ICD Code: E78.5 - HYPERLIPIDEMIA, UNSPECIFIED Status: Chronic Priority: Low Current Visit: No Qualifiers: Hyperlipidemia type: unspecified Qualified Code(s): E78.5 - Hyperlipidemia, unspecified (4) HTN (hypertension) SNOMED Code(s): 55358875 ICD Code: I10 - ESSENTIAL (PRIMARY) HYPERTENSION Status: Chronic Priority: Medium Current Visit: No Qualifiers: Hypertension type: unspecified Qualified Code(s): I10 - Essential (primary) hypertension (5) Sleep apnea SNOMED Code(s): 26577291 ICD Code: G47.30 - SLEEP APNEA, UNSPECIFIED Status: Chronic Priority: Low Current Visit: No Qualifiers: Sleep apnea type: unspecified type Qualified Code(s): G47.30 - Sleep apnea, unspecified (6) History of ARDS SNOMED Code(s): 903233583 ICD Code: Z87.09 - PERSONAL HISTORY OF OTHER DISEASES OF THE RESPIRATORY SYSTEM Status: Chronic Priority: Medium Current Visit: No (7) GERD (gastroesophageal reflux disease) SNOMED Code(s): 502263875 ICD Code: K21.9 - GASTRO-ESOPHAGEAL REFLUX DISEASE WITHOUT ESOPHAGITIS Status: Chronic Priority: Low Current Visit: No Qualifiers: Esophagitis presence: esophagitis presence not specified Qualified Code(s): K21.9 - Gastro-esophageal reflux disease without esophagitis (8) IBS (irritable bowel syndrome) SNOMED Code(s): 34279589 ICD Code: K58.9 - IRRITABLE BOWEL SYNDROME WITHOUT DIARRHEA Status: Chronic Priority: Low Current Visit: No Qualifiers: Irritable bowel syndrome type: unspecified Qualified Code(s): K58.9 - Irritable bowel syndrome without diarrhea (9) BPH (benign prostatic hyperplasia) SNOMED Code(s): 871112575 ICD Code: N40.0 - BENIGN PROSTATIC HYPERPLASIA WITHOUT LOWER URINRY TRACT SYMP Status: Chronic Priority: Low Current Visit: No Qualifiers: Lower urinary tract symptom presence: symptoms absent Qualified Code(s): N40.0 - Benign prostatic hyperplasia without lower urinary tract symptoms (10) Chronic back pain SNOMED Code(s): 919635238 ICD Code: M54.9 - DORSALGIA, UNSPECIFIED; G89.29 - OTHER CHRONIC PAIN Status: Chronic Priority: Low Current Visit: No Qualifiers: Back pain location: back pain in unspecified location Back pain laterality: unspecified Qualified Code(s): M54.9 - Dorsalgia, unspecified; G89.29 - Other chronic pain (11) Type II diabetes mellitus SNOMED Code(s): 95300743 ICD Code: E11.9 - TYPE 2 DIABETES MELLITUS WITHOUT COMPLICATIONS Status: Chronic Priority: Medium Current Visit: Yes Qualifiers: Diabetes mellitus terminal operator insulin use: with assisted use Diabetes mellitus complication status: with other specified complication Qualified Code(s): E11.69 - Type 2 diabetes mellitus with other specified complication; Z79.4 - MCFP (current) use of insulin (12) Ileostomy in place SNOMED Code(s): 558596887 ICD Code: Z93.2 - ILEOSTOMY STATUS Status: Chronic Priority: Medium Current Visit: Yes (13) Chronic anticoagulation SNOMED Code(s): 701975140 ICD Code: Z79.01 - MARINE PLUMBER (CURRENT) USE OF ANTICOAGULANTS Status: Chronic Priority: Medium Current Visit: Yes (14) Elevated d-dimer SNOMED Code(s): 035235084 ICD Code: R79.89 - OTHER SPECIFIED ABNORMAL FINDINGS OF BLOOD CHEMISTRY Status: Acute Priority: Medium Current Visit: Yes (15) Pneumonia SNOMED Code(s): 972540906 ICD Code: J18.9 - PNEUMONIA, UNSPECIFIED ORGANISM Status: Acute Priority: High Current Visit: Yes Qualifiers: Pneumonia type: due to unspecified organism Laterality: bilateral Lung location: unspecified part of lung Qualified Code(s): J18.9 - Pneumonia, unspecified organism (16) Elevated brain natriuretic peptide (BNP) level SNOMED Code(s): 017558639, 350790501 ICD Code: R79.89 - OTHER SPECIFIED ABNORMAL FINDINGS OF BLOOD CHEMISTRY Status: Acute Priority: High Current Visit: Yes (17) Pedal edema SNOMED Code(s): 065748453 ICD Code: R60.0 - LOCALIZED EDEMA Status: Chronic Priority: Medium Current Visit: Yes (18) Lab test negative for COVID-19 virus SNOMED Code(s): 6356261431894244 ICD Code: Z20.822 - CONTACT WITH AND (SUSPECTED) EXPOSURE TO COVID-19 Status: Acute Priority: High Current Visit: Yes (19) Hypoxia SNOMED Code(s): 799170053 ICD Code: R09.02 - HYPOXEMIA Status: Acute Priority: High Current Visit: Yes (20) Shortness of breath SNOMED Code(s): 745800032 ICD Code: R06.02 - SHORTNESS OF BREATH Status: Acute Priority: High Current Visit: Yes (21) Suspected COVID-19 virus infection SNOMED Code(s): 003427840 ICD Code: Z20.822 - CONTACT WITH AND (SUSPECTED) EXPOSURE TO COVID-19 Status: Ruled-out Priority: High Current Visit: Yes (22) Obesity (BMI 30-39.9) SNOMED Code(s): 249718761, 441033313 ICD Code: E66.9 - OBESITY, UNSPECIFIED Status: Chronic Priority: Medium Current Visit: Yes (23) Open wound of right great toe SNOMED Code(s): 71442257516455168 ICD Code: S91.101A - UNSP OPEN WOUND OF RIGHT GREAT TOE W/O DAMAGE TO NAIL, INIT Status: Acute Priority: High Current Visit: Yes Qualifiers: Encounter type: initial encounter Qualified Code(s): S91.101A - Unspecified open wound of right great toe without damage to nail, initial encounter (24) History of pulmonary embolus (PE) SNOMED Code(s): 424297213 ICD Code: Z86.711 - PERSONAL HISTORY OF PULMONARY EMBOLISM Status: Chronic Priority: Low Current Visit: No - Patient Summary/Data Consults: Consultations 06/01/21 11:44 Respiratory Care Assess and Treatment [CONS] Routine Labs Pending at D/C: Toe wound culture Recommended Follow-up Testing/Procedures: Up with primary care provider within 7 to 10 days of discharge, sooner if needed. * Patient prescribed as needed albuterol inhaler and 5 days of 500 mg every 8 hour Keflex for pneumonia/toe wound. * Patient instructed to continue utilize incentive spirometer/Acapella for 1 to 2 weeks or until symptoms resolve. * Recommend repeat CBC, CMP, and magnesium at discharge. Consider repeat chest x-ray. * Patient is directed to weigh himself daily and record this in a journal. Please review weight journal. * Patient given as needed Lasix for greater than 3 pound weight gain in 1 day or 5 pound weight gain in 1 week. * Patient is directed to continue to check blood glucose readings as before. Patient warned readings may be elevated due to receiving steroid while here. * Recommend repeat chest CT regarding enlarged lymph nodes in 6 months (November 2021) Recommend follow-up with podiatry as scheduled regarding toe wound, as patient is a diabetic. Hospital Course: This is a 56-year-old male who presented to ED on 06/01/2021 with shortness of breath has been getting progressively worse. History of HLD, HTN, PE, sleep apnea, ARDS, GERD, inflammatory bowel disease, ulcerative colitis, BPH, chronic back pain, type II DM, obesity, ileostomy, A-fib. He was hospitalized 12/18/2020 through 12/27/[address] Espinosa, general surgeon, with small bowel obstruction, which she reports has resolved and had no issues since. Twelve- lead EKG was obtained in the ER showing sinus rhythm with supraventricular bigeminy and decreased electrical activity in the limb leads. This was a change from prior EKG which showed A. fib with RVR and axis change. Mild leukocytosis of 15.68 was noted. D-dimer was mildly elevated at 0.68. Patient did have mild acute renal insufficiency with a creatinine 1.3 and GFR 57. Inflammatory markers including ferritin and LDH were within normal limits. Chest x-ray showed diffuse bilateral pneumonia consistent with COVID-19. Patient's COVID-19 screen however was negative. CT of the chest was obtained on admission and showed "1. Patchy areas of increased density as seen within both sides of the chest. Radiographically these are suspicious for Covid pneumonia but by hist ory, patient has a negative Covid test. Please consider repeating the Covid test in several days to confirm. Findings could otherwise represent diffuse pulmonary vascular congestion with irregular areas of pulmonary edema as well as diffuse patchy pneumonia. 2 small bilateral pleural effusions. 3. Slightly prominent lymph nodes are seen. Recommend repeat chest CT study which can be done without contrast in 6 months. This repeat study would occur in November,." BNP on admission was also noted to be elevated at 1111. He was started on IV Rocephin and admitted to the medical floor. Given symptoms and chest x- ray concerning for COVID-19 pneumonia patient was placed on isolation precautions and started on 6 mg dexamethasone daily while we did further testing. Respiratory viral panel was sent and was negative. Repeat COVID-19 testing was again negative and dexamethasone was stopped. Patient was also taken off of contact and airborne precautions. Patient was given Lasix on admission. Echocardiogram which was obtained from [facility] on 04/06/2021 was reviewed and showed Mildly dilated left ventricle with normal systolic function and mild concentric hypertrophy. The left ventricular ejection fraction is 55 to 60%. Grade 3 diastolic dysfunction (restrictive pattern) with elevated left ventricular filling pressures. Severe biatrial dilation. Mild mitral regurgitation. Patient has been following cardiology and is not on any diuretics. Mycoplasma and strep pneumonia were negative. Procalcitonin was 0.06. Is worse patient was requiring up to 5 L of oxygen. He was weaned down to room air and tolerating this well. He is on Eliquis due to prior PE and history of atrial fibrillation. This was continued. He was noted to have a brief period of mild bradycardia but was asymptomatic.. He does have an ileostomy present in his abdomen however this did not look inflamed and had good output. He was utilizing his CPAP while here. Blood sugars were slightly jose vated due to steroid administration and is anticipated these will come down after discharge as steroids were stopped. A1c on admission was 8.2. He is noted to have a wound on his right great toe on the medial aspect. Per the patient this has been ongoing for some time and there was a purulent drainage at one point. Toe was noted to be red, however he states that it is improving. Culture was obtained and grew normal skin travis. Patient is a diabetic and we recommend outpatient podiatry follow-up regarding this as it does appear he is somewhat of an ingrown toenail. Patient will be discharged on 5 days of 500 mg every 8 hour Keflex. He will also be prescribed an as needed albuterol inhaler which she should take 2 puffs every 2 hours as needed. All home medications were continued on discharge. Overall he is doing very well and will be discharged home today. Recommend follow-up with primary care provider within 7 to 10 days of discharge, sooner if needed. Recommend repeat CBC, CMP, and magnesium in follow-up. Discussed discharge diuretics given pleural effusions and chronic pedal edema with Dr. Bailey, attending hospitalist. Patient does have diastolic heart failure, in which diuretics would not have a benefit. We will give a as needed Lasix dose of 20 mg as needed for greater than 3 pound weight gain in 1 day or greater than 5 pound weight gain in 1 week. PCP and c ardiology may follow-up with this. Patient was instructed to weigh himself daily and recorded in a journal, bring this with to all medical appointments. Patient instructed to resume home blood glucose checks as prior. Recommend 6- month repeat CT scan of chest as noted above due to mediastinal lymph nodes. Consider repeat chest x-ray in follow-up. - Patient Instructions Diet: Low Sodium, Diabetic Diet Activity: As Tolerated Driving: Do Not Drive (until feeling better ) Showering/Bathing: May Shower Notify Provider of: Fever, Increased Pain, Swelling and Redness, Nausea and/or Vomiting Other/Special Instructions: Follow-up with primary care provider within 7 to 10 days of discharge, sooner if needed. Follow-up with podiatry regarding toe wound. You are prescribed an antibiotic for your toe infection and your pneumonia. Take this as directed. Take this until complete, even if you are feeling 100% better. You were tested multiple times for Covid while here and were negative. We can comfortably say you do not currently have Covid pneumonia. Continue to utilize your incentive spirometer (clear/blue device you inhale through) and Acapella (green tube you blow through) for 1-2 more weeks or until symptoms resolve. Resume home medications as directed. Weigh yourself daily. Record this in a journal. Bring this journal with to all medical appointments. Contact your primary care provider if you notice a 3 pound weight gain in 1 day or 5 pound weight gain in 1 week. Continue to check your blood sugars regularly as before. Write these down and bring this with to all medical appointments as well. You may notice an increase in your blood sugars for the next few days as you are on a steroid here and these can drive up your blood sugar readings. You were given an albuterol inhaler. Please take 2 puffs as needed for shortness of breath and wheezing. You were given an as needed Lasix pill prescription. You should take this if you notice a 3 pound weight gain in 1 day or 5 pound weight gain in 1 week. Take this and then contact your primary care provider. - Discharge Plan *PRESCRIPTION DRUG MONITORING PROGRAM REVIEWED*: No *COPY OF PRESCRIPTION DRUG MONITORING REPORT IN PATIENT DARIAN: No Prescriptions/Med Rec: cephALEXin [Keflex] 500 mg PO Q8H #15 cap Furosemide [Lasix] 20 mg PO ASDIRECTED PRN #2 tab PRN Reason: Other Albuterol [Proventil HFA] 2 puff INH Q2H PRN #1 inhaler PRN Reason: SOB/Wheezing Home Medications: Home Meds Amiodarone [Cordarone] 200 mg PO BID 06/01/21 [History] Apixaban [Eliquis] 5 mg PO BID 06/01/21 [History] Calcium Carb/Mag Ox/Zinc Sulf [Oxm-Ata-Rmaw 334-134-5 mg Tab] 1 tab PO DAILY 06/01/21 [History] Ferrous Sulfate 325 mg PO DAILY 06/01/21 [History] Insulin Aspart [Insulin Aspart Flexpen] 8 units SQ TIDMEALS 06/01/21 [History] Insulin Degludec [Tresiba] 24 units SQ QAM 06/01/21 [History] Metoprolol Tartrate 50 mg PO BID 06/01/21 [History] Vitamin B Complex 1 tab PO DAILY 06/01/21 [History] buPROPion HCL [Bupropion Xl] 300 mg PO QAM 06/01/21 [History] oxyCODONE 1 - 2 tab PO DAILY PRN 06/01/21 [History] Albuterol [Proventil HFA] 2 puff INH Q2H PRN #1 inhaler 06/03/21 [Rx] Furosemide [Lasix] 20 mg PO ASDIRECTED PRN #2 tab 06/03/21 [Rx] cephALEXin [Keflex] 500 mg PO Q8H #15 cap 06/03/21 [Rx] Oxygen Therapy Mode: Room Air Patient Handouts: Hypoxia, Heart Failure, Self Care, [id number], Community- Acquired Pneumonia, Adult, Vicb-le-Kcdy, Sepsis, Self Care, Adult Forms: ED Department Discharge Referrals: Zaid Lucas DO [Ordering Only Provider] - (This is your cardiologsit, Follow up as needed ) Caden Saldana II, DPM [Physician] - 06/14/21 11:00 am (outpatient follow up for right great toe, Please arrive at 10:45) John Barrera MD [Primary Care Provider] - 06/13/21 1:00 pm (Dr. Barrera is out of the office and you will see Dr. Metzger Please arrive at 12:45) - Discharge Summary/Plan Comment DC Time >30 min.: Yes Total # of Minutes for Discharge Time: 45 - General Info Date of Service: 06/03/21 Admission Dx/Problem (Free Text: Admission Diagnosis/Problem Admission Diagnosis/Problem Pneumonia Functional Status: Reports: Pain Controlled, Tolerating Diet, Ambulating, Urinating, Incentive Spirometry, Other (Acapella ). Denies: New Symptoms - Review of Systems General: Reports: No Symptoms. Denies: Fever, Weakness, Fatigue, Malaise, Chills HEENT: Reports: No Symptoms. Denies: Headaches, Sore Throat Pulmonary: Reports: Cough, Sputum (occasional ). Denies: Shortness of Breath, Wheezing Cardiovascular: Reports: Edema (chronic ). Denies: Chest Pain, Palpitations, Dyspnea on Exertion Gastrointestinal: Reports: No Symptoms. Denies: Abdominal Pain, Constipation, Diarrhea, Nausea, Vomiting Genitourinary: Reports: No Symptoms. Denies: Pain Musculoskeletal: Reports: Back Pain (chronic ) Skin: Reports: No Symptoms. Denies: Cyanosis Neurological: Reports: No Symptoms. Denies: Confusion, Dizziness, Headache, Numbness, Pre-Existing Deficit, Tingling, Trouble Speaking, Difficulty Walking, Weakness, Gait Disturbance Psychiatric: Reports: No Symptoms - Patient Data Vitals - Most Recent: Last Vital Signs Temp 98.1 F 06/03/21 07:29 Pulse 56 L 06/03/21 07:29 Resp 20 06/03/21 07:29 BP 156/80 H 06/03/21 07:29 Pulse Ox 95 06/03/21 09:47 Weight - Most Recent: 286 lb 6.4 oz I&O - Last 24 hours: Intake & Output 06/02/21 06/03/21 06/03/21 22:59 06:59 14:59 Intake Total 1810 1750 Output Total 400 1800 Balance 1410 -50 Lab Results - Last 24 hrs: Laboratory Results - last 24 hr 06/01/21 06/02/21 06/02/21 Range/Units 08:22 06:28 17:00 WBC (4.23-9.07) K/mm3 RBC (4.63-6.08) M/mm3 Hgb (13.7-17.5) gm/dl Hct (40.1-51.0) % MCV (79.0-92.2) fl MCH (25.7-32.2) pg MCHC (32.2-35.5) g/dl RDW Std Deviation (35.1-43.9) fL Plt Count (163-337) K/mm3 MPV (9.4-12.3) fl Neut % (Auto) (34.0-67.9) % Lymph % (Auto) (21.8-53.1) % [place] % (Auto) (5.3-12.2) % Eos % (Auto) (0.8-7.0) Baso % (Auto) (0.1-1.2) % Neut # (Auto) (1.78-5.38) K/mm3 Lymph # (Auto) (1.32-3.57) K/mm3 [place] # (Auto) (0.30-0.82) K/mm3 Eos # (Auto) (0.04-0.54) K/mm3 Baso # (Auto) (0.01-0.08) K/mm3 Manual Slide Review Abnormal smear Sodium (136-145) mEq/L Potassium (3.5-5.1) mEq/L Chloride (98-107) mEq/L Carbon Dioxide (21-32) mEq/L Anion Gap (5-15) BUN (7-18) mg/dL Creatinine (0.7-1.3) mg/dL Est Cr Clr Drug Dosing mL/min Estimated GFR (MDRD) (>60) mL/min BUN/Creatinine Ratio (14-18) Glucose (70-99) mg/dL POC Glucose 211 H (70-99) mg/dL Calcium (8.5-10.1) mg/dL Magnesium (1.8-2.4) mg/dL Total Bilirubin (0.2-1.0) mg/dL AST (15-37) U/L ALT (16-63) U/L Alkaline Phosphatase (46-116) U/L C-Reactive Protein (<1.0) mg/dL Total Protein (6.4-8.2) g/dl Albumin (3.4-5.0) g/dl Globulin gm/dL Albumin/Globulin Ratio (1-2) Adenovirus (PCR) Not detected (Not Detected) B. pertussis DNA (PCR) Not detected (Not Detected) B.parapertussis DNA PCR Not detected (Not Detected) C. pneumoniae DNA (PCR) Not detected (Not Detected) Coronavirus OC43 (PCR) Not detected (Not Detected) Coronavirus HKU1 (PCR) Not detected (Not Detected) Coronavirus 229E (PCR) Not detected (Not Detected) Coronavirus NL63 (PCR) Not detected (Not Detected) Human Metapneumovir PCR Not detected (Not Detected) Influenza A (RT-PCR) Not detected (Not Detected) Influenza B (RT-PCR) Not detected (Not Detected) M. pneumoniae (PCR) Not detected (Not Detected) Parainfluenza 1 (PCR) Not detected (Not Detected) Parainfluenza 2 (PCR) Not detected (Not Detected) Parainfluenza 3 (PCR) Not detected (Not Detected) Parainfluenza 4 (PCR) Not detected (Not Detected) RSV (PCR) Not detected (Not Detected) Entero/Rhino (PCR) Not detected (Not Detected) SARS-CoV-2 (PCR) Not detected (Not Detected) SARS-CoV-2 RNA (LAN) (NEGATIVE) 06/02/21 06/03/21 06/03/21 Range/Units 20:15 05:24 05:24 WBC 15.92 H (4.23-9.07) K/mm3 RBC 4.29 L (4.63-6.08) M/mm3 Hgb 10.0 L (13.7-17.5) gm/dl Hct 33.2 L (40.1-51.0) % MCV 77.4 L (79.0-92.2) fl MCH 23.3 L (25.7-32.2) pg MCHC 30.1 L (32.2-35.5) g/dl RDW Std Deviation 46.8 H (35.1-43.9) fL Plt Count 424 H (163-337) K/mm3 MPV 10.9 (9.4-12.3) fl Neut % (Auto) 87.2 H (34.0-67.9) % Lymph % (Auto) 8.1 L (21.8-53.1) % [place] % (Auto) 4.3 L (5.3-12.2) % Eos % (Auto) 0.1 L (0.8-7.0) Baso % (Auto) 0.0 L (0.1-1.2) % Neut # (Auto) 13.90 H (1.78-5.38) K/mm3 Lymph # (Auto) 1.29 L (1.32-3.57) K/mm3 [place] # (Auto) 0.68 (0.30-0.82) K/mm3 Eos # (Auto) 0.01 L (0.04-0.54) K/mm3 Baso # (Auto) 0.00 L (0.01-0.08) K/mm3 Manual Slide Review Sodium 137 (136-145) mEq/L Potassium 3.9 (3.5-5.1) mEq/L Chloride 102 (98-107) mEq/L Carbon Dioxide 26 (21-32) mEq/L Anion Gap 12.9 (5-15) BUN 34 H (7-18) mg/dL Creatinine 1.2 (0.7-1.3) mg/dL Est Cr Clr Drug Dosing 77.68 mL/min Estimated GFR (MDRD) > 60 (>60) mL/min BUN/Creatinine Ratio 28.3 H (14-18) Glucose 198 H (70-99) mg/dL POC Glucose 291 H (70-99) mg/dL Calcium 8.6 (8.5-10.1) mg/dL Magnesium 2.1 (1.8-2.4) mg/dL Total Bilirubin 0.3 (0.2-1.0) mg/dL AST 8 L (15-37) U/L ALT 18 (16-63) U/L Alkaline Phosphatase 177 H (46-116) U/L C-Reactive Protein 4.4 H* (<1.0) mg/dL Total Protein 7.5 (6.4-8.2) g/dl Albumin 2.5 L (3.4-5.0) g/dl Globulin 5.0 gm/dL Albumin/Globulin Ratio 0.5 L (1-2) Adenovirus (PCR) (Not Detected) B. pertussis DNA (PCR) (Not Detected) B.parapertussis DNA PCR (Not Detected) C. pneumoniae DNA (PCR) (Not Detected) Coronavirus OC43 (PCR) (Not Detected) Coronavirus HKU1 (PCR) (Not Detected) Coronavirus 229E (PCR) (Not Detected) Coronavirus NL63 (PCR) (Not Detected) Human Metapneumovir PCR (Not Detected) Influenza A (RT-PCR) (Not Detected) Influenza B (RT-PCR) (Not Detected) M. pneumoniae (PCR) (Not Detected) Parainfluenza 1 (PCR) (Not Detected) Parainfluenza 2 (PCR) (Not Detected) Parainfluenza 3 (PCR) (Not Detected) Parainfluenza 4 (PCR) (Not Detected) RSV (PCR) (Not Detected) Entero/Rhino (PCR) (Not Detected) SARS-CoV-2 (PCR) (Not Detected) SARS-CoV-2 RNA (LAN) (NEGATIVE) 06/03/21 06/03/21 06/03/21 Range/Units 06:21 09:40 10:46 WBC (4.23-9.07) K/mm3 RBC (4.63-6.08) M/mm3 Hgb (13.7-17.5) gm/dl Hct (40.1-51.0) % MCV (79.0-92.2) fl MCH (25.7-32.2) pg MCHC (32.2-35.5) g/dl RDW Std Deviation (35.1-43.9) fL Plt Count (163-337) K/mm3 MPV (9.4-12.3) fl Neut % (Auto) (34.0-67.9) % Lymph % (Auto) (21.8-53.1) % [place] % (Auto) (5.3-12.2) % Eos % (Auto) (0.8-7.0) Baso % (Auto) (0.1-1.2) % Neut # (Auto) (1.78-5.38) K/mm3 Lymph # (Auto) (1.32-3.57) K/mm3 [place] # (Auto) (0.30-0.82) K/mm3 Eos # (Auto) (0.04-0.54) K/mm3 Baso # (Auto) (0.01-0.08) K/mm3 Manual Slide Review Sodium (136-145) mEq/L Potassium (3.5-5.1) mEq/L Chloride (98-107) mEq/L Carbon Dioxide (21-32) mEq/L Anion Gap (5-15) BUN (7-18) mg/dL Creatinine (0.7-1.3) mg/dL Est Cr Clr Drug Dosing mL/min Estimated GFR (MDRD) (>60) mL/min BUN/Creatinine Ratio (14-18) Glucose (70-99) mg/dL POC Glucose 178 H 197 H (70-99) mg/dL Calcium (8.5-10.1) mg/dL Magnesium (1.8-2.4) mg/dL Total Bilirubin (0.2-1.0) mg/dL AST (15-37) U/L ALT (16-63) U/L Alkaline Phosphatase (46-116) U/L C-Reactive Protein (<1.0) mg/dL Total Protein (6.4-8.2) g/dl Albumin (3.4-5.0) g/dl Globulin gm/dL Albumin/Globulin Ratio (1-2) Adenovirus (PCR) (Not Detected) B. pertussis DNA (PCR) (Not Detected) B.parapertussis DNA PCR (Not Detected) C. pneumoniae DNA (PCR) (Not Detected) Coronavirus OC43 (PCR) (Not Detected) Coronavirus HKU1 (PCR) (Not Detected) Coronavirus 229E (PCR) (Not Detected) Coronavirus NL63 (PCR) (Not Detected) Human Metapneumovir PCR (Not Detected) Influenza A (RT-PCR) (Not Detected) Influenza B (RT-PCR) (Not Detected) M. pneumoniae (PCR) (Not Detected) Parainfluenza 1 (PCR) (Not Detected) Parainfluenza 2 (PCR) (Not Detected) Parainfluenza 3 (PCR) (Not Detected) Parainfluenza 4 (PCR) (Not Detected) RSV (PCR) (Not Detected) Entero/Rhino (PCR) (Not Detected) SARS-CoV-2 (PCR) (Not Detected) SARS-CoV-2 RNA (ALN) Negative (NEGATIVE) [facility]ON Results - Last 24 hrs: Microbiology 06/01/21 09:12 Blood Culture - Preliminary Blood - Venous - Lab Draw 06/01/21 09:00 Blood Culture - Preliminary Blood - Venous 06/01/21 16:15 Streptococcus pneumoniae Antigen (M - Final Urine 06/01/21 13:00 Gram Stain - Final Toe, Right - Right Big Med Orders - Current: Current Medications Acetaminophen (Acetaminophen 325 Mg Tab) 650 mg PO Q4H PRN PRN Reason: Pain (Mild 1-3)/fever Albuterol (Albuterol 6.7 Gm Inhaler) 0 gm INH Q2H PRN PRN Reason: SOB/Wheezing Last Admin: 06/03/21 09:47 Dose: 2 puff Documented by: Albuterol/Ipratropium (Albuterol/Ipratropium 3.0-0.5 Mg/3 Ml Neb Soln) 3 ml NEB QIDRT PRN PRN Reason: Shortness Of Breath/wheezing Amiodarone HCl (Amiodarone 200 Mg Tab) 200 mg PO BID [facility] Last Admin: 06/03/21 09:31 Dose: 200 mg Documented by: Apixaban (Apixaban 5 Mg Tab) 5 mg PO BID [facility] Last Admin: 06/03/21 09:32 Dose: 5 mg Documented by: Bupropion HCl (Bupropion 150 Mg Tab.Er) 300 mg PO DAILY [facility] Last Admin: 06/03/21 09:31 Dose: 300 mg Documented by: Docusate Sodium (Docusate Sodium 100 Mg Cap) 100 mg PO Q12H PRN PRN Reason: Constipation Famotidine (Famotidine 20 Mg Tab) 20 mg PO BID [facility] Last Admin: 06/03/21 09:34 Dose: Not Given Documented by: Ferrous Sulfate (Ferrous Sulfate 324 Mg Tab.Ec) 324 mg PO DAILY [facility] Last Admin: 06/03/21 09:32 Dose: 324 mg Documented by: Ceftriaxone Sodium 2 gm/ (Sodium Chloride) 100 mls @ 200 mls/hr IV Q24H [facility] Stop: 06/06/21 10:59 Last Admin: 06/03/21 09:30 Dose: 200 mls/hr Documented by: Insulin Glargine (Insulin Glarg,Human.Rec.Analog 100 Unit/Ml) 12 unit SUBCUT DAILY [facility] Last Admin: 06/03/21 09:32 Dose: 12 units Documented by: Insulin Human Lispro (Insulin Lispro 100 Unit/Ml 10 Ml Vial) 0 unit SUBCUT QIDACANDBED [facility]; Protocol Last Admin: 06/03/21 11:25 Dose: 2 units Documented by: Metoprolol Tartrate (Metoprolol Tartrate 50 Mg Tab) 50 mg PO BID [facility] Last Admin: 06/03/21 09:34 Dose: Not Given Documented by: Ondansetron HCl (Ondansetron 4 Mg/2 Ml Sdv) 4 mg IV Q6H PRN PRN Reason: Nausea/Vomiting Oxycodone HCl (Oxycodone 5 Mg Tab) 5 - 10 mg PO DAILY PRN PRN Reason: Pain Discontinued Medications Azithromycin (Azithromycin 250 Mg Tab) 500 mg PO ONETIME ONE Stop: 06/03/21 12:31 Azithromycin (Azithromycin 250 Mg Tab) 500 mg PO ONETIME ONE Stop: 06/03/21 11:31 Last Admin: 06/03/21 11:28 Dose: 500 mg Documented by: Dexamethasone (Dexamethasone 4 Mg Tab) 6 mg PO DAILY [facility] Stop: 06/10/21 09:01 Last Admin: 06/03/21 09:34 Dose: 6 mg Documented by: Diphtheria/Tetanus/Acell Pertussis (Diphtheria,Pertussis(Acell),Tetanus Vaccine 0.5 Ml Syringe) 0.5 ml IM .ONCE ONE Stop: 06/01/21 13:31 Last Admin: 06/02/21 15:38 Dose: Not Given Documented by: Furosemide (Furosemide 40 Mg/4 Ml Vial) 40 mg IVPUSH NOW ONE Stop: 06/01/21 12:34 Last Admin: 06/01/21 14:33 Dose: 40 mg Documented by: Ceftriaxone Sodium 2 gm/ (Sodium Chloride) 100 mls @ 200 mls/hr IV Q24H [facility] Last Admin: 06/01/21 10:35 Dose: 200 mls/hr Documented by: Azithromycin 500 mg/ Sodium (Chloride) 250 mls @ 250 mls/hr IV Q24H [facility] Stop: 06/03/21 13:29 Last Admin: 06/02/21 12:38 Dose: 250 mls/hr Documented by: - Exam Quality Assessment: Reports: DVT Prophylaxis. Denies: Supplemental Oxygen, Urine Catheter General: Reports: Alert, Oriented, Cooperative, No Acute Distress HEENT: Reports: Pupils Equal, Pupils Reactive, Mucous Membr. Moist/[place] Neck: Reports: Supple, Trachea Midline Lungs: Reports: Normal Respiratory Effort, Rhonchi Cardiovascular: Reports: Regular Rate, Regular Rhythm GI/Abdominal Exam: Normal Bowel Sounds, Soft, Non-Tender, No Distention, Other (Ileostomy present in right upper abdomen.) (Male) Exam: Deferred Rectal (Males) Exam: Deferred Back Exam: Reports: Normal Inspection, Full Range of Motion Extremities: Normal Inspection, Normal Range of Motion, Non-Tender, Normal Capillary Refill, Pedal Edema (Trace), Other (Wound on medial aspect of right great toe.) Skin: Reports: Warm, Dry, Intact Neurological: Reports: No New Focal Deficit Psy/Mental Status: Reports: Alert, Normal Affect, Normal Mood
== END 2021-06-03 13:57 | disposition home or self-care (01) | DRG 194 ==
LOC: JD.ED 08:09 → JD.MS 11:04
PROVIDERS: ADMIT Family Medicine; ATTEND Family Medicine
PROC: 3E0DX3Z Introduction of Anti-inflammatory into Mouth and Pharynx, External Approach (ICD-10-PCS; principal; 2021-06-01)
DX: I11.0 Hypertensive heart disease with heart failure (principal); J18.9 Pneumonia, unspecified organism; E78.5 Hyperlipidemia, unspecified; G47.30 Sleep apnea, unspecified; K21.9 Gastro-esophageal reflux disease without esophagitis; I50.31 Acute diastolic (congestive) heart failure; K58.9 Irritable bowel syndrome, unspecified; M54.9 Dorsalgia, unspecified; G89.29 Other chronic pain; Z20.822 Contact with and (suspected) exposure to COVID-19; E66.9 Obesity, unspecified; S91.101A Unspecified open wound of right great toe without damage to nail, initial encounter; Z88.8 Allergy status to other drugs, medicaments and biological substances; Z87.19 Personal history of other diseases of the digestive system; Z87.09 Personal history of other diseases of the respiratory system; Z79.01 Long term (current) use of anticoagulants; Z68.37 Body mass index [BMI] 37.0-37.9, adult; Z86.711 Personal history of pulmonary embolism; Z79.4 Long term (current) use of insulin; Z79.899 Other long term (current) drug therapy; Z93.2 Ileostomy status
CPT/HCPCS: 36415; 36600; 71045; 71045-26; 71250; 71250-26; 80053; 82728; 82803; 82947; 83036; 83605; 83615; 83735; 83880; 84145; 84484; 85007; 85025; 85027; 85379; 85610; 85730; 86140; 86738; 87040; 87070; 87205; 87486; 87581; 87633; 87798; 87899; 93005; 93010; 94640; 94668; 94762; 96374; 99222; 99233; 99239; 99284; 99285-25; A9270-GY; J0456; J0696; J1815-GY; J1940; J7050; J8540; U0002

== ENCOUNTER 2022-07-24 14:30 | Emergency (ER) | payer BC, OTHER ==
[2022-07-24] MEDS ORDERED: Lactated Ringers 1,000 ML IV SCH (15:45)
[2022-07-24] MEDS ORDERED: Tamsulosin 0.4 MG Cap.ER PO ONE (19:19)
[2022-07-24] MEDS ORDERED: Ondansetron 4 MG Tab.DIS PO ONE (19:25)
[2022-07-24 20:10] VITALS: BP 173/91; PULSE 95
== END 2022-07-24 20:10 | disposition home or self-care (01) ==
LOC: JD.ED 14:30
DX: N20.0 Calculus of kidney (principal); I10 Essential (primary) hypertension; E11.9 Type 2 diabetes mellitus without complications; E66.9 Obesity, unspecified; Z68.41 Body mass index [BMI] 40.0-44.9, adult; Z88.6 Allergy status to analgesic agent; Z88.8 Allergy status to other drugs, medicaments and biological substances; Z79.899 Other long term (current) drug therapy; Z79.01 Long term (current) use of anticoagulants; Z79.4 Long term (current) use of insulin
CPT/HCPCS: 36415; 74176; 80053; 81001; 83690; 85025; 85610; 85730; 96360; 96361; 99284; A9270; J7120

== ENCOUNTER 2023-06-26 12:11 | Emergency (ER) | payer BC, MEDICAID ==
[2023-06-26] MEDS ORDERED: Sodium Chloride 0.9% 1,000 ML IV SCH (13:15)
[2023-06-26 13:47] LABS: BASOPHILS ABSOLUTE AUTO 0.1 K/mm3 (0.0-0.2); BASOPHILS PERCENT AUTO 0.4 % (0.0-1.0); EOSINOPHILS ABSOLUTE AUTO 0.3 K/mm3 (0.0-0.4); EOSINOPHILS PERCENT AUTO 1.9 % (0.0-6.0); HEMOGLOBIN 14.4 gm/dl (14.0-18.0); IMMATURE GRAN ABSOLUTE AUTO 0.09 K/mm3 (0.00-0.05); IMMATURE GRAN PERCENT AUTO 0.6 % (0.0-0.4); LYMPHOCYTES ABSOLUTE AUTO 1.7 K/mm3 (1.0-4.8); LYMPHOCYTES PERCENT AUTO 11.2 % (24.0-44.0); MEAN CORPUSCULAR HEMOGLOBIN 27.6 pg (28.0-32.0); MEAN CORPUSCULAR HGB CONC 32.7 g/dl (32.0-36.0); MEAN CORPUSCULAR VOLUME 84.3 fl (83.0-99.0); MEAN PLATELET VOLUME 10.3 fl (9.4-12.4); MONOCYTES ABSOLUTE AUTO 0.5 K/mm3 (0.0-0.8); MONOCYTES PERCENT AUTO 3.5 % (0.0-8.0); NEUTROPHILS ABSOLUTE AUTO 12.8 K/mm3 (1.8-7.7); NEUTROPHILS PERCENT AUTO 82.4 % (41.0-71.0); PLATELET COUNT,PLT 407 K/mm3 (150-400); RED BLOOD CELL COUNT 5.22 M/mm3 (4.52-5.90); WHITE BLOOD CELL COUNT,WBC 15.52 K/mm3 (3.9-11.3)
[2023-06-26 14:12] LABS: A/G RATIO 0.7 (1-2); ALBUMIN 3.4 g/dl (3.4-5.0); ANION GAP 14.6 (5-15); BILIRUBIN TOTAL 0.4 mg/dL (0.2-1.0); BUN/CREATININE RATIO 13.7 (14-18); CALCIUM 9.4 mg/dL (8.5-10.1); CREATININE 1.9 mg/dL (0.7-1.3); EST CRCL DRUG DOSING (CG) 46.51 mL/min; MAGNESIUM 2.1 mg/dL (1.8-2.4); POTASSIUM,K 3.6 mEq/L (3.5-5.1); PROTEIN TOTAL,TP 8.4 g/dl (6.4-8.2)
[2023-06-26] MEDS ORDERED: Iopamidol 755 Mg/ML 100 ML Bottle IVPUSH ONE (14:37)
[2023-06-26 14:45] LABS: APPEARANCE,URINE CLEAR (Clear); BILIRUBIN,URINE NEGATIVE (Negative); COLOR,URINE YELLOW (Yellow); GLUCOSE,URINE 2+ (Negative); KETONES,URINE NEGATIVE (Negative); LEUKOCYTE ESTERASE,URINE NEGATIVE (Negative); NITRITE,URINE NEGATIVE (Negative); OCCULT BLOOD,URINE TRACE-INTACT (Negative); PROTEIN,URINE 3+ (Negative); UROBILINOGEN,URINE 0.2 (0.2-1.0)
[2023-06-26 14:57] LABS: BACTERIA,URINE MODERATE /hpf (FEW); MUCUS,URINE MANY /hpf (FEW); RBC,URINE 0-5 /hpf (0-5); SQUAMOUS EPITHELIAL CELLS,UR 0-5 /hpf (0-5); WBC,URINE 0-5 /hpf (0-5)
[2023-06-26 14:58] LABS: LACTIC ACID 2.1 mmol/L (0.4-2.0)
[2023-06-26] MEDS ORDERED: Sodium Chloride 0.9% 10 ML Syringe FLUSH PRN (15:05)
[2023-06-26] MEDS ORDERED: Sodium Chloride 0.9% 45 ML IV SCH (15:15)
[2023-06-26 17:28] VITALS: BP 119/60
[2023-06-26 18:05] VITALS: PULSE 103
== END 2023-06-26 17:29 | disposition home or self-care (01) ==
LOC: JD.ED 12:11
DX: R42 Dizziness and giddiness (principal); I48.19 Other persistent atrial fibrillation; E66.9 Obesity, unspecified; E11.9 Type 2 diabetes mellitus without complications; I10 Essential (primary) hypertension; Z79.4 Long term (current) use of insulin; Z79.01 Long term (current) use of anticoagulants; Z79.899 Other long term (current) drug therapy; Z91.048 Other nonmedicinal substance allergy status; Z91.018 Allergy to other foods; Z88.8 Allergy status to other drugs, medicaments and biological substances
CPT/HCPCS: 36415; 71046; 71275; 80053; 81001; 82947; 83605; 83735; 83880; 84484; 85025; 85379; 93005; 96360; 99285; J3490; J7030; Q9967